=== PATIENT | female | born 1945 | race Caucasian/White ===

== ENCOUNTER 2019-05-11 13:32 | Inpatient (IN) | payer MEDICARE, OTHER ==
[2019-05-11] MEDS ORDERED: Potassium Replacement Protocol 1 EACH MISC MISCELLANE PRN (18:56)
[2019-05-11] MEDS ORDERED: LEVOFLOXACIN 500MG-D5W PMX 500 MG in DEXTROSE/WATER 1 100ML.BAG IVPB SCH (19:00)
[2019-05-11] MEDS ORDERED: ONDANSETRON 4 MG TAB PO PRN (19:03)
[2019-05-11] MEDS: SODIUM CHLORIDE 0.9% 1,000 ML IV SCH (20:25)
[2019-05-11] MEDS: PANTOPRAZOLE 40 MG/10 ML VIAL IVP SCH (20:37)
[2019-05-11] MEDS: POTASSIUM CHLORIDE 10 MEQ in WATER FOR INJECTION 1 100ML.BAG IVPB SCH ×2 (21:57→22:54)
[2019-05-12] MEDS: HEPARIN SODIUM,PORCINE 5,000 UNIT/ML 1 ML VIAL SQ SCH ×4 (00:01→23:46)
[2019-05-12] MEDS: MORPHINE SULFATE 2 MG/ML SYRINGE IVP PRN ×2 (05:34→12:33)
[2019-05-12 06:39] LABS: Anisocytosis Slight; Basophils % (A) 0 %; Eosinophils % (A) 0 %; HCT 25.2 % (34.0-46.0); HGB 7.8 gm/dL (11.4-16.0); Hypochromasia Slight; Lymphocytes # (A) 1.1 k/uL (1.0-4.8); Lymphocytes % (A) 12 %; MCH 22.8 pg (25.0-35.0); MCHC 31.1 g/dL (31.0-37.0); MCV 73.5 fL (80.0-100.0); Mean Platelet Volume 6.8; Microcytosis Moderate; Monocytes # (A) 0.9 k/uL (0-1.0); Monocytes % (A) 10 %; Neutrophils # (A) 6.6 k/uL (1.3-7.7); Neutrophils % (A) 74 %; Platelet Count 508 k/uL (150-450); RBC 3.43 m/uL (3.80-5.40); RDW 16.5 % (11.5-15.5)
[2019-05-12 06:56] LABS: INR 1.4 (<1.2); Prothrombin Time 13.5 sec (9.0-12.0)
[2019-05-12 06:58] LABS: ALT 11 U/L (4-34); AST 18 U/L (14-36); African American GFR (CKD) >90 (>60 ml/min/1.73 sqM); Albumin 2.4 g/dL (3.5-5.0); Alkaline Phosphatase 64 U/L (38-126); Anion Gap 11 mmol/L; Blood Urea Nitrogen 7 mg/dL (7-17); Carbon Dioxide 19 mmol/L (22-30); Chloride 103 mmol/L (98-107); Glucose 85 mg/dL (74-99); Non-African American GFR(CKD) >90 (>60 ml/min/1.73 sqM); Potassium 3.3 mmol/L (3.5-5.1); Sodium 133 mmol/L (137-145); Total Bilirubin 0.3 mg/dL (0.2-1.3); Total Protein 5.2 g/dL (6.3-8.2)
[2019-05-12] MEDS: metroNIDAZOLE-NS PMX 500 MG in SALINE 1 100ML.BAG IVPB SCH ×4 (08:10→23:44)
[2019-05-12] MEDS: PANTOPRAZOLE 40 MG/10 ML VIAL IVP SCH ×2 (08:10→20:49)
[2019-05-12 11:30] VITALS: BMI 23.2
[2019-05-12] MEDS ORDERED: MAGNESIUM CITRATE 296 ML BOTTLE PO ONE (11:47)
[2019-05-12] MEDS: SODIUM CHLORIDE 0.9% 1,000 ML IV SCH ×2 (12:13→15:27)
[2019-05-12] MEDS: POTASSIUM CHLORIDE 10 MEQ in WATER FOR INJECTION 1 100ML.BAG IVPB SCH ×4 (12:34→20:50)
--- NOTE | 2019-05-12 14:45 | P.HPIM ---
History of Present Illness 73-year-old the female was transferred from [facility] patient presents today with symptoms of gastric surgery reflux disease with epigastric sharp abdominal pain and nausea vomiting going on for 2 days epigastric abdomin al pain moderate severity has been going on for about 3 weeks. Patient is bit hyponatremic from nausea vomiting. Because of abdominal pain patient underwent CAT scan of the abdomen as well as chest which showed multiple nodular lesions in the chest along with a possible cancerous lesion in the cecum and a lesion in the liver. Patient will undergo upper GI endoscopy endoscopy tomorrow with possible biopsy of the cecal area. She used to smoke in the past quit smoking since 3 weeks since his been sick Review of Systems REVIEW OF SYSTEMS: CONSTITUTIONAL: No fever, no malaise, no fatigue. HEENT: No recent visual problems or hearing problems. Denied any sore throat. CARDIOVASCULAR: No chest pain, orthopnea, PND, no palpitations, no syncope. PULMONARY: No shortness of breath, no cough, no hemoptysis. GASTROINTESTINAL: No diarrhea. NEUROLOGICAL: No headaches, no weakness, no numbness. HEMATOLOGICAL: Denies any bleeding or petechiae. GENITOURINARY: Denies any burning micturition, frequency, or urgency. MUSCULOSKELETAL/RHEUMATOLOGICAL: Denies any joint pain, swelling, or any muscle pain. ENDOCRINE: Denies any polyuria or polydipsia. The rest of the 14-point review of systems is negative. Past Medical History Past Medical History: Liver Disease Additional Past Medical History / Comment(s): Patient states, "Hx. of Hepatitis C" for which she received treatment. Also states that she has early Osteoporosis. Vaginal childbirth x 5. History of Any Multi-Drug Resistant Organisms: None Reported Past Surgical History: No Surgical Hx Reported Additional Past Anesthesia/Blood Transfusion Reaction / Comment(s): No history Past Psychological History: No Psychological Hx Reported Smoking Status: Current every day smoker Past Alcohol Use History: Daily Additional Past Alcohol Use History / Comment(s): Has a daily drink with dinner. Medications and Allergies Home Medications Medication Instructions Recorded Confirmed Type Aspirin 81 mg PO DAILY 05/11/19 05/11/19 History Calcium Carbonate 500 mg PO DAILY 05/11/19 05/11/19 History Multivitamins, Thera [Multivitamin 1 tab PO DAILY 05/11/19 05/11/19 History (formulary)] Vitamin D3(Unknown Dose) 1 tab PO DAILY 05/11/19 05/11/19 History Allergies Allergy/AdvReac Type Severity Reaction Status Date / Time No Known Allergies Allergy Unverified 05/11/19 16:24 Physical Exam Vitals: Vital Signs Temp Pulse Resp BP Pulse Ox 05/12/19 11:24 98.4 F 89 16 150/72 99 05/12/19 04:00 99.0 F 92 16 130/67 96 05/11/19 22:31 16 05/11/19 20:45 98.3 F 84 16 149/71 99 05/11/19 16:29 99.2 F 107 H 17 134/55 98 Intake and Output 05/11/19 05/12/19 05/12/19 22:59 06:59 14:59 Intake Total 976 759 4288 Balance 790 638 8228 Intake: Intake, IV Titration 250 1200 Amount Levofloxacin 500Mg-D5w 100 Pmx 500 mg In Dextrose/ Water 1 100ml.bag @ 100 mls/hr IVPB Q24H MICHAEL Rx#: [id number] Potassium Chloride 10 meq 100 In Water For Injection 1 100ml.bag @ 100 mls/hr IVPB Q1HR MICHAEL Rx#: [id number] Sodium Chloride 0.9% 1, 150 1000 000 ml @ 125 mls/hr IV . Q8H MICHAEL Rx#:[id number] metroNIDAZOLE-NS PMX 500 100 mg In Saline 1 100ml.bag @ 100 mls/hr IVPB Q8HR MICHAEL Rx#:[id number] Oral 240 590 Other: # Voids 1 2 Weight 123 kg 55.792 kg PHYSICAL EXAMINATION: GENERAL: The patient is alert and oriented x3, not in any acute distress. Well developed, well nourished. HEENT: Pupils are round and equally reacting to light. EOMI. No scleral icterus. No conjunctival pallor. Normocephalic, atraumatic. No pharyngeal erythema. No thyromegaly. CARDIOVASCULAR: S1 and S2 present. No murmurs, rubs, or gallops. PULMONARY: Chest is clear to auscultation, no wheezing or crackles. ABDOMEN: Soft, nontender, nondistended, normoactive bowel sounds. No palpable organomegaly. MUSCULOSKELETAL: No joint swelling or deformity. EXTREMITIES: No cyanosis, clubbing, or pedal edema. NEUROLOGICAL: Gross neurological examination did not reveal any focal deficits. SKIN: No rashes. Results CBC & Chem 7: 05/12/19 06:24 05/12/19 06:24 Labs: Abnormal Lab Results - Last 24 Hours (Table) 05/12/19 05/12/19 05/12/19 Range/Units 06:24 06:24 06:24 RBC 3.43 L (3.80-5.40) m/uL Hgb 7.8 L (11.4-16.0) gm/dL Hct 25.2 L (34.0-46.0) % MCV 73.5 L (80.0-100.0) fL MCH 22.8 L (25.0-35.0) pg RDW 16.5 H (11.5-15.5) % Plt Count 508 H (150-450) k/uL PT 13.5 H (9.0-12.0) sec INR 1.4 H (<1.2) Sodium 133 L (137-145) mmol/L Potassium 3.3 L (3.5-5.1) mmol/L Carbon Dioxide 19 L (22-30) mmol/L Calcium 8.0 L (8.4-10.2) mg/dL Total Protein 5.2 L (6.3-8.2) g/dL Albumin 2.4 L (3.5-5.0) g/dL Thrombosis Risk Factor Assmnt - Choose All That Apply Any of the Below Risk Factors Present?: Yes Each Risk Factor Represents 2 Points: Age 61-74 years Thrombosis Risk Factor Assessment Total Risk Factor Score: 2 Thrombosis Risk Factor Assessment Level: Low Risk Assessment and Plan Plan: - epigastric abdominal pain along with the nausea vomiting: Probably secondary to peptic ulcer disease or gastritis patient will be continued on Protonix --Multiple pulmonary nodules probably metastatic disease from the: Computed tomography scan also showed some mild colitis will undergo colonoscopy tomorrow. -Cecal lesion or mass colonoscopy tomorrow -Hypovolemic hyponatremia IV fluids will be continued -Hypokalemia secondary to IV fluids and natriuresis from IV fluids will replace as needed -Nicotine abuse: Counseling was provided -Chronic iron deficiency anemia
--- NOTE | 2019-05-12 14:50 | P.CONS ---
History of Present Illness - Reason for Consult Consult date: 05/12/19 Cecal Mass, Abn in Liver and lung Requesting physician: Bria Powers - Chief Complaint Diarrhea, Weight loss, Weakness, Decreased po intake - History of Present Illness Nadira is a very pleasant 73 year old woman who originally presented to [facility] with complaints of diarrhea, decreased PO intake, weight loss, and overall generalized weakness. She states it came on suddenly approximately 3 weeks ago. 10lb weight loss in past 3 weeks. She has not seen a doctor in 40+ years per patient. She is a daily smoker. Denied alcohol. She had a CT scan at outside hospital which revealed suspicious areas in colon, lung and liver. She was then transferred to [facility] for further evaluation. She is scheduled to have colonoscopy and EGD tomorrow. Oncology has been consulted regarding these abnormal findings. On assessment she states she is feeling better. She has had adversions to all food recently and diarrhea. Her sister had bladder cancer and her brother had cancer as well, she did not recall the type. She has good support at home, lives with . Review of Systems A 14 point review of systems assessed and completed and all negative except HPI. Past Medical History Past Medical History: Liver Disease Additional Past Medical History / Comment(s): Patient states, "Hx. of Hepatitis C" for which she received treatment. Also states that she has early O steoporosis. Vaginal childbirth x 5. History of Any Multi-Drug Resistant Organisms: None Reported Past Surgical History: No Surgical Hx Reported Additional Past Anesthesia/Blood Transfusion Reaction / Comm: No history Past Psychological History: No Psychological Hx Reported Smoking Status: Current every day smoker Past Alcohol Use History: Daily Additional Past Alcohol Use History / Comment(s): Has a daily drink with dinner. Medications and Allergies Home Medications Medication Instructions Recorded Confirmed Type Aspirin 81 mg PO DAILY 05/11/19 05/11/19 History Calcium Carbonate 500 mg PO DAILY 05/11/19 05/11/19 History Multivitamins, Thera [Multivitamin 1 tab PO DAILY 05/11/19 05/11/19 History (formulary)] Vitamin D3(Unknown Dose) 1 tab PO DAILY 05/11/19 05/11/19 History Allergies Allergy/AdvReac Type Severity Reaction Status Date / Time No Known Allergies Allergy Unverified 05/11/19 16:24 Physical Exam Vitals: Vital Signs Temp Pulse Resp BP Pulse Ox 05/12/19 11:24 98.4 F 89 16 150/72 99 05/12/19 04:00 99.0 F 92 16 130/67 96 05/11/19 22:31 16 05/11/19 20:45 98.3 F 84 16 149/71 99 05/11/19 16:29 99.2 F 107 H 17 134/55 98 Intake and Output 05/11/19 05/12/19 05/12/19 22:59 06:59 14:59 Intake Total 490 590 Balance 490 590 Intake: Intake, IV Titration 250 Amount Levofloxacin 500Mg-D5w 100 Pmx 500 mg In Dextrose/ Water 1 100ml.bag @ 100 mls/hr IVPB Q24H [facility] Rx#: [id number] Sodium Chloride 0.9% 1, 150 000 ml @ 75 mls/hr IV . [id number] MICHAEL Rx#:[id number] Oral 240 590 Other: # Voids 1 2 Weight 123 kg 55.792 kg Gen: Alert and oriented NAD Head NCAT Neck Supple Lungs: Scattered wheezes, no increased effort Abdomen: Tender to palpation, BS x4 Heart: Tachy, reg Extremities: No edema Neuro: Non-focal Mood Calm Results CBC & Chem 7: 05/12/19 06:24 05/12/19 06:24 Labs: Abnormal Lab Results - Last 24 Hours (Table) 05/12/19 05/12/19 05/12/19 Range/Units 06:24 06:24 06:24 RBC 3.43 L (3.80-5.40) m/uL Hgb 7.8 L (11.4-16.0) gm/dL Hct 25.2 L (34.0-46.0) % MCV 73.5 L (80.0-100.0) fL MCH 22.8 L (25.0-35.0) pg RDW 16.5 H (11.5-15.5) % Plt Count 508 H (150-450) k/uL PT 13.5 H (9.0-12.0) sec INR 1.4 H (<1.2) Sodium 133 L (137-145) mmol/L Potassium 3.3 L (3.5-5.1) mmol/L Carbon Dioxide 19 L (22-30) mmol/L Calcium 8.0 L (8.4-10.2) mg/dL Total Protein 5.2 L (6.3-8.2) g/dL Albumin 2.4 L (3.5-5.0) g/dL CT scan - abdomen: report reviewed CT scan - chest: report reviewed CT scan - pelvis: report reviewed Assessment and Plan Plan: Assessment and Recommendations: 1. Suspicious Lung Nodules:Bilateral - Positive left Hilar Adenopathy, largest 3.2cm 2. Suspicious Liver Lesions: - approx 15 with largest 5.4cm in the right lobe 3. Inflammatory changes in cecum: - Colitis versus other - Malignancy can not be ruled out Plan: - Colonoscopy tomorrow - Check CEA - Discussed with primary team and patient Thank you for allowing us to participate in the care of this patient, we will follow along with you GRACIE Chan
[2019-05-12] MEDS ORDERED: PEG 3350-NA SULF,BICARB,CL/KCL 4,000 ML BOTTLE PO ONE (16:00)
[2019-05-12] MEDS ORDERED: BISACODYL 5 MG TABLET.DR PO PRN (17:00)
--- NOTE | 2019-05-12 17:54 | P.CONS ---
History of Present Illness - Reason for Consult Consult date: 05/12/[address] imaging, abdominal pain, microcytic anemia Requesting physician: Yuli Jacome - Chief Complaint Abdominal pain - History of Present Illness 73-year-old female who reports prior history of tobacco abuse discontinued 3 weeks ago had no other medical history (states she has not been in the hospital since her last ) who presented to the hospital initially with complaints of abdominal pain. The patient reported 3 weeks of pain in the epigastric region and left upper quadrant of her abdomen. She had 1-2 episodes of diarrhea which has been present over the past few days. She denies any prior history of similar complaints and reports no associated 10 pound weight loss due to decreased oral intake. She denies any prior EGD or colonoscopy and states that her had a perforation with this colonoscopy and this likely that a role in her not having a colonoscopy in the past. She did have testing with Cologard which she states was performed this year and was negative. She does report some reflux and difficulty swallowing over the past few days. She denies any signs or symptoms of GI bleeding reporting liquid brown stools over the past few days with no hematochezia or melena. She also reports abdominal bloating. She reports a past history of hepatitis C which she reports occurred at the age of 15 and she believes was treated in the past. Imaging performed the outside hospital was significant for computed tomography scan of the chest abdomen and pelvis with suspicious nodules in the lungs and liver suspicious for metastatic disease as well as mild pericolonic inflammatory changes of the cecum suspicious for a mass. Review of Systems REVIEW OF SYSTEMS: CONSTITUTIONAL: Denies any fevers, chills, but does report 10 pounds weight loss over the past few weeks due to decreased oral intake. CARDIOVASCULAR: Denies any chest pain, palpitations high or low blood pressures RESPIRATORY: Denies any shortness of breath, hemoptysis or cough. GENITOURINARY: No dysuria or hematuria. MUSCULOSKELETAL: No weakness reported. SKIN: Denies any new rashes or lesions, jaundice or pallor. PSYCHIATRIC: Denies any depression or anxiety. NEUROLOGY: Denies headache, denies any new focal deficits. EARS/NOSE/THROAT: No recent hearing change, congestion, nasal discharge or sore throat. EYES: No pain in eyes, discharge or change in vision. GASTROINTESTINAL: As per HPI. Past Medical History Past Medical History: Liver Disease Additional Past Medical History / Comment(s): Patient states, "Hx. of Hepatitis C" for which she received treatment. Also states that she has early Osteoporosis. Vaginal childbirth x 5. History of Any Multi-Drug Resistant Organisms: None Reported Past Surgical History: No Surgical Hx Reported Additional Past Anesthesia/Blood Transfusion Reaction / Comm: No history Past Psychological History: No Psychological Hx Reported Smoking Status: Current every day smoker Past Alcohol Use History: Daily Additional Past Alcohol Use History / Comment(s): Has a daily drink with dinner. Additional History: Family history: Reviewed with the patient in noncontributory to current medical presentation, although she does state a sister did have bladder cancer and a brother who had cancer of unknown etiology. Medications and Allergies Home Medications Medication Instructions Recorded Confirmed Type Aspirin 81 mg PO DAILY 05/11/19 05/11/19 History Calcium Carbonate 500 mg PO DAILY 05/11/19 05/11/19 History Multivitamins, Thera [Multivitamin 1 tab PO DAILY 05/11/19 05/11/19 History (formulary)] Vitamin D3(Unknown Dose) 1 tab PO DAILY 05/11/19 05/11/19 History Allergies Allergy/AdvReac Type Severity Reaction Status Date / Time No Known Allergies Allergy Unverified 05/11/19 16:24 Physical Exam Vitals: Vital Signs Temp Pulse Resp BP Pulse Ox 05/12/19 04:00 99.0 F 92 16 130/67 96 05/11/19 22:31 16 05/11/19 20:45 98.3 F 84 16 149/71 99 05/11/19 16:29 99.2 F 107 H 17 134/55 98 Intake and Output 05/11/19 05/12/19 05/12/19 22:59 06:59 14:59 Intake Total 490 590 Balance 490 590 Intake: Intake, IV Titration 250 Amount Levofloxacin 500Mg-D5w 100 Pmx 500 mg In Dextrose/ Water 1 100ml.bag @ 100 mls/hr IVPB Q24H MICHAEL Rx#: [id number] Sodium Chloride 0.9% 1, 150 000 ml @ 75 mls/hr IV . [id number] MICHAEL Rx#:[id number] Oral 240 590 Other: # Voids 1 2 Weight 123 kg On physical examination, patient appears comfortable in no apparent distress. HEAD: Normocephalic, atraumatic. EYES: No scleral icterus. No conjunctival injection. MOUTH: No lesions, tongue midline. NECK: Trachea midline, no gross abnormalities. CHEST: Clear to auscultation with no wheezing or rhonchi appreciated. HEART: Regular rate and rhythm. ABDOMEN: Soft, thin and mildly tender to palpation. Bowel sounds are positive. No organomegaly. No guarding or rigidity. EXTREMITIES: No pedal edema. SKIN: No rashes, no jaundice. NEUROLOGIC: Alert and oriented x3. No focal deficits. Results CBC & Chem 7: 05/12/19 06:24 05/12/19 06:24 Labs: Abnormal Lab Results - Last 24 Hours (Table) 05/12/19 05/12/19 05/12/19 Range/Units 06:24 06:24 06:24 RBC 3.43 L (3.80-5.40) m/uL Hgb 7.8 L (11.4-16.0) gm/dL Hct 25.2 L (34.0-46.0) % MCV 73.5 L (80.0-100.0) fL MCH 22.8 L (25.0-35.0) pg RDW 16.5 H (11.5-15.5) % Plt Count 508 H (150-450) k/uL PT 13.5 H (9.0-12.0) sec INR 1.4 H (<1.2) Sodium 133 L (137-145) mmol/L Potassium 3.3 L (3.5-5.1) mmol/L Carbon Dioxide 19 L (22-30) mmol/L Calcium 8.0 L (8.4-10.2) mg/dL Total Protein 5.2 L (6.3-8.2) g/dL Albumin 2.4 L (3.5-5.0) g/dL CT scan - abdomen: report reviewed (Computed tomography scan of the chest abdomen and pelvis with suspicious nodules in the lungs and liver suspicious for metastatic disease as well as mild pericolonic inflammatory changes of the cecum suspicious for a mass.) Assessment and Plan (1) Abdominal pain Narrative/Plan: 73-year-old female with no significant medical history but does report a long- standing history of tobacco abuse presenting to outside hospital with complaints of abdominal pain and decreased oral intake. She reports symptoms of abdominal fullness, bloating, pain and diarrhea occurring over the past few weeks. She had CT imaging concerning for lesions in the lungs, liver as well as possible cecal mass with inflammatory changes noted in that area of the colon. No prior endoscopic history. No signs or symptoms of GI bleeding however patient was also found to have a microcytic hypochromic anemia. Unknown etiology of pain with concerns for partially obstructing colonic mass, malignancy of other etiology, gastritis, peptic ulcer disease, or other etiology. Current Visit: Yes Status: Acute Code(s): R10.9 - UNSPECIFIED ABDOMINAL PAIN SNOMED Code(s): 78554103 (2) Abnormal computed tomography of abdomen and pelvis Current Visit: Yes Status: Acute Code(s): R93.5 - ABN FINDINGS ON DX IMAGING OF ABD REGIONS, INC RETROPERITON SNOMED Code(s): 325780031 (3) Microcytic hypochromic anemia Narrative/Plan: Patient denies any signs or symptoms of GI bleeding but was found to have a microcytic hypochromic anemia on presentation. Imaging suspicious for metastatic malignancy of unknown etiology which is likely the underlying cause of the anemia. Current Visit: Yes Status: Acute Code(s): D50.9 - IRON DEFICIENCY ANEMIA, UNSPECIFIED SNOMED Code(s): 17523231 Plan: Supportive care Clear liquid diet Oncology service consult. Tumor markers ordered Bowel prep ordered Nothing by mouth after midnight Plan for EGD and colonoscopy tomorrow for further evaluation Further recommendations pending findings of endoscopic evaluation Continue PPI therapy Thank you for allowing us to participate in the care of the patient we will continue to follow
[2019-05-13] MEDS ORDERED: MAGNESIUM CITRATE 296 ML BOTTLE PO ONE (04:00)
[2019-05-13] MEDS: SODIUM CHLORIDE 0.9% 1,000 ML IV SCH (04:30)
[2019-05-13] MEDS ORDERED: HYDROmorphone 0.5 MG/0.5 ML SYRINGE IVP PRN (07:02)
[2019-05-13] MEDS ORDERED: ONDANSETRON 4 MG/2 ML VIAL IVP ONE (07:02)
[2019-05-13] MEDS ORDERED: DEXAMETHASONE SOD PHOSPHATE 10 MG/ML 1 ML VIAL IV ONE (07:02)
[2019-05-13 08:08] LABS: Anisocytosis Slight; Basophils % (A) 0 %; Eosinophils % (A) 0 %; HCT 30.5 % (34.0-46.0); HGB 9.1 gm/dL (11.4-16.0); Hypochromasia Marked; Lymphocytes # (A) 1.3 k/uL (1.0-4.8); Lymphocytes % (A) 14 %; MCH 22.5 pg (25.0-35.0); MCV 75.2 fL (80.0-100.0); Mean Platelet Volume 6.3; Microcytosis Slight; Monocytes # (A) 0.6 k/uL (0-1.0); Monocytes % (A) 6 %; Neutrophils # (A) 7.4 k/uL (1.3-7.7); Neutrophils % (A) 77 %; Platelet Count 681 k/uL (150-450); RBC 4.05 m/uL (3.80-5.40); RDW 16.2 % (11.5-15.5); WBC 9.6 k/uL (3.8-10.6)
[2019-05-13 08:13] LABS: African American GFR (CKD) >90 (>60 ml/min/1.73 sqM); Anion Gap 14 mmol/L; Blood Urea Nitrogen 5 mg/dL (7-17); Calcium 8.7 mg/dL (8.4-10.2); Carbon Dioxide 18 mmol/L (22-30); Chloride 100 mmol/L (98-107); Glucose 87 mg/dL (74-99); Non-African American GFR(CKD) 89 (>60 ml/min/1.73 sqM); Potassium 3.6 mmol/L (3.5-5.1); Sodium 132 mmol/L (137-145)
[2019-05-13] MEDS: HEPARIN SODIUM,PORCINE 5,000 UNIT/ML 1 ML VIAL SQ SCH ×3 (10:15→21:47)
[2019-05-13] MEDS: metroNIDAZOLE-NS PMX 500 MG in SALINE 1 100ML.BAG IVPB SCH ×2 (10:17→19:45)
[2019-05-13] MEDS: PANTOPRAZOLE 40 MG/10 ML VIAL IVP SCH ×2 (10:18→20:07)
[2019-05-13] MEDS ORDERED: PROPOFOL 10 MG/ML 20 ML VIAL IV ONE (10:31)
[2019-05-13] MEDS ORDERED: LIDOCAINE 1% INJ 10MG/ML (20 ML MDV) ONE (10:31)
[2019-05-13] MEDS ORDERED: ePHEDrine SULFATE/0.9% NACL/PF 50 MG/5 ML SYRINGE IV ONE (10:31)
[2019-05-13] MEDS ORDERED: IV FLUID CONTINUATION 300 ML IV ONE (10:32)
[2019-05-13 10:44] LABS: Alpha Fetoprotein, Tumor Mkr 4.4 ng/mL (0.0-7.9)
[2019-05-13 11:14] LABS: Cancer Antigen 125 20.9 U/mL (0.0-30.1); Cancer Antigen 19-9 32.7 U/mL (0.0-34.9)
[2019-05-13] MEDS ORDERED: SODIUM CHLORIDE 0.9% 500 ML 500 ML IV ONE ×2 (11:14)
[2019-05-13 11:31] LABS: Carcinoembryonic Antigen 88.7 ng/mL (0.0-4.9)
--- NOTE | 2019-05-13 11:54 | P.PCN ---
Date of Procedure: 05/13/19 Description of Procedure: Brief history: 73-year-old female who reports prior history of tobacco abuse discontinued 3 weeks ago had no other medical history (states she has not been in the hospital since her last ) who presented to the hospital initially with complaints of abdominal pain. The patient reported 3 weeks of pain in the epigastric region and left upper quadrant of her abdomen. She had 1-2 episodes of diarrhea which has been present over the past few days. She denies any prior history of similar complaints and reports no associated 10 pound weight loss due to decreased oral intake. She denies any prior EGD or colonoscopy and states that her had a perforation with this colonoscopy and this likely that a role in her not having a colonoscopy in the past. She did have testing with Cologard which she states was performed this year and was negative. She does report some reflux and difficulty swallowing over the past few days. She denies any signs or symptoms of GI bleeding reporting liquid brown stools over the past few days with no hematochezia or melena. She also reports abdominal bloating. She reports a past history of hepatitis C which she reports occurred at the age of 15 and she believes was treated in the past. Imaging performed the outside hospital was significant for computed tomography scan of the chest abdomen and pelvis with suspicious nodules in the lungs and liver suspicious for metastatic disease as well as mild pericolonic inflammatory changes of the cecum suspicious for a mass. Procedure performed: Esophagogastroduodenoscopy with biopsy Colonoscopy with biopsy, polypectomy and tattoo Estimated blood loss: Minimal. Preoperative diagnosis: Iron deficiency anemia, abdominal pain, abnormal computed tomography scan abdomen, elevated CEA Anesthesia: MAC Procedure: After informed consent was obtained from the patient was brought into the endoscopy unit and IV sedation was administered by anesthesia under continuous monitoring. Initially upper endoscopy was done. The Olympus GF 190 video endoscope was inserted into the mouth and esophagus intubated without any difficulty and was gradually advanced into the stomach and duodenum and carefully examined. The bulb and second part of the duodenum appeared normal, with biopsies taken. The scope was then withdrawn into the stomach adequately insufflated with air and upon careful examination the antrum and body, cardia and fundus appeared normal, except for some mild gastritis of the antrum and body suggestive of mild gastritis with biopsies taken. The scope was then withdrawn into the esophagus. The GE junction was located at 37 cm to the in cisors. It appeared regular with no erythema erosions or ulcerations. Rest of the esophagus appeared normal. Patient tolerated the procedure well. At this time the patient continued to remain sedation. Initial digital rectal examination was normal. Olympus CF 190 video colonoscope was then inserted into the rectum and gradually advanced to the ascending colon where a almost completely obstructing mass was noted. Careful examination was performed as the scope was gradually being withdrawn. The prep was fair with a large amount of stool throughout the entire colon. The ascending colon, transverse colon, descending colon, sigmoid colon and rectum were examined and in the mid ascending colon and almost obstructing colon mass was seen. The mass was circumferential with multiple biopsies of the mass taken. The scope was unable to traverse the mass an accurate measurement of the mass was unable to be performed. Multiple biopsies taken as dictated and 2 tattoos placed distal to the mass with 5 mL of ink injected. 2 pedunculated polyps were also noted in the sigmoid measuring 25 mm approximately 35 cm from the anal verge and removed with hot snare polypectomy and in the rectosigmoid measuring 15 mm in size approximately 25 cm from the anal verge and removed with hot snare polypectomy. Mild left colonic diverticulosis was also noted. Retroflexion was performed in the rectum and no lesions were noted, moderate internal hemorrhoids. Patient tolerated the procedure well. Impression: 1. Mild gastritis antrum body, biopsied. Duodenal biopsies. 2. Ascending colon mass almost completely obstructing the lumen in circumferential with multiple biopsies taken and tattoos placed distal to the mass. 2 pedunculated polyps in the sigmoid and rectosigmoid removed with hot sn are polypectomy. Mild left colonic diverticulosis. Moderate internal hemorrhoids. Recommendations: Findings of this examination were discussed with the patient. Okay for liquid diet. Await pathology from biopsies and polypectomy. Surgical consult will be placed. Oncology services are following. Case discussed with the primary team.
--- NOTE | 2019-05-13 13:48 | P.PN ---
Subjective Progress Note Date: 05/13/19 Principal diagnosis: new nodules lung and liver, anemia Colonoscopy performed today. Per GI notes: Mild gastritis antrum body, biopsied. Duodenal biopsies. Ascending colon mass almost completely obstructing the lumen in circumferential with multiple biopsies taken and tattoos placed distal to the mass. Objective - Vital Signs Vital signs: Vital Signs Temp 97.5 F L 05/13/19 12:07 Pulse 88 05/13/19 12:07 Resp 16 05/13/19 12:07 BP 147/76 05/13/19 12:07 Pulse Ox 98 05/13/19 12:07 Intake & Output 05/12/19 05/13/19 05/13/19 18:59 06:59 18:59 Intake Total 1200 1450 400 Balance 1200 1450 400 Weight 55.792 kg Intake: IV 400 Intake, IV Titration 1200 1450 Amount Potassium Chloride 10 meq 100 100 In Water For Injection 1 100ml.bag @ 100 mls/hr IVPB Q1HR MICHAEL Rx#: [id number] Sodium Chloride 0.9% 1, 1000 1250 000 ml @ 125 mls/hr IV . Q8H MICHAEL Rx#:[id number] metroNIDAZOLE-NS PMX 500 100 100 mg In Saline 1 100ml.bag @ 100 mls/hr IVPB Q8HR MICHAEL Rx#:[id number] Other: Voiding Method Toilet Toilet # Voids 2 - Exam Gen: Alert and oriented NAD Head NCAT Neck Supple Lungs: Scattered wheezes, no increased effort Abdomen: Tender to palpation, BS x4 Heart: Tachy, reg Extremities: No edema Neuro: Non-focal Mood Calm - Labs CBC & Chem 7: 05/13/19 07:24 05/13/19 07:24 Labs: Abnormal Lab Results - Last 24 Hours (Table) 05/13/19 05/13/19 05/13/19 Range/Units 07:24 07:24 07:24 Hgb 9.1 L (11.4-16.0) gm/dL Hct 30.5 L (34.0-46.0) % MCV 75.2 L (80.0-100.0) fL MCH 22.5 L (25.0-35.0) pg MCHC 30.0 L (31.0-37.0) g/dL RDW 16.2 H (11.5-15.5) % Plt Count 681 H (150-450) k/uL Sodium 132 L (137-145) mmol/L Carbon Dioxide 18 L (22-30) mmol/L BUN 5 L (7-17) mg/dL Osmolality (280-301) mosm/kg Carcinoembryonic Ag 88.7 H (0.0-4.9) ng/mL 05/12/ Range/Units 07:24 Hgb (11.4-16.0) gm/dL Hct (34.0-46.0) % MCV (80.0-100.0) fL MCH (25.0-35.0) pg MCHC (31.0-37.0) g/dL RDW (11.5-15.5) % Plt Count (150-450) k/uL Sodium (137-145) mmol/L Carbon Dioxide (22-30) mmol/L BUN (7-17) mg/dL Osmolality 269 L (280-301) mosm/kg Carcinoembryonic Ag (0.0-4.9) ng/mL Assessment and Plan Plan: Assessment and Recommendations: 1. Suspicious Lung Nodules:Bilateral - Positive left Hilar Adenopathy, largest 3.2cm 2. Suspicious Liver Lesions: - approx 15 with largest 5.4cm in the right lobe - History Hepatitis C, ?biopsy of liver lesions 3. Inflammatory changes in cecum: - Colitis versus other - Malignancy can not be ruled out - status Post colonoscopy today, Ascending colon mass identified with near obstruction of the lumen in circumferential. - Await pathology to result although this is likely a picture of metastatic co cl cancer. - CEA increased 88 4. Normocytic Anemia: - Likely related to malnutrition and iron deficiency - iron panel, LDH, B12, Folate ordered 5. Thombocytosis: - Reactive. Plan: - Await path - anemia work-up - discussed findings with patient. - History of hep C and lack of preventative medical care, difficult to known if metastatic disease to liver (although suspicious), discussed with general surgical as they are planning colectomy tomorrow. Will obtain liver lesion biopsy as well. Patient agreeable to plan. - Further recommendations after results are final GRACIE Chan
--- NOTE | 2019-05-13 13:56 | P.PN ---
Subjective Progress Note Date: 05/13/19 Principal diagnosis: 73-year-old the female was transferred from [facility] patient presents today with symptoms of gastric surgery reflux disease with epigastric sharp abdominal pain and nausea vomiting going on for 2 days epigastric abdominal pain moderate severity has been going on for about 3 weeks. Patient is bit hyponatremic from nausea vomiting. Because of abdominal pain patient underwent CAT scan of the abdomen as well as chest which showed multiple nodular lesions in the chest along with a possible cancerous lesion in the cecum and a lesion in the liver. Patient will undergo upper GI endoscopy endoscopy tomorrow with possible biopsy of the cecal area. She used to smoke in the past quit smoking since 3 weeks since his been sick 05/13/2019 Patient is seen and evaluated in follow-up today awaiting to undergo EGD and colonoscopy with GI today. Patient is having some rectal discomfort status post enema and states she does have history of hemorrhoids with some mild blood noted in the stool. Currently no reports of chest pain, shortness of breath, or palpitations. Patient is having some nausea and does have Zofran ordered. Patient is nothing by mouth at this time as she was prepping for the procedure. A surgery consult was placed as the patient's colonoscopy shows mild gastritis antrum body that were biopsied along with duodenal biopsies, ascending colon mass almost completely obstructing the lumen and circumferential with multiple biopsies taken and 2 pedunculated polyps in the sigmoid and rectosigmoid were removed, and mild left colonic diverticulosis with some moderate internal hemorrhoids. Will await report from surgery. Patient's sodium continues to be slightly low at 132. Will discontinue IV fluids and place the patient on 1500 mL fluid restrictions. Patient can resume clear liquid diet until midnight. Objective - Vital Signs Vital signs: Vital Signs Temp 97.5 F L 05/13/19 12:07 Pulse 88 05/13/19 12:07 Resp 16 05/13/19 12:07 BP 147/76 05/13/19 12:07 Pulse Ox 98 05/13/19 12:07 Intake & Output 05/12/19 05/13/19 05/13/19 18:59 06:59 18:59 Intake Total 1200 1450 400 Balance 1200 1450 400 Weight 55.792 kg Intake: IV 400 Intake, IV Titration 1200 1450 Amount Potassium Chloride 10 meq 100 100 In Water For Injection 1 100ml.bag @ 100 mls/hr IVPB Q1HR MICHAEL Rx#: [id number] Sodium Chloride 0.9% 1, 1000 1250 000 ml @ 125 mls/hr IV . Q8H MICHAEL Rx#:[id number] metroNIDAZOLE-NS PMX 500 100 100 mg In Saline 1 100ml.bag @ 100 mls/hr IVPB Q8HR MICHAEL Rx#:[id number] Other: Voiding Method Toilet Toilet # Voids 2 - Exam GENERAL: The patient is alert and oriented x3, not in any acute distress. Well developed, well nourished. HEENT: Pupils are round and equally reacting to light. EOMI. No scleral icterus. No conjunctival pallor. Normocephalic, atraumatic. No pharyngeal erythema. No thyromegaly. CARDIOVASCULAR: S1 and S2 present. No murmurs, rubs, or gallops. PULMONARY: Chest is clear to auscultation, no wheezing or crackles. ABDOMEN: Soft, nontender, nondistended, normoactive bowel sounds. No palpable organomegaly. MUSCULOSKELETAL: No joint swelling or deformity. EXTREMITIES: No cyanosis, clubbing, or pedal edema. NEUROLOGICAL: Gross neurological examination did not reveal any focal deficits. SKIN: No rashes. - Labs CBC & Chem 7: 05/13/19 07:24 05/13/19 07:24 Labs: Abnormal Lab Results - Last 24 Hours (Table) 05/13/19 05/13/19 05/13/19 Range/Units 07:24 07:24 07:24 Hgb 9.1 L (11.4-16.0) gm/dL Hct 30.5 L (34.0-46.0) % MCV 75.2 L (80.0-100.0) fL MCH 22.5 L (25.0-35.0) pg MCHC 30.0 L (31.0-37.0) g/dL RDW 16.2 H (11.5-15.5) % Plt Count 681 H (150-450) k/uL Sodium 132 L (137-145) mmol/L Carbon Dioxide 18 L (22-30) mmol/L BUN 5 L (7-17) mg/dL Osmolality (280-301) mosm/kg Carcinoembryonic Ag 88.7 H (0.0-4.9) ng/mL 03/25/20 Range/Units 07:24 Hgb (11.4-16.0) gm/dL Hct (34.0-46.0) % MCV (80.0-100.0) fL MCH (25.0-35.0) pg MCHC (31.0-37.0) g/dL RDW (11.5-15.5) % Plt Count (150-450) k/uL Sodium (137-145) mmol/L Carbon Dioxide (22-30) mmol/L BUN (7-17) mg/dL Osmolality 269 L (280-301) mosm/kg Carcinoembryonic Ag (0.0-4.9) ng/mL Assessment and Plan Assessment: -epigastric abdominal pain along with the nausea vomiting: Probably secondary to peptic ulcer disease or gastritis patient will be continued on Protonix -Multiple pulmonary nodules probably metastatic disease from the colon. Patient underwent EGD and colonoscopy showing mild gastritis antrum body that were biopsied along with multiple duodenal biopsies, ascending colon mass almost completely obstructing the lumen with multiple biopsies and tattoos placed distal to the mass, 2 pedunculated polyps in the sigmoid and rectosigmoid that were removed, mild left colonic diverticulosis, and moderate internal hemorrhoids -Cecal lesion or mass noted of the ascending colon that is almost completely ob structing the lumen and circumferential as noted in the colonoscopy. Surgery has been consulted -Hypovolemic hyponatremia. Sodium is 132 today. IV fluids will be discontinued and patient will be placed on 1500 mL fluid restriction -Hypokalemia secondary to IV fluids and natriuresis. Potassium today is 3.6 -Nicotine abuse: Counseling was provided -Chronic iron deficiency anemia
--- NOTE | 2019-05-13 14:21 | P.GSCN ---
History of Present Illness Consult date: 05/13/19 Reason for Consult: ascending colon mass Requesting physician: Yoanna Almanzar History of present illness: CHIEF COMPLAINT: Ascending colon mass HISTORY OF PRESENT ILLNESS: 73 year old female who presented to the emergency room with abdominal pain. Patient apparently had a CT scan performed at an outside facility that showed suspicious nodules in the lungs and liver suspici ous for metastatic disease. Patient underwent colonoscopy today with Dr. Steel revealing an ascending colon mass that is almost completely obstructing the lumen of the colon. General surgery was consulted for further evaluation. Patient examined at the bedside. She denies abdominal pain. She reports difficulty tolerating PO intake for the last 3 weeks. PAST MEDICAL HISTORY: See list. PAST SURGICAL HISTORY: See list. SOCIAL HISTORY: No illicit drug use. REVIEW OF SYSTEMS: CONSTITUTIONAL: Denies fever or chills. HEENT: Denies blurred vision, vision changes, or eye pain. Denies hemoptysis CARDIOVASCULAR: Denies chest pain or pressure. RESPIRATORY: No shortness of breath. GASTROINTESTINAL: Refer to HPI for pertinent findings HEMATOLOGIC: Denies bleeding disorders. GENITOURINARY: Denies any blood in urine. SKIN: Denies pruitis. Denies rash. PHYSICAL EXAM: VITAL SIGNS: Reviewed. GENERAL: Well-developed in no acute distress. HEENT: No sclera icterus. Extraocular movements grossly intact. Moist buccal mucosa. Head is atraumatic, normocephalic. ABDOMEN: Soft. Nondistended. Nontender. NEUROLOGIC: Alert and oriented. Cranial nerves II through XII grossly intact. LABORATORY DATA: WBC 9.6. Hemoglobin 9.1. Platelet count 681. ASSESSMENT: 1. Ascending colon mass 2. Abnormal CT revealing suspicion for metastatic nodules and liver and lung PLAN: Clear liquid diet. NPO at midnight Patient to undergo right colectomy with possible colostomy tomorrow with Dr. Monroe Nurse practitioner note has been reviewed by physician. Signing provider agrees with the documented findings, assessment, and plan of care. Past Medical History Past Medical History: Liver Disease Additional Past Medical History / Comment(s): Patient states, "Hx. of Hepatitis C" for which she received treatment. Also states that she has early Osteoporosis. Vaginal childbirth x 5. History of Any Multi-Drug Resistant Organisms: None Reported Past Surgical History: No Surgical Hx Reported Additional Past Anesthesia/Blood Transfusion Reaction / Comm: No history Past Psychological History: No Psychological Hx Reported Smoking Status: Current every day smoker Past Alcohol Use History: Daily Additional Past Alcohol Use History / Comment(s): Has a daily drink with dinner. Medications and Allergies Home Medications Medication Instructions Recorded Confirmed Type Aspirin 81 mg PO DAILY 05/11/19 05/11/19 History Calcium Carbonate 500 mg PO DAILY 05/11/19 05/11/19 History Multivitamins, Thera [Multivitamin 1 tab PO DAILY 05/11/19 05/11/19 History (formulary)] Vitamin D3(Unknown Dose) 1 tab PO DAILY 05/11/19 05/11/19 History Allergies Allergy/AdvReac Type Severity Reaction Status Date / Time No Known Allergies Allergy Unverified 05/11/19 16:24 Surgical - Exam Vital Signs Temp Pulse Resp BP Pulse Ox 99.2 F 107 H 17 134/55 98 05/11/19 16:29 05/11/19 16:29 05/11/19 16:29 05/11/19 16:29 05/11/19 16:29 Results - Labs 05/13/19 07:24 05/13/19 07:24 Abnormal Lab Results - Last 24 Hours (Table) 05/13/19 05/13/19 05/13/19 Range/Units 07:24 07:24 07:24 Hgb 9.1 L (11.4-16.0) gm/dL Hct 30.5 L (34.0-46.0) % MCV 75.2 L (80.0-100.0) fL MCH 22.5 L (25.0-35.0) pg MCHC 30.0 L (31.0-37.0) g/dL RDW 16.2 H (11.5-15.5) % Plt Count 681 H (150-450) k/uL Sodium 132 L (137-145) mmol/L Carbon Dioxide 18 L (22-30) mmol/L BUN 5 L (7-17) mg/dL Osmolality (280-301) mosm/kg Carcinoembryonic Ag 88.7 H (0.0-4.9) ng/mL 05/13/19 Range/Units 07:24 Hgb (11.4-16.0) gm/dL Hct (34.0-46.0) % MCV (80.0-100.0) fL MCH (25.0-35.0) pg MCHC (31.0-37.0) g/dL RDW (11.5-15.5) % Plt Count (150-450) k/uL Sodium (137-145) mmol/L Carbon Dioxide (22-30) mmol/L BUN (7-17) mg/dL Osmolality 269 L (280-301) mosm/kg Carcinoembryonic Ag (0.0-4.9) ng/mL Diabetes panel 05/13/19 Range/Units 07:24 Sodium 132 L (137-145) mmol/L Potassium 3.6 (3.5-5.1) mmol/L Chloride 100 (98-107) mmol/L Carbon Dioxide 18 L (22-30) mmol/L BUN 5 L (7-17) mg/dL Creatinine 0.63 (0.52-1.04) mg/dL Glucose 87 (74-99) mg/dL Calcium 8.7 (8.4-10.2) mg/dL Thyroid panel 05/13/19 Range/Units 07:24 TSH 2.750 (0.465-4.680) mIU/L Calcium panel 05/13/19 Range/Units 07:24 Calcium 8.7 (8.4-10.2) mg/dL Pituitary panel 05/13/19 05/13/19 Range/Units 07:24 07:24 Sodium 132 L (137-145) mmol/L Potassium 3.6 (3.5-5.1) mmol/L Chloride 100 (98-107) mmol/L Carbon Dioxide 18 L (22-30) mmol/L BUN 5 L (7-17) mg/dL Creatinine 0.63 (0.52-1.04) mg/dL Glucose 87 (74-99) mg/dL Calcium 8.7 (8.4-10.2) mg/dL TSH 2.750 (0.465-4.680) mIU/L Adrenal panel 05/13/19 Range/Units 07:24 Sodium 132 L (137-145) mmol/L Potassium 3.6 (3.5-5.1) mmol/L Chloride 100 (98-107) mmol/L Carbon Dioxide 18 L (22-30) mmol/L BUN 5 L (7-17) mg/dL Creatinine 0.63 (0.52-1.04) mg/dL Glucose 87 (74-99) mg/dL Calcium 8.7 (8.4-10.2) mg/dL
[2019-05-13] MEDS: LACTATED RINGERS 1,000 ML IV SCH (18:01)
[2019-05-13 19:23] LABS: % Iron Saturation 4.69 (12.00-45.00)
[2019-05-13 19:28] LABS: Ferritin 70.2 ng/mL (10.0-291.0)
[2019-05-13 19:37] LABS: Reticulocyte % 0.69 % (0.10-1.80)
[2019-05-14] MEDS: metroNIDAZOLE-NS PMX 500 MG in SALINE 1 100ML.BAG IVPB SCH ×3 (03:08→21:07)
[2019-05-14] MEDS: HEPARIN SODIUM,PORCINE 5,000 UNIT/ML 1 ML VIAL SQ SCH ×3 (07:39→23:35)
[2019-05-14] MEDS: PANTOPRAZOLE 40 MG/10 ML VIAL IVP SCH ×2 (08:49→21:20)
[2019-05-14 09:20] LABS: Anisocytosis Slight; Basophils % (A) 0 %; Eosinophils % (A) 0 %; HCT 28.7 % (34.0-46.0); HGB 8.6 gm/dL (11.4-16.0); Hypochromasia Marked; Lymphocytes # (A) 1.6 k/uL (1.0-4.8); Lymphocytes % (A) 17 %; MCH 22.3 pg (25.0-35.0); MCHC 29.9 g/dL (31.0-37.0); MCV 74.6 fL (80.0-100.0); Mean Platelet Volume 6.6; Microcytosis Slight; Monocytes # (A) 0.7 k/uL (0-1.0); Monocytes % (A) 7 %; Neutrophils # (A) 6.9 k/uL (1.3-7.7); Neutrophils % (A) 73 %; Platelet Count 658 k/uL (150-450); RBC 3.85 m/uL (3.80-5.40); RDW 16.3 % (11.5-15.5); WBC 9.4 k/uL (3.8-10.6)
[2019-05-14 09:31] LABS: African American GFR (CKD) >90 (>60 ml/min/1.73 sqM); Anion Gap 12 mmol/L; Blood Urea Nitrogen 5 mg/dL (7-17); Calcium 8.5 mg/dL (8.4-10.2); Carbon Dioxide 19 mmol/L (22-30); Chloride 103 mmol/L (98-107); Glucose 99 mg/dL (74-99); INR 1.2 (<1.2); Non-African American GFR(CKD) 86 (>60 ml/min/1.73 sqM); Potassium 3.5 mmol/L (3.5-5.1); Prothrombin Time 12.2 sec (9.0-12.0); Sodium 134 mmol/L (137-145)
[2019-05-14] MEDS ORDERED: LACTATED RINGERS 1,000 ML IV ONE ×2 (11:30→16:16)
[2019-05-14] MEDS ORDERED: IV FLUID CONTINUATION 1,000 ML IV ONE (11:30)
[2019-05-14] MEDS ORDERED: MIDAZOLAM 2 MG/2 ML VIAL IVP ONE (13:14)
--- NOTE | 2019-05-14 13:52 | P.PN ---
Subjective Progress Note Date: 05/14/19 Principal diagnosis: 73-year-old the female was transferred from [facility] patient presents today with symptoms of gastric surgery reflux disease with epigastric sharp abdominal pain and nausea vomiting going on for 2 days epigastric abdominal pain moderate severity has been going on for about 3 weeks. Patient is bit hyponatremic from nausea vomiting. Because of abdominal pain patient underwent CAT scan of the abdomen as well as chest which showed multiple nodular lesions in the chest along with a possible cancerous lesion in the cecum and a lesion in the liver. Patient will undergo upper GI endoscopy endoscopy tomorrow with possible biopsy of the cecal area. She used to smoke in the past quit smoking since 3 weeks since his been sick 05/13/2019 Patient is seen and evaluated in follow-up today awaiting to undergo EGD and colonoscopy with GI today. Patient is having some rectal discomfort status post enema and states she does have history of hemorrhoids with some mild blood noted in the stool. Currently no reports of chest pain, shortness of breath, or palpitations. Patient is having some nausea and does have Zofran ordered. Patient is nothing by mouth at this time as she was prepping for the procedure. A surgery consult was placed as the patient's colonoscopy shows mild gastritis antrum body that were biopsied along with duodenal biopsies, ascending colon mass almost completely obstructing the lumen and circumferential with multiple biopsies taken and 2 pedunculated polyps in the sigmoid and rectosigmoid were removed, and mild left colonic diverticulosis with some moderate internal hemorrhoids. Will await report from surgery. Patient's sodium continues to be slightly low at 132. Will discontinue IV fluids and place the patient on 1500 mL fluid restrictions. Patient can resume clear liquid diet until midnight. 05/14/2019 Patient is seen in follow-up today awaiting to undergo surgery on the colon mass with Dr. Monroe today. Patient has been nothing by mouth. Patient states she continues to have some loose stools that are liquid in nature. No blood noted. Patient did have multiple enemas yesterday prior to colonoscopy. Patient will also be undergoing a liver biopsy during the procedure to assess for metastasis. Will await report. Currently no reports of chest pain, shortness of breath, or palpitations. Patient is afebrile. No reports of nausea or vomiting and patient has been nothing by mouth as mentioned previously. Will repeat a.m. labs. Objective - Vital Signs Vital signs: Vital Signs Temp 98.2 F 05/14/19 11:40 Pulse 86 05/14/19 11:40 Resp 16 05/14/19 11:40 BP 159/76 05/14/19 11:40 Pulse Ox 98 05/14/19 11:40 Intake & Output 05/13/19 05/14/19 05/14/19 18:59 06:59 18:59 Intake Total 1000 500 Balance 1000 500 Intake: IV 400 Intake, IV Titration 300 200 Amount Sodium Chloride 0.9% 1, 300 000 ml @ 125 mls/hr IV . Q8H MICHAEL Rx#:[id number] metroNIDAZOLE-NS PMX 500 200 mg In Saline 1 100ml.bag @ 100 mls/hr IVPB Q8H MICHAEL Rx#:[id number] Oral 300 300 Other: Voiding Method Toilet Toilet Toilet # Voids 2 1 # Bowel Movements 1 - Exam GENERAL: The patient is alert and oriented x3, not in any acute distress. Well developed, well nourished. HEENT: Pupils are round and equally reacting to light. EOMI. No scleral icterus. No conjunctival pallor. Normocephalic, atraumatic. No pharyngeal erythema. No thyromegaly. CARDIOVASCULAR: S1 and S2 present. No murmurs, rubs, or gallops. PULMONARY: Chest is clear to auscultation, no wheezing or crackles. ABDOMEN: Soft, nontender, nondistended, normoactive bowel sounds. No palpable organomegaly. MUSCULOSKELETAL: No joint swelling or deformity. EXTREMITIES: No cyanosis, clubbing, or pedal edema. NEUROLOGICAL: Gross neurological examination did not reveal any focal deficits. SKIN: No rashes. - Labs CBC & Chem 7: 05/14/19 09:01 05/14/19 09:01 Labs: Abnormal Lab Results - Last 24 Hours (Table) 05/12/19 05/13/19 05/14/19 Range/Units 06:24 07:24 09:01 Hgb (11.4-16.0) gm/dL Hct (34.0-46.0) % MCV (80.0-100.0) fL MCH (25.0-35.0) pg MCHC (31.0-37.0) g/dL RDW (11.5-15.5) % Plt Count (150-450) k/uL PT 12.2 H (9.0-12.0) sec INR 1.2 H (<1.2) Sodium (137-145) mmol/L Carbon Dioxide (22-30) mmol/L BUN (7-17) mg/dL Osmolality 269 L (280-301) mosm/kg Iron 9 L (50-170) ug/dL TIBC 192 L (228-460) ug/dL % Saturation 4.69 L (12.00-45.00) 05/14/19 05/14/19 Range/Units 09:01 09:01 Hgb 8.6 L (11.4-16.0) gm/dL Hct 28.7 L (34.0-46.0) % MCV 74.6 L (80.0-100.0) fL MCH 22.3 L (25.0-35.0) pg MCHC 29.9 L (31.0-37.0) g/dL RDW 16.3 H (11.5-15.5) % Plt Count 658 H (150-450) k/uL PT (9.0-12.0) sec INR (<1.2) Sodium 134 L (137-145) mmol/L Carbon Dioxide 19 L (22-30) mmol/L BUN 5 L (7-17) mg/dL Osmolality (280-301) mosm/kg Iron (50-170) ug/dL TIBC (228-460) ug/dL % Saturation (12.00-45.00) Assessment and Plan Assessment: -epigastric abdominal pain along with the nausea vomiting: Probably secondary to peptic ulcer disease or gastritis patient will be continued on Protonix -Multiple pulmonary nodules probably metastatic disease from the colon. Patient underwent EGD and colonoscopy showing mild gastritis antrum body that were biopsied along with multiple duodenal biopsies, ascending colon mass almost completely obstructing the lumen with multiple biopsies and tattoos placed distal to the mass, 2 pedunculated polyps in the sigmoid and rectosigmoid that were removed, mild left colonic diverticulosis, and moderate internal hemorrhoids -Cecal lesion or mass noted of the ascending colon that is almost completely obstructing the lumen and circumferential as noted in the colonoscopy. Surgery today with Dr. Monroe for removal of the colon mass. Will await report. -Hypovolemic hyponatremia. Improving, Sodium is 134 today. on 1500 mL fluid restriction -Hypokalemia secondary to IV fluids and natriuresis. Potassium today is 3.5 -Nicotine abuse: Counseling was provided -Chronic iron deficiency anemia
[2019-05-14] MEDS ORDERED: NALOXONE 0.4 MG/ML 1 ML VIAL IV PRN (14:47)
[2019-05-14] MEDS ORDERED: SUCCINYLCHOLINE CHLORIDE 100 MG/5 ML SYR IV ONE (15:31)
[2019-05-14] MEDS ORDERED: MIDAZOLAM 2 MG/2 ML VIAL ONE (15:31)
[2019-05-14] MEDS ORDERED: NEOSTIGMINE 1 MG/ML 10 ML VIAL ONE (15:31)
[2019-05-14] MEDS ORDERED: fentaNYL (PF) 50 MCG/ML 2 ML AMP ONE (15:31)
[2019-05-14] MEDS ORDERED: ROCURONIUM BROMIDE 10 MG/ML 5 ML VIAL IV ONE (15:31)
[2019-05-14] MEDS ORDERED: LIDOCAINE 1% INJ 10MG/ML (20 ML MDV) ONE (15:31)
[2019-05-14] MEDS ORDERED: PROPOFOL 10 MG/ML 20 ML VIAL IV ONE (15:31)
[2019-05-14] MEDS ORDERED: GLYCOPYRROLATE 0.2 MG/ML 2 ML VIAL ONE (15:31)
[2019-05-14] MEDS ORDERED: SODIUM CHLORIDE 0.9% 100 ML with ceFAZolin 2,000 MG IV ONE ×2 (16:00)
[2019-05-14 17:01] LABS: Folate, Serum 12.5 ng/mL
[2019-05-14] MEDS ORDERED: METOCLOPRAMIDE 5 MG/ML 2 ML VIAL IVP PRN (17:01)
[2019-05-14] MEDS ORDERED: ONDANSETRON 4 MG/2 ML VIAL IVP PRN (17:01)
--- NOTE | 2019-05-14 17:01 | P.OP ---
Date of Procedure: 05/14/19 Preoperative Diagnosis: Right colon cancer Postoperative Diagnosis: Right colon cancer with metastatic spread to liver Procedure(s) Performed: Right colectomy Liver biopsy Anesthesia: ROSARIO Surgeon: Terrence Monroe [employer] Operator #1: Edouard Perez Estimated Blood Loss (ml): 25 Pathology: other (Liver biopsy, right colon) Condition: stable Disposition: PACU Description of Procedure: The patient's placed on the operating table in supine position. She received general anesthesia. Her abdomen was prepped and draped usual sterile fashion. The abdomen entered through midline incision. The Bookwalter tract with wound. The abdomen was explored. There is obvious metastatic tumor in the left lateral lobe liver. An incisional biopsy was made using a 15 blade. Electrocautery was used for is hemostasis. The small bowel was run. The rigid there appeared to be evidence of dilation of the small bowel due to chronic obstruction in the terminal ileum. In the right colon there was an obvious tumor. At this point the terminal ileum was transected with a GI stapler. The transverse colon was transected with a GI stapler. Using the Enseal device the mesentery of the colon was divided. There were enlarged lymph nodes within the mesentery. The right colic vessels were ligated with 0 silk ties. The specimen sent to pathology. The bowel was ran reanastomosed using the KEYANNA and TA stapler in a jibr-et-pape functional end-to-end staple anastomosis. The 3-0 GI silk sutures using a crotch stitch. The abdomen was irrigated there is no bleeding seen. There is no bleeding seen from the liver biopsy site. The right lobe liver appeared to have a metastatic deposit as well. The abdomen was closed using #1 PDS suture. Skin was closed mihai. Patient top she will was sent to recovery room in stable condition.
[2019-05-14] MEDS: MORPHINE SULFATE 4 MG/ML SYRINGE IVP ONE ×4 (17:21→17:40)
[2019-05-14] MEDS: ROPIVACAINE 250 MG, HYDROMORPHONE (PF) 5 MG in SODIUM CHLORIDE 0.9% 200 ML EPIDURAL PRN (18:00)
[2019-05-14] MEDS: LACTATED RINGERS 1,000 ML IV SCH (18:28)
[2019-05-14 19:21] LABS: Anisocytosis Slight; HCT 27.5 % (34.0-46.0); HGB 8.4 gm/dL (11.4-16.0); Hypochromasia Moderate; MCH 22.5 pg (25.0-35.0); MCHC 30.4 g/dL (31.0-37.0); MCV 74.1 fL (80.0-100.0); Microcytosis Moderate; Platelet Count 499 k/uL (150-450); RBC 3.71 m/uL (3.80-5.40); RDW 16.8 % (11.5-15.5); WBC 20.5 k/uL (3.8-10.6)
[2019-05-14 19:31] LABS: Band Neutrophils % 5 %; Lymphocytes # (M) 0.82 k/uL (1.0-4.8); Monocytes # (M) 0.41 k/uL (0-1.0); Neutrophils % (M) 89 %; Nucleated Red Blood Cells 0 /100 WBC (0-0); Total Cells Counted 100
[2019-05-14 19:32] LABS: African American GFR (CKD) >90 (>60 ml/min/1.73 sqM); Anion Gap 9 mmol/L; Anisocytosis (M) Present; Blood Urea Nitrogen 6 mg/dL (7-17); Carbon Dioxide 21 mmol/L (22-30); Chloride 103 mmol/L (98-107); Glucose 106 mg/dL (74-99); Non-African American GFR(CKD) 90 (>60 ml/min/1.73 sqM); Potassium 3.4 mmol/L (3.5-5.1); Sodium 133 mmol/L (137-145); Target Cells Present
[2019-05-14] MEDS: D5-0.45% NACL WITH KCL 20MEQ/L 1,000 ML IV SCH (20:29)
[2019-05-14] MEDS: POTASSIUM CHLORIDE 10 MEQ in WATER FOR INJECTION 1 100ML.BAG IVPB SCH ×4 (21:07→23:34)
[2019-05-14] MEDS: ALVIMOPAN 12 MG CAPSULE PO SCH (21:20)
[2019-05-14] MEDS: SODIUM FERRIC GLUCONAT-SUCROSE 125 MG in SODIUM CHLORIDE 0.9% 100 ML IVPB SCH (22:21)
[2019-05-15] MEDS: POTASSIUM CHLORIDE 10 MEQ in WATER FOR INJECTION 1 100ML.BAG IVPB SCH (00:33)
[2019-05-15] MEDS: D5-0.45% NACL WITH KCL 20MEQ/L 1,000 ML IV SCH ×2 (01:32→09:03)
[2019-05-15] MEDS: metroNIDAZOLE-NS PMX 500 MG in SALINE 1 100ML.BAG IVPB SCH ×3 (02:32→19:37)
--- NOTE | 2019-05-15 07:29 | P.PN ---
Progress Note - Text 05/13 650am 73-year-old female status post right colectomy by Dr. Monroe. Patient seen and evaluated for postop pain control, patient has an epidural running at 6 mL an hour with a VAS of 0. Patient did have complains of leg heaviness or decrease the rate to 5 mL an hour. Plan to continue epidural infusion
[2019-05-15 07:52] LABS: Calcium 8.1 mg/dL (8.4-10.2); Potassium 4.1 mmol/L (3.5-5.1)
[2019-05-15 08:31] LABS: Anisocytosis Slight; HCT 28.7 % (34.0-46.0); HGB 8.7 gm/dL (11.4-16.0); Hypochromasia Marked; MCH 22.7 pg (25.0-35.0); MCHC 30.3 g/dL (31.0-37.0); Mean Platelet Volume 7.3; Microcytosis Slight; Platelet Count 593 k/uL (150-450); RBC 3.82 m/uL (3.80-5.40); RDW 16.4 % (11.5-15.5); WBC 13.3 k/uL (3.8-10.6)
[2019-05-15] MEDS: ALVIMOPAN 12 MG CAPSULE PO SCH ×2 (09:03→21:15)
[2019-05-15] MEDS: PANTOPRAZOLE 40 MG/10 ML VIAL IVP SCH ×2 (09:03→21:15)
[2019-05-15] MEDS: HEPARIN SODIUM,PORCINE 5,000 UNIT/ML 1 ML VIAL SQ SCH ×3 (09:04→23:46)
[2019-05-15 10:43] LABS: Band Neutrophils % 1 %; Lymphocytes # (M) 1.46 k/uL (1.0-4.8); Monocytes # (M) 0.13 k/uL (0-1.0); Neutrophils % (M) 87 %; Nucleated Red Blood Cells 0 /100 WBC (0-0); Total Cells Counted 100
[2019-05-15 10:44] LABS: Target Cells Present
[2019-05-15] MEDS ORDERED: LACTATED RINGERS 1,000 ML IV SCH ×2 (11:00→12:30)
--- NOTE | 2019-05-15 11:54 | P.PN ---
Subjective Progress Note Date: 05/15/19 CHIEF COMPLAINT: Ascending colon mass HISTORY OF PRESENT ILLNESS: Patient is status post right colectomy and liver biopsy with Dr. Monroe. Postop day #1. Patient examined at the bedside. Epidural infusing. Patient was complaining of leg heaviness. Her epidural was decreased slightly this morning. Carreno catheter with dark urine noted. PHYSICAL EXAM: VITAL SIGNS: Reviewed. GENERAL: Well-developed in no acute distress. HEENT: No sclera icterus. Extraocular movements grossly intact. Moist buccal mucosa. Head is atraumatic, normocephalic. ABDOMEN: Soft. Nondistended. Dressing clean dry and intact. Appropriate surgical tenderness. NEUROLOGIC: Alert and oriented. Cranial nerves II through XII grossly intact. ASSESSMENT: 1. Ascending colon mass 2. Abnormal CT revealing suspicion for metastatic nodules and liver and lung PLAN: -Continue clear liquid diet. Await bowel function -Pain control. Continue epidural. Discontinue postop day #3 -Continue Carreno catheter while epidural in place -Incentive spirometer -Activity as tolerated -1L LR bolus. Increase maintenance IV fluids to 150cc/hr Nurse practitioner note has been reviewed by physician. Signing provider agrees with the documented findings, assessment, and plan of care. Objective - Vital Signs Vital signs: Vital Signs Temp 98.2 F 05/15/19 05:50 Pulse 103 H 05/15/19 05:50 Resp 16 05/15/19 05:50 BP 162/62 05/15/19 05:50 Pulse Ox 95 05/15/19 05:50 Intake & Output 05/14/19 05/15/19 05/15/19 18:59 06:59 18:59 Intake Total 1412.8 750 Output Total 320 275 Balance 1092.8 475 Intake: IV 1412.8 Intake, IV Titration 600 Amount Potassium Chloride 10 meq 400 In Water For Injection 1 100ml.bag @ 100 mls/hr IVPB Q1H MICHAEL Rx#: [id number] metroNIDAZOLE-NS PMX 500 200 mg In Saline 1 100ml.bag @ 100 mls/hr IVPB Q8H MICHAEL Rx#:[id number] Oral 150 Output: Urine 300 275 Estimated Blood Loss 20 Other: Voiding Method Toilet Indwelling Catheter # Voids 3 - Labs CBC & Chem 7: 05/15/19 06:45 05/15/19 06:45 Labs: Abnormal Lab Results - Last 24 Hours (Table) 05/14/19 05/14/19 05/14/19 Range/Units 09:01 09:01 09:01 WBC (3.8-10.6) k/uL RBC (3.80-5.40) m/uL Hgb 8.6 L (11.4-16.0) gm/dL Hct 28.7 L (34.0-46.0) % MCV 74.6 L (80.0-100.0) fL MCH 22.3 L (25.0-35.0) pg MCHC 29.9 L (31.0-37.0) g/dL RDW 16.3 H (11.5-15.5) % Plt Count 658 H (150-450) k/uL Neutrophils # (Manual) (1.3-7.7) k/uL Lymphocytes # (Manual) (1.0-4.8) k/uL PT 12.2 H (9.0-12.0) sec INR 1.2 H (<1.2) Sodium 134 L (137-145) mmol/L Potassium (3.5-5.1) mmol/L Carbon Dioxide 19 L (22-30) mmol/L BUN 5 L (7-17) mg/dL Glucose (74-99) mg/dL Calcium (8.4-10.2) mg/dL 05/14/19 05/14/19 05/15/19 Range/Units 18:45 18:45 06:45 WBC 20.5 H (3.8-10.6) k/uL RBC 3.71 L (3.80-5.40) m/uL Hgb 8.4 L (11.4-16.0) gm/dL Hct 27.5 L (34.0-46.0) % MCV 74.1 L (80.0-100.0) fL MCH 22.5 L (25.0-35.0) pg MCHC 30.4 L (31.0-37.0) g/dL RDW 16.8 H (11.5-15.5) % Plt Count 499 H (150-450) k/uL Neutrophils # (Manual) 19.20 H (1.3-7.7) k/uL Lymphocytes # (Manual) 0.82 L (1.0-4.8) k/uL PT (9.0-12.0) sec INR (<1.2) Sodium 133 L 132 L (137-145) mmol/L Potassium 3.4 L (3.5-5.1) mmol/L Carbon Dioxide 21 L 20 L (22-30) mmol/L BUN 6 L (7-17) mg/dL Glucose 106 H 127 H (74-99) mg/dL Calcium 8.0 L 8.1 L (8.4-10.2) mg/dL
[2019-05-15] MEDS: SODIUM CHLORIDE 0.9% 1,000 ML IV SCH ×2 (12:21→23:46)
--- NOTE | 2019-05-15 14:50 | P.PN ---
Subjective Progress Note Date: 05/15/19 Principal diagnosis: 73-year-old the female was transferred from [facility] patient presents today with symptoms of gastric surgery reflux disease with epigastric sharp abdominal pain and nausea vomiting going on for 2 days epigastric abdominal pain moderate severity has been going on for about 3 weeks. Patient is bit hyponatremic from nausea vomiting. Because of abdominal pain patient underwent CAT scan of the abdomen as well as chest which showed multiple nodular lesions in the chest along with a possible cancerous lesion in the cecum and a lesion in the liver. Patient will undergo upper GI endoscopy endoscopy tomorrow with possible biopsy of the cecal area. She used to smoke in the past quit smoking since 3 weeks since his been sick 05/13/2019 Patient is seen and evaluated in follow-up today awaiting to undergo EGD and colonoscopy with GI today. Patient is having some rectal discomfort status post enema and states she does have history of hemorrhoids with some mild blood noted in the stool. Currently no reports of chest pain, shortness of breath, or palpitations. Patient is having some nausea and does have Zofran ordered. Patient is nothing by mouth at this time as she was prepping for the procedure. A surgery consult was placed as the patient's colonoscopy shows mild gastritis antrum body that were biopsied along with duodenal biopsies, ascending colon mass almost completely obstructing the lumen and circumferential with multiple biopsies taken and 2 pedunculated polyps in the sigmoid and rectosigmoid were removed, and mild left colonic diverticulosis with some moderate internal hemorrhoids. Will await report from surgery. Patient's sodium continues to be slightly low at 132. Will discontinue IV fluids and place the patient on 1500 mL fluid restrictions. Patient can resume clear liquid diet until midnight. 05/14/2019 Patient is seen in follow-up today awaiting to undergo surgery on the colon mass with Dr. Monroe today. Patient has been nothing by mouth. Patient states she continues to have some loose stools that are liquid in nature. No blood noted. Patient did have multiple enemas yesterday prior to colonoscopy. Patient will also be undergoing a liver biopsy during the procedure to assess for metastasis. Will await report. Currently no reports of chest pain, shortness of breath, or palpitations. Patient is afebrile. No reports of nausea or vomiting and patient has been nothing by mouth as mentioned previously. Will repeat a.m. labs. 05/15/2019 Patient is seen and evaluated in follow-up today status post right colectomy yesterday. She remains on the epidural pump and states her pain is well controlled. Patient to continue with use of incentive spirometer at least 10 times every hour while awake. She remains on clear liquids and will continue at this time. IV fluids changed to normal saline and will continue at this time for hyponatremia. Sodium is 132, potassium is 4.1. Hemoglobin is 8.7. Will repeat a.m. labs. Patient to work with physical therapy today and is currently pending. Currently no reports of chest pain, shortness of breath, or palpitations. Patient is afebrile. No reports of nausea and vomiting and patient is tolerating clear liquids as mentioned previously. No bowel activity at this time. Objective - Vital Signs Vital signs: Vital Signs Temp 98.8 F 05/15/19 12:55 Pulse 106 H 05/15/19 12:55 Resp 17 05/15/19 12:55 BP 107/64 05/15/19 12:55 Pulse Ox 94 L 05/15/19 12:55 Intake & Output 05/14/19 05/15/19 05/15/19 18:59 06:59 18:59 Intake Total 1412.8 750 Output Total 320 275 Balance 1092.8 475 Intake: IV 1412.8 Intake, IV Titration 600 Amount Potassium Chloride 10 meq 400 In Water For Injection 1 100ml.bag @ 100 mls/hr IVPB Q1H MICHAEL Rx#: [id number] metroNIDAZOLE-NS PMX 500 200 mg In Saline 1 100ml.bag @ 100 mls/hr IVPB Q8H MICHAEL Rx#:[id number] Oral 150 Output: Urine 300 275 Estimated Blood Loss 20 Other: Voiding Method Toilet Indwelling Catheter Indwelling Catheter # Voids 3 - Exam GENERAL: The patient is alert and oriented x3, not in any acute distress. Well developed, well nourished. HEENT: Pupils are round and equally reacting to light. EOMI. No scleral icterus. No conjunctival pallor. Normocephalic, atraumatic. No pharyngeal erythema. No thyromegaly. CARDIOVASCULAR: S1 and S2 present. No murmurs, rubs, or gallops. PULMONARY: Chest is clear to auscultation, no wheezing or crackles. ABDOMEN: Soft, nontender, nondistended, normoactive bowel sounds. No palpable o rganomegaly. MUSCULOSKELETAL: No joint swelling or deformity. EXTREMITIES: No cyanosis, clubbing, or pedal edema. NEUROLOGICAL: Gross neurological examination did not reveal any focal deficits. SKIN: No rashes. - Labs CBC & Chem 7: 05/15/19 06:45 05/15/19 06:45 Labs: Abnormal Lab Results - Last 24 Hours (Table) 05/14/19 05/14/19 05/15/19 Range/Units 18:45 18:45 06:45 WBC 20.5 H 13.3 H (3.8-10.6) k/uL RBC 3.71 L (3.80-5.40) m/uL Hgb 8.4 L 8.7 L (11.4-16.0) gm/dL Hct 27.5 L 28.7 L (34.0-46.0) % MCV 74.1 L 75.0 L (80.0-100.0) fL MCH 22.5 L 22.7 L (25.0-35.0) pg MCHC 30.4 L 30.3 L (31.0-37.0) g/dL RDW 16.8 H 16.4 H (11.5-15.5) % Plt Count 499 H 593 H (150-450) k/uL Neutrophils # (Manual) 19.20 H 11.70 H (1.3-7.7) k/uL Lymphocytes # (Manual) 0.82 L (1.0-4.8) k/uL Sodium 133 L (137-145) mmol/L Potassium 3.4 L (3.5-5.1) mmol/L Carbon Dioxide 21 L (22-30) mmol/L BUN 6 L (7-17) mg/dL Glucose 106 H (74-99) mg/dL Calcium 8.0 L (8.4-10.2) mg/dL 05/15/19 Range/Units 06:45 WBC (3.8-10.6) k/uL RBC (3.80-5.40) m/uL Hgb (11.4-16.0) gm/dL Hct (34.0-46.0) % MCV (80.0-100.0) fL MCH (25.0-35.0) pg MCHC (31.0-37.0) g/dL RDW (11.5-15.5) % Plt Count (150-450) k/uL Neutrophils # (Manual) (1.3-7.7) k/uL Lymphocytes # (Manual) (1.0-4.8) k/uL Sodium 132 L (137-145) mmol/L Potassium (3.5-5.1) mmol/L Carbon Dioxide 20 L (22-30) mmol/L BUN (7-17) mg/dL Glucose 127 H (74-99) mg/dL Calcium 8.1 L (8.4-10.2) mg/dL Assessment and Plan Assessment: -epigastric abdominal pain along with the nausea vomiting: Probably secondary to peptic ulcer disease or gastritis, improved -Multiple pulmonary nodules probably metastatic disease from the colon. Patient underwent EGD and colonoscopy showing mild gastritis antrum body that were biopsied along with multiple duodenal biopsies, ascending colon mass almost completely obstructing the lumen with multiple biopsies and tattoos placed distal to the mass, 2 pedunculated polyps in the sigmoid and rectosigmoid that were removed, mild left colonic diverticulosis, and moderate internal hemorrhoids -Cecal lesion or mass noted of the ascending colon that is almost completely obstructing the lumen and circumferential as noted in the colonoscopy. Status post colectomy postop day #1. Surgery following. -Hypovolemic hyponatremia. Sodium is 132 today. Patient to remain on IV fluids of normal saline at 150 mL per hour. Will repeat a.m. labs. -Hypokalemia secondary to IV fluids and natriuresis. Improved. Potassium is 4.1 today. -Nicotine abuse: Counseling was provided -Chronic iron deficiency anemia; patient receiving iron transfusions Plan: Continue with epidural pump at this time for pain management and was slightly decreased by anesthesia today. Patient to increase activity as tolerated. Continue with incentive spirometer use and educated to use at least 10 times every hour while awake. Continue with clear liquid diet and monitor bowel function. Will repeat a.m. labs. Further recommendations to follow.
--- NOTE | 2019-05-15 15:20 | P.PN ---
Subjective Progress Note Date: 05/15/19 Principal diagnosis: new nodules lung and liver, anemia Discussed with Patient plan to follow-up in 3-4 weeks in office if positive malignancy proven on path which is currently pending Objective - Vital Signs Vital signs: Vital Signs Temp 98.8 F 05/15/19 12:55 Pulse 106 H 05/15/19 12:55 Resp 17 05/15/19 12:55 BP 107/64 05/15/19 12:55 Pulse Ox 94 L 05/15/19 12:55 Intake & Output 05/14/19 05/15/19 05/15/19 18:59 06:59 18:59 Intake Total 1412.8 750 Output Total 320 275 Balance 1092.8 475 Weight 55.792 kg Intake: IV 1412.8 Intake, IV Titration 600 Amount Potassium Chloride 10 meq 400 In Water For Injection 1 100ml.bag @ 100 mls/hr IVPB Q1H MICHAEL Rx#: [id number] metroNIDAZOLE-NS PMX 500 200 mg In Saline 1 100ml.bag @ 100 mls/hr IVPB Q8H MICHAEL Rx#:[id number] Oral 150 Output: Urine 300 275 Estimated Blood Loss 20 Other: Voiding Method Toilet Indwelling Catheter Indwelling Catheter # Voids 3 - Exam Gen: Alert and oriented NAD Head NCAT Neck Supple Lungs: Scattered wheezes, no increased effort Abdomen: Tender to palpation, BS x4 Heart: Tachy, reg Extremities: No edema Neuro: Non-focal Mood Calm - Labs CBC & Chem 7: 05/15/19 06:45 05/15/19 06:45 Labs: Abnormal Lab Results - Last 24 Hours (Table) 05/14/19 05/14/19 05/15/19 Range/Units 18:45 18:45 06:45 WBC 20.5 H 13.3 H (3.8-10.6) k/uL RBC 3.71 L (3.80-5.40) m/uL Hgb 8.4 L 8.7 L (11.4-16.0) gm/dL Hct 27.5 L 28.7 L (34.0-46.0) % MCV 74.1 L 75.0 L (80.0-100.0) fL MCH 22.5 L 22.7 L (25.0-35.0) pg MCHC 30.4 L 30.3 L (31.0-37.0) g/dL RDW 16.8 H 16.4 H (11.5-15.5) % Plt Count 499 H 593 H (150-450) k/uL Neutrophils # (Manual) 19.20 H 11.70 H (1.3-7.7) k/uL Lymphocytes # (Manual) 0.82 L (1.0-4.8) k/uL Sodium 133 L (137-145) mmol/L Potassium 3.4 L (3.5-5.1) mmol/L Carbon Dioxide 21 L (22-30) mmol/L BUN 6 L (7-17) mg/dL Glucose 106 H (74-99) mg/dL Calcium 8.0 L (8.4-10.2) mg/dL 05/15/19 Range/Units 06:45 WBC (3.8-10.6) k/uL RBC (3.80-5.40) m/uL Hgb (11.4-16.0) gm/dL Hct (34.0-46.0) % MCV (80.0-100.0) fL MCH (25.0-35.0) pg MCHC (31.0-37.0) g/dL RDW (11.5-15.5) % Plt Count (150-450) k/uL Neutrophils # (Manual) (1.3-7.7) k/uL Lymphocytes # (Manual) (1.0-4.8) k/uL Sodium 132 L (137-145) mmol/L Potassium (3.5-5.1) mmol/L Carbon Dioxide 20 L (22-30) mmol/L BUN (7-17) mg/dL Glucose 127 H (74-99) mg/dL Calcium 8.1 L (8.4-10.2) mg/dL Assessment and Plan Plan: Assessment and Recommendations: 1. Suspicious Lung Nodules:Bilateral - Positive left Hilar Adenopathy, largest 3.2cm 2. Suspicious Liver Lesions: - approx 15 with largest 5.4cm in the right lobe - History Hepatitis C, ?biopsy of liver lesions 3. Inflammatory changes in cecum: - Colitis versus other - Malignancy can not be ruled out - status Post colonoscopy today, Ascending colon mass identified with near obstruction of the lumen in circumferential. - Await pathology to result although this is likely a picture of metastatic colon cancer. - CEA increased 88 4. Normocytic Anemia: - Likely related to malnutrition and iron deficiency - iron panel, LDH, B12, Folate ordered - IV Iron ordered 5. Thombocytosis: - Reactive. Plan: - Await path - anemia work-up - discussed findings with patient. - Status post colectomy and liver lesion biopsy as well. Patient agreeable to plan. - Further recommendations after results are final - 3-4 weeks if positive path in office for systemic treatment options GRACIE Chan Physician Attest: I have completed the above history and physical and agree with above dictation, dictated as a scribe
[2019-05-15] MEDS ORDERED: LACTATED RINGERS 1,000 ML IV ONE ×2 (15:25→16:15)
--- NOTE | 2019-05-15 16:15 | PN ---
PROGRESS NOTE DATE OF DICTATION: 05/15/2019 This patient is a 73-year-old white female admitted to the hospital with epigastric and right upper quadrant abdominal pain as well as diarrhea and bleeding. She underwent EGD and colonoscopy by Dr. Steel 2 days ago and was noted to have a near-obstructing ascending colon mass, for which she underwent right hemicolectomy by Dr. Monroe yesterday, biopsies of which are still pending at the time of this dictation. Patient is doing better. She denies any symptoms. She has some abdominal pain but no nausea or vomiting. PHYSICAL EXAMINATION: Appears comfortable. No apparent distress. Vital signs are stable. Blood pressure is 112/64, pulse rate 106, temperature 98.8. HEENT examination unremarkable. Conjunctivae pink. Sclerae anicteric. Oral cavity no lesions. NECK: No JVD or lymph node enlargement. CHEST: Clear to auscultation. HEART: Regular rate and rhythm. ABDOMEN: Soft. Recent surgery. EXTREMITIES: No pedal edema. NEUROLOGIC: Alert and oriented x3. No focal deficits. LABS: WBC 13.3, hemoglobin 8.7, platelets of 593. IMPRESSION: 1. Large ascending colon near-obstructing mass noted on recent colonoscopy, status post right hemicolectomy by Dr. Monroe. Pathology is still pending. 2. Lesions in the liver and in the lung suspicious for metastasis. RECOMMENDATIONS: 1. Continue management as per Surgery. 2. Await biopsy results. 3. At this time we will sign off. Please call us if needed. Thank you for this consultation. MMODL / IJN: [id number] /
[2019-05-15] MEDS: SODIUM FERRIC GLUCONAT-SUCROSE 125 MG in SODIUM CHLORIDE 0.9% 100 ML IVPB SCH (21:15)
[2019-05-16] MEDS: metroNIDAZOLE-NS PMX 500 MG in SALINE 1 100ML.BAG IVPB SCH (02:30)
[2019-05-16] MEDS: ROPIVACAINE 250 MG, HYDROMORPHONE (PF) 5 MG in SODIUM CHLORIDE 0.9% 200 ML EPIDURAL PRN (04:09)
[2019-05-16 06:21] LABS: Anisocytosis Slight; Basophils % (A) 0 %; Eosinophils % (A) 0 %; HCT 26.2 % (34.0-46.0); Hypochromasia Slight; Lymphocytes # (A) 1.2 k/uL (1.0-4.8); Lymphocytes % (A) 5 %; MCH 22.3 pg (25.0-35.0); MCHC 30.5 g/dL (31.0-37.0); Mean Platelet Volume 6.9; Microcytosis Moderate; Monocytes # (A) 1.3 k/uL (0-1.0); Monocytes % (A) 6 %; Neutrophils # (A) 19.8 k/uL (1.3-7.7); Neutrophils % (A) 87 %; Platelet Count 560 k/uL (150-450); RBC 3.59 m/uL (3.80-5.40); RDW 17.1 % (11.5-15.5); WBC 22.6 k/uL (3.8-10.6)
[2019-05-16 06:36] LABS: African American GFR (CKD) >90 (>60 ml/min/1.73 sqM); Anion Gap 6 mmol/L; Blood Urea Nitrogen 4 mg/dL (7-17); Calcium 7.8 mg/dL (8.4-10.2); Carbon Dioxide 21 mmol/L (22-30); Chloride 106 mmol/L (98-107); Glucose 88 mg/dL (74-99); Non-African American GFR(CKD) >90 (>60 ml/min/1.73 sqM); Potassium 3.3 mmol/L (3.5-5.1); Sodium 133 mmol/L (137-145)
[2019-05-16] MEDS: HEPARIN SODIUM,PORCINE 5,000 UNIT/ML 1 ML VIAL SQ SCH ×3 (08:13→23:49)
[2019-05-16] MEDS: ALVIMOPAN 12 MG CAPSULE PO SCH ×2 (08:13→21:29)
[2019-05-16] MEDS: PANTOPRAZOLE 40 MG/10 ML VIAL IVP SCH ×2 (08:14→21:29)
[2019-05-16] MEDS: SODIUM CHLORIDE 0.9% 1,000 ML IV SCH ×2 (08:14→13:41)
[2019-05-16] MEDS ORDERED: Potassium Replacement Protocol 1 EACH MISC MISCELLANE PRN ×2 (09:13→21:24)
[2019-05-16] MEDS: POTASSIUM CHLORIDE ER 20 MEQ TAB.ER PO SCH ×4 (09:44→22:54)
--- NOTE | 2019-05-16 09:56 | P.PN ---
Progress Note - Text Progress Note Date: 05/16/19 The patient feels better. She states her pain is a 2 out of 10. She has had increased urinary output. Her white count is increased at 22,000 today. On exam her vital signs are stable. Her abdomen soft. There is some minimal bowel sounds. Status post right colectomy and liver biopsy. Patient will have her diet advanced. She is placed on Zosyn for her leukocytosis. She'll be observed closely.
[2019-05-16] MEDS ORDERED: CALCIUM GLUCONATE 1 GM in SODIUM CHLORIDE 0.9% 100 ML IVPB ONE (10:30)
[2019-05-16] MEDS: PIPERACILLIN-TAZOBACTAM 3.375 GM in SODIUM CHLORIDE 0.9% 100 ML IVPB SCH ×2 (14:26→23:50)
--- NOTE | 2019-05-16 15:15 | P.PN ---
Subjective 73-year-old the female was transferred from [facility] patient presents today with symptoms of gastric surgery reflux disease with epigastric sharp abdominal pain and nausea vomiting going on for 2 days epigastric abdominal pain moderate severity has been going on for about 3 weeks. Patient is bit hyponatremic from nausea vomiting. Because of abdominal pain patient underwent CAT scan of the abdomen as well as chest which showed multiple nodular lesions in the chest along with a possible cancerous lesion in the cecum and a lesion in the liver. Patient will undergo upper GI endoscopy endoscopy tomorrow with possible biopsy of the cecal area. She used to smoke in the past quit smoking since 3 weeks since his been sick 05/13/2019 Patient is seen and evaluated in follow-up today awaiting to undergo EGD and colonoscopy with GI today. Patient is having some rectal discomfort status post enema and states she does have history of hemorrhoids with some mild blood noted in the stool. Currently no reports of chest pain, shortness of breath, or palpitations. Patient is having some nausea and does have Zofran ordered. Chiquita ent is nothing by mouth at this time as she was prepping for the procedure. A surgery consult was placed as the patient's colonoscopy shows mild gastritis antrum body that were biopsied along with duodenal biopsies, ascending colon mass almost completely obstructing the lumen and circumferential with multiple biopsies taken and 2 pedunculated polyps in the sigmoid and rectosigmoid were removed, and mild left colonic diverticulosis with some moderate internal hemorrhoids. Will await report from surgery. Patient's sodium continues to be slightly low at 132. Will discontinue IV fluids and place the patient on 1500 mL fluid restrictions. Patient can resume clear liquid diet until midnight. 05/14/2019 Patient is seen in follow-up today awaiting to undergo surgery on the colon mass with Dr. Monroe today. Patient has been nothing by mouth. Patient states she continues to have some loose stools that are liquid in nature. No blood noted. Patient did have multiple enemas yesterday prior to colonoscopy. Patient will also be undergoing a liver biopsy during the procedure to assess for metastasis. Will await report. Currently no reports of chest pain, shortness of breath, or palpitations. Patient is afebrile. No reports of nausea or vomiting and patient has been nothing by mouth as mentioned previously. Will repeat a.m. labs. 05/15/2019 Patient is seen and evaluated in follow-up today status post right colectomy yesterday. She remains on the epidural pump and states her pain is well controlled. Patient to continue with use of incentive spirometer at least 10 times every hour while awake. She remains on clear liquids and will continue at this time. IV fluids changed to normal saline and will continue at this time for hyponatremia. Sodium is 132, potassium is 4.1. Hemoglobin is 8.7. Will repeat a.m. labs. Patient to work with physical therapy today and is currently pending. Currently no reports of chest pain, shortness of breath, or palpitations. Patient is afebrile. No reports of nausea and vomiting and patient is tolerating clear liquids as mentioned previously. No bowel activity at this time. 05/16/2019 Patient does have significant leukocytosis but there is no evidence of infection patient is anemic. No fever or chills no cough no dysuria. Patient was started on broad-spectrum antibiotics by general surgery which will be continued I do not see a reason for Metronidazole which will be discontinued. Patient will be continued on IV fluids but will be switched to normal saline patient's symptoms sodium is 132 part of which may be SIADH from cancer Constitutional: Denied any fatigue denied any fever. Cardio vascular: denied any chest pain, palpitations Gastrointestinal denied any nausea vomiting she has some abdominal pain from surgery Pulmonary: Denied any shortness of breath cough Neurologic denied any new focal deficits All inpatient medications were reviewed and appropriate changes in these medications as dictated in the interval history and assessment and plan. Objective - Vital Signs Vital signs: Vital Signs Temp 96.9 F L 05/16/19 14:25 Pulse 99 05/16/19 14:25 Resp 18 05/16/19 14:25 BP 170/86 05/16/19 14:25 Pulse Ox 95 05/16/19 12:22 Intake & Output 05/15/19 05/16/19 05/16/19 18:59 06:59 18:59 Intake Total 226.583 Output Total 100 820 Balance -100 -593.417 Weight 55.792 kg Intake: Intake, IV Titration 106.583 Amount Ropivacaine 250 mg 106.583 Hydromorphone (Pf) 5 mg In Sodium Chloride 0.9% 200 ml @ Per Protocol EPIDURAL .Q0M PRN Rx#: [id number] Oral 120 Output: Urine 100 820 Uretheral (Carreno) 820 Other: Voiding Method Indwelling Catheter Indwelling Catheter Indwelling Catheter - Exam PHYSICAL EXAMINATION: GENERAL: The patient is alert and oriented x3, not in any acute distress. Well developed, well nourished. HEENT: Pupils are round and equally reacting to light. EOMI. No scleral icterus. No conjunctival pallor. Normocephalic, atraumatic. No pharyngeal erythema. No thyromegaly. CARDIOVASCULAR: S1 and S2 present. No murmurs, rubs, or gallops. PULMONARY: Chest is clear to auscultation, no wheezing or crackles. ABDOMEN: Soft, nontender, nondistended, bowel sounds. No palpable organomegaly. MUSCULOSKELETAL: No joint swelling or deformity. EXTREMITIES: No cyanosis, clubbing, or pedal edema. NEUROLOGICAL: Gross neurological examination did not reveal any focal deficits. SKIN: No rashes. - Labs CBC & Chem 7: 05/16/19 06:08 05/16/19 06:08 Labs: Abnormal Lab Results - Last 24 Hours (Table) 05/16/19 05/16/19 Range/Units 06:08 06:08 WBC 22.6 H (3.8-10.6) k/uL RBC 3.59 L (3.80-5.40) m/uL Hgb 8.0 L (11.4-16.0) gm/dL Hct 26.2 L (34.0-46.0) % MCV 73.0 L (80.0-100.0) fL MCH 22.3 L (25.0-35.0) pg MCHC 30.5 L (31.0-37.0) g/dL RDW 17.1 H (11.5-15.5) % Plt Count 560 H (150-450) k/uL Neutrophils # 19.8 H (1.3-7.7) k/uL Monocytes # 1.3 H (0-1.0) k/uL Sodium 133 L (137-145) mmol/L Potassium 3.3 L (3.5-5.1) mmol/L Carbon Dioxide 21 L (22-30) mmol/L BUN 4 L (7-17) mg/dL Calcium 7.8 L (8.4-10.2) mg/dL Assessment and Plan Plan: Assessment and Plan Assessment: -Abdominal pain which improved now is secondary to bowel obstruction nausea vomiting second about obstruction. Bowel obstruction secondary to: cancer patient is to status post right colectomy. Patient had a cecal mass. -leukocytosis can be reactive now so far no evidence of infection at this time continue with Zosyn for now because of her recent intra-abdominal surgery -Multiple pulmonary nodules probably metastatic disease from the colon. Patient underwent EGD and colonoscopy showing mild gastritis antrum body that were biopsied along with multiple duodenal biopsies, ascending colon mass almost completely obstructing the lumen with multiple biopsies and tattoos placed distal to the mass, 2 pedunculated polyps in the sigmoid and rectosigmoid that were removed, mild left colonic diverticulosis, and moderate internal hemorrhoids -Hypovolemic hyponatremia. Sodium is 132 today. Patient to remain on IV fluids of normal saline at 150 mL per hour. Will repeat a.m. labs. -Hypokalemia secondary to IV fluids and natriuresis. Improved. Potassium is 4.1 today. -Nicotine abuse: Counseling was provided -Chronic iron deficiency anemia; patient receiving iron transfusions
[2019-05-16] MEDS ORDERED: hydrALAZINE HCL 50 MG TAB PO PRN (17:31)
[2019-05-16] MEDS: SODIUM FERRIC GLUCONAT-SUCROSE 125 MG in SODIUM CHLORIDE 0.9% 100 ML IVPB SCH (21:28)
[2019-05-17] MEDS: SODIUM CHLORIDE 0.9% 1,000 ML IV SCH ×2 (01:27→14:36)
[2019-05-17 06:16] LABS: Anisocytosis Slight; HCT 24.7 % (34.0-46.0); HGB 7.7 gm/dL (11.4-16.0); Hypochromasia Moderate; MCHC 31.3 g/dL (31.0-37.0); MCV 73.5 fL (80.0-100.0); Mean Platelet Volume 6.9; Microcytosis Moderate; Platelet Count 545 k/uL (150-450); RBC 3.36 m/uL (3.80-5.40)
[2019-05-17 06:25] LABS: African American GFR (CKD) >90 (>60 ml/min/1.73 sqM); Anion Gap 7 mmol/L; Blood Urea Nitrogen 3 mg/dL (7-17); Calcium 7.9 mg/dL (8.4-10.2); Carbon Dioxide 21 mmol/L (22-30); Chloride 104 mmol/L (98-107); Glucose 85 mg/dL (74-99); Non-African American GFR(CKD) >90 (>60 ml/min/1.73 sqM); Potassium 3.2 mmol/L (3.5-5.1); Sodium 132 mmol/L (137-145)
[2019-05-17] MEDS ORDERED: Potassium Replacement Protocol 1 EACH MISC MISCELLANE PRN (07:55)
[2019-05-17] MEDS: ALVIMOPAN 12 MG CAPSULE PO SCH ×2 (09:42→20:16)
[2019-05-17] MEDS: PANTOPRAZOLE 40 MG/10 ML VIAL IVP SCH ×2 (09:42→20:16)
[2019-05-17] MEDS: POTASSIUM CHLORIDE ER 20 MEQ TAB.ER PO SCH ×2 (09:43→14:12)
[2019-05-17] MEDS: PIPERACILLIN-TAZOBACTAM 3.375 GM in SODIUM CHLORIDE 0.9% 100 ML IVPB SCH ×3 (09:43→23:09)
[2019-05-17] MEDS: HEPARIN SODIUM,PORCINE 5,000 UNIT/ML 1 ML VIAL SQ SCH ×3 (09:43→23:09)
[2019-05-17] MEDS ORDERED: HYDROmorphone 1 MG/ML 1 ML SYRINGE IVP PRN (11:11)
--- NOTE | 2019-05-17 11:11 | P.PN ---
Progress Note - Text Progress Note Date: 05/17/19 The patient states she feels better today. She's had no significant bowel function. Patient has mild tachycardia. Her white count is still elevated at 22,000. On exam her vital signs appear stable. Abdomen soft. Incision site is clean dry tach. Status post right colectomy for large right colon cancer. Patient will continue on clear liquid diet. She will have her epidural catheter removed today. We'll continue supportive care.
--- NOTE | 2019-05-17 14:33 | P.PN ---
Subjective 73-year-old the female was transferred from [facility] patient presents today with symptoms of gastric surgery reflux disease with epigastric sharp abdominal pain and nausea vomiting going on for 2 days epigastric abdominal pain moderate severity has been going on for about 3 weeks. Patient is bit hyponatremic from nausea vomiting. Because of abdominal pain patient underwent CAT scan of the abdomen as well as chest which showed multiple nodular lesions in the chest along with a possible cancerous lesion in the cecum and a lesion in the liver. Patient will undergo upper GI endoscopy endoscopy tomorrow with possible biopsy of the cecal area. She used to smoke in the past quit smoking since 3 weeks since his been sick 05/13/2019 Patient is seen and evaluated in follow-up today awaiting to undergo EGD and colonoscopy with GI today. Patient is having some rectal discomfort status post enema and states she does have history of hemorrhoids with some mild blood noted in the stool. Currently no reports of chest pain, shortness of breath, or palpitations. Patient is having some nausea and does have Zofran ordered. Chiquita ent is nothing by mouth at this time as she was prepping for the procedure. A surgery consult was placed as the patient's colonoscopy shows mild gastritis antrum body that were biopsied along with duodenal biopsies, ascending colon mass almost completely obstructing the lumen and circumferential with multiple biopsies taken and 2 pedunculated polyps in the sigmoid and rectosigmoid were removed, and mild left colonic diverticulosis with some moderate internal hemorrhoids. Will await report from surgery. Patient's sodium continues to be slightly low at 132. Will discontinue IV fluids and place the patient on 1500 mL fluid restrictions. Patient can resume clear liquid diet until midnight. 05/14/2019 Patient is seen in follow-up today awaiting to undergo surgery on the colon mass with Dr. Monroe today. Patient has been nothing by mouth. Patient states she continues to have some loose stools that are liquid in nature. No blood noted. Patient did have multiple enemas yesterday prior to colonoscopy. Patient will also be undergoing a liver biopsy during the procedure to assess for metastasis. Will await report. Currently no reports of chest pain, shortness of breath, or palpitations. Patient is afebrile. No reports of nausea or vomiting and patient has been nothing by mouth as mentioned previously. Will repeat a.m. labs. 05/15/2019 Patient is seen and evaluated in follow-up today status post right colectomy yesterday. She remains on the epidural pump and states her pain is well controlled. Patient to continue with use of incentive spirometer at least 10 times every hour while awake. She remains on clear liquids and will continue at this time. IV fluids changed to normal saline and will continue at this time for hyponatremia. Sodium is 132, potassium is 4.1. Hemoglobin is 8.7. Will repeat a.m. labs. Patient to work with physical therapy today and is currently pending. Currently no reports of chest pain, shortness of breath, or palpitations. Patient is afebrile. No reports of nausea and vomiting and patient is tolerating clear liquids as mentioned previously. No bowel activity at this time. 05/16/2019 Patient does have significant leukocytosis but there is no evidence of infection patient is anemic. No fever or chills no cough no dysuria. Patient was started on broad-spectrum antibiotics by general surgery which will be continued I do not see a reason for Metronidazole which will be discontinued. Patient will be continued on IV fluids but will be switched to normal saline patient's symptoms sodium is 132 part of which may be SIADH from pain 05/17/2019 Patient potassium was low which will be replaced and this is secondary to IV fluids down the IV fluids and patient need to be on freewater restriction. Part of her hyponatremia may be related to his ADH from pain which actually improved now will recheck basic metabolic profile tomorrow. Patient can use to have leukocytosis can be just reactive no real evidence of infection at this time patient can use to be on Zosyn. Constitutional: Denied any fatigue denied any fever. Cardio vascular: denied any chest pain, palpitations Gastrointestinal denied any nausea vomiting she has some abdominal pain from surgery Pulmonary: Denied any shortness of breath cough Neurologic denied any new focal deficits All inpatient medications were reviewed and appropriate changes in these medications as dictated in the interval history and assessment and plan. Objective - Vital Signs Vital signs: Vital Signs Temp 98.7 F 05/17/19 11:59 Pulse 103 H 05/17/19 11:59 Resp 17 05/17/19 11:59 BP 155/71 05/17/19 11:59 Pulse Ox 94 L 05/17/19 11:59 Intake & Output 05/16/19 05/17/19 05/17/19 18:59 06:59 18:59 Intake Total 550 1520 130 Output Total 850 700 100 Balance -300 820 30 Intake: Intake, IV Titration 800 130 Amount Piperacillin-Tazobactam 3 100 .375 gm In Sodium Chloride 0.9% 100 ml @ 25 mls/hr IVPB Q8HR [facility] Rx# :[id number] Ropivacaine 250 mg 130 Hydromorphone (Pf) 5 mg In Sodium Chloride 0.9% 200 ml @ Per Protocol EPIDURAL .Q0M PRN Rx#: [id number] Sodium Chloride 0.9% 1, 600 000 ml @ 75 mls/hr IV . [id number] [facility] Rx#:[id number] Sodium Ferric Gluconat- 100 Sucrose 125 mg In Sodium Chloride 0.9% 100 ml @ 100 mls/hr IVPB HS [facility] Rx #:[id number] Oral 550 720 Output: Urine 850 700 100 Uretheral (Carreno) 750 700 Other: Voiding Method Indwelling Catheter Indwelling Catheter Indwelling Catheter # Voids 3 3 - Exam PHYSICAL EXAMINATION: GENERAL: The patient is alert and oriented x3, not in any acute distress. Well developed, well nourished. HEENT: Pupils are round and equally reacting to light. EOMI. No scleral icterus. No conjunctival pallor. Normocephalic, atraumatic. No pharyngeal erythema. No thyromegaly. CARDIOVASCULAR: S1 and S2 present. No murmurs, rubs, or gallops. PULMONARY: Chest is clear to auscultation, no wheezing or crackles. ABDOMEN: Soft, nontender, nondistended, bowel sounds. No palpable organomegaly. MUSCULOSKELETAL: No joint swelling or deformity. EXTREMITIES: No cyanosis, clubbing, or pedal edema. NEUROLOGICAL: Gross neurological examination did not reveal any focal deficits. SKIN: No rashes. - Labs CBC & Chem 7: 05/17/19 05:34 05/17/19 05:34 Labs: Abnormal Lab Results - Last 24 Hours (Table) 05/17/19 05/17/19 Range/Units 05:34 05:34 WBC 22.0 H (3.8-10.6) k/uL RBC 3.36 L (3.80-5.40) m/uL Hgb 7.7 L (11.4-16.0) gm/dL Hct 24.7 L (34.0-46.0) % MCV 73.5 L (80.0-100.0) fL MCH 23.0 L (25.0-35.0) pg RDW 17.0 H (11.5-15.5) % Plt Count 545 H (150-450) k/uL Sodium 132 L (137-145) mmol/L Potassium 3.2 L (3.5-5.1) mmol/L Carbon Dioxide 21 L (22-30) mmol/L BUN 3 L (7-17) mg/dL Calcium 7.9 L (8.4-10.2) mg/dL Assessment and Plan Plan: Assessment and Plan Assessment: -Abdominal pain which improved now is secondary to bowel obstruction nausea vomiting second about obstruction. Bowel obstruction secondary to: cancer patient is to status post right colectomy. Patient had a cecal mass. -leukocytosis can be reactive now so far no evidence of infection at this time continue with Zosyn for now because of her recent intra-abdominal surgery -Multiple pulmonary nodules probably metastatic disease from the colon. Patient underwent EGD and colonoscopy showing mild gastritis antrum body that were biopsied along with multiple duodenal biopsies, ascending colon mass almost completely obstructing the lumen with multiple biopsies and tattoos placed distal to the mass, 2 pedunculated polyps in the sigmoid and rectosigmoid that were removed, mild left colonic diverticulosis, and moderate internal hemorrhoids -Hypovolemic hyponatremia. Cut down the IV fluids possibly of a serious from pain -Hypokalemia secondary to IV fluids and natriuresis. We'll replace potassium -Nicotine abuse: Counseling was provided -Chronic iron deficiency anemia; patient receiving iron transfusions
[2019-05-17] MEDS ORDERED: POTASSIUM CHLORIDE ER 20 MEQ TAB.ER PO SCH (21:00)
[2019-05-18] MEDS: SODIUM CHLORIDE 0.9% 1,000 ML IV SCH (05:51)
[2019-05-18 05:56] LABS: African American GFR (CKD) >90 (>60 ml/min/1.73 sqM); Anion Gap 6 mmol/L; Blood Urea Nitrogen 2 mg/dL (7-17); Calcium 7.5 mg/dL (8.4-10.2); Carbon Dioxide 25 mmol/L (22-30); Chloride 97 mmol/L (98-107); Glucose 88 mg/dL (74-99); Non-African American GFR(CKD) >90 (>60 ml/min/1.73 sqM); Sodium 128 mmol/L (137-145)
[2019-05-18 08:04] LABS: Anisocytosis Slight; Basophils % (A) 0 %; Eosinophils # (A) 0.1 k/uL (0-0.7); Eosinophils % (A) 0 %; HCT 22.5 % (34.0-46.0); Hypochromasia Slight; Lymphocytes # (A) 1.5 k/uL (1.0-4.8); Lymphocytes % (A) 8 %; MCH 22.7 pg (25.0-35.0); MCHC 31.3 g/dL (31.0-37.0); MCV 72.4 fL (80.0-100.0); Mean Platelet Volume 7.6; Microcytosis Moderate; Monocytes # (A) 0.9 k/uL (0-1.0); Monocytes % (A) 5 %; Neutrophils # (A) 16.1 k/uL (1.3-7.7); Neutrophils % (A) 86 %; Platelet Count 500 k/uL (150-450); RBC 3.11 m/uL (3.80-5.40); RDW 17.2 % (11.5-15.5); WBC 18.7 k/uL (3.8-10.6)
[2019-05-18] MEDS: traMADol 50 MG TAB PO PRN (08:12)
[2019-05-18] MEDS: PANTOPRAZOLE 40 MG/10 ML VIAL IVP SCH ×2 (08:13→20:24)
[2019-05-18] MEDS: HEPARIN SODIUM,PORCINE 5,000 UNIT/ML 1 ML VIAL SQ SCH ×2 (08:13→16:33)
[2019-05-18] MEDS: PIPERACILLIN-TAZOBACTAM 3.375 GM in SODIUM CHLORIDE 0.9% 100 ML IVPB SCH ×2 (08:13→16:33)
[2019-05-18] MEDS: SODIUM FERRIC GLUCONAT-SUCROSE 125 MG in SODIUM CHLORIDE 0.9% 100 ML IVPB SCH (09:11)
[2019-05-18] MEDS ORDERED: POTASSIUM CHLORIDE ER 20 MEQ TAB.ER PO STA (09:12)
--- NOTE | 2019-05-18 09:31 | XR ---
EXAMINATION TYPE: XR chest 1V portable DATE OF EXAM: 05/18/2019 HISTORY: Shortness of breath. COMPARISON: None. TECHNIQUE: Single view of the chest is submitted. FINDINGS: Demonstrated are scattered senescent parenchymal change. Nonspecific Basilar infiltrates with small effusions. Small focal infiltrate left upper lobe. Correla te clinically. The heart is stable. Hilar and mediastinal structures are within normal limits. Degenerative changes are seen of the dorsal spine. IMPRESSION: 1. Nonspecific Basilar infiltrates with small effusions. Small focal infiltrate left upper lobe. Cor relate clinically.
--- NOTE | 2019-05-18 10:00 | CDI ---
Severe Protein calorie malnutrition Documentation Clarification Form Date: 05/18/2019 09:39:14 AM From: Yolanda RiosMcnair, [facility], CCDS Admit Date: 05/11/2019 04:19:00 PM Patient Name: Nadira Kuhn Visit Number: [id number] Discharge Date: ATTENTION: The Clinical Documentation Specialists (CDI) and [facility] Coding Staff appreciate your assistance in clarifying documentation. Please respond to the clarification below the line at the bottom and electronically sign. The CDI & [facility] Coding staff will review the response and follow-up if needed. Please note: Queries are made part of the Legal Health Record. If you have any questions, please contact the author of this message via ITS. Dr. Wily Yeager: Malnutrition has been documented in the Hematology/Oncology Consult Progress Notes 05/12 & 05/14, without further specificity. History/Risk Factors: Diverticulosis, GERD, Hepatitis C: treated, Osteoporosis & smoker. Clinical Indicators: Patient presented on 05/11 as a transfer from another hospital with epigastric abdominal pain & vomiting, hyponatremic & found to have nodular lesions in the chest with possible cancerous lesion in the cecum & a lesion in the liver. Patient had an upper GI endoscopy & Colonoscopy with biopsy of the cecum on 05/12. On 05/13 the patient had a Right Colectomy for newly Right Colon Cancer with metastatic disease to the liver. Labs 05/11: Hgb 7.8*, Hct 25.2*, Pl Ct 508^, Na 133*, K 3.3*, Calcium 8.0*, Iron 9*, Total Protein 5.2*, Albumin 2.4* Labs 05/17: WBC 18.7^, Hgb 7.0*, Hct 22.5*, Pl Ct 500^, Neut 16.1^, Na 128*, K 3.0*. Current BMI: 23.2 No dietary consult. Nursing dietary assessment 05/12: Patient diet poor, wilma 25%. 05/13, 05/14 & 05/15: patient refused diet, consumed 10-50% meals. Has had poor appetite past month. Weight: 55.792 kg, Height: 5 ft 1 in.; Usual weight 60.328 kg. 10 lb wt loss in past 3 weeks. Nutrition diagnosis: Severe protein calorie malnutrition in acute illness. Treatment 05/10: IV Levaquin, IV Morphine, IV fluid 1,000 mls @ 125/hr, IV Protonix, IV Kcl, IV Flagyl. 05/13: IV Ferric Na Gluconate. Daily H/H. NPO for surgeries advanced to full liquid. In your professional opinion, can you please clarify if these findings signify one of the following conditions? Mild Protein-Calorie Malnutrition Moderate Protein-Calorie Malnutrition Severe Protein-Calorie Malnutrition Other condition, please specify Unable to determine (Last Revision: August 2018) MTDD
--- NOTE | 2019-05-18 10:33 | P.PN ---
Subjective Progress Note Date: 05/18/19 Principal diagnosis: new nodules lung and liver, anemia Path has resulted from colonoscopy biopsy with proven adenocarcinoma colon primary. Awaiting Liver biopsy to confirm metastatic disease, if negative will need biopsy from lung nodule. Objective - Vital Signs Vital signs: Vital Signs Temp 98.4 F 05/18/19 04:29 Pulse 103 H 05/18/19 04:29 Resp 18 05/18/19 04:29 BP 163/76 05/18/19 04:29 Pulse Ox 92 L 05/18/19 04:29 Intake & Output 05/17/19 05/18/19 05/18/19 18:59 06:59 18:59 Intake Total 130 900 Output Total 200 650 Balance -70 250 Intake: Intake, IV Titration 130 900 Amount Ropivacaine 250 mg 130 Hydromorphone (Pf) 5 mg In Sodium Chloride 0.9% 200 ml @ Per Protocol EPIDURAL .Q0M PRN Rx#: [id number] Sodium Chloride 0.9% 1, 900 000 ml @ 75 mls/hr IV . [id number] [facility] Rx#:[id number] Output: Urine 200 650 Uretheral (Carreno) 650 Other: Voiding Method Indwelling Catheter Indwelling Catheter Indwelling Catheter # Voids 3 # Bowel Movements 1 - Exam Gen: Alert and oriented NAD Head NCAT Neck Supple Lungs: Scattered wheezes, no increased effort Abdomen: Tender to palpation, BS x4 Heart: Tachy, reg Extremities: No edema Neuro: Non-focal Mood Calm - Labs CBC & Chem 7: 05/18/19 05:18 05/18/19 05:18 Labs: Abnormal Lab Results - Last 24 Hours (Table) 05/18/19 05/18/19 Range/Units 05:18 05:18 WBC 18.7 H (3.8-10.6) k/uL RBC 3.11 L (3.80-5.40) m/uL Hgb 7.0 L (11.4-16.0) gm/dL Hct 22.5 L (34.0-46.0) % MCV 72.4 L (80.0-100.0) fL MCH 22.7 L (25.0-35.0) pg RDW 17.2 H (11.5-15.5) % Plt Count 500 H (150-450) k/uL Neutrophils # 16.1 H (1.3-7.7) k/uL Sodium 128 L (137-145) mmol/L Potassium 3.0 L (3.5-5.1) mmol/L Chloride 97 L (98-107) mmol/L BUN 2 L (7-17) mg/dL Creatinine 0.49 L (0.52-1.04) mg/dL Calcium 7.5 L (8.4-10.2) mg/dL Assessment and Plan Plan: Assessment and Recommendations: 1. Suspicious Lung Nodules:Bilateral - Positive left Hilar Adenopathy, largest 3.2cm 2. Suspicious Liver Lesions: - approx 15 with largest 5.4cm in the right lobe - History Hepatitis C, ?biopsy of liver lesions 3. Inflammatory changes in cecum: Path Positive for likely colon primary cancer - Colitis versus other - Malignancy can not be ruled out - status Post colonoscopy Ascending colon mass identified with near obstruction of the lumen in circumferential. - Status Post colectomy and liver biopsy - CEA increased 88 4. Normocytic Anemia: - Likely related to malnutrition and iron deficiency -Iron deficiency component verified secondary to tumor - IV Iron ordered 5. Thombocytosis: - Reactive. 6. Moderate to Severe Protein calorie Malnutriton: - Education - [employer] - Increase PO protein intake - exacerbated by New diagnosis of colon cancer Plan: - Await path liver path - IV iron x3 days - discussed findings with patient. - Status post colectomy and liver lesion biopsy as well. Patient agreeable to plan. - 3-4 weeks if positive path in office for systemic treatment options GRACIE Chan Discharge plan to follow-up in office, she lives
[2019-05-18 10:49] LABS: Magnesium 1.4 mg/dL (1.6-2.3)
--- NOTE | 2019-05-18 11:22 | P.PN ---
Subjective Progress Note Date: 05/18/19 CHIEF COMPLAINT: Ascending colon mass HISTORY OF PRESENT ILLNESS: Patient is status post right colectomy and liver biopsy with Dr. Monroe. Patient examined at the bedside. Epidural was discontinued yesterday. She reports her pain is tolerable today. Carreno cat heter remains intact. She is tolerating diet. She reports passing flatus and having a bowel movement. WBC 18.7. PHYSICAL EXAM: VITAL SIGNS: Reviewed. GENERAL: Well-developed in no acute distress. HEENT: No sclera icterus. Extraocular movements grossly intact. Moist buccal mucosa. Head is atraumatic, normocephalic. ABDOMEN: Soft. Nondistended. Dressing clean dry and intact. Appropriate surgical tenderness. NEUROLOGIC: Alert and oriented. Cranial nerves II through XII grossly intact. ASSESSMENT: 1. Ascending colon mass 2. Abnormal CT revealing suspicion for metastatic nodules and liver and lung PLAN: -Advance diet -Pain control. -Discontinue Carreno catheter -Incentive spirometer -Activity as tolerated -Monitor hemoglobin. Repeat in AM. Continue IV iron infusions per oncology -Replace potassium and magnesium Nurse practitioner note has been reviewed by physician. Signing provider agrees with the documented findings, assessment, and plan of care. Objective - Vital Signs Vital signs: Vital Signs Temp 98.4 F 05/18/19 04:29 Pulse 103 H 05/18/19 04:29 Resp 18 05/18/19 04:29 BP 163/76 05/18/19 04:29 Pulse Ox 92 L 05/18/19 04:29 Intake & Output 05/17/19 05/18/19 05/18/19 18:59 06:59 18:59 Intake Total 130 900 Output Total 200 650 Balance -70 250 Weight 55.792 kg Intake: Intake, IV Titration 130 900 Amount Ropivacaine 250 mg 130 Hydromorphone (Pf) 5 mg In Sodium Chloride 0.9% 200 ml @ Per Protocol EPIDURAL .Q0M PRN Rx#: [id number] Sodium Chloride 0.9% 1, 900 000 ml @ 75 mls/hr IV . [id number] [facility] Rx#:[id number] Output: Urine 200 650 Uretheral (Carreno) 650 Other: Voiding Method Indwelling Catheter Indwelling Catheter Indwelling Catheter # Voids 3 # Bowel Movements 1 - Labs CBC & Chem 7: 05/18/19 05:18 05/18/19 05:18 Labs: Abnormal Lab Results - Last 24 Hours (Table) 05/18/19 05/18/19 05/18/19 Range/Units 05:18 05:18 05:18 WBC 18.7 H (3.8-10.6) k/uL RBC 3.11 L (3.80-5.40) m/uL Hgb 7.0 L (11.4-16.0) gm/dL Hct 22.5 L (34.0-46.0) % MCV 72.4 L (80.0-100.0) fL MCH 22.7 L (25.0-35.0) pg RDW 17.2 H (11.5-15.5) % Plt Count 500 H (150-450) k/uL Neutrophils # 16.1 H (1.3-7.7) k/uL Sodium 128 L (137-145) mmol/L Potassium 3.0 L (3.5-5.1) mmol/L Chloride 97 L (98-107) mmol/L BUN 2 L (7-17) mg/dL Creatinine 0.49 L (0.52-1.04) mg/dL Osmolality 267 L (280-301) mosm/kg Calcium 7.5 L (8.4-10.2) mg/dL Magnesium (1.6-2.3) mg/dL 05/18/19 Range/Units 05:18 WBC (3.8-10.6) k/uL RBC (3.80-5.40) m/uL Hgb (11.4-16.0) gm/dL Hct (34.0-46.0) % MCV (80.0-100.0) fL MCH (25.0-35.0) pg RDW (11.5-15.5) % Plt Count (150-450) k/uL Neutrophils # (1.3-7.7) k/uL Sodium (137-145) mmol/L Potassium (3.5-5.1) mmol/L Chloride (98-107) mmol/L BUN (7-17) mg/dL Creatinine (0.52-1.04) mg/dL Osmolality (280-301) mosm/kg Calcium (8.4-10.2) mg/dL Magnesium 1.4 L (1.6-2.3) mg/dL
[2019-05-18] MEDS: MAGNESIUM SULFATE-D5W PMX 1 GM in DEXTROSE/WATER 1 100ML.BAG IVPB SCH ×3 (11:38→15:09)
[2019-05-18] MEDS ORDERED: FUROSEMIDE 10 MG/ML 2 ML VIAL IV ONE (12:00)
--- NOTE | 2019-05-18 12:00 | P.NPCON ---
History of Present Illness - Reason for Consult hyponatremia - History of Present Illness Reason for consultation: Hyponatremia History of present illness: Patient is a 73-year-old female seen in renal consultation for hyponatremia. Patient presented to the hospital on 05/12/2019 with abdominal pain. She was also having episodes of diarrhea prior to admission. She underwent EGD and colonoscopy in May 12 which revealed mild gastritis as well as an ascending colon mass. She subsequently underwent right-sided colectomy on 05/14/2019. She is currently resting in bed. Oral intake has been poor. Her diet will be advanced today per surgery. She has a Carreno catheter and is nonoliguric. No chest pain or shortness of breath. No edema. No history of kidney disease. GFR is at baseline. Hemodynamically stable. Potassium was low and was replaced. Vital signs are stable. General: The patient appeared well nourished and normally developed. HEENT: Head exam is unremarkable. Neck is without jugular venous distension. LUNGS: Lungs are clear to auscultation and percussion. Breath sounds decreased. HEART: Rate and Rhythm are regular. First and second heart sounds normal. No murmurs, rubs or gallops. ABDOMEN: Mild tenderness. EXTREMITITES: 1+ edema. Past Medical History Past Medical History: Liver Disease Additional Past Medical History / Comment(s): Patient states, "Hx. of Hepatitis C" for which she received treatment. Also states that she has early Osteoporosis. Vaginal childbirth x 5. History of Any Multi-Drug Resistant Organisms: None Reported Past Surgical History: No Surgical Hx Reported Additional Past Anesthesia/Blood Transfusion Reaction / Comment(s): No history Past Psychological History: No Psychological Hx Reported Smoking Status: Current every day smoker Past Alcohol Use History: Daily Additional Past Alcohol Use History / Comment(s): Has a daily drink with dinner. Medications and Allergies Home Medications Medication Instructions Recorded Confirmed Type Aspirin 81 mg PO DAILY 05/11/19 05/11/19 History Calcium Carbonate 500 mg PO DAILY 05/11/19 05/11/19 History Multivitamins, Thera [Multivitamin 1 tab PO DAILY 05/11/19 05/11/19 History (formulary)] Vitamin D3(Unknown Dose) 1 tab PO DAILY 05/11/19 05/11/19 History Allergies Allergy/AdvReac Type Severity Reaction Status Date / Time No Known Allergies Allergy Unverified 05/11/19 16:24 Physical Exam Vitals: Vital Signs Temp Pulse Resp BP Pulse Ox 05/18/19 04:29 98.4 F 103 H 18 163/76 92 L 05/17/19 20:51 98.2 F 102 H 18 173/95 94 L 05/17/19 16:00 103 H 17 05/17/19 11:59 98.7 F 103 H 17 155/71 94 L Intake and Output 05/17/19 05/18/19 05/18/19 22:59 06:59 14:59 Intake Total 900 Output Total 100 650 Balance -100 250 Intake: Intake, IV Titration 900 Amount Sodium Chloride 0.9% 1, 900 000 ml @ 75 mls/hr IV . [id number] [facility] Rx#:[id number] Output: Urine 100 650 Uretheral (Carreno) 650 Other: Voiding Method Indwelling Catheter Indwelling Catheter Indwelling Catheter # Voids 3 # Bowel Movements 1 Weight 55.792 kg Results - Lab Results Most recent lab results Calcium 7.5 mg/dL (8.4-10.2) L 05/18/19 05:18 Magnesium 1.4 mg/dL (1.6-2.3) L 05/18/19 05:18 05/18/19 05:18 05/18/19 05:18 Assessment and Plan Plan: Assessment: 1. Hyponatremia secondary to poor solute intake. Sodium 128 today. Urine osmolality 511. 2. Colon mass status post right-sided colectomy. 3. Hypokalemia secondary to poor oral intake as well as hypomagnesemia. 4. Hypomagnesemia from poor oral intake. 5. Anemia. No active bleeding. Iron deficiency noted. Receiving IV iron. 6. Lower extremity edema. Plan: 1200 mL fluid restriction. Add ensure 3 times daily with meals. Magnesium and potassium being replaced. Lasix 20 mg IV once today. Repeat electrolytes in the morning. Thank you for the consultation. I will continue to follow the patient with you during her hospital stay.
[2019-05-18] MEDS: POTASSIUM CHLORIDE ER 20 MEQ TAB.ER PO SCH ×3 (12:22→15:09)
--- NOTE | 2019-05-18 13:40 | P.PN ---
Subjective Progress Note Date: 05/18/19 Principal diagnosis: 73-year-old the female was transferred from [facility] patient presents today with symptoms of gastric surgery reflux disease with epigastric sharp abdominal pain and nausea vomiting going on for 2 days epigastric abdominal pain moderate severity has been going on for about 3 weeks. Patient is bit hyponatremic from nausea vomiting. Because of abdominal pain patient underwent CAT scan of the abdomen as well as chest which showed multiple nodular lesions in the chest along with a possible cancerous lesion in the cecum and a lesion in the liver. Patient will undergo upper GI endoscopy endoscopy tomorrow with possible biopsy of the cecal area. She used to smoke in the past quit smoking since 3 weeks since his been sick 05/13/2019 Patient is seen and evaluated in follow-up today awaiting to undergo EGD and colonoscopy with GI today. Patient is having some rectal discomfort status post enema and states she does have history of hemorrhoids with some mild blood noted in the stool. Currently no reports of chest pain, shortness of breath, or palpitations. Patient is having some nausea and does have Zofran ordered. Patient is nothing by mouth at this time as she was prepping for the procedure. A surgery consult was placed as the patient's colonoscopy shows mild gastritis antrum body that were biopsied along with duodenal biopsies, ascending colon mass almost completely obstructing the lumen and circumferential with multiple biopsies taken and 2 pedunculated polyps in the sigmoid and rectosigmoid were removed, and mild left colonic diverticulosis with some moderate internal hemorrhoids. Will await report from surgery. Patient's sodium continues to be slightly low at 132. Will discontinue IV fluids and place the patient on 1500 mL fluid restrictions. Patient can resume clear liquid diet until midnight. 05/14/2019 Patient is seen in follow-up today awaiting to undergo surgery on the colon mass with Dr. Monroe today. Patient has been nothing by mouth. Patient states she continues to have some loose stools that are liquid in nature. No blood noted. Patient did have multiple enemas yesterday prior to colonoscopy. Patient will also be undergoing a liver biopsy during the procedure to assess for metastasis. Will await report. Currently no reports of chest pain, shortness of breath, or palpitations. Patient is afebrile. No reports of nausea or vomiting and patient has been nothing by mouth as mentioned previously. Will repeat a.m. labs. 05/15/2019 Patient is seen and evaluated in follow-up today status post right colectomy yesterday. She remains on the epidural pump and states her pain is well controlled. Patient to continue with use of incentive spirometer at least 10 times every hour while awake. She remains on clear liquids and will continue at this time. IV fluids changed to normal saline and will continue at this time for hyponatremia. Sodium is 132, potassium is 4.1. Hemoglobin is 8.7. Will repeat a.m. labs. Patient to work with physical therapy today and is currently pending. Currently no reports of chest pain, shortness of breath, or palpitations. Patient is afebrile. No reports of nausea and vomiting and patient is tolerating clear liquids as mentioned previously. No bowel activity at this time. 05/16/2019 Patient does have significant leukocytosis but there is no evidence of infection patient is anemic. No fever or chills no cough no dysuria. Patient was started on broad-spectrum antibiotics by general surgery which will be continued I do not see a reason for Metronidazole which will be discontinued. Patient will be continued on IV fluids but will be switched to normal saline patient's symptoms sodium is 132 part of which may be SIADH from pain 05/17/2019 Patient potassium was low which will be replaced and this is secondary to IV fluids down the IV fluids and patient need to be on freewater restriction. Part of her hyponatremia may be related to his ADH from pain which actually improved now will recheck basic metabolic profile tomorrow. Patient can use to have leukocytosis can be just reactive no real evidence of infection at this time patient can use to be on Zosyn. Constitutional: Denied any fatigue denied any fever. Cardio vascular: denied any chest pain, palpitations Gastrointestinal denied any nausea vomiting she has some abdominal pain from surgery Pulmonary: Denied any shortness of breath cough Neurologic denied any new focal deficits 05/18/2019 Patient is seen and evaluated in follow-up today and having epidural pump removed along with Carreno catheter. Patient's potassium continues to be low at 3.0 will be replaced. Magnesium is 1.4. Sodium is also low at 128. IV fluids will be discontinued and patient will remain on a 1200 mL fluid restriction. Nephrology consulted. Patient will receive Lasix 20 mg IV push today she as she is having some lower extremity edema. Will monitor I&O's closely. Will repeat a.m. labs. Discussed with the patient about continuing to use incentive spirometer and increase activity as tolerated. Also discussed with the patient about increasing oral intake. Ensure 3 times a day with meals will be added. Patient had a chest x-ray today showing some nonspecific basilar infiltrates with small effusions and a small focal infiltrate in the left upper lobe. Objective - Vital Signs Vital signs: Vital Signs Temp 98.4 F 05/18/19 04:29 Pulse 103 H 05/18/19 04:29 Resp 18 05/18/19 04:29 BP 163/76 05/18/19 04:29 Pulse Ox 92 L 05/18/19 04:29 Intake & Output 05/17/19 05/18/19 05/18/19 18:59 06:59 18:59 Intake Total 130 900 Output Total 200 650 Balance -70 250 Weight 55.792 kg Intake: Intake, IV Titration 130 900 Amount Ropivacaine 250 mg 130 Hydromorphone (Pf) 5 mg In Sodium Chloride 0.9% 200 ml @ Per Protocol EPIDURAL .Q0M PRN Rx#: [id number] Sodium Chloride 0.9% 1, 900 000 ml @ 75 mls/hr IV . [id number] [facility] Rx#:[id number] Output: Urine 200 650 Uretheral (Carreno) 650 Other: Voiding Method Indwelling Catheter Indwelling Catheter Indwelling Catheter # Voids 3 # Bowel Movements 1 - Exam GENERAL: The patient is alert and oriented x3, not in any acute distress. Well developed, well nourished. HEENT: Pupils are round and equally reacting to light. EOMI. No scleral icterus. No conjunctival pallor. Normocephalic, atraumatic. No pharyngeal erythema. No thyromegaly. CARDIOVASCULAR: S1 and S2 present. No murmurs, rubs, or gallops. PULMONARY: Chest is clear to auscultation, no wheezing or crackles. ABDOMEN: Soft, nontender, nondistended, normoactive bowel sounds. No palpable organomegaly. MUSCULOSKELETAL: No joint swelling or deformity. EXTREMITIES: No cyanosis, clubbing. Mild lower extremity edema noted NEUROLOGICAL: Gross neurological examination did not reveal any focal deficits. SKIN: No rashes. - Labs CBC & Chem 7: 05/18/19 05:18 05/18/19 05:18 Labs: Abnormal Lab Results - Last 24 Hours (Table) 05/18/19 05/18/19 05/18/19 Range/Units 05:18 05:18 05:18 WBC 18.7 H (3.8-10.6) k/uL RBC 3.11 L (3.80-5.40) m/uL Hgb 7.0 L (11.4-16.0) gm/dL Hct 22.5 L (34.0-46.0) % MCV 72.4 L (80.0-100.0) fL MCH 22.7 L (25.0-35.0) pg RDW 17.2 H (11.5-15.5) % Plt Count 500 H (150-450) k/uL Neutrophils # 16.1 H (1.3-7.7) k/uL Sodium 128 L (137-145) mmol/L Potassium 3.0 L (3.5-5.1) mmol/L Chloride 97 L (98-107) mmol/L BUN 2 L (7-17) mg/dL Creatinine 0.49 L (0.52-1.04) mg/dL Osmolality 267 L (280-301) mosm/kg Calcium 7.5 L (8.4-10.2) mg/dL Magnesium (1.6-2.3) mg/dL 05/18/19 Range/Units 05:18 WBC (3.8-10.6) k/uL RBC (3.80-5.40) m/uL Hgb (11.4-16.0) gm/dL Hct (34.0-46.0) % MCV (80.0-100.0) fL MCH (25.0-35.0) pg RDW (11.5-15.5) % Plt Count (150-450) k/uL Neutrophils # (1.3-7.7) k/uL Sodium (137-145) mmol/L Potassium (3.5-5.1) mmol/L Chloride (98-107) mmol/L BUN (7-17) mg/dL Creatinine (0.52-1.04) mg/dL Osmolality (280-301) mosm/kg Calcium (8.4-10.2) mg/dL Magnesium 1.4 L (1.6-2.3) mg/dL Assessment and Plan Assessment: -Abdominal pain which improved now is secondary to bowel obstruction nausea vomiting secondary to bowel obstruction. Bowel obstruction secondary to: cancer patient is to status post right colectomy. Patient had a cecal mass. -leukocytosis can be reactive now so far no evidence of infection at this time continue with Zosyn for now because of her recent intra-abdominal surgery -Multiple pulmonary nodules probably metastatic disease from the colon. Patient underwent EGD and colonoscopy showing mild gastritis antrum body that were bi opsied along with multiple duodenal biopsies, ascending colon mass almost completely obstructing the lumen with multiple biopsies and tattoos placed distal to the mass, 2 pedunculated polyps in the sigmoid and rectosigmoid that were removed, mild left colonic diverticulosis, and moderate internal he morrhoids -Hypovolemic hyponatremia. IV fluids discontinued and patient will continue on a 1200 mL fluid restriction. Sodium today 128. Will repeat a.m. labs. Nephrology consulted. -Hypokalemia secondary to IV fluids and natriuresis. Potassium 3.0 today. Replacing will repeat a.m. labs. -Hypomagnesemia; magnesium is 1.4 and being replaced. -Nicotine abuse: Counseling was provided -Chronic iron deficiency anemia; patient receiving iron transfusions Plan: Epidural pump is being discontinued. Carreno catheter is being removed. Will monitor intake and output closely. Discussed with the patient about increasing activity as tolerated. Continue with incentive spirometer use and educated to use at least 10 times every hour while awake. Potassium and magnesium being replaced today. Will repeat a.m. labs. Further recommendations to follow.
[2019-05-18 16:26] LABS: Folate, Serum 13.3 ng/mL
[2019-05-19] MEDS: traMADol 50 MG TAB PO PRN ×2 (00:03→23:43)
[2019-05-19] MEDS: HEPARIN SODIUM,PORCINE 5,000 UNIT/ML 1 ML VIAL SQ SCH ×4 (00:04→23:37)
[2019-05-19] MEDS: PIPERACILLIN-TAZOBACTAM 3.375 GM in SODIUM CHLORIDE 0.9% 100 ML IVPB SCH ×4 (00:04→23:37)
[2019-05-19 06:05] LABS: Anisocytosis Slight; Basophils % (A) 0 %; Eosinophils # (A) 0.1 k/uL (0-0.7); Eosinophils % (A) 1 %; HCT 23.8 % (34.0-46.0); HGB 7.4 gm/dL (11.4-16.0); Hypochromasia Slight; Lymphocytes # (A) 1.7 k/uL (1.0-4.8); Lymphocytes % (A) 11 %; MCH 22.5 pg (25.0-35.0); MCHC 31.1 g/dL (31.0-37.0); MCV 72.2 fL (80.0-100.0); Mean Platelet Volume 6.8; Microcytosis Moderate; Monocytes # (A) 0.8 k/uL (0-1.0); Monocytes % (A) 5 %; Neutrophils # (A) 12.7 k/uL (1.3-7.7); Neutrophils % (A) 81 %; Platelet Count 547 k/uL (150-450); RDW 17.7 % (11.5-15.5); WBC 15.7 k/uL (3.8-10.6)
[2019-05-19 06:15] LABS: ALT 14 U/L (4-34); AST 29 U/L (14-36); African American GFR (CKD) >90 (>60 ml/min/1.73 sqM); Albumin 2.2 g/dL (3.5-5.0); Alkaline Phosphatase 79 U/L (38-126); Anion Gap 7 mmol/L; Blood Urea Nitrogen 2 mg/dL (7-17); Calcium 7.6 mg/dL (8.4-10.2); Carbon Dioxide 26 mmol/L (22-30); Chloride 95 mmol/L (98-107); Glucose 103 mg/dL (74-99); Magnesium 1.9 mg/dL (1.6-2.3); Non-African American GFR(CKD) >90 (>60 ml/min/1.73 sqM); Potassium 3.3 mmol/L (3.5-5.1); Sodium 128 mmol/L (137-145); Total Bilirubin 0.4 mg/dL (0.2-1.3); Total Protein 4.9 g/dL (6.3-8.2)
--- NOTE | 2019-05-19 08:38 | P.PN ---
Subjective Patient is seen in follow-up for hyponatremia. Sodium level is stable. She didn't eat much yesterday but will try today. No vomiting or diarrhea. Vital signs are stable. General: The patient appeared well nourished and normally developed. HEENT: Head exam is unremarkable. Neck is without jugular venous distension. LUNGS: Lungs are clear to auscultation and percussion. Breath sounds decreased. HEART: Rate and Rhythm are regular. First and second heart sounds normal. No murmurs, rubs or gallops. ABDOMEN: Abdominal exam reveals normal bowel sounds. Non-tender and non- distended. No evidence of peritonitis. EXTREMITITES: No clubbing, cyanosis, or edema. Objective - Vital Signs Vital signs: Vital Signs Temp 98.4 F 05/19/19 05:00 Pulse 91 05/19/19 05:00 Resp 18 05/19/19 05:00 BP 147/70 05/19/19 05:00 Pulse Ox 92 L 05/19/19 05:00 Intake & Output 05/18/19 05/19/19 05/19/19 18:59 06:59 18:59 Intake Total 240 Balance 240 Weight 55.792 kg Intake: Oral 240 Other: Voiding Method Indwelling Catheter Toilet # Voids 3 - Labs CBC & Chem 7: 05/19/19 05:23 05/19/19 05:23 Labs: Abnormal Lab Results - Last 24 Hours (Table) 05/18/19 05/18/19 05/19/19 Range/Units 05:18 05:18 05:23 WBC 15.7 H (3.8-10.6) k/uL RBC 3.30 L (3.80-5.40) m/uL Hgb 7.4 L (11.4-16.0) gm/dL Hct 23.8 L (34.0-46.0) % MCV 72.2 L (80.0-100.0) fL MCH 22.5 L (25.0-35.0) pg RDW 17.7 H (11.5-15.5) % Plt Count 547 H (150-450) k/uL Neutrophils # 12.7 H (1.3-7.7) k/uL Sodium (137-145) mmol/L Potassium (3.5-5.1) mmol/L Chloride (98-107) mmol/L BUN (7-17) mg/dL Creatinine (0.52-1.04) mg/dL Glucose (74-99) mg/dL Osmolality 267 L (280-301) mosm/kg Calcium (8.4-10.2) mg/dL Magnesium 1.4 L (1.6-2.3) mg/dL Total Protein (6.3-8.2) g/dL Albumin (3.5-5.0) g/dL 05/19/19 Range/Units 05:23 WBC (3.8-10.6) k/uL RBC (3.80-5.40) m/uL Hgb (11.4-16.0) gm/dL Hct (34.0-46.0) % MCV (80.0-100.0) fL MCH (25.0-35.0) pg RDW (11.5-15.5) % Plt Count (150-450) k/uL Neutrophils # (1.3-7.7) k/uL Sodium 128 L (137-145) mmol/L Potassium 3.3 L (3.5-5.1) mmol/L Chloride 95 L (98-107) mmol/L BUN 2 L (7-17) mg/dL Creatinine 0.51 L (0.52-1.04) mg/dL Glucose 103 H (74-99) mg/dL Osmolality (280-301) mosm/kg Calcium 7.6 L (8.4-10.2) mg/dL Magnesium (1.6-2.3) mg/dL Total Protein 4.9 L (6.3-8.2) g/dL Albumin 2.2 L (3.5-5.0) g/dL Assessment and Plan Plan: Assessment: 1. Hyponatremia secondary to poor solute intake. Sodium stable at 128 today. Urine osmolality 511. 2. Colon mass status post right-sided colectomy. 3. Hypokalemia secondary to poor oral intake as well as hypomagnesemia. 4. Hypomagnesemia from poor oral intake. Better post replacement. 5. Anemia. No active bleeding. Iron deficiency noted. Receiving IV iron. 6. Lower extremity edema. Plan: 1200 mL fluid restriction. Maintain ensure 3 times daily with meals. Potassium being replaced. Add sodium chloride tablets 1 g twice daily. Repeat electrolytes in the morning.
[2019-05-19] MEDS: PANTOPRAZOLE 40 MG/10 ML VIAL IVP SCH ×2 (09:00→19:40)
[2019-05-19] MEDS: POTASSIUM CHLORIDE ER 20 MEQ TAB.ER PO SCH ×3 (09:12→13:19)
[2019-05-19] MEDS: SODIUM FERRIC GLUCONAT-SUCROSE 125 MG in SODIUM CHLORIDE 0.9% 100 ML IVPB SCH (09:14)
[2019-05-19] MEDS: SODIUM CHLORIDE TAB 1 GM TAB PO SCH ×2 (10:55→19:40)
--- NOTE | 2019-05-19 12:04 | P.PN ---
Subjective Progress Note Date: 05/19/19 CHIEF COMPLAINT: Ascending colon mass HISTORY OF PRESENT ILLNESS: Patient is status post right colectomy and liver biopsy with Dr. Monroe. Patient examined at the bedside. She reports her pain is tolerable today. She is passing flatus. Denies BM. WBC 15.7. Hemoglobin 7.4. Potassium 3.3. PHYSICAL EXAM: VITAL SIGNS: Reviewed. GENERAL: Well-developed in no acute distress. HEENT: No sclera icterus. Extraocular movements grossly intact. Moist buccal mucosa. Head is atraumatic, normocephalic. ABDOMEN: Soft. Nondistended. Dressing clean dry and intact. Appropriate surgical tenderness. NEUROLOGIC: Alert and oriented. Cranial nerves II through XII grossly intact. ASSESSMENT: 1. Ascending colon mass 2. Abnormal CT revealing suspicion for metastatic nodules and liver and lung PLAN: -Continue diet as tolerated -Pain control -Incentive spirometer -Activity as tolerated -Monitor hemoglobin. Continue IV iron infusions per oncology -Replace potassium Nurse practitioner note has been reviewed by physician. Signing provider agrees with the documented findings, assessment, and plan of care. Objective - Vital Signs Vital signs: Vital Signs Temp 97.8 F 05/19/19 11:50 Pulse 99 05/19/19 11:50 Resp 17 05/19/19 11:50 BP 145/74 05/19/19 11:50 Pulse Ox 98 05/19/19 11:50 Intake & Output 05/18/19 05/19/19 05/19/19 18:59 06:59 18:59 Intake Total 240 Balance 240 Weight 55.792 kg Intake: Oral 240 Other: Voiding Method Indwelling Catheter Toilet # Voids 3 - Labs CBC & Chem 7: 05/19/19 05:23 05/19/19 05:23 Labs: Abnormal Lab Results - Last 24 Hours (Table) 05/19/19 05/19/19 Range/Units 05:23 05:23 WBC 15.7 H (3.8-10.6) k/uL RBC 3.30 L (3.80-5.40) m/uL Hgb 7.4 L (11.4-16.0) gm/dL Hct 23.8 L (34.0-46.0) % MCV 72.2 L (80.0-100.0) fL MCH 22.5 L (25.0-35.0) pg RDW 17.7 H (11.5-15.5) % Plt Count 547 H (150-450) k/uL Neutrophils # 12.7 H (1.3-7.7) k/uL Sodium 128 L (137-145) mmol/L Potassium 3.3 L (3.5-5.1) mmol/L Chloride 95 L (98-107) mmol/L BUN 2 L (7-17) mg/dL Creatinine 0.51 L (0.52-1.04) mg/dL Glucose 103 H (74-99) mg/dL Calcium 7.6 L (8.4-10.2) mg/dL Total Protein 4.9 L (6.3-8.2) g/dL Albumin 2.2 L (3.5-5.0) g/dL
--- NOTE | 2019-05-19 13:07 | P.PN ---
Subjective Progress Note Date: 05/19/19 Principal diagnosis: 73-year-old the female was transferred from [facility] patient presents today with symptoms of gastric surgery reflux disease with epigastric sharp abdominal pain and nausea vomiting going on for 2 days epigastric abdominal pain moderate severity has been going on for about 3 weeks. Patient is bit hyponatremic from nausea vomiting. Because of abdominal pain patient underwent CAT scan of the abdomen as well as chest which showed multiple nodular lesions in the chest along with a possible cancerous lesion in the cecum and a lesion in the liver. Patient will undergo upper GI endoscopy endoscopy tomorrow with possible biopsy of the cecal area. She used to smoke in the past quit smoking since 3 weeks since his been sick 05/13/2019 Patient is seen and evaluated in follow-up today awaiting to undergo EGD and colonoscopy with GI today. Patient is having some rectal discomfort status post enema and states she does have history of hemorrhoids with some mild blood noted in the stool. Currently no reports of chest pain, shortness of breath, or palpitations. Patient is having some nausea and does have Zofran ordered. Patient is nothing by mouth at this time as she was prepping for the procedure. A surgery consult was placed as the patient's colonoscopy shows mild gastritis antrum body that were biopsied along with duodenal biopsies, ascending colon mass almost completely obstructing the lumen and circumferential with multiple biopsies taken and 2 pedunculated polyps in the sigmoid and rectosigmoid were removed, and mild left colonic diverticulosis with some moderate internal hemorrhoids. Will await report from surgery. Patient's sodium continues to be slightly low at 132. Will discontinue IV fluids and place the patient on 1500 mL fluid restrictions. Patient can resume clear liquid diet until midnight. 05/14/2019 Patient is seen in follow-up today awaiting to undergo surgery on the colon mass with Dr. Monroe today. Patient has been nothing by mouth. Patient states she continues to have some loose stools that are liquid in nature. No blood noted. Patient did have multiple enemas yesterday prior to colonoscopy. Patient will also be undergoing a liver biopsy during the procedure to assess for metastasis. Will await report. Currently no reports of chest pain, shortness of breath, or palpitations. Patient is afebrile. No reports of nausea or vomiting and patient has been nothing by mouth as mentioned previously. Will repeat a.m. labs. 05/15/2019 Patient is seen and evaluated in follow-up today status post right colectomy yesterday. She remains on the epidural pump and states her pain is well controlled. Patient to continue with use of incentive spirometer at least 10 times every hour while awake. She remains on clear liquids and will continue at this time. IV fluids changed to normal saline and will continue at this time for hyponatremia. Sodium is 132, potassium is 4.1. Hemoglobin is 8.7. Will repeat a.m. labs. Patient to work with physical therapy today and is currently pending. Currently no reports of chest pain, shortness of breath, or palpitations. Patient is afebrile. No reports of nausea and vomiting and patient is tolerating clear liquids as mentioned previously. No bowel activity at this time. 05/16/2019 Patient does have significant leukocytosis but there is no evidence of infection patient is anemic. No fever or chills no cough no dysuria. Patient was started on broad-spectrum antibiotics by general surgery which will be continued I do not see a reason for Metronidazole which will be discontinued. Patient will be continued on IV fluids but will be switched to normal saline patient's symptoms sodium is 132 part of which may be SIADH from pain 05/17/2019 Patient potassium was low which will be replaced and this is secondary to IV fluids down the IV fluids and patient need to be on freewater restriction. Part of her hyponatremia may be related to his ADH from pain which actually improved now will recheck basic metabolic profile tomorrow. Patient can use to have leukocytosis can be just reactive no real evidence of infection at this time patient can use to be on Zosyn. Constitutional: Denied any fatigue denied any fever. Cardio vascular: denied any chest pain, palpitations Gastrointestinal denied any nausea vomiting she has some abdominal pain from surgery Pulmonary: Denied any shortness of breath cough Neurologic denied any new focal deficits 05/18/2019 Patient is seen and evaluated in follow-up today and having epidural pump removed along with Carreno catheter. Patient's potassium continues to be low at 3.0 will be replaced. Magnesium is 1.4. Sodium is also low at 128. IV fluids will be discontinued and patient will remain on a 1200 mL fluid restriction. Nephrology consulted. Patient will receive Lasix 20 mg IV push today she as she is having some lower extremity edema. Will monitor I&O's closely. Will repeat a.m. labs. Discussed with the patient about continuing to use incentive spirometer and increase activity as tolerated. Also discussed with the patient about increasing oral intake. Ensure 3 times a day with meals will be added. Patient had a chest x-ray today showing some nonspecific basilar infiltrates with small effusions and a small focal infiltrate in the left upper lobe. 05/19/2019 Patient is seen in follow-up today with no acute overnight issues. Patient states she has been up and walking around the room with no difficulties. She continues to use incentive spirometer. Patient has been increasing her oral intake of protein and has been doing the and sugars with each meal. Patient currently remains on a 1200 mL fluid restriction and will continue at this time. Sodium tablets have been started as sodium continues to be low at 128. Will repeat a.m. labs. Patient receiving #2 of 3 of iron infusions. Currently no reports of chest pain, shortness of breath, or palpitations. Patient is afebrile. No reports of nausea or vomiting and patient is tolerating diet. Patient did have a small bowel movement yesterday and has been passing gas. Objective - Vital Signs Vital signs: Vital Signs Temp 97.8 F 05/19/19 11:50 Pulse 99 05/19/19 11:50 Resp 17 05/19/19 11:50 BP 145/74 05/19/19 11:50 Pulse Ox 98 05/19/19 11:50 Intake & Output 05/18/19 05/19/19 05/19/19 18:59 06:59 18:59 Intake Total 240 Balance 240 Weight 55.792 kg Intake: Oral 240 Other: Voiding Method Indwelling Catheter Toilet Toilet # Voids 3 - Exam GENERAL: The patient is alert and oriented x3, not in any acute distress. Well developed, well nourished. HEENT: Pupils are round and equally reacting to light. EOMI. No scleral icterus. No conjunctival pallor. Normocephalic, atraumatic. No pharyngeal erythema. No thyromegaly. CARDIOVASCULAR: S1 and S2 present. No murmurs, rubs, or gallops. PULMONARY: Chest is clear to auscultation, no wheezing or crackles. ABDOMEN: Soft, nontender, nondistended, normoactive bowel sounds. No palpable organomegaly. MUSCULOSKELETAL: No joint swelling or deformity. EXTREMITIES: No cyanosis, clubbing. Mild lower extremity edema noted NEUROLOGICAL: Gross neurological examination did not reveal any focal deficits. SKIN: No rashes. - Labs CBC & Chem 7: 05/19/19 05:23 05/19/19 05:23 Labs: Abnormal Lab Results - Last 24 Hours (Table) 05/19/19 05/19/19 Range/Units 05:23 05:23 WBC 15.7 H (3.8-10.6) k/uL RBC 3.30 L (3.80-5.40) m/uL Hgb 7.4 L (11.4-16.0) gm/dL Hct 23.8 L (34.0-46.0) % MCV 72.2 L (80.0-100.0) fL MCH 22.5 L (25.0-35.0) pg RDW 17.7 H (11.5-15.5) % Plt Count 547 H (150-450) k/uL Neutrophils # 12.7 H (1.3-7.7) k/uL Sodium 128 L (137-145) mmol/L Potassium 3.3 L (3.5-5.1) mmol/L Chloride 95 L (98-107) mmol/L BUN 2 L (7-17) mg/dL Creatinine 0.51 L (0.52-1.04) mg/dL Glucose 103 H (74-99) mg/dL Calcium 7.6 L (8.4-10.2) mg/dL Total Protein 4.9 L (6.3-8.2) g/dL Albumin 2.2 L (3.5-5.0) g/dL Assessment and Plan Assessment: -Abdominal pain which improved now is secondary to bowel obstruction nausea vomiting secondary to bowel obstruction. Bowel obstruction secondary to: cancer patient is to status post right colectomy. Patient had a cecal mass. -leukocytosis can be reactive now so far no evidence of infection at this time continue with Zosyn for now because of her recent intra-abdominal surgery -Multiple pulmonary nodules probably metastatic disease from the colon. Patient underwent EGD and colonoscopy showing mild gastritis antrum body that were biopsied along with multiple duodenal biopsies, ascending colon mass almost completely obstructing the lumen with multiple biopsies and tattoos placed distal to the mass, 2 pedunculated polyps in the sigmoid and rectosigmoid that were removed, mild left colonic diverticulosis, and moderate internal hemorrhoids -Hypovolemic hyponatremia. IV fluids discontinued and patient will continue on a 1200 mL fluid restriction. Sodium today 128. Will repeat a.m. labs. Nephrology consulted. -Hypokalemia secondary to IV fluids and natriuresis. Potassium 3.3 today. Replacing will repeat a.m. labs. -Hypomagnesemia; improved. Magnesium 1.9 -Nicotine abuse: Counseling was provided -Chronic iron deficiency anemia; patient receiving iron transfusions 2 of 3 today Plan: Patient to continue increasing activity as tolerated and continue walking and using incentive spirometer. Discussed with the patient about drinking Ensure with meals and increasing oral intake especially protein. Patient remains on 1200 mL fluid restrictions. Sodium continues to be low at 128 and will repeat a.m. labs. Nephrology is following. Further recommendations to follow. Possible discharge tomorrow.
--- NOTE | 2019-05-19 14:18 | P.PN ---
Subjective Progress Note Date: 05/19/19 Principal diagnosis: new nodules lung and liver, anemia Recovering after surgery, still not eating much. Pain is improving. Still awaiting path from liver Objective - Vital Signs Vital signs: Vital Signs Temp 97.8 F 05/19/19 11:50 Pulse 99 05/19/19 11:50 Resp 17 05/19/19 11:50 BP 145/74 05/19/19 11:50 Pulse Ox 98 05/19/19 11:50 Intake & Output 05/18/19 05/19/19 05/19/19 18:59 06:59 18:59 Intake Total 240 Balance 240 Weight 55.792 kg Intake: Oral 240 Other: Voiding Method Indwelling Catheter Toilet Toilet # Voids 3 - Exam Gen: Alert and oriented NAD Head NCAT Neck Supple Lungs: Scattered wheezes, no increased effort Abdomen: Tender to palpation, BS x4, evidence of surgery Heart: Tachy, reg Extremities: No edema Neuro: Non-focal Mood Calm - Labs CBC & Chem 7: 05/19/19 05:23 05/19/19 05:23 Labs: Abnormal Lab Results - Last 24 Hours (Table) 05/19/19 05/19/19 Range/Units 05:23 05:23 WBC 15.7 H (3.8-10.6) k/uL RBC 3.30 L (3.80-5.40) m/uL Hgb 7.4 L (11.4-16.0) gm/dL Hct 23.8 L (34.0-46.0) % MCV 72.2 L (80.0-100.0) fL MCH 22.5 L (25.0-35.0) pg RDW 17.7 H (11.5-15.5) % Plt Count 547 H (150-450) k/uL Neutrophils # 12.7 H (1.3-7.7) k/uL Sodium 128 L (137-145) mmol/L Potassium 3.3 L (3.5-5.1) mmol/L Chloride 95 L (98-107) mmol/L BUN 2 L (7-17) mg/dL Creatinine 0.51 L (0.52-1.04) mg/dL Glucose 103 H (74-99) mg/dL Calcium 7.6 L (8.4-10.2) mg/dL Total Protein 4.9 L (6.3-8.2) g/dL Albumin 2.2 L (3.5-5.0) g/dL Assessment and Plan Plan: Assessment and Recommendations: 1. Suspicious Lung Nodules:Bilateral - Positive left Hilar Adenopathy, largest 3.2cm 2. Suspicious Liver Lesions: - approx 15 with largest 5.4cm in the right lobe - History Hepatitis C, ?biopsy of liver lesions 3. Inflammatory changes in cecum: Path Positive for likely colon primary cancer - Colitis versus other - Malignancy can not be ruled out - status Post colonoscopy Ascending colon mass identified with near obstruction of the lumen in circumferential. - Status Post colectomy and liver biopsy - CEA increased 88 4. Normocytic Anemia: - Likely related to malnutrition and iron deficiency -Iron deficiency component verified secondary to tumor - IV Iron ordered and continued 5. Thombocytosis: - Reactive. 6. 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 - Status post colectomy and liver lesion biopsy as well. Patient agreeable to plan. - 3-4 weeks if positive path in office for systemic treatment options GRACIE Chan Discharge plan to follow-up in office, she lives closer to [facility] and wishes to find oncologist closer to home Physician AttstL I have completed the full history and physical and agree with above dictation, dictated as a scribe
[2019-05-20 06:57] LABS: Anisocytosis Slight; Basophils % (A) 0 %; Eosinophils # (A) 0.1 k/uL (0-0.7); Eosinophils % (A) 1 %; HCT 25.8 % (34.0-46.0); HGB 8.2 gm/dL (11.4-16.0); Lymphocytes # (A) 1.6 k/uL (1.0-4.8); Lymphocytes % (A) 10 %; MCHC 31.8 g/dL (31.0-37.0); MCV 72.5 fL (80.0-100.0); Mean Platelet Volume 6.9; Microcytosis Moderate; Monocytes # (A) 0.9 k/uL (0-1.0); Monocytes % (A) 6 %; Neutrophils # (A) 12.1 k/uL (1.3-7.7); Neutrophils % (A) 81 %; Platelet Count 544 k/uL (150-450); RBC 3.56 m/uL (3.80-5.40); RDW 18.7 % (11.5-15.5); WBC 14.9 k/uL (3.8-10.6)
[2019-05-20 07:23] LABS: African American GFR (CKD) >90 (>60 ml/min/1.73 sqM); Anion Gap 8 mmol/L; Blood Urea Nitrogen 2 mg/dL (7-17); Carbon Dioxide 25 mmol/L (22-30); Chloride 94 mmol/L (98-107); Glucose 101 mg/dL (74-99); Magnesium 1.7 mg/dL (1.6-2.3); Non-African American GFR(CKD) >90 (>60 ml/min/1.73 sqM); Potassium 3.6 mmol/L (3.5-5.1); Sodium 127 mmol/L (137-145)
[2019-05-20] MEDS ORDERED: POTASSIUM CHLORIDE ER 20 MEQ TAB.ER PO STA (08:31)
--- NOTE | 2019-05-20 08:34 | P.PN ---
Subjective Patient is seen in follow-up for hyponatremia. Sodium level is 127 today. Starting to tolerate oral intake but only eating minimal. Urine output is good. Does have edema in lower extremities. Vital signs are stable. General: The patient appeared well nourished and normally developed. HEENT: Head exam is unremarkable. Neck is without jugular venous distension. LUNGS: Lungs are clear to auscultation and percussion. Breath sounds decreased. HEART: Rate and Rhythm are regular. First and second heart sounds normal. No murmurs, rubs or gallops. ABDOMEN: Nontender. EXTREMITITES: 1+ edema. Objective - Vital Signs Vital signs: Vital Signs Temp 98.4 F 05/20/19 04:46 Pulse 93 05/20/19 04:46 Resp 16 05/20/19 04:46 BP 161/73 05/20/19 04:46 Pulse Ox 94 L 05/20/19 04:46 Intake & Output 05/19/19 05/20/19 05/20/19 18:59 06:59 18:59 Intake Total 240 Output Total 100 Balance -100 240 Intake: Oral 240 Output: Urine 100 Other: Voiding Method Toilet # Voids 3 - Labs CBC & Chem 7: 05/20/19 06:31 05/20/19 06:31 Labs: Abnormal Lab Results - Last 24 Hours (Table) 05/20/19 05/20/19 Range/Units 06:31 06:31 WBC 14.9 H (3.8-10.6) k/uL RBC 3.56 L (3.80-5.40) m/uL Hgb 8.2 L (11.4-16.0) gm/dL Hct 25.8 L (34.0-46.0) % MCV 72.5 L (80.0-100.0) fL MCH 23.0 L (25.0-35.0) pg RDW 18.7 H (11.5-15.5) % Plt Count 544 H (150-450) k/uL Neutrophils # 12.1 H (1.3-7.7) k/uL Sodium 127 L (137-145) mmol/L Chloride 94 L (98-107) mmol/L BUN 2 L (7-17) mg/dL Glucose 101 H (74-99) mg/dL Calcium 8.0 L (8.4-10.2) mg/dL Assessment and Plan Plan: Assessment: 1. Hyponatremia secondary to poor solute intake. Sodium stable at 127 today. Urine osmolality 511. 2. Colon mass status post right-sided colectomy. 3. Hypokalemia secondary to poor oral intake as well as hypomagnesemia. 4. Hypomagnesemia from poor oral intake. Better post replacement. 5. Anemia. No active bleeding. Iron deficiency noted. Receiving IV iron. 6. Lower extremity edema. Plan: 1200 mL fluid restriction. Maintain ensure 3 times daily with meals. Replace potassium. 40 mEq today. Maintain salt tabs for now. Samsca 15 mg once today. Will plan to add Lasix tomorrow. Repeat electrolytes in the morning.
[2019-05-20] MEDS: SODIUM FERRIC GLUCONAT-SUCROSE 125 MG in SODIUM CHLORIDE 0.9% 100 ML IVPB SCH (08:46)
[2019-05-20] MEDS: SODIUM CHLORIDE TAB 1 GM TAB PO SCH ×2 (08:47→20:54)
[2019-05-20] MEDS: PANTOPRAZOLE 40 MG/10 ML VIAL IVP SCH ×2 (08:47→20:54)
[2019-05-20] MEDS: HEPARIN SODIUM,PORCINE 5,000 UNIT/ML 1 ML VIAL SQ SCH ×2 (08:48→17:13)
[2019-05-20] MEDS ORDERED: TOLVAPTAN 15 MG 1/2 TABLET PO ONE (09:00)
[2019-05-20] MEDS: PIPERACILLIN-TAZOBACTAM 3.375 GM in SODIUM CHLORIDE 0.9% 100 ML IVPB SCH ×2 (09:45→17:14)
--- NOTE | 2019-05-20 11:48 | P.PN ---
Progress Note - Text Progress Note Date: 05/20/19 The patient resting comfortably in her bed. She states she feels better. On exam her vital signs are stable. Her abdomen soft. Incision sites clean dry intact. Status post right colectomy. Patient will most likely be discharged home tomorrow once her lesser lites have improved.
--- NOTE | 2019-05-20 13:57 | P.PN ---
Subjective Progress Note Date: 05/20/19 Principal diagnosis: 73-year-old the female was transferred from [facility] patient presents today with symptoms of gastric surgery reflux disease with epigastric sharp abdominal pain and nausea vomiting going on for 2 days epigastric abdominal pain moderate severity has been going on for about 3 weeks. Patient is bit hyponatremic from nausea vomiting. Because of abdominal pain patient underwent CAT scan of the abdomen as well as chest which showed multiple nodular lesions in the chest along with a possible cancerous lesion in the cecum and a lesion in the liver. Patient will undergo upper GI endoscopy endoscopy tomorrow with possible biopsy of the cecal area. She used to smoke in the past quit smoking since 3 weeks since his been sick 05/13/2019 Patient is seen and evaluated in follow-up today awaiting to undergo EGD and colonoscopy with GI today. Patient is having some rectal discomfort status post enema and states she does have history of hemorrhoids with some mild blood noted in the stool. Currently no reports of chest pain, shortness of breath, or palpitations. Patient is having some nausea and does have Zofran ordered. Patient is nothing by mouth at this time as she was prepping for the procedure. A surgery consult was placed as the patient's colonoscopy shows mild gastritis antrum body that were biopsied along with duodenal biopsies, ascending colon mass almost completely obstructing the lumen and circumferential with multiple biopsies taken and 2 pedunculated polyps in the sigmoid and rectosigmoid were removed, and mild left colonic diverticulosis with some moderate internal hemorrhoids. Will await report from surgery. Patient's sodium continues to be slightly low at 132. Will discontinue IV fluids and place the patient on 1500 mL fluid restrictions. Patient can resume clear liquid diet until midnight. 05/14/2019 Patient is seen in follow-up today awaiting to undergo surgery on the colon mass with Dr. Monroe today. Patient has been nothing by mouth. Patient states she continues to have some loose stools that are liquid in nature. No blood noted. Patient did have multiple enemas yesterday prior to colonoscopy. Patient will also be undergoing a liver biopsy during the procedure to assess for metastasis. Will await report. Currently no reports of chest pain, shortness of breath, or palpitations. Patient is afebrile. No reports of nausea or vomiting and patient has been nothing by mouth as mentioned previously. Will repeat a.m. labs. 05/15/2019 Patient is seen and evaluated in follow-up today status post right colectomy yesterday. She remains on the epidural pump and states her pain is well controlled. Patient to continue with use of incentive spirometer at least 10 times every hour while awake. She remains on clear liquids and will continue at this time. IV fluids changed to normal saline and will continue at this time for hyponatremia. Sodium is 132, potassium is 4.1. Hemoglobin is 8.7. Will repeat a.m. labs. Patient to work with physical therapy today and is currently pending. Currently no reports of chest pain, shortness of breath, or palpitations. Patient is afebrile. No reports of nausea and vomiting and patient is tolerating clear liquids as mentioned previously. No bowel activity at this time. 05/16/2019 Patient does have significant leukocytosis but there is no evidence of infection patient is anemic. No fever or chills no cough no dysuria. Patient was started on broad-spectrum antibiotics by general surgery which will be continued I do not see a reason for Metronidazole which will be discontinued. Patient will be continued on IV fluids but will be switched to normal saline patient's symptoms sodium is 132 part of which may be SIADH from pain 05/17/2019 Patient potassium was low which will be replaced and this is secondary to IV fluids down the IV fluids and patient need to be on freewater restriction. Part of her hyponatremia may be related to his ADH from pain which actually improved now will recheck basic metabolic profile tomorrow. Patient can use to have leukocytosis can be just reactive no real evidence of infection at this time patient can use to be on Zosyn. Constitutional: Denied any fatigue denied any fever. Cardio vascular: denied any chest pain, palpitations Gastrointestinal denied any nausea vomiting she has some abdominal pain from surgery Pulmonary: Denied any shortness of breath cough Neurologic denied any new focal deficits 05/18/2019 Patient is seen and evaluated in follow-up today and having epidural pump removed along with Carreno catheter. Patient's potassium continues to be low at 3.0 will be replaced. Magnesium is 1.4. Sodium is also low at 128. IV fluids will be discontinued and patient will remain on a 1200 mL fluid restriction. Nephrology consulted. Patient will receive Lasix 20 mg IV push today she as she is having some lower extremity edema. Will monitor I&O's closely. Will repeat a.m. labs. Discussed with the patient about continuing to use incentive spirometer and increase activity as tolerated. Also discussed with the patient about increasing oral intake. Ensure 3 times a day with meals will be added. Patient had a chest x-ray today showing some nonspecific basilar infiltrates with small effusions and a small focal infiltrate in the left upper lobe. 05/19/2019 Patient is seen in follow-up today with no acute overnight issues. Patient states she has been up and walking around the room with no difficulties. She continues to use incentive spirometer. Patient has been increasing her oral intake of protein and has been doing the and sugars with each meal. Patient currently remains on a 1200 mL fluid restriction and will continue at this time. Sodium tablets have been started as sodium continues to be low at 128. Will repeat a.m. labs. Patient receiving #2 of 3 of iron infusions. Currently no reports of chest pain, shortness of breath, or palpitations. Patient is afebrile. No reports of nausea or vomiting and patient is tolerating diet. Patient did have a small bowel movement yesterday and has been passing gas. 05/20/2019 Patient seen and evaluated in follow-up today with no acute overnight issues. Patient states that she had a large bowel movement and continues to have some abdominal tenderness but is intermittent. Patient sodium continues to be low at 127 and was initiated on salt tabs and will be given a dose of Samsa today. Nep hrology following. Will repeat a.m. labs. Patient states her oral intake of nutrition and protein continues to improve and is always been a small eater. Patient remains on a 1200 mL fluid restriction and will continue at this time. Patient denies any chest pain, shortness of breath, or palpitations. Patient is afebrile. No reports of nausea or vomiting and patient is tolerating diet. Patient has been increasing activity and walking often. Objective - Vital Signs Vital signs: Vital Signs Temp 98.2 F 05/20/19 11:41 Pulse 95 05/20/19 11:41 Resp 18 05/20/19 11:41 BP 161/82 05/20/19 11:41 Pulse Ox 96 05/20/19 11:41 Intake & Output 05/19/19 05/20/19 05/20/19 18:59 06:59 18:59 Intake Total 240 140 Output Total 100 Balance -100 240 140 Intake: Oral 240 140 Output: Urine 100 Other: Voiding Method Toilet Toilet # Voids 3 - Exam GENERAL: The patient is alert and oriented x3, not in any acute distress. Well developed, well nourished. HEENT: Pupils are round and equally reacting to light. EOMI. No scleral icterus. No conjunctival pallor. Normocephalic, atraumatic. No pharyngeal erythema. No thyromegaly. CARDIOVASCULAR: S1 and S2 present. No murmurs, rubs, or gallops. PULMONARY: Chest is clear to auscultation, no wheezing or crackles. ABDOMEN: Soft, nontender, nondistended, normoactive bowel sounds. No palpable organomegaly. MUSCULOSKELETAL: No joint swelling or deformity. EXTREMITIES: No cyanosis, clubbing. Mild lower extremity edema noted NEUROLOGICAL: Gross neurological examination did not reveal any focal deficits. SKIN: No rashes. - Labs CBC & Chem 7: 05/20/19 06:31 05/20/19 06:31 Labs: Abnormal Lab Results - Last 24 Hours (Table) 05/20/19 05/20/19 Range/Units 06:31 06:31 WBC 14.9 H (3.8-10.6) k/uL RBC 3.56 L (3.80-5.40) m/uL Hgb 8.2 L (11.4-16.0) gm/dL Hct 25.8 L (34.0-46.0) % MCV 72.5 L (80.0-100.0) fL MCH 23.0 L (25.0-35.0) pg RDW 18.7 H (11.5-15.5) % Plt Count 544 H (150-450) k/uL Neutrophils # 12.1 H (1.3-7.7) k/uL Sodium 127 L (137-145) mmol/L Chloride 94 L (98-107) mmol/L BUN 2 L (7-17) mg/dL Glucose 101 H (74-99) mg/dL Calcium 8.0 L (8.4-10.2) mg/dL Assessment and Plan Assessment: -Abdominal pain which improved now is secondary to bowel obstruction nausea vomi ting secondary to bowel obstruction. Bowel obstruction secondary to: cancer patient is to status post right colectomy. Patient had a cecal mass. -leukocytosis can be reactive now so far no evidence of infection at this time continue with Zosyn for now because of her recent intra-abdominal surgery -Multiple pulmonary nodules probably metastatic disease from the colon. Patient underwent EGD and colonoscopy showing mild gastritis antrum body that were biopsied along with multiple duodenal biopsies, ascending colon mass almost completely obstructing the lumen with multiple biopsies and tattoos placed distal to the mass, 2 pedunculated polyps in the sigmoid and rectosigmoid that were removed, mild left colonic diverticulosis, and moderate internal hemorrhoids -Hypovolemic hyponatremia. patient will continue on a 1200 mL fluid restriction. Sodium today 127. Patient remains on sodium tablets and will be given a dose of Samsa today. Will repeat a.m. labs. Nephrology following. -Hypokalemia secondary to IV fluids and natriuresis. Potassium 3.6 today. -Hypomagnesemia; improved. Magnesium 1.7 -Nicotine abuse: Counseling was provided -Chronic iron deficiency anemia; patient received iron transfusions 3 of 3 today Plan: Patient to continue increasing activity as tolerated and continue walking and using incentive spirometer. Patient remains on 1200 mL fluid restrictions. Sodium continues to be low at 127 and will repeat a.m. labs. Nephrology is following. Further recommendations to follow. Possible discharge tomorrow.
--- NOTE | 2019-05-20 14:39 | P.PN ---
Subjective Progress Note Date: 05/20/19 Principal diagnosis: new nodules lung and liver, anemia Patients pathology resulted on liver and did confirm metastatic colon cancer. She has asked me to call her , which I have done although no answer a message to return call was left on voicemail. We will attempt to have mediport placed prior to discharge. Objective - Vital Signs Vital signs: Vital Signs Temp 98.2 F 05/20/19 11:41 Pulse 95 05/20/19 11:41 Resp 18 05/20/19 11:41 BP 161/82 05/20/19 11:41 Pulse Ox 96 05/20/19 11:41 Intake & Output 05/19/19 05/20/19 05/20/19 18:59 06:59 18:59 Intake Total 240 390 Output Total 100 Balance -100 240 390 Intake: Oral 240 390 Output: Urine 100 Other: Voiding Method Toilet Toilet # Voids 3 - Exam Gen: Alert and oriented NAD Head NCAT Neck Supple Lungs: Scattered wheezes, no increased effort Abdomen: Tender to palpation, BS x4, evidence of surgery Heart: Tachy, reg Extremities: No edema Neuro: Non-focal Mood Calm - Labs CBC & Chem 7: 05/20/19 06:31 05/20/19 06:31 Labs: Abnormal Lab Results - Last 24 Hours (Table) 05/20/19 05/20/19 Range/Units 06:31 06:31 WBC 14.9 H (3.8-10.6) k/uL RBC 3.56 L (3.80-5.40) m/uL Hgb 8.2 L (11.4-16.0) gm/dL Hct 25.8 L (34.0-46.0) % MCV 72.5 L (80.0-100.0) fL MCH 23.0 L (25.0-35.0) pg RDW 18.7 H (11.5-15.5) % Plt Count 544 H (150-450) k/uL Neutrophils # 12.1 H (1.3-7.7) k/uL Sodium 127 L (137-145) mmol/L Chloride 94 L (98-107) mmol/L BUN 2 L (7-17) mg/dL Glucose 101 H (74-99) mg/dL Calcium 8.0 L (8.4-10.2) mg/dL Assessment and Plan Plan: Assessment and Recommendations: 1. Suspicious Lung Nodules:Bilateral - Positive left Hilar Adenopathy, largest 3.2cm 2. Suspicious Liver Lesions: - approx 15 with largest 5.4cm in the right lobe - History Hepatitis C, ?biopsy of liver lesions 3. Inflammatory changes in cecum: Path Positive for likely colon primary cancer - Colitis versus other - Malignancy can not be ruled out - status Post colonoscopy Ascending colon mass identified with near obstruction of the lumen in circumferential. - Status Post colectomy and liver biopsy - CEA increased 88 4. Normocytic Anemia: - Likely related to malnutrition and iron deficiency -Iron deficiency component verified secondary to tumor - IV Iron ordered and continued 5. Thombocytosis: - Reactive. 6. 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 Yeager in 3 weeks to set up for treatment. GRACIE Chan
[2019-05-21] MEDS: PIPERACILLIN-TAZOBACTAM 3.375 GM in SODIUM CHLORIDE 0.9% 100 ML IVPB SCH ×4 (00:11→23:08)
[2019-05-21] MEDS: HEPARIN SODIUM,PORCINE 5,000 UNIT/ML 1 ML VIAL SQ SCH ×4 (00:12→23:08)
[2019-05-21] MEDS: ACETAMINOPHEN TAB 325 MG TAB PO PRN ×2 (00:16→20:58)
[2019-05-21 06:26] LABS: Anisocytosis Moderate; Basophils % (A) 0 %; Eosinophils # (A) 0.1 k/uL (0-0.7); Eosinophils % (A) 1 %; HCT 26.1 % (34.0-46.0); HGB 7.8 gm/dL (11.4-16.0); Hypochromasia Slight; Lymphocytes # (A) 1.9 k/uL (1.0-4.8); Lymphocytes % (A) 13 %; MCH 22.1 pg (25.0-35.0); MCHC 29.7 g/dL (31.0-37.0); MCV 74.4 fL (80.0-100.0); Mean Platelet Volume 6.6; Microcytosis Moderate; Monocytes # (A) 0.9 k/uL (0-1.0); Monocytes % (A) 6 %; Neutrophils # (A) 11.7 k/uL (1.3-7.7); Neutrophils % (A) 78 %; Platelet Count 587 k/uL (150-450); RBC 3.51 m/uL (3.80-5.40); WBC 14.9 k/uL (3.8-10.6)
[2019-05-21 06:42] LABS: African American GFR (CKD) >90 (>60 ml/min/1.73 sqM); Anion Gap 6 mmol/L; Blood Urea Nitrogen 2 mg/dL (7-17); Calcium 8.8 mg/dL (8.4-10.2); Carbon Dioxide 28 mmol/L (22-30); Chloride 105 mmol/L (98-107); Glucose 100 mg/dL (74-99); Non-African American GFR(CKD) 89 (>60 ml/min/1.73 sqM); Potassium 3.7 mmol/L (3.5-5.1); Sodium 139 mmol/L (137-145)
[2019-05-21] MEDS ORDERED: DEXTROSE 5% IN WATER 1,000 ML IV ONE (08:35)
--- NOTE | 2019-05-21 08:40 | P.PN ---
Subjective Patient is seen in follow-up for hyponatremia. Sodium level is 139 today. She received 1 dose of Samsca yesterday. Oral intake is better. . Vital signs are stable. General: The patient appeared well nourished and normally developed. HEENT: Head exam is unremarkable. Neck is without jugular venous distension. LUNGS: Lungs are clear to auscultation and percussion. Breath sounds decreased. HEART: Rate and Rhythm are regular. First and second heart sounds normal. No murmurs, rubs or gallops. ABDOMEN: Nontender. EXTREMITITES: 1+ edema. Objective - Vital Signs Vital signs: Vital Signs Temp 97.9 F 05/21/19 05:00 Pulse 89 05/21/19 05:00 Resp 16 05/21/19 05:00 BP 153/74 05/21/19 05:00 Pulse Ox 99 05/21/19 05:00 Intake & Output 05/20/19 05/21/19 05/21/19 18:59 06:59 18:59 Intake Total 390 Balance 390 Intake: Oral 390 Other: Voiding Method Toilet Toilet - Labs CBC & Chem 7: 05/21/19 05:40 05/21/19 05:40 Labs: Abnormal Lab Results - Last 24 Hours (Table) 05/21/19 05/21/19 Range/Units 05:40 05:40 WBC 14.9 H (3.8-10.6) k/uL RBC 3.51 L (3.80-5.40) m/uL Hgb 7.8 L (11.4-16.0) gm/dL Hct 26.1 L (34.0-46.0) % MCV 74.4 L (80.0-100.0) fL MCH 22.1 L (25.0-35.0) pg MCHC 29.7 L (31.0-37.0) g/dL RDW 20.0 H (11.5-15.5) % Plt Count 587 H (150-450) k/uL Neutrophils # 11.7 H (1.3-7.7) k/uL BUN 2 L (7-17) mg/dL Glucose 100 H (74-99) mg/dL Assessment and Plan Plan: Assessment: 1. Hyponatremia secondary to poor solute intake. Sodium stable at 139 today. Status post Samsca on May 19. Urine osmolality 511. 2. Colon mass status post right-sided colectomy. 3. Hypokalemia secondary to poor oral intake as well as hypomagnesemia. 4. Hypomagnesemia from poor oral intake. Better post replacement. 5. Anemia. No active bleeding. Iron deficiency noted. Receiving IV iron. 6. Lower extremity edema. Plan: Remove fluid restriction. Discontinue salt tabs. Start D5W at 70 mL an hour for 4 hours. Repeat sodium level this afternoon. Potential discharge today.
[2019-05-21] MEDS: PANTOPRAZOLE 40 MG/10 ML VIAL IVP SCH ×2 (08:42→20:58)
--- NOTE | 2019-05-21 09:51 | CDI ---
Documentation Clarification Form Date: 05/21/2019 CDS: Yolanda Mcnair, CCS, CCDS Admit Date: 05/11/2019 Patient Name: Nadira Kuhn Discharge Date: ATTENTION: The Clinical Documentation Specialists (CDI) and [facility] Coding Staff appreciate your assistance in clarifying documentation. Please respond to the clarification below the line at the bottom and electronically sign. The CDI & [facility] Coding staff will review the response and follow-up if needed. Please note: Queries are made part of the Legal Health Record. If you have any questions, please contact the author of this message via ITS. Dear Dr. Yuli Jacome: Per the Attending Physician Progress Notes from 05/15: "Patient will be continued on IV fluids but will be switched to normal saline patient's symptoms sodium is 132 part of which may be SIADH from cancer." Subsequent Progress Notes state: Hypovolemic hyponatremia. History/Risk Factors: Hepatitis C, treated; Smoker, Daily Alcohol use. Clinical indicators: ON 05/10, 73-year-old the female was transferred from [facility] with GERD, epigastric sharp abdominal pain, nausea & vomiting x2 days, abdominal pain x3 weeks; Hyponatremic from nausea & vomiting. Procedure 05/12 EGD w/biopsy of antrum & duodenal & Colonoscopy: Mild gastritis, obstructed ascending colon mass. Procedure 05/13: Right colectomy, Liver biopsy. Pathology positive for primary colon cancer & metastasis to liver, possible lung. LAB: 05/11: Na 133*, 05/12: 132*; 05/13: 134*-133*, 05/14: 132*, 05/15: 133*, 05/16: 132*, 05/17: 128*, 05/18: 128*, 05/19: 127*, 05/20: 139. RAD: CT scan Abdomen & Chest ([place]): Multiple nodular lesions in the chest with a possible cancerous lesion in the cecum and liver. Treatment: Fluid restriction, Na tablets, given a dose of Samsa on 05/19. In order to capture the severity of condition, please clarify if the condition signifies: Hyponatremia SIADH Other condition, please specify Unable to determine (Last Revision: November 2016) Already dictated in my note MTDD
--- NOTE | 2019-05-21 13:52 | P.PN ---
Subjective Progress Note Date: 05/21/19 Principal diagnosis: 73-year-old the female was transferred from [facility] patient presents today with symptoms of gastric surgery reflux disease with epigastric sharp abdominal pain and nausea vomiting going on for 2 days epigastric abdominal pain moderate severity has been going on for about 3 weeks. Patient is bit hyponatremic from nausea vomiting. Because of abdominal pain patient underwent CAT scan of the abdomen as well as chest which showed multiple nodular lesions in the chest along with a possible cancerous lesion in the cecum and a lesion in the liver. Patient will undergo upper GI endoscopy endoscopy tomorrow with possible biopsy of the cecal area. She used to smoke in the past quit smoking since 3 weeks since his been sick 05/13/2019 Patient is seen and evaluated in follow-up today awaiting to undergo EGD and colonoscopy with GI today. Patient is having some rectal discomfort status post enema and states she does have history of hemorrhoids with some mild blood noted in the stool. Currently no reports of chest pain, shortness of breath, or palpitations. Patient is having some nausea and does have Zofran ordered. Patient is nothing by mouth at this time as she was prepping for the procedure. A surgery consult was placed as the patient's colonoscopy shows mild gastritis antrum body that were biopsied along with duodenal biopsies, ascending colon mass almost completely obstructing the lumen and circumferential with multiple biopsies taken and 2 pedunculated polyps in the sigmoid and rectosigmoid were removed, and mild left colonic diverticulosis with some moderate internal hemorrhoids. Will await report from surgery. Patient's sodium continues to be slightly low at 132. Will discontinue IV fluids and place the patient on 1500 mL fluid restrictions. Patient can resume clear liquid diet until midnight. 05/14/2019 Patient is seen in follow-up today awaiting to undergo surgery on the colon mass with Dr. Monroe today. Patient has been nothing by mouth. Patient states she continues to have some loose stools that are liquid in nature. No blood noted. Patient did have multiple enemas yesterday prior to colonoscopy. Patient will also be undergoing a liver biopsy during the procedure to assess for metastasis. Will await report. Currently no reports of chest pain, shortness of breath, or palpitations. Patient is afebrile. No reports of nausea or vomiting and patient has been nothing by mouth as mentioned previously. Will repeat a.m. labs. 05/15/2019 Patient is seen and evaluated in follow-up today status post right colectomy yesterday. She remains on the epidural pump and states her pain is well controlled. Patient to continue with use of incentive spirometer at least 10 times every hour while awake. She remains on clear liquids and will continue at this time. IV fluids changed to normal saline and will continue at this time for hyponatremia. Sodium is 132, potassium is 4.1. Hemoglobin is 8.7. Will repeat a.m. labs. Patient to work with physical therapy today and is currently pending. Currently no reports of chest pain, shortness of breath, or palpitations. Patient is afebrile. No reports of nausea and vomiting and patient is tolerating clear liquids as mentioned previously. No bowel activity at this time. 05/16/2019 Patient does have significant leukocytosis but there is no evidence of infection patient is anemic. No fever or chills no cough no dysuria. Patient was started on broad-spectrum antibiotics by general surgery which will be continued I do not see a reason for Metronidazole which will be discontinued. Patient will be continued on IV fluids but will be switched to normal saline patient's symptoms sodium is 132 part of which may be SIADH from pain 05/17/2019 Patient potassium was low which will be replaced and this is secondary to IV fluids down the IV fluids and patient need to be on freewater restriction. Part of her hyponatremia may be related to his ADH from pain which actually improved now will recheck basic metabolic profile tomorrow. Patient can use to have leukocytosis can be just reactive no real evidence of infection at this time patient can use to be on Zosyn. Constitutional: Denied any fatigue denied any fever. Cardio vascular: denied any chest pain, palpitations Gastrointestinal denied any nausea vomiting she has some abdominal pain from surgery Pulmonary: Denied any shortness of breath cough Neurologic denied any new focal deficits 05/18/2019 Patient is seen and evaluated in follow-up today and having epidural pump removed along with Carreno catheter. Patient's potassium continues to be low at 3.0 will be replaced. Magnesium is 1.4. Sodium is also low at 128. IV fluids will be discontinued and patient will remain on a 1200 mL fluid restriction. Nephrology consulted. Patient will receive Lasix 20 mg IV push today she as she is having some lower extremity edema. Will monitor I&O's closely. Will repeat a.m. labs. Discussed with the patient about continuing to use incentive spirometer and increase activity as tolerated. Also discussed with the patient about increasing oral intake. Ensure 3 times a day with meals will be added. Patient had a chest x-ray today showing some nonspecific basilar infiltrates with small effusions and a small focal infiltrate in the left upper lobe. 05/19/2019 Patient is seen in follow-up today with no acute overnight issues. Patient states she has been up and walking around the room with no difficulties. She continues to use incentive spirometer. Patient has been increasing her oral intake of protein and has been doing the and sugars with each meal. Patient currently remains on a 1200 mL fluid restriction and will continue at this time. Sodium tablets have been started as sodium continues to be low at 128. Will repeat a.m. labs. Patient receiving #2 of 3 of iron infusions. Currently no reports of chest pain, shortness of breath, or palpitations. Patient is afebrile. No reports of nausea or vomiting and patient is tolerating diet. Patient did have a small bowel movement yesterday and has been passing gas. 05/20/2019 Patient seen and evaluated in follow-up today with no acute overnight issues. Patient states that she had a large bowel movement and continues to have some abdominal tenderness but is intermittent. Patient sodium continues to be low at 127 and was initiated on salt tabs and will be given a dose of Samsa today. Nep hrology following. Will repeat a.m. labs. Patient states her oral intake of nutrition and protein continues to improve and is always been a small eater. Patient remains on a 1200 mL fluid restriction and will continue at this time. Patient denies any chest pain, shortness of breath, or palpitations. Patient is afebrile. No reports of nausea or vomiting and patient is tolerating diet. Patient has been increasing activity and walking often. 05/21/2019 Patient is seen and evaluated in follow-up today sitting at the edge of the bed and appears to be in no acute distress. Patient's oral intake has improved and sodium is 139 today after receiving a dose of Samsa yesterday. Salt tabs have been discontinued. Nephrology following. Patient was initiated on D5 with water and awaiting repeat sodium level. Patient is also awaiting to undergo a Mediport placement for near future cancer treatments. Oncology is following and patient will continue to follow in the outpatient setting to discuss treatment options in the near future. No reports of chest pain, shortness of breath, or palpitations. Patient is afebrile. No reports of nausea or vomiting and patient is tolerating diet. Objective - Vital Signs Vital signs: Vital Signs Temp 98.2 F 05/21/19 11:53 Pulse 99 05/21/19 11:53 Resp 17 05/21/19 11:53 BP 172/84 05/21/19 11:53 Pulse Ox 98 05/21/19 11:53 Intake & Output 05/20/19 05/21/19 05/21/19 18:59 06:59 18:59 Intake Total 390 Balance 390 Intake: Oral 390 Other: Voiding Method Toilet Toilet - Exam GENERAL: The patient is alert and oriented x3, not in any acute distress. Well developed, well nourished. HEENT: Pupils are round and equally reacting to light. EOMI. No scleral icterus. No conjunctival pallor. Normocephalic, atraumatic. No pharyngeal erythema. No thyromegaly. CARDIOVASCULAR: S1 and S2 present. No murmurs, rubs, or gallops. PULMONARY: Chest is clear to auscultation, no wheezing or crackles. ABDOMEN: Soft, nontender, nondistended, normoactive bowel sounds. No palpable organomegaly. MUSCULOSKELETAL: No joint swelling or deformity. EXTREMITIES: No cyanosis, clubbing. Mild lower extremity edema noted, slightly improved NEUROLOGICAL: Gross neurological examination did not reveal any focal deficits. SKIN: No rashes. - Labs CBC & Chem 7: 05/21/19 05:40 05/21/19 13:04 Labs: Abnormal Lab Results - Last 24 Hours (Table) 05/21/19 05/21/19 Range/Units 05:40 05:40 WBC 14.9 H (3.8-10.6) k/uL RBC 3.51 L (3.80-5.40) m/uL Hgb 7.8 L (11.4-16.0) gm/dL Hct 26.1 L (34.0-46.0) % MCV 74.4 L (80.0-100.0) fL MCH 22.1 L (25.0-35.0) pg MCHC 29.7 L (31.0-37.0) g/dL RDW 20.0 H (11.5-15.5) % Plt Count 587 H (150-450) k/uL Neutrophils # 11.7 H (1.3-7.7) k/uL BUN 2 L (7-17) mg/dL Glucose 100 H (74-99) mg/dL Assessment and Plan Assessment: -Abdominal pain which improved now is secondary to bowel obstruction nausea vomiting secondary to bowel obstruction. Bowel obstruction secondary to: cancer patient is to status post right colectomy. Patient had a cecal mass. -leukocytosis can be reactive now so far no evidence of infection at this time continue with Zosyn for now because of her recent intra-abdominal surgery -Multiple pulmonary nodules probably metastatic disease from the colon. Patient underwent EGD and colonoscopy showing mild gastritis antrum body that were biopsied along with multiple duodenal biopsies, ascending colon mass almost completely obstructing the lumen with multiple biopsies and tattoos placed distal to the mass, 2 pedunculated polyps in the sigmoid and rectosigmoid that were removed, mild left colonic diverticulosis, and moderate internal hemorrhoids -Hypovolemic hyponatremia. Improved. Sodium is 139 today. Nephrology following. -Hypokalemia secondary to IV fluids and natriuresis. Potassium 3.7 today. -Hypomagnesemia; improved. Magnesium 2.0 -Nicotine abuse: Counseling was provided -Chronic iron deficiency anemia; patient received iron transfusions Plan: Patient to continue increasing activity as tolerated and continue walking and using incentive spirometer. Sodium is 139 today and was initiated on D5 water with repeat sodium level being 136 and will discontinue fluids and will repeat a.m. labs. Nephrology is following. Patient is to receive a Mediport tomorrow morning. Further recommendations to follow. Possible discharge tomorrow.
[2019-05-21] MEDS ORDERED: Potassium Replacement Protocol 1 EACH MISC MISCELLANE PRN (14:04)
--- NOTE | 2019-05-21 14:04 | P.PN ---
Subjective Progress Note Date: 05/21/19 Principal diagnosis: new nodules lung and liver, anemia Mediport planned for Objective - Vital Signs Vital signs: Vital Signs Temp 98.2 F 05/21/19 11:53 Pulse 99 05/21/19 11:53 Resp 17 05/21/19 11:53 BP 172/84 05/21/19 11:53 Pulse Ox 98 05/21/19 11:53 Intake & Output 05/20/19 05/21/19 05/21/19 18:59 06:59 18:59 Intake Total 390 Balance 390 Weight 55.792 kg Intake: Oral 390 Other: Voiding Method Toilet Toilet - Exam Gen: Alert and oriented NAD Head NCAT Neck Supple Lungs: Scattered wheezes, no increased effort Abdomen: Tender to palpation, BS x4, evidence of surgery Heart: Tachy, reg Extremities: No edema Neuro: Non-focal Mood Calm - Labs CBC & Chem 7: 05/21/19 05:40 05/21/19 13:04 Labs: Abnormal Lab Results - Last 24 Hours (Table) 05/21/19 05/21/19 05/21/19 Range/Units 05:40 05:40 13:04 WBC 14.9 H (3.8-10.6) k/uL RBC 3.51 L (3.80-5.40) m/uL Hgb 7.8 L (11.4-16.0) gm/dL Hct 26.1 L (34.0-46.0) % MCV 74.4 L (80.0-100.0) fL MCH 22.1 L (25.0-35.0) pg MCHC 29.7 L (31.0-37.0) g/dL RDW 20.0 H (11.5-15.5) % Plt Count 587 H (150-450) k/uL Neutrophils # 11.7 H (1.3-7.7) k/uL Sodium 136 L (137-145) mmol/L BUN 2 L (7-17) mg/dL Glucose 100 H (74-99) mg/dL Assessment and Plan Plan: Assessment and Recommendations: 1. Suspicious Lung Nodules:Bilateral - Positive left Hilar Adenopathy, largest 3.2cm 2. Suspicious Liver Lesions: - approx 15 with largest 5.4cm in the right lobe - History Hepatitis C, ?biopsy of liver lesions 3. Inflammatory changes in cecum: Path Positive for likely colon primary cancer - Colitis versus other - Malignancy can not be ruled out - status Post colonoscopy Ascending colon mass identified with near obstruction of the lumen in circumferential. - Status Post colectomy and liver biopsy - CEA increased 88 4. Normocytic Anemia: - Likely related to malnutrition and iron deficiency -Iron deficiency component verified secondary to tumor - IV Iron ordered and continued 5. Thombocytosis: - Reactive. 6. 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 Planned Saturday - Discussed details with Joce - Will order two more infusional irons since patient will be here saturday - Patient understands above and plans to follow-up in office with Dr. Yeager in 3 weeks to set up for treatment. GRACIE Chan Physician Attestation: I have performed the full physical examination and reviewed the full history of this patient, as well as pertinent findings. I have created the compled impression and recommendations. I agree with the above dictation by GRACIE Chan. This dictation has been written as a scribe.
[2019-05-21] MEDS ORDERED: SODIUM FERRIC GLUCONAT-SUCROSE 125 MG in SODIUM CHLORIDE 0.9% 100 ML IVPB SCH (15:00)
[2019-05-21] MEDS ORDERED: POTASSIUM CHLORIDE ER 20 MEQ TAB.ER PO SCH (15:00)
[2019-05-22 06:39] LABS: Anisocytosis Moderate; Basophils % (A) 0 %; Eosinophils # (A) 0.1 k/uL (0-0.7); Eosinophils % (A) 1 %; HCT 24.2 % (34.0-46.0); HGB 7.5 gm/dL (11.4-16.0); Lymphocytes # (A) 1.5 k/uL (1.0-4.8); Lymphocytes % (A) 10 %; MCH 23.2 pg (25.0-35.0); MCHC 30.9 g/dL (31.0-37.0); MCV 74.9 fL (80.0-100.0); Mean Platelet Volume 6.7; Microcytosis Moderate; Monocytes % (A) 6 %; Neutrophils # (A) 12.6 k/uL (1.3-7.7); Neutrophils % (A) 80 %; Platelet Count 582 k/uL (150-450); RBC 3.23 m/uL (3.80-5.40); RDW 21.4 % (11.5-15.5); WBC 15.7 k/uL (3.8-10.6)
[2019-05-22 06:42] LABS: African American GFR (CKD) >90 (>60 ml/min/1.73 sqM); Anion Gap 7 mmol/L; Blood Urea Nitrogen 3 mg/dL (7-17); Calcium 8.4 mg/dL (8.4-10.2); Carbon Dioxide 24 mmol/L (22-30); Chloride 101 mmol/L (98-107); Glucose 93 mg/dL (74-99); Non-African American GFR(CKD) >90 (>60 ml/min/1.73 sqM); Potassium 3.6 mmol/L (3.5-5.1); Sodium 132 mmol/L (137-145)
[2019-05-22] MEDS: PANTOPRAZOLE 40 MG/10 ML VIAL IVP SCH (07:52)
[2019-05-22] MEDS: HEPARIN SODIUM,PORCINE 5,000 UNIT/ML 1 ML VIAL SQ SCH (07:53)
[2019-05-22] MEDS ORDERED: FUROSEMIDE 10 MG/ML 2 ML VIAL IV ONE (08:05)
--- NOTE | 2019-05-22 08:08 | P.PN ---
Subjective Patient is seen in follow-up for hyponatremia. Sodium level is 132 today. Oral intake is gradually improving. No vomiting or diarrhea. Vital signs are stable. General: The patient appeared well nourished and normally developed. HEENT: Head exam is unremarkable. Neck is without jugular venous distension. LUNGS: Lungs are clear to auscultation and percussion. Breath sounds decreased. HEART: Rate and Rhythm are regular. First and second heart sounds normal. No murmurs, rubs or gallops. ABDOMEN: Nontender. EXTREMITITES: 1+ edema. Objective - Vital Signs Vital signs: Vital Signs Temp 98.5 F 05/22/19 05:00 Pulse 94 05/22/19 05:00 Resp 16 05/22/19 05:00 BP 162/82 05/22/19 05:00 Pulse Ox 95 05/22/19 05:00 Intake & Output 05/21/19 05/22/19 05/22/19 18:59 06:59 18:59 Intake Total 120 120 Balance 120 120 Weight 55.792 kg Intake: Oral 120 120 Other: Voiding Method Toilet - Labs CBC & Chem 7: 05/22/19 05:36 05/22/19 05:36 Labs: Abnormal Lab Results - Last 24 Hours (Table) 05/21/19 05/22/19 05/22/19 Range/Units 13:04 05:36 05:36 WBC 15.7 H (3.8-10.6) k/uL RBC 3.23 L (3.80-5.40) m/uL Hgb 7.5 L (11.4-16.0) gm/dL Hct 24.2 L (34.0-46.0) % MCV 74.9 L (80.0-100.0) fL MCH 23.2 L (25.0-35.0) pg MCHC 30.9 L (31.0-37.0) g/dL RDW 21.4 H (11.5-15.5) % Plt Count 582 H (150-450) k/uL Neutrophils # 12.6 H (1.3-7.7) k/uL Sodium 136 L 132 L (137-145) mmol/L BUN 3 L (7-17) mg/dL Assessment and Plan Plan: Assessment: 1. Hyponatremia secondary to poor solute intake. Sodium level 132 today. 2. Colon mass status post right-sided colectomy. 3. Hypokalemia secondary to poor oral intake as well as hypomagnesemia. 4. Hypomagnesemia from poor oral intake. Better post replacement. 5. Anemia. No active bleeding. Iron deficiency noted. Receiving IV iron. 6. Lower extremity edema. Plan: Lasix 20 mg IV once today. Start Lasix 20 mg once daily orally upon discharge. Add potassium supplementation 10 mEq daily. Encouraged oral intake, particularly solute. Maintain Ensure. Potential discharge today. BMP and magnesium level to be checked 2-3 days postdischarge. Follow up outpatient in 1-2 weeks.
[2019-05-22] MEDS ORDERED: POTASSIUM CHLORIDE ER 10 MEQ TAB.ER.PRT PO SCH (09:00)
[2019-05-22] MEDS: PIPERACILLIN-TAZOBACTAM 3.375 GM in SODIUM CHLORIDE 0.9% 100 ML IVPB SCH (09:27)
[2019-05-22] MEDS ORDERED: IV FLUID CONTINUATION 1,000 ML IV ONE (11:03)
[2019-05-22] MEDS ORDERED: LIDOCAINE 1% INJ 10MG/ML (20 ML MDV) ONE (12:19)
[2019-05-22] MEDS ORDERED: MIDAZOLAM 2 MG/2 ML VIAL ONE (12:19)
[2019-05-22] MEDS ORDERED: SUCCINYLCHOLINE CHLORIDE 100 MG/5 ML SYR IV ONE (12:19)
[2019-05-22] MEDS ORDERED: KETAMINE 10 MG/ML 20 ML VIAL ONE (12:19)
[2019-05-22] MEDS ORDERED: fentaNYL (PF) 50 MCG/ML 2 ML AMP ONE (12:19)
[2019-05-22] MEDS ORDERED: PROPOFOL 10 MG/ML 20 ML VIAL IV ONE (12:19)
[2019-05-22] MEDS ORDERED: LACTATED RINGERS 1,000 ML IV ONE (12:30)
[2019-05-22] MEDS ORDERED: BUPIVACAIN-EPI 0.25%-1:200,000 30 ML VIAL SQ ONE (12:42)
[2019-05-22] MEDS ORDERED: HEPARIN SODIUM,PORCINE 100 UNIT/ML 5 ML VIAL IV ONE (12:46)
[2019-05-22 13:18] VITALS: TEMP 99.6
[2019-05-22 13:25] VITALS: RESP 17
--- NOTE | 2019-05-22 13:31 | XR ---
EXAMINATION TYPE: XR chest 1V DATE OF EXAM: 05/22/2019 COMPARISON: 05/18/2019 INDICATION: Mediport placement TECHNIQUE: Single frontal view of the chest is obtained. FINDINGS: The heart size is normal. The pulmonary vasculature is normal. Mild infiltrate at the right base is improving from prior study. There appears to be resolution of a left basilar infiltrate. There is placement of Mediport on the right with the tip in the superior vena cava region. No pneumot horax is evident. IMPRESSION: 1. Resolving lower lobe infiltrates. 2. Placement of a port on the right with the tip in the superior vena cava region. No pneumothorax is evident.
[2019-05-22 13:47] VITALS: BP 164/86; PULSE 90
--- NOTE | 2019-05-22 13:55 | FL ---
Fluoroscopy INDICATION: Pain FINDINGS: Fluoroscopy time: 4 seconds. Images obtained: 0. IMPRESSIONS: 1. Documentation of fluoroscopy.
--- NOTE | 2019-05-22 13:59 | P.OP ---
Date of Procedure: 05/22/19 Preoperative Diagnosis: Colon cancer Postoperative Diagnosis: Colon cancer Procedure(s) Performed: Port-A-Cath placement right subclavian Anesthesia: ROSARIO Surgeon: Terrence Monroe Estimated Blood Loss (ml): 5 Pathology: none sent Condition: stable Disposition: PACU Description of Procedure: The patient was placed on the operating table in the supine position. The patient received IV sedation. The patient's chest was prepped and draped in the usual sterile fashion. A roll had been placed between the shoulder blades in a longitudinal fashion. After prepping and draping the skin was anesthetized 1% local Xylocaine. And then using the Seldinger technique the subclavian vein was cannulated. A wire was placed into the vein and fluoroscopy position the wire at the atrial caval junction. Next the dilator sheath was placed over top the wire and the wire was withdrawn. The catheter was positioned at the atriocaval position. The catheter was placed through the sheath after the dilator was withdrawn. The sheath was then withdrawn. Position of the catheter was confirmed with fluoroscopy. The Port-A-Cath was connected to the catheter. The Port-A-Cath was flushed with saline and then heparinized saline. The skin was closed interrupted 3-0 Monocryl suture. Dermabond was applied. Patient tolerated procedure well and was sent to recovery room stable condition.
--- NOTE | 2019-05-22 15:13 | P.DS ---
Providers Date of admission: 05/11/19 16:19 Expected date of discharge: 05/22/19 Attending physician: Sonia Marcus Consults: 05/11/19 19:00 Consult Physician Routine Consulting Provider: Eliezer Steel Consult Reason/Comments: abdominal pain/colitis/mass Do you want consulting provider notified?: Yes 05/12/19 11:55 Consult Physician Routine Consulting Provider: Wily Yeager Consult Reason/Comments: lung nodules, liver lesions, possible colon mass on CT Do you want consulting provider notified?: Yes 05/13/19 11:48 Consult Physician Urgent Consulting Provider: Terrence Monroe Consult Reason/Comments: ascending colon mass found on colonoscopy Do you want consulting provider notified?: Yes 05/18/19 08:55 Consult Physician Urgent Consulting Provider: Toni Umana Consult Reason/Comments: hyponatremia Do you want consulting provider notified?: Yes Primary care physician: Stated None Hospital Course: Final diagnosis -Abdominal pain which improved now is secondary to bowel obstruction nausea vomiting secondary to bowel obstruction. Bowel obstruction secondary to: cancer -leukocytosis can be reactive -Multiple pulmonary nodules probably metastatic disease from the colon. -Status post Mediport placement right subclavian -Hypovolemic hyponatremia. -Hypokalemia secondary to IV fluids and natriuresis -Hypomagnesemia -Nicotine abuse -Chronic iron deficiency anemia Discharge disposition Patient is being discharged home in stable condition with guarded prognosis and will follow-up with primary care in the outpatient setting. Patient will also be following up with nephrology, surgery, and oncology in the outpatient setting. Total time taken is 35 minutes. History of present illness This is a 73-year-old female who recently came in with epigastric abdominal pain along with nausea and vomiting and was being closely monitored. Multiple medical consultations following. Patient underwent endoscopy with GI along with colonoscopy and was found to have a large cecal mass that was almost completely obstructing the colon. Patient underwent right colectomy. Patient also underwent liver biopsy and the results were found to be metastatic. Oncology following. Nephrology also following as patient continued to have low sodium and has improved. Patient continued to have poor oral intake although increased slowly after surgery. Patient is actively having bowel movements with some mild discomfort in the abdomen at times. Patient to continue with ensure 3 times daily. Patient also continued to have some mild lower extremity edema and will be started on Lasix 20 mg daily along with potassium supplement. Prior to discharge patient received a Mediport of the right subclavian for future cancer treatments and will be following up with oncology in the outpatient setting in the near future. Patient will need repeat labs to monitor electrolytes in a few days. Currently no reports of chest pain, worsening shortness of breath, or palpitations. Patient is afebrile. No reports of nausea or vomiting and patient is tolerating diet. Patient states would like to go home today. Patient will be discharged status post Mediport placement. On exam vital signs are stable. Temp is 97.9F. Pulse is 92, respirations are 17, blood pressure is 156/74, oxygen saturation is 98% on room air. Cardio S1, S2 are present. Respiratory system shows clear to auscultation. Abdomen is soft, thin, nontender. Nervous system shows no focal deficits. Please refer to medication reconciliation sheet for a list of medications. Patient Condition at Discharge: Stable Plan - Discharge Summary Discharge Rx Participant: No New Discharge Prescriptions: New Ensure 1 can PO TID BETWEEN MEALS #18 can Potassium Chloride ER [K-Dur 10] 10 meq PO DAILY 30 Days #30 tab.er.prt Furosemide [Lasix] 20 mg PO DAILY 30 Days #30 tab Acetaminophen Tab [Tylenol] 650 mg PO Q4HR PRN tab PRN Reason: Fever And/ Or Pain Continue Multivitamins, Thera [Multivitamin (formulary)] 1 tab PO DAILY Vitamin D3(Unknown Dose) 1 tab PO DAILY Discontinued Aspirin 81 mg PO DAILY Calcium Carbonate 500 mg PO DAILY Discharge Medication List Multivitamins, Thera [Multivitamin (formulary)] 1 tab PO DAILY 05/11/19 [History] Vitamin D3(Unknown Dose) 1 tab PO DAILY 05/11/19 [History] Acetaminophen Tab [Tylenol] 650 mg PO Q4HR PRN tab 05/22/19 [Rx] Ensure 1 can PO TID BETWEEN MEALS #18 can 05/22/19 [Rx] Furosemide [Lasix] 20 mg PO DAILY 30 Days #30 tab 05/22/19 [Rx] Potassium Chloride ER [K-Dur 10] 10 meq PO DAILY 30 Days #30 tab.er.prt 05/22/19 [Rx] Follow up Appointment(s)/Referral(s): Wily Yeager MD [STAFF PHYSICIAN] - 06/16/19 2:45 pm Toni Umana DO [STAFF PHYSICIAN] - 2 Weeks (Please call office to set up a video conference call) Terrence Monroe MD [STAFF PHYSICIAN] - 1 Week (office closed Please call to make appointment) Ambulatory/Diagnostic Orders: Complete Blood Count w/diff [LAB.AMB] Time Frame: 3 Days, Location: None Selected Comprehensive Metabolic Panel [LAB.AMB] Time Frame: 3 Days, Location: None Selected Patient Instructions/Handouts: Furosemide (By mouth), Potassium Chloride (By mouth) Activity/Diet/Wound Care/Special Instructions: Activity Limited until follow-up Continue current diet and continue with ensures 3 times daily Continue with Lasix 20 mg daily and potassium supplement Follow-up with primary care provider upon discharge Follow-up with oncology - Dr. Yeager Follow-up with surgery - Dr. Monroe Follow-up with nephrology - Dr. Umana Repeat labs in 2-3 days - see prescriptions for lab work Discharge Disposition: HOME SELF-CARE
[2019-05-23] MEDS ORDERED: FUROSEMIDE 20 MG TAB PO SCH (09:00)
== END 2019-05-22 14:50 | disposition home or self-care (01) | DRG 329 ==
LOC: 5NMEDONC 16:19
PROVIDERS: ADMIT Internal Medicine; ATTEND Internal Medicine
PROC: 0DBN8ZX Excision of Sigmoid Colon, Via Natural or Artificial Opening Endoscopic, Diagnostic (ICD-10-PCS; 2019-05-13 10:00)
PROC: 0DBK8ZX Excision of Ascending Colon, Via Natural or Artificial Opening Endoscopic, Diagnostic (ICD-10-PCS; 2019-05-13 10:00)
PROC: 0DB98ZX Excision of Duodenum, Via Natural or Artificial Opening Endoscopic, Diagnostic (ICD-10-PCS; 2019-05-13 10:00)
PROC: 0DB78ZX Excision of Stomach, Pylorus, Via Natural or Artificial Opening Endoscopic, Diagnostic (ICD-10-PCS; 2019-05-13 10:00)
PROC: 0DTF0ZZ Resection of Right Large Intestine, Open Approach (ICD-10-PCS; principal; 2019-05-14 12:30)
PROC: 0FB10ZX Excision of Right Lobe Liver, Open Approach, Diagnostic (ICD-10-PCS; principal; 2019-05-14 12:30)
PROC: 0JH60WZ Insertion of Totally Implantable Vascular Access Device into Chest Subcutaneous Tissue and Fascia, Open Approach (ICD-10-PCS; 2019-05-22)
PROC: 02HV33Z Insertion of Infusion Device into Superior Vena Cava, Percutaneous Approach (ICD-10-PCS; 2019-05-22)
DX: C18.2 Malignant neoplasm of ascending colon (principal); E43 Unspecified severe protein-calorie malnutrition; E87.1 Hypo-osmolality and hyponatremia; C78.7 Secondary malignant neoplasm of liver and intrahepatic bile duct; C78.00 Secondary malignant neoplasm of unspecified lung; D50.9 Iron deficiency anemia, unspecified; E86.1 Hypovolemia; F17.201 Nicotine dependence, unspecified, in remission; E87.6 Hypokalemia; E83.42 Hypomagnesemia; K29.70 Gastritis, unspecified, without bleeding; K64.8 Other hemorrhoids; K63.5 Polyp of colon; K57.30 Diverticulosis of large intestine without perforation or abscess without bleeding; R13.10 Dysphagia, unspecified; K21.9 Gastro-esophageal reflux disease without esophagitis; D72.829 Elevated white blood cell count, unspecified; M81.0 Age-related osteoporosis without current pathological fracture; Z71.6 Tobacco abuse counseling; Z86.19 Personal history of other infectious and parasitic diseases; Z79.82 Long term (current) use of aspirin; Z79.899 Other long term (current) drug therapy; Z80.52 Family history of malignant neoplasm of bladder; Z80.9 Family history of malignant neoplasm, unspecified; Z68.23 Body mass index [BMI] 23.0-23.9, adult
CPT/HCPCS: 43239; 45380; 45381; 45385; 71045; 77001; 80048; 80053; 82105; 82378; 82607; 82728; 82746; 83540; 83550; 83615; 83735; 83921; 83930; 83935; 84132; 84295; 84300; 84443; 85025; 85027; 85045; 85610; 86301; 86304; 86850; 86900; 86901; 87522; 88305; 88307; 88309

== ENCOUNTER → 2019-07-03 | Outpatient (CLI) | payer MEDICARE ==
--- NOTE | 2019-07-05 15:21 | PE ---
EXAMINATION TYPE: PET CT fusion skull to thigh DATE OF EXAM: 07/03/2019 COMPARISON: CT chest abdomen pelvis 05/11/2019 outside this institution. Prior PET/CT: None. This is reported to be subsequent. There are no prior PET CTs available at this location. HISTORY: C 18.2, colon cancer TECHNIQUE: Following the intravenous administration of 13.18 mCi of F-18 FDG, whole body images are performed from the skull base to the midthigh. Images are reviewed on the computer in the coronal, a xial, and sagittal planes. Reconstructed rotating images are created on independent workstation and reviewed on the computer. A localization and attenuation correction CT is performed in conjunction with the PET scan. DLP: 263.46 mGycm SCAN: Subsequent Blood glucose: 128 mg/dL Average Mediastinum SUV: 1.02 Average Liver SUV: 1.57. Somewhat limited due to positioning of multiple metastatic lesions within th e liver. FINDINGS: NECK: There is hyperintense uptake within left supraclavicular lymph nodes measuring 3.46 and 4.71. 63. THORAX: Subtle area of radiotracer may be within the anterior left upper lobe. Image 77, SUV 0.89. There is an area of hyperintensity within the right upper lobe, image 88, SUV value 0.94. Hyperintensity is adjacent to the aortic arch at the aortopulmonic window. This has an SUV value of 5 .04 compatible with neoplasm. This corresponds to a mass like area on the CT localization. Additional radiotracer accumulation is at the same level within the left midlung with an SUV value of 2.06 and within the right peribronchial region with an SUV value of 2.85. Within the left aortopulmonic window region left suprahilar region there is focal radiotracer measuring 3.18. These values were obtained on image 92. Left hilar uptake is present, image 99. The more anterior measures 4.55 with the posteri or measuring 3.16. There is a punctate area posterior to the aorta within the left midlung with an DERAS V value of 1.82. ABDOMEN: Multiple intensities are scattered throughout the liver and both left and right lobes. Numer ous examples of metastatic lesions are evident measuring 5.1 SUV, image 129 posterior right upper lob e liver, anterior mid liver image 140 with an SUV value of 6.93 and left lobe liver image 151 SUV 8.3 7. Multiple additional liver hyper intensities are present. Periaortic and retrocaval hyperintensity is present suspicious for metastatic disease to lymphadenopa thy. Example image 155, SUV value of 4.58. An image 168, SUV value 5.16. PELVIS: There is some mild uptake within the right lower hemipelvis with an SUV value 2.88, image 212 . This is nonspecific. This could be related to distal ureter. OSSEOUS STRUCTURES: No abnormal uptake LOCALIZATION CT: Prior: Surgery is evident within the mid pelvis. COMPARISON: Suspicious uptake within the subcarinal region or left peribronchial region is not eviden t. Remaining areas of abnormal uptake within the chest correspond to the mass like lesions present. T his includes nodular densities within the lung larkin. Metastatic disease within the liver is more ex tensive than apparent on the CT examination of the majority of lesions appear to be identified on CT. Periaortic and retrocaval adenopathy appears more extensive on the PET/CT. Note is made of coronary artery calcification. Appears to be progression of the liver lesions from the prior CT the current lo calization CT. IMPRESSION: 1. Extensive progression of metastatic disease within the liver more apparent currently on the locali zation CT as well as additional hyperintensities identified by PET. 2. Multiple hyperintensities within mediastinal and hilar lymph nodes bilaterally and the left suprac lavicular neck as well as hyperintense areas in the periaortic and retrocaval region suspicious for m etastatic disease to lymph nodes. 3. Punctate areas of hyperintensity within the lung larkin have a more intermediate to slightly eleva vince SUV value. However, given the small size, these areas should be considered suspicious for metasta tic disease. These correspond to nodules identified on lung windows.
== END | disposition home or self-care (01) ==
LOC: RADPETMAIN 13:30
PROVIDERS: ATTEND Internal Medicine Hematology & Oncology
DX: C78.7 Secondary malignant neoplasm of liver and intrahepatic bile duct (principal); R91.8 Other nonspecific abnormal finding of lung field; C18.2 Malignant neoplasm of ascending colon
CPT/HCPCS: 78815; A9552

== ENCOUNTER → 2019-07-20 | Outpatient (CLI) | payer MEDICARE ==
--- NOTE | 2019-07-21 10:42 | MR ---
EXAMINATION TYPE: MR brain wo/w con DATE OF EXAM: 07/20/2019 COMPARISON: PET CT July 03, 2019 HISTORY: Nausea, abnormal brain scan, history of metastatic colon cancer TECHNIQUE: Multiplanar, multisequence images of the brain and brainstem is performed without and with IV contras t, utilizing 5 mL intravenous Gadavist . FINDINGS: Diffusion weighted images demonstrate no evidence of a recent infarct or other diffusion ab normality. There is no worrisome extra-axial fluid collection. There is diffuse ventricular and sulc al prominence. Septum pellucidum vergae is seen. Areas of T2 hyperintensity in the periventricular an d deep white matter are present. Midline structures demonstrate normal morphology. The craniocervical junction appears within normal limits. There is 1.3 x 1.2 cm lesion of low T1 and T2 signal with heterogeneous postcontrast enhancem ent and surrounding edema in the inferior left cerebellum axial image 5 measuring 1.4 cm craniocaudal dimension coronal image 27. Lesion suspicious for metastatic focus given patient's recent PET scan. The dural venous sinuses appear patent. The visualized sinuses are clear and the globes are intact. P atchy fluid signal left mastoid air cells. IMPRESSION: 1. There is 1.4 cm heterogeneous enhancing lesion inferior deep left cerebellar hemisphere worrisome for metastatic focus given patient's recent PET scan showing metastatic colon cancer. Calcified lesio n suspected given low T1 and T2 signal. Local mass effect is present. 2. There is background [id number] diffuse cerebral atrophy and mild chronic small vessel ischem ic change noted.
== END | disposition home or self-care (01) ==
LOC: RADMRIMAIN 15:28
PROVIDERS: ATTEND Nurse Practitioner Adult Health
DX: G93.89 Other specified disorders of brain (principal); G31.9 Degenerative disease of nervous system, unspecified; I67.82 Cerebral ischemia; R11.0 Nausea
CPT/HCPCS: 70553; A9585

== ENCOUNTER 2019-07-28 22:06 | Inpatient (IN) | payer MEDICARE ==
[2019-07-28] MEDS ORDERED: SODIUM CHLORIDE 0.9% 500 ML 500 ML IV ONE (23:03)
[2019-07-28 23:23] LABS: Anisocytosis Moderate; Basophils % (A) 0 %; Eosinophils # (A) 0.1 k/uL (0-0.7); Eosinophils % (A) 1 %; HCT 32.2 % (34.0-46.0); HGB 10.3 gm/dL (11.4-16.0); Lymphocytes # (A) 0.5 k/uL (1.0-4.8); Lymphocytes % (A) 6 %; MCH 28.8 pg (25.0-35.0); MCHC 31.9 g/dL (31.0-37.0); MCV 90.3 fL (80.0-100.0); Monocytes # (A) 0.5 k/uL (0-1.0); Monocytes % (A) 5 %; Neutrophils # (A) 7.7 k/uL (1.3-7.7); Neutrophils % (A) 87 %; Platelet Count 336 k/uL (150-450); RBC 3.57 m/uL (3.80-5.40); RDW 21.2 % (11.5-15.5); WBC 8.9 k/uL (3.8-10.6)
[2019-07-28 23:33] LABS: INR 1.1 (<1.2); Partial Thromboplastin Time 22.6 sec (22.0-30.0); Prothrombin Time 11.5 sec (9.0-12.0)
--- NOTE | 2019-07-28 23:35 | XR ---
EXAMINATION TYPE: XR chest 2V DATE OF EXAM: 07/28/2019 COMPARISON: 05/22/2019 HISTORY: Altered mental status TECHNIQUE: FINDINGS: Heart is normal. Lungs are clear of infiltrate. There is right central venous catheter with tip in the superior vena cava. Thoracic aorta is atheromatous. There are chest leads. Bony thorax is intact. IMPRESSION: No active cardiopulmonary disease. Inspiration improved compared to old exam.
[2019-07-28 23:44] LABS: ALT 44 U/L (4-34); AST 31 U/L (14-36); African American GFR (CKD) >90 (>60 ml/min/1.73 sqM); Albumin 3.4 g/dL (3.5-5.0); Alkaline Phosphatase 160 U/L (38-126); Anion Gap 10 mmol/L; Blood Urea Nitrogen 26 mg/dL (7-17); Calcium 9.3 mg/dL (8.4-10.2); Carbon Dioxide 23 mmol/L (22-30); Chloride 103 mmol/L (98-107); Glucose 138 mg/dL (74-99); Non-African American GFR(CKD) 86 (>60 ml/min/1.73 sqM); Potassium 3.4 mmol/L (3.5-5.1); Sodium 136 mmol/L (137-145); Total Bilirubin 0.2 mg/dL (0.2-1.3); Total Protein 6.3 g/dL (6.3-8.2)
--- NOTE | 2019-07-28 23:56 | CT ---
EXAMINATION TYPE: CT brain wo con DATE OF EXAM: 07/28/2019 COMPARISON: None HISTORY: AMS CT DLP: 1099.40 mGycm Automated exposure control for dose reduction was used. There is some cerebral cortical atrophy. There is no mass effect nor midline shift. There is no sign of intracranial hemorrhage. Calvarium is intact. Skull base is intact. Temporal bones appear normal. IMPRESSION: Cerebral atrophy. No acute intracranial abnormality.
[2019-07-29 00:39] LABS: Appearance,Urine Clear (Clear); Bilirubin,Urine Negative (Negative); Blood,Urine Negative (Negative); Color,Urine Yellow; Glucose,Urine (UA) Negative (Negative); Ketones,Urine Negative (Negative); Leukocyte Esterase,Urine Negative (Negative); Nitrite,Urine Negative (Negative); Protein,Urine Negative (Negative); Specific Gravity,Urine 1.021 (1.001-1.035); Urobilinogen,Urine <2.0 mg/dL (<2.0)
[2019-07-29] MEDS ORDERED: POTASSIUM CHLORIDE ER 20 MEQ TAB.ER PO STA (01:21)
[2019-07-29] MEDS ORDERED: diphenhydrAMINE 50 MG/ML 1 ML VIAL IVP STA (02:12)
--- NOTE | 2019-07-29 02:44 | ED ---
Altered Mental Status HPI - General Source: patient Mode of arrival: ambulatory Limitations: no limitations <Diana Vega - Last Filed: 07/29/19 04:07> <Erwin Chinchilla - Last Filed: 07/29/19 07:50> - General Chief Complaint: Altered Mental Status Stated Complaint: Confused, Time Seen by Provider: 07/28/19 22:37 - History of Present Illness Initial Comments: 73-year-old female patient with recent diagnosis of colon cancer with metastases to the liver and brain presents to the emergency department today sent by Megha Stacy for evaluation of altered mental status. reports that patient has been "out of it and confused" all day today. States that she has been incontinent of urine which is unusual for her. He states she is not complaining of any pain. Denies nausea, vomiting, or diarrhea. Patient denies any numbness or tingling. Denies any pain to her chest, abdomen, or extremities. Denies h eadache, blurred vision, or double vision. They deny any fever or chills. Patient is supposed to start radiation for the brain tumor on Saturday. (Diana Vega) - Related Data Home Medications Medication Instructions Recorded Confirmed Multivitamins, Thera [Multivitamin 1 tab PO DAILY 05/11/19 05/11/19 (formulary)] Vitamin D3(Unknown Dose) 1 tab PO DAILY 05/11/19 05/11/19 Previous Rx's Medication Instructions Recorded Acetaminophen Tab [Tylenol] 650 mg PO Q4HR PRN tab 05/22/19 Ensure 1 can PO TID BETWEEN MEALS #18 can 05/22/19 Furosemide [Lasix] 20 mg PO DAILY 30 Days #30 tab 05/22/19 Potassium Chloride ER [K-Dur 10] 10 meq PO DAILY 30 Days #30 05/22/19 tab.[email or web address].prt Allergies Allergy/AdvReac Type Severity Reaction Status Date / Time No Known Allergies Allergy Verified 07/28/19 22:13 Review of Systems ROS Other: All systems not noted in ROS Statement are negative. <Diana Vega - Last Filed: 07/29/19 04:07> ROS Other: All systems not noted in ROS Statement are negative. <Erwin Chinchilla - Last Filed: 07/29/19 07:50> ROS Statement: Those systems with pertinent positive or pertinent negative responses have been documented in the HPI. Past Medical History Past Medical History: Liver Disease Additional Past Medical History / Comment(s): Patient states, "Hx. of Hepatitis C" for which she received treatment. Also states that she has early Ost eoporosis. Vaginal childbirth x 5. stage 4 colon cancer with mets the liver, brain, and potentially lung. History of Any Multi-Drug Resistant Organisms: None Reported Past Surgical History: No Surgical Hx Reported Additional Past Surgical History / Comment(s): Colectomy Additional Past Anesthesia/Blood Transfusion Reaction / Comment(s): No history Past Psychological History: No Psychological Hx Reported Smoking Status: Former smoker Past Alcohol Use History: Daily Past Drug Use History: None Reported <Diana Vega - Last Filed: 07/29/19 04:07> General Exam Limitations: no limitations General appearance: alert, in no apparent distress, other (This is a well- developed, well-nourished adult female patient in no acute distress. Vital signs upon presentation are temperature) Eye exam: Present: normal appearance, PERRL, EOMI. Absent: scleral icterus, conjunctival injection, periorbital swelling ENT exam: Present: normal exam, normal oropharynx, mucous membranes moist Respiratory exam: Present: normal lung sounds bilaterally. Absent: respiratory distress, wheezes, rales, rhonchi, stridor Cardiovascular Exam: Present: regular rate, normal rhythm, normal heart sounds. Absent: systolic murmur, diastolic murmur, rubs, gallop, clicks GI/Abdominal exam: Present: soft, normal bowel sounds. Absent: distended, tenderness, guarding, rebound, rigid Neurological exam: Present: alert, oriented X3, CN II-XII intact Psychiatric exam: Present: normal affect, normal mood Skin exam: Present: warm, dry, intact, normal color. Absent: rash <Diana Vega - Last Filed: 07/29/19 04:07> Course Vital Signs 07/28/19 07/29/19 07/29/19 22:08 00:58 02:55 Temperature 97.7 F Pulse Rate 82 74 59 L Respiratory 17 18 16 Rate Blood Pressure 178/84 181/97 181/92 O2 Sat by Pulse 100 96 96 Oximetry 07/29/19 07/29/19 07/29/19 03:47 06:40 07:26 Temperature 97.2 F L Pulse Rate 77 65 60 Respiratory 20 16 18 Rate Blood Pressure 168/87 188/96 167/83 O2 Sat by Pulse 97 97 98 Oximetry Medical Decision Making - Lab Data Result diagrams: 07/28/19 23:00 07/28/19 23:00 - EKG Data -: EKG Interpreted by Pa - Radiology Data Radiology results: report reviewed, image reviewed <Diana Vega - Last Filed: 07/29/19 04:07> - Lab Data Result diagrams: 07/28/19 23:00 07/28/19 23:00 <Erwin Chinchilla - Last Filed: 07/29/19 07:50> - Medical Decision Making 73-year-old female patient presents to the emergency department today for evaluation of altered mental status. Symptoms started earlier today. Physical examination is unremarkable. She has no complaints. She is oriented 1 only. Labs reviewed and are relatively unremarkable. CT brain was negative. Chest x- ray was negative. Urinalysis showed no signs of infection. She'll be admitted to the hospital for further evaluation. (Diana Vega) I saw this patient in conjunction with the physician cardiovascular physician assistant. I performed independent history and physical exam. Agree with case management. (Erwin Chinchilla) - Lab Data Lab Results 07/28/19 07/28/19 07/28/19 Range/Units 23:00 23:00 23:00 WBC 8.9 (3.8-10.6) k/uL RBC 3.57 L (3.80-5.40) m/uL Hgb 10.3 L (11.4-16.0) gm/dL Hct 32.2 L (34.0-46.0) % MCV 90.3 (80.0-100.0) fL MCH 28.8 (25.0-35.0) pg MCHC 31.9 (31.0-37.0) g/dL RDW 21.2 H (11.5-15.5) % Plt Count 336 (150-450) k/uL Neutrophils % 87 % Lymphocytes % 6 % Monocytes % 5 % Eosinophils % 1 % Basophils % 0 % Neutrophils # 7.7 (1.3-7.7) k/uL Lymphocytes # 0.5 L (1.0-4.8) k/uL Monocytes # 0.5 (0-1.0) k/uL Eosinophils # 0.1 (0-0.7) k/uL Basophils # 0.0 (0-0.2) k/uL Anisocytosis Moderate PT 11.5 (9.0-12.0) sec INR 1.1 (<1.2) APTT 22.6 (22.0-30.0) sec Sodium 136 L (137-145) mmol/L Potassium 3.4 L (3.5-5.1) mmol/L Chloride 103 (98-107) mmol/L Carbon Dioxide 23 (22-30) mmol/L Anion Gap 10 mmol/L BUN 26 H (7-17) mg/dL Creatinine 0.69 (0.52-1.04) mg/dL Est GFR (CKD-EPI)AfAm >90 (>60 ml/min/1.73 sqM) Est GFR (CKD-EPI)NonAf 86 (>60 ml/min/1.73 sqM) Glucose 138 H (74-99) mg/dL Calcium 9.3 (8.4-10.2) mg/dL Total Bilirubin 0.2 (0.2-1.3) mg/dL AST 31 (14-36) U/L ALT 44 H (4-34) U/L Alkaline Phosphatase 160 H (38-126) U/L Troponin I (0.000-0.034) ng/mL Total Protein 6.3 (6.3-8.2) g/dL Albumin 3.4 L (3.5-5.0) g/dL Urine Color Urine Appearance (Clear) Urine pH (5.0-8.0) Ur Specific Butler (1.001-1.035) Urine Protein (Negative) Urine Glucose (UA) (Negative) Urine Ketones (Negative) Urine Blood (Negative) Urine Nitrite (Negative) Urine Bilirubin (Negative) Urine Urobilinogen (<2.0) mg/dL Ur Leukocyte Esterase (Negative) 07/28/19 07/29/19 Range/Units 23:00 00:16 WBC (3.8-10.6) k/uL RBC (3.80-5.40) m/uL Hgb (11.4-16.0) gm/dL Hct (34.0-46.0) % MCV (80.0-100.0) fL MCH (25.0-35.0) pg MCHC (31.0-37.0) g/dL RDW (11.5-15.5) % Plt Count (150-450) k/uL Neutrophils % % Lymphocytes % % Monocytes % % Eosinophils % % Basophils % % Neutrophils # (1.3-7.7) k/uL Lymphocytes # (1.0-4.8) k/uL Monocytes # (0-1.0) k/uL Eosinophils # (0-0.7) k/uL Basophils # (0-0.2) k/uL Anisocytosis PT (9.0-12.0) sec INR (<1.2) APTT (22.0-30.0) sec Sodium (137-145) mmol/L Potassium (3.5-5.1) mmol/L Chloride (98-107) mmol/L Carbon Dioxide (22-30) mmol/L Anion Gap mmol/L BUN (7-17) mg/dL Creatinine (0.52-1.04) mg/dL Est GFR (CKD-EPI)AfAm (>60 ml/min/1.73 sqM) Est GFR (CKD-EPI)NonAf (>60 ml/min/1.73 sqM) Glucose (74-99) mg/dL Calcium (8.4-10.2) mg/dL Total Bilirubin (0.2-1.3) mg/dL AST (14-36) U/L ALT (4-34) U/L Alkaline Phosphatase (38-126) U/L Troponin I <0.012 (0.000-0.034) ng/mL Total Protein (6.3-8.2) g/dL Albumin (3.5-5.0) g/dL Urine Color Yellow Urine Appearance Clear (Clear) Urine pH 6.0 (5.0-8.0) Ur Specific Butler 1.021 (1.001-1.035) Urine Protein Negative (Negative) Urine Glucose (UA) Negative (Negative) Urine Ketones Negative (Negative) Urine Blood Negative (Negative) Urine Nitrite Negative (Negative) Urine Bilirubin Negative (Negative) Urine Urobilinogen <2.0 (<2.0) mg/dL Ur Leukocyte Esterase Negative (Negative) - EKG Data EKG Comments: EKG obtained at 2242 shows normal sinus rhythm with a ventricular rate of 70, AR interval 126, QRS duration 88, QT 410, QTC 442. No evidence of ST elevation or depression (Diana Vega) - Radiology Data Two-view x-ray of the chest is obtained. Report was reviewed in its entirety. Impression by Dr. Resendiz shows no active cardiopulmonary disease. Inspiration improved compared to old exam. (Diana Vega) Disposition Decision to Admit Reason: Admit from EC Decision Date: 07/29/19 Decision Time: 02:55 <Diana Vega - Last Filed: 07/29/19 04:07> <Erwin Chinchilla - Last Filed: 07/29/19 07:50> Clinical Impression: Altered mental status, Hypertension Disposition: ADMITTED IP TO THIS [facility] Condition: Serious
[2019-07-29] MEDS ORDERED: ENALAPRILAT 1.25 MG/ML 1 ML VIAL IVP STA (02:46)
[2019-07-29] MEDS ORDERED: ONDANSETRON 4 MG/2 ML VIAL IVP PRN (03:38)
[2019-07-29] MEDS ORDERED: NALOXONE 0.4 MG/ML 1 ML VIAL IV PRN (03:38)
[2019-07-29] MEDS ORDERED: ENALAPRILAT 1.25 MG/ML 1 ML VIAL IVP PRN (03:42)
--- NOTE | 2019-07-29 07:41 | P.HPIM ---
History of Present Illness H&P Date: 07/29/19 The patient is a 73-year-old female with a PMH of colon cancer with metastasis to the liver and the brain was sent in to the ED by Megha Stacy for evaluation of altered mental status. The patient's had reported that she had been confused all day and had also been incontinent of urine, which is unusual for her. The patient however is a very poor historian and is slow to answer questions. When asked why she is here, the patient notes that she wasn't "doing well" and doesn't elaborate any further. She however denies additional complaints including chest pain, shortness of breath, nausea, vomiting, fever, chills, abdominal pain, diarrhea, fever, chills, recent travel, or sick contac ts. Of note, the patient was recently diagnosed with her metastatic lesion to the brain and is scheduled to start radiation therapy on Saturday. The patient underwent an extensive evaluation of the CT brain that was unremarkable, chest x-ray negative, and EKG showing a normal sinus rhythm at 70 bpm. Laboratory evaluation had revealed WBC count of 8.9, hemoglobin 10.3, platelets 336, sodium 136, potassium 3.4, BUN 26, creatinine 0.6, glucose 138, UA unremarkable, ALT 44, and alkaline phosphatase 160. The patient was admitted to the medicine service for further management of altered mental status. Review of Systems Pertinent positives and negatives as discussed in HPI, a complete review of systems was performed and all other systems are negative. Past Medical History Past Medical History: Liver Disease Additional Past Medical History / Comment(s): Patient states, "Hx. of Hepatitis C" for which she received treatment. Also states that she has early Osteoporosis. Vaginal childbirth x 5. stage 4 colon cancer with mets the liver, brain, and potentially lung. History of Any Multi-Drug Resistant Organisms: None Reported Past Surgical History: No Surgical Hx Reported Additional Past Surgical History / Comment(s): Colectomy Additional Past Anesthesia/Blood Transfusion Reaction / Comment(s): No history Past Psychological History: No Psychological Hx Reported Smoking Status: Former smoker Past Alcohol Use History: Daily Past Drug Use History: None Reported Medications and Allergies Home Medications Medication Instructions Recorded Confirmed Type Multivitamins, Thera [Multivitamin 1 tab PO DAILY 05/11/19 05/11/19 History (formulary)] Vitamin D3(Unknown Dose) 1 tab PO DAILY 05/11/19 05/11/19 History Acetaminophen Tab [Tylenol] 650 mg PO Q4HR PRN tab 05/22/19 Rx Ensure 1 can PO TID BETWEEN MEALS #18 can 05/22/19 Rx Furosemide [Lasix] 20 mg PO DAILY 30 Days #30 tab 05/22/19 Rx Potassium Chloride ER [K-Dur 10] 10 meq PO DAILY 30 Days #30 05/22/19 Rx [email or web address].prt Allergies Allergy/AdvReac Type Severity Reaction Status Date / Time No Known Allergies Allergy Verified 07/28/19 22:13 Physical Exam Vitals: Vital Signs Temp Pulse Resp BP Pulse Ox 07/29/19 03:47 77 20 168/87 97 07/29/19 02:55 59 L 16 181/92 96 07/29/19 00:58 74 18 181/97 96 07/28/19 22:08 97.7 F 82 17 178/84 100 Intake and Output 07/28/19 07/28/19 07/29/19 14:59 22:59 06:59 Other: Weight 48.988 kg General: non toxic, no distress, appears at stated age, normal weight Derm: no unusual rashes/lesions no unusual ecchymoses, warm, dry Head: atraumatic, normocephalic, symmetric Eyes: EOMI, no lid lag, anicteric sclera, pupils equal round reactive to light ENT: Nose and ears atraumatic, no thrush, no pharyngeal erythema Neck: No thyromegaly, no cervical lymphadenopathy, trachea midline, supple Mouth: no lip lesion, mucus membranes moist Cardiovascular: S1S2 reg, no murmur, positive posterior tibial pulse bilateral, no edema, capillary refill less than 2 seconds Lungs: CTA bilateral, no rhonchi, no rales , no accessory muscle use Abdominal: soft, nontender to palpation, no guarding, no appreciable organomegaly, normal bowel sounds Ext: no gross muscle atrophy, muscle strength 5 out of 5 in all 4 extremities grossly, no contractures, Neuro: CN II-XI grossly intact, light touch intact all 4 extremities, finger to nose within normal limits, Psych: Alert, awake, staring into the ceiling while laying flat on the bed during her entire stay in the ED (as per ED staff), oriented only to self and partially to place, does not know why she is at the hospital Results CBC & Chem 7: 07/28/19 23:00 07/28/19 23:00 Labs: Abnormal Lab Results - Last 24 Hours (Table) 07/28/19 07/28/19 Range/Units 23:00 23:00 RBC 3.57 L (3.80-5.40) m/uL Hgb 10.3 L (11.4-16.0) gm/dL Hct 32.2 L (34.0-46.0) % RDW 21.2 H (11.5-15.5) % Lymphocytes # 0.5 L (1.0-4.8) k/uL Sodium 136 L (137-145) mmol/L Potassium 3.4 L (3.5-5.1) mmol/L BUN 26 H (7-17) mg/dL Glucose 138 H (74-99) mg/dL ALT 44 H (4-34) U/L Alkaline Phosphatase 160 H (38-126) U/L Albumin 3.4 L (3.5-5.0) g/dL Assessment and Plan Plan: Altered mental status, possibly secondary to metastatic disease (no defects noted on CT Brain) vs Delirium due to on-going malignancy -Consult Neurology and Oncology -Neuro-checks -Fall precautions Prerenal azotemia -Possibly secondary to dehydration -Continue the fluids Normocytic anemia -Monitor CBC for now Abnormal LFTs -Monitor CMP DVT prophylaxis -Lovenox The patient is admitted with an anticipated greater than 2 midnight stay for evaluation of AMS CODE STATUS: Full Code Discussed with: Patient Anticipated discharge date: 2-[address]: Home A total of 40 minutes was spent on the care of this complex patient more than 50% of the time was spent in counseling and care coordination.
[2019-07-29] MEDS: ENOXAPARIN 40 MG/0.4 ML SYRINGE SQ SCH (11:45)
--- NOTE | 2019-07-29 12:37 | P.PN ---
Progress Note - Text Progress Note Date: 07/29/19 Patient seen and examined, she is likely dehydrated. She still confused. She has history of colon cancer with metastases to the brain and liver, last chemotherapy was 2 weeks ago. She is on IV fluids. She was supposedly radiation of her brain today that was canceled due to insurance reasons.
[2019-07-29] MEDS ORDERED: PROCHLORPERAZINE 10 MG TAB PO PRN (16:13)
[2019-07-29] MEDS ORDERED: ONDANSETRON ODT 4 MG TAB PO PRN (16:13)
[2019-07-29] MEDS ORDERED: OLANZapine 2.5 MG TAB PO SCH (16:15)
[2019-07-29 17:09] LABS: Appearance,Urine Clear (Clear); Bilirubin,Urine Negative (Negative); Blood,Urine Negative (Negative); Color,Urine Yellow; Glucose,Urine (UA) Negative (Negative); Ketones,Urine Negative (Negative); Leukocyte Esterase,Urine Negative (Negative); Nitrite,Urine Negative (Negative); Protein,Urine Negative (Negative); Specific Gravity,Urine 1.013 (1.001-1.035); Urobilinogen,Urine <2.0 mg/dL (<2.0)
[2019-07-29] MEDS: DEXAMETHASONE 4 MG TAB PO SCH ×2 (17:23→20:31)
[2019-07-29] MEDS: PANTOPRAZOLE 40 MG TABLET PO SCH (17:23)
--- NOTE | 2019-07-29 17:42 | P.CONS ---
History of Present Illness - Reason for Consult Consult date: 07/29/19 AMS, colon ca Requesting physician: Diana Vega - Chief Complaint AMS - History of Present Illness Mrs. Kuhn is a pleasant female initially seen in consult at [facility] 05/12/19, presented to [facility] with complains of diarrhea, decreased appetite, and generalized weakness. She had lost about 10 pounds in 3 weeks. The patient had not seen a doctor prior to this visit for about [address] showed possible mass in the ascending colon, bilateral lung nodules, left hilar adenopathy up to 3.0 cm, multiple liver lesions, approximately 15, with the largest 5.4 cm in the right lobe. Labs showed evidence of iron deficiency anemia. EGD and colonoscopy revealed mild gastritis and ascending colon mass almost completely obstructing the lumen. Biopsy of the mass positive for grade 2 adenocarcinoma. She had right colectomy with wedge resection of liver nodule on 05/14/19. This showed invasive moderately to poorly differentiated adenocarcinoma penetrating the visceral peritoneum and invading adjacent ilium, with 8/15 nodes positive. Liver biopsy was also positive. The patient tolerated surgery reasonably well and was subsequently discharged. She had port placement prior to discharge and was seen for her first office visit on 06/16/19. She was started on modified FOLFOX 6 treatment. After her second cycle she was having rather on realistic nausea and vomiting, she was sent for MRI of the brain, unfortunately revealed a 1.4 cm cerebellar mass. Patient was seen by radiation oncology and was due to have her first radiation today. She is due for cycle 3 of chemotherapy, delayed for radiation. Patient was brought to the emergency department for altered mental status, and lethargy. When seen, patient was sitting up, awake. She appeared confused when I asked questions, she took a very long time to respond, and when she did, she did she did not answer questions appropriately. When asked to hold up 2 fingers on her left hand, after a short delay, she did. Review of Systems ROS unobtainable: due to mental status Past Medical History Past Medical History: Cancer, Liver Disease Additional Past Medical History / Comment(s): Pt admitted on 05/11/19 with abdominal pain/bowel obstruction d/t cancer/multiple pulmonary nodules-probable mets, hypomagnesemia, hypokalemia. Other hx: Bowel cancer with surgery/chemo with last tx about 2 weeks ago/metasisi to liver and brain and was to start radiation of brain this week. Other hx: hepatitis C with successful treatment, start of osteoporosis, starting of bilateral cataracts. History of Any Multi-Drug Resistant Organisms: None Reported Past Surgical History: Bowel Resection, Tonsillectomy Additional Past Surgical History / Comment(s): Colectomy, colonoscopy, mediport. Past Anesthesia/Blood Transfusion Reactions: No Reported Reaction Additional Past Anesthesia/Blood Transfusion Reaction / Comm: No history Past Psychological History: Anxiety Smoking Status: Former smoker - Past Family History Father Family Medical History: Myocardial Infarction (MN) Additional Family Medical History / Comment(s): Father of a MN at the age of 74 yrs. Mother Family Medical History: Rheumatoid Arthritis (RA) Medications and Allergies Home Medications Medication Instructions Recorded Confirmed Type Dexamethasone 4 mg PO TID 07/29/19 07/29/19 History OLANZapine [ZyPREXA] 2.5 mg PO DIRECTED 07/29/19 07/29/19 History Omeprazole [PriLOSEC] 40 mg PO DAILY 07/29/19 07/29/19 History Ondansetron Odt [Zofran Odt] 4 mg PO Q4H PRN 07/29/19 07/29/19 History Prochlorperazine Maleate 10 mg PO Q6H PRN 07/29/19 07/29/19 History Allergies Allergy/AdvReac Type Severity Reaction Status Date / Time No Known Allergies Allergy Verified 07/29/19 08:54 Physical Exam Vitals: Vital Signs Temp Pulse Pulse Resp BP BP Pulse Ox 07/29/19 15:26 67 18 07/29/19 15:03 98.7 F 66 18 159/86 96 07/29/19 15:00 97.9 F 67 16 185/94 97 07/29/19 10:07 62 18 162/79 98 07/29/19 07:26 97.2 F L 60 18 167/83 98 07/29/19 06:40 65 16 188/96 97 07/29/19 03:47 77 20 168/87 97 07/29/19 02:55 59 L 16 181/92 96 07/29/19 00:58 74 18 181/97 96 07/28/19 22:08 97.7 F 82 17 178/84 100 Intake and Output 07/29/19 07/29/19 07/29/19 06:59 14:59 22:59 Other: Voiding Method Incontinent Weight 48.988 kg - Constitutional General appearance: cooperative, no acute distress, thin - EENT Eyes: anicteric sclerae, EOMI ENT: normal oropharynx - Neck Neck: no lymphadenopathy - Respiratory Respiratory: bilateral: CTA, diminished - Cardiovascular Heart sounds: normal: S1, S2 Abnormal Heart Sounds: systolic murmur leg Peripheral Edema: bilateral: None - Gastrointestinal General gastrointestinal: no absent bowel sounds, no decreased bowel sounds, no distended, no hepatomegaly, no hyperactive bowel sounds, normal bowel sounds, no organomegaly, no rigid, no scaphoid, soft, no splenomegaly, no tenderness, no umbilical hernia, no ventral hernia - Musculoskeletal Musculoskeletal: generalized weakness - Psychiatric Patient is alert, she was not oriented to time or place, she Took an extraordinary amount of time to respond to questions, her replies were not remotely sensible or reasonable but, when I asked her to hold up 2 fingers on her left hand, she did. Results CBC & Chem 7: 07/28/19 23:00 07/28/19 23:00 Labs: Abnormal Lab Results - Last 24 Hours (Table) 07/28/19 07/28/19 Range/Units 23:00 23:00 RBC 3.57 L (3.80-5.40) m/uL Hgb 10.3 L (11.4-16.0) gm/dL Hct 32.2 L (34.0-46.0) % RDW 21.2 H (11.5-15.5) % Lymphocytes # 0.5 L (1.0-4.8) k/uL Sodium 136 L (137-145) mmol/L Potassium 3.4 L (3.5-5.1) mmol/L BUN 26 H (7-17) mg/dL Glucose 138 H (74-99) mg/dL ALT 44 H (4-34) U/L Alkaline Phosphatase 160 H (38-126) U/L Albumin 3.4 L (3.5-5.0) g/dL Chest x-ray: report reviewed CT Scan - head: report reviewed Assessment and Plan (1) Colon adenocarcinoma Narrative/Plan: Recently diagnosed. She has had 2 cycles of modified FOLFOX 6. Patient was having difficulties tolerating treatment, intractable nausea and vomiting. She had MRI of the brain and was unfortunately found to have brain metastases. She was going to have treatment for a cerebellar metastasis starting today. She was going to begin cycle 3 of treatment post radiation. Current Visit: Yes Status: Acute Priority: High Code(s): C18.9 - MALIGNANT NEOPLASM OF COLON, UNSPECIFIED SNOMED Code(s): 454878719 (2) Brain metastases Narrative/Plan: Case discussed with Dr. Yeager as well as Radiation Oncology who reviewed the most recent CT scan of the head with me. It is not exactly clear what is causing patient's profound altered mental status . Location of the metastasis would be more consistent with balance issues. Patient has been on steroids. CBG was not unreasonable. Urinary analysis was not suspicious, chest x-ray did not show any acute pulmonary process. Ammonia level ordered. We'll see if patient improves after some hydration. RadOnc consulted Current Visit: Yes Status: Acute Priority: High Code(s): C79.31 - SECONDA RY MALIGNANT NEOPLASM OF BRAIN SNOMED Code(s): 11961051 (3) Altered mental status Narrative/Plan: Unclear as to the cause of this time. Neuro consulted. Pancultures pending. Current Visit: Yes Status: Acute Priority: High Code(s): R41.82 - ALTERED MENTAL STATUS, UNSPECIFIED SNOMED Code(s): 116304166
[2019-07-29 20:27] VITALS: RESP 16
[2019-07-30 05:19] VITALS: BP 179/87; PULSE 74; TEMP 97.7
[2019-07-30 07:30] LABS: Anisocytosis Moderate; Basophils % (A) 0 %; Eosinophils % (A) 1 %; HCT 32.8 % (34.0-46.0); HGB 10.4 gm/dL (11.4-16.0); Hypochromasia Slight; Lymphocytes # (A) 0.7 k/uL (1.0-4.8); Lymphocytes % (A) 11 %; MCH 29.6 pg (25.0-35.0); MCHC 31.7 g/dL (31.0-37.0); MCV 93.4 fL (80.0-100.0); Macrocytosis Slight; Mean Platelet Volume 6.9; Monocytes # (A) 0.5 k/uL (0-1.0); Monocytes % (A) 7 %; Neutrophils # (A) 5.3 k/uL (1.3-7.7); Neutrophils % (A) 80 %; Platelet Count 290 k/uL (150-450); RBC 3.51 m/uL (3.80-5.40); RDW 21.1 % (11.5-15.5); WBC 6.7 k/uL (3.8-10.6)
[2019-07-30 07:43] LABS: African American GFR (CKD) >90 (>60 ml/min/1.73 sqM); Anion Gap 7 mmol/L; Blood Urea Nitrogen 15 mg/dL (7-17); Calcium 8.4 mg/dL (8.4-10.2); Carbon Dioxide 25 mmol/L (22-30); Chloride 103 mmol/L (98-107); Glucose 114 mg/dL (74-99); Magnesium 1.9 mg/dL (1.6-2.3); Non-African American GFR(CKD) >90 (>60 ml/min/1.73 sqM); Potassium 3.3 mmol/L (3.5-5.1); Sodium 135 mmol/L (137-145)
[2019-07-30] MEDS ORDERED: POTASSIUM CHLORIDE ER 20 MEQ TAB.ER PO STA (08:06)
[2019-07-30] MEDS: DEXAMETHASONE 4 MG TAB PO SCH (10:14)
[2019-07-30] MEDS: PANTOPRAZOLE 40 MG TABLET PO SCH (10:14)
[2019-07-30] MEDS: ENOXAPARIN 40 MG/0.4 ML SYRINGE SQ SCH (10:15)
--- NOTE | 2019-07-30 10:47 | P.PN ---
Subjective Progress Note Date: 07/30/19 Principal diagnosis: Altered mental status, history of colon cancer, metastatic disease in the cerebellum In follow-up today patient is significantly more alert, she is more responsive to questions but, she remains confused. She denies headache, dizziness, vision changes or pain. No current nausea or vomiting. Objective - Vital Signs Vital signs: Vital Signs Temp 97.7 F 07/30/19 04:06 Pulse 74 07/30/19 08:00 Resp 16 07/30/19 08:00 BP 179/87 07/30/19 04:06 Pulse Ox 98 07/30/19 04:06 Intake & Output 07/29/19 07/30/19 07/30/19 18:59 06:59 18:59 Intake Total 240 Balance 240 Weight 48.988 kg Intake: Oral 240 Other: Voiding Method Incontinent Incontinent Incontinent # Voids 2 # Bowel Movements 1 - Constitutional General appearance: Present: cooperative, no acute distress, thin (Petite) - EENT Eyes: Present: anicteric sclerae, EOMI ENT: Present: hearing grossly normal - Respiratory Respiratory: bilateral: CTA - Cardiovascular Heart sounds: normal: S1, S2 - Peripheral edema leg Peripheral Edema: bilateral: None - Gastrointestinal General gastrointestinal: Present: normal bowel sounds, soft. Absent: absent bowel sounds, decreased bowel sounds, distended, hepatomegaly, hyperactive bowel sounds, organomegaly, rigid, scaphoid, splenomegaly, tenderness, umbilical hernia, ventral hernia - Neurologic Neurologic Comment(s): No gross focal or motor or neuro deficits sitting in bed. Did not watch patient ambulate - Musculoskeletal Musculoskeletal: Present: generalized weakness, strength equal bilaterally - Psychiatric Psychiatric Comment(s): Oriented to self and place, she states "lost a day" Psychiatric: Present: appropriate affect. Absent: intact judgment & insight - Labs CBC & Chem 7: 07/30/19 06:18 07/30/19 06:18 Labs: Abnormal Lab Results - Last 24 Hours (Table) 07/30/19 07/30/19 Range/Units 06:18 06:18 RBC 3.51 L (3.80-5.40) m/uL Hgb 10.4 L (11.4-16.0) gm/dL Hct 32.8 L (34.0-46.0) % RDW 21.1 H (11.5-15.5) % Lymphocytes # 0.7 L (1.0-4.8) k/uL Sodium 135 L (137-145) mmol/L Potassium 3.3 L (3.5-5.1) mmol/L Glucose 114 H (74-99) mg/dL Assessment and Plan (1) Colon adenocarcinoma Narrative/Plan: Recently diagnosed. She has had 2 cycles of modified FOLFOX 6. Patient was having difficulties tolerating treatment, intractable nausea and vomiting. She had MRI of the brain and was unfortunately found to have brain metastases. She was going to have treatment for a cerebellar metastasis starting today. She was going to begin cycle 3 of treatment post radiation. Current Visit: Yes Status: Acute Priority: High Code(s): C18.9 - MALIGNANT NEOPLASM OF COLON, UNSPECIFIED SNOMED Code(s): 617520224 (2) Brain metastases Narrative/Plan: Case discussed with Dr. Yeager as well as Radiation Oncology who reviewed the most recent CT scan of the head with me. It is not exactly clear what is causing patient's profound altered mental status. Location of the metastasis would be more consistent with balance issues. Patient has been on steroids, we'll reduce the dose. Ammonia level less than 9. Some slight improvement after hydration. Pending [facility] consult We reviewed this treatment plan with the patient, she seems surprised that she had brain metastasis but, she did remember speaking with Dr. Solo and she asked us if he was still going to do "pinpoint" treatment to her brain. So, patient's confusion is labile, unclear why, going to reduce steroids. Current Visit: Yes Status: Acute Priority: High Code(s): C79.31 - SECONDARY MALIGNANT NEOPLASM OF BRAIN SNOMED Code(s): 31449261 (3) Altered mental status Narrative/Plan: Unclear as to the cause of this time. Neuro consulted. No evidence of infection. Current Visit: Yes Status: Acute Priority: High Code(s): R41.82 - ALTERED MENTAL STATUS, UNSPECIFIED SNOMED Code(s): 767216542 Plan: Doctor attests: I performed a history and physical examination of this patient, developed impression and plan of care. Discussed with dictator. I agree with dictators note, documented as a scribe.
[2019-07-30 10:51] VITALS: BMI 20.4
--- NOTE | 2019-07-30 11:18 | P.DS ---
Providers Date of admission: 07/29/19 04:10 Expected date of discharge: 07/30/19 Attending physician: Akshat Martin MD Consults: 07/29/19 03:38 Consult Physician Routine Consulting Provider: Mehdi Pollack Consult Reason/Comments: Altered mental status; Dx of Colon cancer mets to liver and brain Do you want consulting provider notified?: Already Contacted 07/29/19 07:32 Consult Physician Urgent Consulting Provider: Adriano Chaparro Consult Reason/Comments: Altered mental status Do you want consulting provider notified?: Yes 07/29/19 16:03 Consult Physician Routine Consulting Provider: Sammy Solo Consult Reason/Comments: brain mets, due to start XRT Do you want consulting provider notified?: Already Contacted Primary care physician: Stated None Hospital Course: 73-year-old female with a PMH of colon cancer with metastasis to the liver and the brain was sent in to the ED for evaluation of altered mental status. The patient's had reported that she had been confused and had also been incontinent of urine, which is unusual for her. The patient however is a very poor historian and hx taking from her was unreliable. She however denies additional complaints including chest pain, shortness of breath, nausea, vomiting, fever, chills, abdominal pain, diarrhea, fever, chills, recent travel, or sick contacts. Of note, the patient was recently diagnosed with her metastatic lesion to the brain and is scheduled to start radiation therapy on Saturday. According to oncology notes patient has been receiving chemotherapy with FOLFOX 6, received 2 cycles so far and was having difficulty with tolerating it, with severe nausea and vomiting. In the ER CT brain was unremarkable, chest x-ray negative, and EKG was showing a normal sinus rhythm at 70 bpm. Laboratory evaluation had revealed WBC count of 8.9, hemoglobin 10.3, platelets 336, sodium 136, potassium 3.4, BUN 26, creatinine 0.6, glucose 138, UA unremarkable, ALT 44, and alkaline phosphatase 160. The patient was admitted to the medicine service for further management of altered mental status. She was started on IV fluids for suspected dehydration as evidenced by her high BUN/Cr ratio. Throughout the admission her potassium was low when it was replaced. Today her mental status is very much improved and she is back at her baseline. She is alert and oriented 3. Her mental status change and confusion was likely due to dehydration. In addition patient was seen by oncology throughout the hospitalization, no further recommendations from oncology were made. Patient Condition at Discharge: Serious Plan - Discharge Summary Discharge Rx Participant: No New Discharge Prescriptions: New Potassium Chloride ER [K-Dur 20] 20 meq PO DAILY 30 Days #30 tab Continue Prochlorperazine Maleate 10 mg PO Q6H PRN PRN Reason: Nausea Ondansetron Odt [Zofran ODT] 4 mg PO Q4H PRN PRN Reason: Nausea And Vomiting Omeprazole [PriLOSEC] 40 mg PO DAILY Dexamethasone 4 mg PO TID OLANZapine [ZyPREXA] 2.5 mg PO DIRECTED Discharge Medication List Dexamethasone 4 mg PO TID 07/29/19 [History] OLANZapine [ZyPREXA] 2.5 mg PO DIRECTED 07/29/19 [History] Omeprazole [PriLOSEC] 40 mg PO DAILY 07/29/19 [History] Ondansetron Odt [Zofran ODT] 4 mg PO Q4H PRN 07/29/19 [History] Prochlorperazine Maleate 10 mg PO Q6H PRN 07/29/19 [History] Potassium Chloride ER [K-Dur 20] 20 meq PO DAILY 30 Days #30 tab 07/30/19 [Rx] Follow up Appointment(s)/Referral(s): None,Stated [Primary Care Provider] - 1-2 days Patient Instructions/Handouts: Dehydration (DC)
--- NOTE | 2019-07-30 12:40 | P.PN ---
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 She is status post right hemicolectomy for obstructive symptoms, and has i nitiated systemic therapy when she was found to develop a single brain metastasis. She presented with AMS and was found to be dehydrated - no signs of infection. The patient is feeling better today. She is alert and oriented. She denies headache, nausea or vomiting. She denies pain or discomfort. Objective - Vital Signs Vital signs: Vital Signs Temp 97.7 F 07/30/19 04:06 Pulse 74 07/30/19 08:00 Resp 16 07/30/19 08:00 BP 179/87 07/30/19 04:06 Pulse Ox 98 07/30/19 04:06 Intake & Output 07/29/19 07/30/19 07/30/19 18:59 06:59 18:59 Intake Total 240 Balance 240 Weight 48.988 kg 48.988 kg Intake: Oral 240 Other: Voiding Method Incontinent Incontinent Incontinent # Voids 2 # Bowel Movements 1 - Constitutional General appearance: Present: no acute distress - EENT Eyes: Present: EOMI, PERRLA ENT: Present: hearing grossly normal - Neck Neck: Absent: lymphadenopathy - Gastrointestinal General gastrointestinal: Absent: distended - Integumentary Integumentary: Absent: calor, cellulitis - Neurologic Neurologic: Present: CNII-XII intact. Absent: focal deficits - Labs CBC & Chem 7: 07/30/19 06:18 07/30/19 06:18 Labs: Abnormal Lab Results - Last 24 Hours (Table) 07/30/19 07/30/19 Range/Units 06:18 06:18 RBC 3.51 L (3.80-5.40) m/uL Hgb 10.4 L (11.4-16.0) gm/dL Hct 32.8 L (34.0-46.0) % RDW 21.1 H (11.5-15.5) % Lymphocytes # 0.7 L (1.0-4.8) k/uL Sodium 135 L (137-145) mmol/L Potassium 3.3 L (3.5-5.1) mmol/L Glucose 114 H (74-99) mg/dL Assessment and Plan Assessment: The patient is a 73-year-old female with a history of a stage IV adenocarcinoma of the ascending colon with liver and lung metastasis at the time of diagnosis. She is status post right hemicolectomy for obstructive symptoms, and has initiated systemic therapy when she was found to develop a single brain metastasis. She presented with AMS and was found to be dehydrated - no signs of infection. Plan: 1. AMS - significant improvement, possible etiology includes dehydration. Unlikely to be related to single brain metastasis. 2. Brain metastasis: Patient has planning done for radiosurgery to this lesion. She was supposed to start earlier this week, but we did not have prior authorization from her insurance. Her treatment plan was finally approved by insurance today. She will have her first treatment at 3:30 tomorrow afternoon. Please continue dexamethasone 4 mg BID. I will help with her taper. Time with Patient: Less than 30
[2019-07-30] MEDS ORDERED: DEXAMETHASONE 4 MG TAB PO SCH (21:00)
--- NOTE | 2019-07-31 12:47 | CDI ---
Documentation Clarification Form Date: 07/31/2019 11:35:18 AM From: Caron Sandhu RN, CCDS Admit Date: 07/29/2019 04:10:00 AM Patient Name: Nadira Kuhn Visit Number: [id number] Discharge Date: 07/30/2019 02:51:00 PM ATTENTION: The Clinical Documentation Specialists (CDI) and [facility] Coding Staff appreciate your assistance in clarifying documentation. Please respond to the clarification below the line at the bottom and electronically sign. The CDI & [facility] Coding staff will review the response and follow-up if needed. Please note: Queries are made part of the Legal Health Record. If you have any questions, please contact the author of this message via ITS. Dr. Clifford Hooker Altered Mental Status was documented in the ED impression, your H/P and subsequent progress notes. No infectious process was found, but the patient was diagnosed with dehydration. History/Risk Factors: Colon cancer stage 4 with metastases to the liver, Former smoker Clinical Indicators: [id number] to the emergency department on 07/27 with confusion and was admitted on 07/28. Her reports she had been confused all day and was incontinent of urine which is unusual for her. She is oriented only to self (per ED staff) 07/29 Discharge summary notes: Patient has been on chemotherapy with FOLFOX 6, received 2 cycles so far and was having difficulty with tolerating it. with severe nausea and vomiting. Suspected dehydration as evidenced by her high BUN/CR ratio. Day of discharge she is back to her baseline A/O X3. Labs: WBC 8.9 BUN 26, CR 0.6, ALT 44, Alkaline phosphatase 160, Potassium 3.4 07/27 Chest X Ray: No active cardiopulmonary disease 07/27 CT Brain: No acute intracranial abnormality. Treatment: Neuro checks per protocol .9 NS 500 ml bolus x1 Kdur 40 mg po x1 Dexamethasone 4 mg op TID changed to BID Monitor CBC, CMP In your professional opinion, please clarify if the Altered Mental Status due to dehydration, is: Metabolic Encephalopathy (specify Type and Underlying Medical Illness) Other condition (please specify) Unable to determine (Last Revision: May 2017) Toxic metabolic Encephalopathy sec to chemotherapy, dehydration and mets in the brain MTDD
--- NOTE | 2019-07-31 13:08 | CDI ---
Documentation Clarification Form Date: 07/31/2019 12:49:00 PM From: Caron Sandhu RN, CCDS Admit Date: 07/29/2019 04:10:00 AM Patient Name: Nadira Kuhn Visit Number: [id number] Discharge Date: 07/30/2019 02:51:00 PM ATTENTION: The Clinical Documentation Specialists (CDI) and [facility] Coding Staff appreciate your assistance in clarifying documentation. Please respond to the clarification below the line at the bottom and electronically sign. The CDI & [facility] Coding staff will review the response and follow-up if needed. Please note: Queries are made part of the Legal Health Record. If you have any questions, please contact the author of this message via ITS. Dr. Clifford Hooker Malnutrition has been documented in dietary consult. Please render your opinion on the clinical findings of the dietary consult. History/Risk Factors: Colon cancer stage 4, (with surgery and chemo), mets to liver and brain. Clinical Indicators: 73-year-old female who present on 07/27 admitted on 07/28 with altered mental status. 07/29 Nutrition diagnosis: Malnutrition, severe protein-calorie in the context of chronic illness. Diagnostic statement: Inadequate protein-energy intake for metabolic demand of cancer. 07/27 Labs: HGB 10.3, HCT 32.2, Potassium 3.4 BUN 26, CR 0.69, ALT 44, Alkaline Phosphatase 160, Total protein 6.3, Albumin 3.4 Current BMI: 20.4 Insufficient energy intake: Yes Weight Loss: 15 lb (12% UBW) loss x3 months, consuming<75 % EER>1 month Loss of subcutaneous fat: Patient with visible muscle mass wasting(temples, protruding clavicle) and subcutaneous fat loss (orbital fat pads, triceps) Loss of muscle mass: Yes Treatment: Dietary Consult: Yes General/healthful diet Supplements: Ensure Enlive TID Nutrition education provided (high protein/calorie foods reviewed) Monitor supplement intake, weight, further diet related questions In your professional opinion, can you please clarify if these findings signify one of the following conditions? Mild Protein-Calorie Malnutrition Moderate Protein-Calorie Malnutrition Severe Protein-Calorie Malnutrition Other condition, please specify Unable to determine (Last Revision: August 2018) Moderate Protein-Calorie Malnutrition MTDD
== END 2019-07-30 14:51 | disposition home or self-care (01) | DRG 640 ==
LOC: EC 22:06 → 5NMEDONC 07-29 04:10
PROVIDERS: ADMIT Internal Medicine; ATTEND Internal Medicine
DX: E86.0 Dehydration (principal); G92 Toxic encephalopathy; C18.2 Malignant neoplasm of ascending colon; C77.2 Secondary and unspecified malignant neoplasm of intra-abdominal lymph nodes; C78.7 Secondary malignant neoplasm of liver and intrahepatic bile duct; C79.31 Secondary malignant neoplasm of brain; E44.0 Moderate protein-calorie malnutrition; E87.6 Hypokalemia; Z11.59 Encounter for screening for other viral diseases; D50.9 Iron deficiency anemia, unspecified; I10 Essential (primary) hypertension; M81.0 Age-related osteoporosis without current pathological fracture; H26.9 Unspecified cataract; Z86.19 Personal history of other infectious and parasitic diseases; R32 Unspecified urinary incontinence; Z79.899 Other long term (current) drug therapy; Z82.49 Family history of ischemic heart disease and other diseases of the circulatory system; Z87.891 Personal history of nicotine dependence; Z90.49 Acquired absence of other specified parts of digestive tract; R91.8 Other nonspecific abnormal finding of lung field; F41.9 Anxiety disorder, unspecified; Z82.61 Family history of arthritis; Z68.20 Body mass index [BMI] 20.0-20.9, adult
CPT/HCPCS: 36415; 70450; 71046; 80048; 80053; 81003; 82140; 83735; 84484; 85025; 85610; 85730; 93005; 96372; 96374; 96375; 99285

== ENCOUNTER 2019-09-04 12:20 | Inpatient (IN) | payer MEDICARE ==
[2019-09-04] MEDS ORDERED: SODIUM CHLORIDE 0.9% 500 ML 500 ML IV STA (12:43)
[2019-09-04] MEDS ORDERED: SODIUM CHLORIDE 0.9% 1,000 ML IV STA (12:43)
[2019-09-04] MEDS ORDERED: MORPHINE SULFATE 2 MG/ML SYRINGE IVP ONE (13:12)
[2019-09-04] MEDS ORDERED: ONDANSETRON 4 MG/2 ML VIAL IVP STA (13:12)
--- NOTE | 2019-09-04 13:13 | ED ---
Weakness HPI - General Source: patient, RN notes reviewed Mode of arrival: wheelchair Limitations: no limitations <Slade Tomlinson - Last Filed: 09/04/19 13:10> <Floyd Sanon - Last Filed: 09/04/19 15:59> - General Chief complaint: Weakness Stated complaint: Fall, NVD Time Seen by Provider: 09/04/19 12:31 - History of Present Illness Initial comments: This is a 73-year-old female presents emergency Department chief complaint of a fall, dehydration, diarrhea. Patient is currently being treated for colon cancer with metastasis has been receiving chemotherapy. Patient states her last chemo was 9 days ago. Patient states that she's had excessive chronic diarrhea. Patient states today she is seen kitchen and just all over. She states she remembers falling she does not believe that she lost consciousness or passed out. Patient states she has a mild headache denies neck pain or back pain. Patient called her oncologist recommended to come emergency department for dehydration and her fall. Patient denies any vomiting states this is said some nausea no chest pain no increased shortness of breath. Patient states she feels very weak. (Slade Tomlinson) - Related Data Home Medications Medication Instructions Recorded Confirmed Dexamethasone 4 mg PO TID 07/29/19 07/29/19 OLANZapine [ZyPREXA] 2.5 mg PO DIRECTED 07/29/19 07/29/19 Omeprazole [PriLOSEC] 40 mg PO DAILY 07/29/19 07/29/19 Ondansetron Odt [Zofran ODT] 4 mg PO Q4H PRN 07/29/19 07/29/19 Prochlorperazine Maleate 10 mg PO Q6H PRN 07/29/19 07/29/19 Previous Rx's Medication Instructions Recorded Potassium Chloride ER [K-Dur 20] 20 meq PO DAILY 30 Days #30 tab 07/30/19 Allergies Allergy/AdvReac Type Severity Reaction Status Date / Time No Known Allergies Allergy Verified 09/04/19 12:31 Review of Systems ROS Other: All systems not noted in ROS Statement are negative. <Slade Tomlinson - Last Filed: 09/04/19 13:10> ROS Other: All systems not noted in ROS Statement are negative. <Floyd Sanon - Last Filed: 09/04/19 15:59> ROS Statement: Those systems with pertinent positive or pertinent negative responses have been documented in the HPI. Past Medical History Past Medical History: Cancer, Liver Disease Additional Past Medical History / Comment(s): Pt admitted on 05/11/19 with abdominal pain/bowel obstruction d/t cancer/multiple pulmonary nodules-probable mets, hypomagnesemia, hypokalemia. Other hx: Bowel cancer with surgery/chemo with last tx about 2 weeks ago/metasisi to liver and brain and was to start radiation of brain this week. Other hx: hepatitis C with successful treatment, start of osteoporosis, starting of bilateral cataracts. History of Any Multi-Drug Resistant Organisms: None Reported Past Surgical History: Bowel Resection, Tonsillectomy Additional Past Surgical History / Comment(s): Colectomy, colonoscopy, mediport. Past Anesthesia/Blood Transfusion Reactions: No Reported Reaction Additional Past Anesthesia/Blood Transfusion Reaction / Comment(s): No history Past Psychological History: Anxiety Smoking Status: Never smoker Past Alcohol Use History: Daily Past Drug Use History: None Reported - Past Family History Father Family Medical History: Myocardial Infarction ([place]) Additional Family Medical History / Comment(s): Father of a [place] at the age of 74 yrs. Mother Family Medical History: Rheumatoid Arthritis ([place]) <Slade Tomlinson - Last Filed: 09/04/19 13:10> General Exam Limitations: no limitations General appearance: alert, in no apparent distress Head exam: Present: atraumatic, normocephalic, normal inspection Eye exam: Present: normal appearance, PERRL, EOMI. Absent: scleral icterus, conjunctival injection, periorbital swelling ENT exam: Present: mucous membranes dry, mucous membranes moist, TM's normal bilaterally. Absent: normal exam, normal oropharynx (Sores noted) Neck exam: Present: normal inspection. Absent: tenderness, meningismus, lymphadenopathy Respiratory exam: Present: normal lung sounds bilaterally. Absent: respiratory distress, wheezes, rales, rhonchi, stridor Cardiovascular Exam: Present: normal rhythm, tachycardia, normal heart sounds. Absent: systolic murmur, diastolic murmur, rubs, gallop, clicks GI/Abdominal exam: Present: soft, normal bowel sounds. Absent: distended, tenderness, guarding, rebound, rigid Extremities exam: Present: normal inspection, full ROM, normal capillary refill. Absent: tenderness, pedal edema, joint swelling, calf tenderness Back exam: Present: full ROM. Absent: tenderness Neurological exam: Present: alert, oriented X3, CN II-XII intact, reflexes normal. Absent: motor sensory deficit Skin exam: Present: warm, dry, intact, normal color. Absent: rash <Slade Tomlinson - Last Filed: 09/04/19 13:10> Course <Floyd Sanon - Last Filed: 09/04/19 15:59> Vital Signs 09/04/19 09/04/19 09/04/19 12:27 13:28 15:11 Temperature 98.0 F Pulse Rate 114 H 87 71 Respiratory 20 18 18 Rate Blood Pressure 97/66 107/72 121/73 O2 Sat by Pulse 97 100 100 Oximetry - Reevaluation(s) Reevaluation #1: 09/04/19 15:54 Case was discussed with Dr. Marcus, who will admit. 09/04/19 15:58 Case also discussed with practitioner Regis who is familiar with this patient and will consult. She is in contact with Dr. Yeager. She does request computed tomography scan to evaluate for colitis. (Floyd Sanon) Medical Decision Making - Lab Data Result diagrams: 09/04/19 13:00 09/04/19 12:47 - Radiology Data Radiology results: report reviewed (Computed tomography scan of the brain and cervical spine shows no acute process) <Floyd Sanon - Last Filed: 09/04/19 15:59> - Medical Decision Making Patient reevaluated and updated. Dr. Yeager and Dr. Gr paged for admission. Potassium replacement provided. IV fluids provided. (Floyd Sanon) - Lab Data Lab Results 09/04/19 09/04/19 09/04/19 Range/Units 12:47 12:47 12:47 WBC (3.8-10.6) k/uL RBC (3.80-5.40) m/uL Hgb (11.4-16.0) gm/dL Hct (34.0-46.0) % MCV (80.0-100.0) fL MCH (25.0-35.0) pg MCHC (31.0-37.0) g/dL RDW (11.5-15.5) % Plt Count (150-450) k/uL Neutrophils % (Manual) % Band Neutrophils % % Lymphocytes % (Manual) % Monocytes % (Manual) % Metamyelocytes % % Neutrophils # (Manual) (1.3-7.7) k/uL Lymphocytes # (Manual) (1.0-4.8) k/uL Monocytes # (Manual) (0-1.0) k/uL Metamyelocytes # (Man) (0) k/uL Nucleated RBCs (0-0) /100 WBC Manual Slide Review Anisocytosis PT 12.9 H (9.0-12.0) sec INR 1.3 H (<1.2) APTT 25.2 (22.0-30.0) sec Sodium 128 L (137-145) mmol/L Potassium 2.4 L* (3.5-5.1) mmol/L Chloride 96 L (98-107) mmol/L Carbon Dioxide 25 (22-30) mmol/L Anion Gap 7 mmol/L BUN 7 (7-17) mg/dL Creatinine 0.58 (0.52-1.04) mg/dL Est GFR (CKD-EPI)AfAm >90 (>60 ml/min/1.73 sqM) Est GFR (CKD-EPI)NonAf >90 (>60 ml/min/1.73 sqM) Glucose 129 H (74-99) mg/dL Plasma Lactic Acid Loy 1.1 (0.7-2.0) mmol/L Calcium 7.9 L (8.4-10.2) mg/dL Magnesium 1.4 L (1.6-2.3) mg/dL Total Bilirubin 0.7 (0.2-1.3) mg/dL AST 27 (14-36) U/L ALT 26 (4-34) U/L Alkaline Phosphatase 74 (38-126) U/L Creatine Kinase <20 L (30-135) U/L Troponin I (0.000-0.034) ng/mL Total Protein 4.9 L (6.3-8.2) g/dL Albumin 2.7 L (3.5-5.0) g/dL 09/04/19 09/04/19 Range/Units 12:47 13:00 WBC 1.1 L* (3.8-10.6) k/uL RBC 3.56 L (3.80-5.40) m/uL Hgb 11.3 L (11.4-16.0) gm/dL Hct 32.7 L (34.0-46.0) % MCV 91.9 (80.0-100.0) fL MCH 31.9 (25.0-35.0) pg MCHC 34.7 (31.0-37.0) g/dL RDW 18.1 H (11.5-15.5) % Plt Count 134 L D (150-450) k/uL Neutrophils % (Manual) 10 % Band Neutrophils % 6 % Lymphocytes % (Manual) 67 % Monocytes % (Manual) 15 % Metamyelocytes % 2 % Neutrophils # (Manual) 0.10 L* (1.3-7.7) k/uL Lymphocytes # (Manual) 0.74 L (1.0-4.8) k/uL Monocytes # (Manual) 0.17 (0-1.0) k/uL Metamyelocytes # (Man) 0.02 H (0) k/uL Nucleated RBCs 0 (0-0) /100 WBC Manual Slide Review Performed Anisocytosis Slight PT (9.0-12.0) sec INR (<1.2) APTT (22.0-30.0) sec Sodium (137-145) mmol/L Potassium (3.5-5.1) mmol/L Chloride (98-107) mmol/L Carbon Dioxide (22-30) mmol/L Anion Gap mmol/L BUN (7-17) mg/dL Creatinine (0.52-1.04) mg/dL Est GFR (CKD-EPI)AfAm (>60 ml/min/1.73 sqM) Est GFR (CKD-EPI)NonAf (>60 ml/min/1.73 sqM) Glucose (74-99) mg/dL Plasma Lactic Acid Loy (0.7-2.0) mmol/L Calcium (8.4-10.2) mg/dL Magnesium (1.6-2.3) mg/dL Total Bilirubin (0.2-1.3) mg/dL AST (14-36) U/L ALT (4-34) U/L Alkaline Phosphatase (38-126) U/L Creatine Kinase (30-135) U/L Troponin I 0.014 (0.000-0.034) ng/mL Total Protein (6.3-8.2) g/dL Albumin (3.5-5.0) g/dL Disposition <lSade Tomlinson - Last Filed: 09/04/19 13:10> Is patient prescribed a controlled substance at d/c from ED?: No Decision Time: 15:54 <Floyd Sanon - Last Filed: 09/04/19 15:59> Clinical Impression: Dehydration, Neutropenic, Hypokalemia Disposition: ADMITTED IP TO THIS HOSP Referrals: Nonstaff,Physician [REFERRING] - 1-2 days
--- NOTE | 2019-09-04 13:17 | CT ---
EXAMINATION TYPE: CT brain austyn salazar con DATE OF EXAM: 09/04/2019 COMPARISON: 07/28/2019 HISTORY: Fall today with injury. History of liver cancer CT DLP: 1222.[address] of the brain was performed. The ventricles, basal cisterns and sulci overlying the cerebral convexities demonstrate mild enlargem ent. There is no evidence for intracranial hemorrhage or sulcal effacement. There is decreased attenuatio n about the periventricular white matter and deep white matter of both cerebral hemispheres, compatib le with chronic small vessel ischemia. No mass effects are seen. If symptoms persist consider MRI. Osseous calvarium is intact. IMPRESSION: 1. Age related atrophic and chronic small vessel ischemic change without acute intracranial process seen at this time. CT Cervical Spine: Unenhanced CT of the cervical spine was performed with bone and soft tissue window settings submitted . Coronal and sagittal reconstruction is obtained. There is normal alignment and prevertebral soft tissues. No evidence for acute cervical fracture . Scattered degenerative disc disease and spondylosis. Biapical scarring. IMPRESSION: 1. No evidence for acute fracture or subluxation of the cervical spine.
[2019-09-04 13:42] LABS: Anisocytosis Slight; HCT 32.7 % (34.0-46.0); HGB 11.3 gm/dL (11.4-16.0); MCH 31.9 pg (25.0-35.0); MCHC 34.7 g/dL (31.0-37.0); MCV 91.9 fL (80.0-100.0); Mean Platelet Volume 7.4; RBC 3.56 m/uL (3.80-5.40); RDW 18.1 % (11.5-15.5)
[2019-09-04 13:50] LABS: INR 1.3 (<1.2); Partial Thromboplastin Time 25.2 sec (22.0-30.0); Prothrombin Time 12.9 sec (9.0-12.0)
[2019-09-04 13:56] LABS: WBC 1.1 k/uL (3.8-10.6)
[2019-09-04 13:58] LABS: ALT 26 U/L (4-34); AST 27 U/L (14-36); African American GFR (CKD) >90 (>60 ml/min/1.73 sqM); Albumin 2.7 g/dL (3.5-5.0); Alkaline Phosphatase 74 U/L (38-126); Anion Gap 7 mmol/L; Blood Urea Nitrogen 7 mg/dL (7-17); Calcium 7.9 mg/dL (8.4-10.2); Carbon Dioxide 25 mmol/L (22-30); Chloride 96 mmol/L (98-107); Creatine Kinase <20 U/L (30-135); Glucose 129 mg/dL (74-99); Magnesium 1.4 mg/dL (1.6-2.3); Non-African American GFR(CKD) >90 (>60 ml/min/1.73 sqM); Sodium 128 mmol/L (137-145); Total Bilirubin 0.7 mg/dL (0.2-1.3); Total Protein 4.9 g/dL (6.3-8.2)
[2019-09-04 14:03] LABS: Potassium 2.4 mmol/L (3.5-5.1)
[2019-09-04] MEDS ORDERED: Potassium Replacement Protocol 1 EACH MISC MISCELLANE PRN (14:09)
[2019-09-04 14:15] LABS: Band Neutrophils % 6 %; Lymphocytes # (M) 0.74 k/uL (1.0-4.8); Metamyelocytes # (M) 0.02 k/uL (0); Metamyelocytes % 2 %; Monocytes # (M) 0.17 k/uL (0-1.0); Neutrophils % (M) 10 %; Nucleated Red Blood Cells 0 /100 WBC (0-0); Total Cells Counted 100
[2019-09-04 14:18] LABS: Platelet Count 134 k/uL (150-450)
[2019-09-04] MEDS: POTASSIUM CHLORIDE ER 20 MEQ TAB.ER PO SCH ×3 (14:39→18:00)
[2019-09-04] MEDS: POTASSIUM CHLORIDE 10 MEQ in WATER FOR INJECTION 1 100ML.BAG IVPB SCH ×2 (14:39→16:05)
[2019-09-04] MEDS ORDERED: MORPHINE SULFATE 4 MG/ML SYRINGE IVP STA (14:55)
[2019-09-04] MEDS ORDERED: ONDANSETRON 4 MG/2 ML VIAL IVP PRN (15:54)
[2019-09-04] MEDS ORDERED: NALOXONE 0.4 MG/ML 1 ML VIAL IV PRN (15:54)
[2019-09-04] MEDS ORDERED: MORPHINE SULFATE 4 MG/ML SYRINGE IV PRN (15:54)
[2019-09-04 16:36] LABS: Appearance,Urine Clear (Clear); Bilirubin,Urine Negative (Negative); Blood,Urine Negative (Negative); Color,Urine Light Yellow; Glucose,Urine (UA) Negative (Negative); Ketones,Urine Negative (Negative); Leukocyte Esterase,Urine Negative (Negative); Nitrite,Urine Negative (Negative); PH, Urine 6.5 (5.0-8.0); Protein,Urine Negative (Negative); Specific Gravity,Urine 1.005 (1.001-1.035); Urobilinogen,Urine <2.0 mg/dL (<2.0)
--- NOTE | 2019-09-04 18:23 | CT ---
EXAMINATION TYPE: CT abdomen pelvis w con DATE OF EXAM: 09/04/2019 COMPARISON: HISTORY: Evaluate for colitis. Abdominal pain. CT DLP: 534.4 mGycm Automated exposure control for dose reduction was used. CONTRAST: Performed with IV Contrast, patient injected with 100 mL of Isovue 300. Multiple axial sections were obtained from the diaphragm to the floor the pelvis with IV contrast. There are multiple hypodense foci throughout the liver that measure up to 4 cm and consistent with me tastatic disease. Spleen is intact. Stomach is intact. There is no evidence of pancreatic mass. Gallb ladder appears normal. There is previous surgery at the hepatic flexure of the colon. There is no adrenal mass. Kidneys show satisfactory contrast opacification. There is no hydronephrosi s. There is normal excretion on the delayed images. Ureters are not dilated. There is no retroperiton eal adenopathy. Abdominal aorta is atheromatous. Bladder distends smoothly. There is no inguinal tati ia. There is no free fluid in the pelvis. There is no sign of a bowel obstruction. Small bowel measur es up to 2.4 cm. There is no evidence of free air. There is no mesenteric edema. There is no ascites. There are some large bowel fluid levels suggestive of diarrhea. I see no significant large bowel wall thickening. Lumbar vertebra have normal spacing and alignment. Posterior elements are intact. There is no dante jessika fracture. The bony pelvis appears intact. IMPRESSION: Multiple variable-sized liver lesions consistent with metastatic disease unchanged compared to old ex am. Large bowel fluid levels down to the sigmoid colon suggestive of diarrhea. No evidence of colitis . No sign of bowel obstruction.
[2019-09-04] MEDS: 0.9% NACL WITH KCL 20 MEQ/L 1,000 ML IV SCH (19:08)
[2019-09-04] MEDS ORDERED: DIPHENOX-ATROP 2.5-0.025 MG 1 EACH TAB PO PRN (19:27)
[2019-09-04] MEDS ORDERED: [UNRECOGNIZED DRUG - OTHER] PO PRN (19:27)
[2019-09-04] MEDS ORDERED: OLANZapine 2.5 MG TAB PO SCH (19:30)
[2019-09-04] MEDS ORDERED: ALPRAZolam 0.25 MG TAB PO PRN (19:34)
[2019-09-04] MEDS ORDERED: HYDROcodone/APAP 5-325MG 1 EACH TAB PO PRN (19:39)
[2019-09-04] MEDS ORDERED: MAG HYDROX/AL HYDROX/SIMETH 30 ML, diphenhydrAMINE ELIXIR 75 MG, LIDOCAINE VISCOUS 30 ML PO PRN ×3 (19:41)
--- NOTE | 2019-09-04 20:44 | XR ---
EXAMINATION TYPE: XR chest 2V DATE OF EXAM: 09/04/2019 COMPARISON: 07/28/2019 HISTORY: Vomiting. Opinion. TECHNIQUE: FINDINGS: There is no heart failure nor confluent pneumonic infiltrate. There is right central venous catheter with the tip in the superior vena cava. There are chest leads. Costophrenic angles are chintan r. Bony thorax is intact. There is no evidence of pleural effusion. Thoracic aorta is atheromatous. IMPRESSION: No active cardiopulmonary disease. No change.
[2019-09-04 21:14] LABS: Magnesium 1.5 mg/dL (1.6-2.3)
[2019-09-04] MEDS: dexAMETHasone 4 MG TAB PO SCH (22:45)
[2019-09-04] MEDS: ACYCLOVIR 200 MG CAP PO SCH (22:45)
[2019-09-04] MEDS: FILGRASTIM-SNDZ 300 MCG/0.5 ML SYRINGE SQ SCH (22:45)
--- NOTE | 2019-09-04 23:12 | P.PN ---
Progress Note - Text Progress Note Date: 09/04/19 Ms uKhn is a pleasant white female initially seen in consult at [facility] on 05/12/19. She had presented to [facility] with complains of diarrhea, decreased appetite, and generalized weakness. She had lost about 10 pounds in the last 3 weeks. The patient had not seen a doctor prior to this visit for about [address] scan done at [facility] showed possible mass in the ascending colon, as well as bilateral lung nodules, left hilar adenopathy up to 3.0 cm, multiple liver lesions, approximately 15 with the largest 5.4 cm in the right lobe. Labs showed evidence of iron deficiency anemia. The patient had EGD and colonoscopy revealing mild gastritis, and ascending colon mass almost completely obstructing the lumen. Biopsy of the mass were positive for grade 2 adenocarcinoma. The patient underwent right colectomy with wedge resection of liver nodule on 05/14/19. This showed invasive moderately to poorly differentiated adenocarcinoma penetrating the visceral peritoneum and invading adjacent ilium, with 8/15 nodes positive. Liver biopsy was also positive. The patient tolerated surgery reasonably well and was subsequently discharged. She had port placement prior to discharge and was seen for her first office visit on 06/16/19. PET scan showed extensive disease with further progression in the liver, as well as evidence of hilar and mediastinal adenopathy. Patient also had retrocaval and periaortic adenopathy. She started chemotherapy with FOLFOX on 07/18/19. She is now status post 4 cycles. After cycle 2, the patient had developed issues with memory and balance and was found to have a 1.4 cm mass in the left cerebellum highly suspicious for metastasis, on MRI in early 08/07. She is was treated with SRS for the same and underwent a steroid taper She was seen on 08/19/19 with complaints of nausea and vomiting not controlled with home antiemetics, at that time she was also having diarrhea when she ate. Her antiemetic regimen was adjusted, compazine discontinued and olanzaprine added. As well as questran BID and Lomotil. 08/26/19 - She denied any fevers/chills/nausea/vomiting. She has developed significant mouth sores after her last chemotherapy again. She also had diarrhea with multiple bowel movements a day for 4-5 days. Today 09/04/19 her family had contacted the office regarding worsening intractable diarrhea, weakness and a fall and hitting her head. She was instructed to be further evaluated in the emergency department. On admission, she was hypokalemic with potassium 2.4, hyponatremic Na 128. CT head did not show any acute abnormalities. She was also neutropenic. She was admitted with T MS, Electrolyte replacement, and IV fluids. Zarxio has been initiated for her neutropenia. Laurent cultures and stool studies ordered. Full consultation tomorrow to follow.
--- NOTE | 2019-09-05 01:34 | P.HPIM ---
History of Present Illness H&P Date: 09/04/19 Chief Complaint: Generalized weakness Patient is a 73-year-old female with a known history of colon cancer status post colectomy and currently undergoing chemotherapy last on 08/26/2019, April 19 liver and brain and was to start radiation this week, hepatitis C status post treatment, anxiety presents to ER with complaints of constant diarrhea. Patient states that she fell at home and hit her head and contacted her oncologist who recommended to go to ER. Patient was in the kitchen and felt very weak and fell on the floor. She does not believe that she lost her consciousness or passed out.Denies any complaints of headache or back pain currently. No complaints of fever or chills. No cough or sputum production. No chest pain or shortness of breath. No abdominal pain. Patient is currently being treated for metastatic colon cancer and is on chemotherapy. CT head and cervical spine showed is related atrophic and chronic small vessel ischemic change without acute intracranial process. Unenhanced CT of the cervical spine was performed with bone and soft tissue window settings submitted. There is normal alignment and prevertebral soft tissues. No evidence for acute fracture. Scattered degenerative disc disease and spondylosis. Biapical scarring. Laboratory data showed WBC 1.1, hemoglobin 11.3 and platelets 134 Sodium 128, potassium 2.4 and chloride 96 BUN 7 creatinine 0.58 Lactic acid 1.1 Magnesium 1.4 Albumin 2.7 UA negative for infection Review of Systems Constitutional: Patient denies any fever or chills . generalized weakness and fatique. Abdomen: Patient does have nausea and no vomiting. No abdominal pain. Does have diarrhea... Cardiovascular: Patient denies any chest pain or short of breath no palpitations. Respiratory: patient denied any cough is from production. No shortness of breath Neurologic: Patient denied any numbness or tingling headache. Musculoskeletal: Patient denies any complaints of joint swelling or deformity. Skin: Negative Psychiatric: Negative Endocrine: No heat or cold intolerance. No recent weight gain. Genitourinary: No dysuria or hematuria. All other 14 point ROS negative except the above Past Medical History Past Medical History: Cancer, Liver Disease Additional Past Medical History / Comment(s): Pt admitted on 05/11/19 with abdominal pain/bowel obstruction d/t cancer/multiple pulmonary nodules-probable mets, hypomagnesemia, hypokalemia. Other hx: Bowel cancer with surgery/chemo with last tx about 2 weeks ago/metasisi to liver and brain and was to start radiation of brain this week. Other hx: hepatitis C with successful treatment, start of osteoporosis, starting of bilateral cataracts. History of Any Multi-Drug Resistant Organisms: None Reported Past Surgical History: Bowel Resection, Tonsillectomy Additional Past Surgical History / Comment(s): Colectomy, colonoscopy, mediport. Past Anesthesia/Blood Transfusion Reactions: No Reported Reaction Additional Past Anesthesia/Blood Transfusion Reaction / Comment(s): No history Past Psychological History: Anxiety Smoking Status: Never smoker Past Alcohol Use History: Daily Past Drug Use History: None Reported - Past Family History Father Family Medical History: Myocardial Infarction ([place]) Additional Family Medical History / Comment(s): Father of a [place] at the age of 74 yrs. Mother Family Medical History: Rheumatoid Arthritis ([place]) Medications and Allergies Home Medications Medication Instructions Recorded Confirmed Type Dexamethasone 4 mg PO TID 07/29/19 09/04/19 History OLANZapine [ZyPREXA] 2.5 mg PO DIRECTED 07/29/19 09/04/19 History Omeprazole [PriLOSEC] 40 mg PO DAILY 07/29/19 09/04/19 History Ondansetron Odt [Zofran ODT] 4 mg PO Q4H PRN 07/29/19 09/04/19 History Prochlorperazine Maleate 10 mg PO Q6H PRN 07/29/19 09/04/19 History Acyclovir [Zovirax] 400 mg PO TID 09/04/19 09/04/19 History Colestipol HCl 2 gm PO HS 09/04/19 09/04/19 History Cool's 5 ml PO QID PRN 09/04/19 09/04/19 History Solution(Benadryl/Lidocaine/Maalox 1:1) Diphenoxylate HCl/Atropine 1 - 2 tab PO DIRECTED PRN 09/04/19 09/04/19 History [Lomotil 2.5-0.025 mg Tablet] Allergies Allergy/AdvReac Type Severity Reaction Status Date / Time No Known Allergies Allergy Verified 09/04/19 16:15 Physical Exam Vitals: Vital Signs Temp Pulse Pulse Resp BP BP Pulse Ox 09/04/19 20:00 81 18 158/74 99 09/04/19 18:30 97.7 F 71 16 160/76 99 09/04/19 15:11 71 18 121/73 100 09/04/19 13:28 87 18 107/72 100 09/04/19 12:27 98.0 F 114 H 20 97/66 97 Intake and Output 09/04/19 09/04/19 09/04/19 06:59 14:59 22:59 Other: Weight 47.627 kg PHYSICAL EXAMINATION: Patient is lying in the bed comfortably, no acute distress, awake alert and oriented.. HEENT: Normocephalic. Neck is supple. Pupils reactive. Nostrils clear. Oral cavity is moist. Ears reveal no drainage. Neck reveals no JVD, carotid bruits, or thyromegaly. CHEST EXAMINATION: Trachea is central. Symmetrical expansion. Lung larkin clear to auscultation and percussion. CARDIAC: Normal S1, S2 with no gallops. No murmurs ABDOMEN: Soft. no tenderness. Bowel sounds present. No organomegaly. No abdominal bruits. Extremities: reveal no edema. No clubbing or cyanosis Neurologically awake, alert, oriented x3 with well-coordinated movements. No focal deficits noted Skin: No rash or skin lesions. Psychiatric: Coperative. Nonsuicidal Musculoskeletal: No joint swelling or deformity. Normal range of motion. Results CBC & Chem 7: 09/04/19 13:00 09/04/19 20:26 Labs: Abnormal Lab Results - Last 24 Hours (Table) 09/04/19 09/04/19 09/04/19 Range/Units 12:47 12:47 13:00 WBC 1.1 L* (3.8-10.6) k/uL RBC 3.56 L (3.80-5.40) m/uL Hgb 11.3 L (11.4-16.0) gm/dL Hct 32.7 L (34.0-46.0) % RDW 18.1 H (11.5-15.5) % Plt Count 134 L D (150-450) k/uL Neutrophils # (Manual) 0.10 L* (1.3-7.7) k/uL Lymphocytes # (Manual) 0.74 L (1.0-4.8) k/uL Metamyelocytes # (Man) 0.02 H (0) k/uL PT 12.9 H (9.0-12.0) sec INR 1.3 H (<1.2) Sodium 128 L (137-145) mmol/L Potassium 2.4 L* (3.5-5.1) mmol/L Chloride 96 L (98-107) mmol/L Glucose 129 H (74-99) mg/dL Calcium 7.9 L (8.4-10.2) mg/dL Magnesium 1.4 L (1.6-2.3) mg/dL Creatine Kinase <20 L (30-135) U/L Total Protein 4.9 L (6.3-8.2) g/dL Albumin 2.7 L (3.5-5.0) g/dL 09/04/19 Range/Units 20:26 WBC (3.8-10.6) k/uL RBC (3.80-5.40) m/uL Hgb (11.4-16.0) gm/dL Hct (34.0-46.0) % RDW (11.5-15.5) % Plt Count (150-450) k/uL Neutrophils # (Manual) (1.3-7.7) k/uL Lymphocytes # (Manual) (1.0-4.8) k/uL Metamyelocytes # (Man) (0) k/uL PT (9.0-12.0) sec INR (<1.2) Sodium (137-145) mmol/L Potassium 3.0 L (3.5-5.1) mmol/L Chloride (98-107) mmol/L Glucose (74-99) mg/dL Calcium (8.4-10.2) mg/dL Magnesium 1.5 L (1.6-2.3) mg/dL Creatine Kinase (30-135) U/L Total Protein (6.3-8.2) g/dL Albumin (3.5-5.0) g/dL Thrombosis Risk Factor Assmnt - DVT/VTE Prophylaxis DVT/VTE Prophylaxis: Pharmacologic Prophylaxis ordered Assessment and Plan Assessment: Generalized weakness and fall due to dehydration and electrolyte imbalance. Severe hypokalemia Acute diarrhea related to chemotherapy Metastatic colon cancer currently undergoing chemotherapy and planning for radiation with brain mets Neutropenia and thrombocytopenia secondary to chemotherapy Hypovolemic hyponatremia Hypomagnesemia DVT prophylaxis with SCDs Plan: Patient will be continued on IV hydration with normal saline. Replace electrolytes. Follow-up culture reports. Oncology was consulted. MRI of the brain was ordered. Continue to follow closely. Discussed with her at bedside in detail. Time with Patient: Greater than 30
[2019-09-05 01:55] LABS: Appearance,Urine Clear (Clear); Bilirubin,Urine Negative (Negative); Blood,Urine Negative (Negative); Color,Urine Light Yellow; Glucose,Urine (UA) Negative (Negative); Ketones,Urine Trace (Negative); Leukocyte Esterase,Urine Negative (Negative); Nitrite,Urine Negative (Negative); Protein,Urine Negative (Negative); Specific Gravity,Urine 1.023 (1.001-1.035); Urobilinogen,Urine <2.0 mg/dL (<2.0)
[2019-09-05 03:40] LABS: % Iron Saturation 9.63 (12.00-45.00); Ferritin 5549.2 ng/mL (10.0-291.0); Folate, Serum >24.0 ng/mL; Iron 21 ug/dL (50-170); Total Iron Binding Capacity 218 ug/dL (228-460)
[2019-09-05 08:34] LABS: Anisocytosis Slight; HCT 31.6 % (34.0-46.0); HGB 10.5 gm/dL (11.4-16.0); MCH 31.3 pg (25.0-35.0); MCHC 33.3 g/dL (31.0-37.0); MCV 94.2 fL (80.0-100.0); Mean Platelet Volume 7.7; Platelet Count 160 k/uL (150-450); RBC 3.36 m/uL (3.80-5.40); RDW 18.3 % (11.5-15.5)
[2019-09-05 08:41] LABS: WBC 0.8 k/uL (3.8-10.6)
[2019-09-05 08:51] LABS: ALT 22 U/L (4-34); AST 20 U/L (14-36); African American GFR (CKD) >90 (>60 ml/min/1.73 sqM); Albumin 2.5 g/dL (3.5-5.0); Alkaline Phosphatase 74 U/L (38-126); Anion Gap 8 mmol/L; Blood Urea Nitrogen 2 mg/dL (7-17); Calcium 7.9 mg/dL (8.4-10.2); Carbon Dioxide 20 mmol/L (22-30); Chloride 107 mmol/L (98-107); Glucose 121 mg/dL (74-99); Magnesium 1.6 mg/dL (1.6-2.3); Non-African American GFR(CKD) >90 (>60 ml/min/1.73 sqM); Sodium 135 mmol/L (137-145); Total Bilirubin 0.4 mg/dL (0.2-1.3); Total Protein 4.5 g/dL (6.3-8.2)
[2019-09-05] MEDS: ACYCLOVIR 200 MG CAP PO SCH ×3 (09:24→21:04)
[2019-09-05] MEDS: PANTOPRAZOLE 40 MG/10 ML VIAL IV SCH (09:24)
[2019-09-05] MEDS: dexAMETHasone 4 MG TAB PO SCH ×3 (09:24→21:04)
[2019-09-05] MEDS: FILGRASTIM-SNDZ 300 MCG/0.5 ML SYRINGE SQ SCH (09:25)
[2019-09-05] MEDS: CHOLESTYRAMINE (WITH SUGAR) 4 GM PACKET PO SCH ×2 (09:25→18:37)
[2019-09-05] MEDS ORDERED: Potassium Replacement Protocol 1 EACH MISC MISCELLANE PRN (12:22)
--- NOTE | 2019-09-05 14:07 | MR ---
EXAMINATION TYPE: MR brain wo/w con DATE OF EXAM: 09/05/2019 1:47 PM COMPARISON: Previous study dated 07/20/2019. HISTORY: Lung ca with brain mets, compare to prior MRI 07-20-19 TECHNIQUE: Multiplanar, multiecho imaging of the brain was obtained with and without intravenous adm inistration of 5 mL intravenous Gadavist. FINDINGS: There are generalized changes of sulcal prominence and ventriculomegaly, compatible with at rophic change. Midline structures are unremarkable. There is a normal craniocervical junction. Echoplanar diffusion imaging fails to show any areas of restricted diffusion. Lesion in the left cerebellar hemisphere has decreased in size from nearly 12 mm to 11 mm. It shows s cant enhancement compared to the previous study. There are no other definite focal lesions. There is no mass effect or midline shift. I do not see evidence of intracranial blood. Note is made of a cavum septum lucidum and cavum vergae, normal variants. Following intravenous gadolinium, there are no new areas of enhancement. IMPRESSION: 1. FAIRLY MARKED IMPROVEMENT IN THE PATIENT'S LEFT CEREBELLAR LESION WHICH VISUALLY APPEARS MORE IMPR ESSIVE THAN THE NUMBERS IMPLY. 2. NO NEW ENHANCING LESION. 3. BACKGROUND OF ATROPHY.
--- NOTE | 2019-09-05 14:27 | P.CONS ---
History of Present Illness - Reason for Consult Consult date: 09/05/19 Metastatic colon cancer Requesting physician: Sonia Marcus - Chief Complaint Fall - History of Present Illness Ms. Kuhn is a very pleasant 73 yo female with a history of multiple comorbidities including metastatic colon cancer with liver and peritoneal met's as well as brain met's who is here for weakness and fall. She has been on FOLFOX for her metastatic colon cancer, status post cycle 4 on 08/26/19. She has been having a lot of difficulty with chemotherapy and has been having a lot of diarrhea. Her nausea and vomiting have been controlled after adjustments after cycle 3 of chemo. She also has mucositis and cold sores. She had severe weakness from her diarrhea resulting in a fall and hitting her head. This led her to come into the hospital where she was found to be severely hypokalemic with a potassium of 2.4, and hyponatremic with a sodium of 128. CT of the head was unremarkable. She was found to be severely neutropenic with a WBC of 0.8, no fevers. Hemoglobin 10.5 and platelets 160. Her potassium was replaced, stool for C. diff as well as panculture ordered, she was admitted. Her diarrhea continues although slightly improved. She is NPO currently. On hydration with electrolyte replacement. G-CSF has also been started for her ne utropenia however antibiotics have not been started. Oncologic History: Ms Kuhn is a pleasant white female initially seen in consult at [facility] on 05/12/19. She had presented to [facility] with complains of diarrhea, decreased appetite, and generalized weakness. She had lost about 10 pounds in the last 3 weeks. The patient had not seen a doctor prior to this visit for about [address] scan done at [facility] showed possible mass in the ascending colon, as well as bilateral lung nodules, left hilar adenopathy up to 3.0 cm, multiple liver lesions, approximately 15 with the largest 5.4 cm in the right lobe. Labs showed evidence of iron deficie ncy anemia. The patient had EGD and colonoscopy revealing mild gastritis, and ascending colon mass almost completely obstructing the lumen. Biopsy of the mass were positive for grade 2 adenocarcinoma. The patient underwent right colectomy with wedge resection of liver nodule on 05/14/19. This showed invasive moderately to poorly differentiated adenocarcinoma penetrating the visceral peritoneum and invading adjacent ilium, with 8/15 nodes positive. Liver biopsy was also positive. The patient tolerated surgery reasonably well and was subsequently discharged. She had port placement prior to discharge and was seen for her first office visit on 06/16/19. PET scan showed extensive disease with further progression in the liver, as well as evidence of hilar and mediastinal adenopathy. Patient also had retrocaval and periaortic adenopathy. She started chemotherapy with FOLFOX on 07/18/19. She is now status post 4 cycles. After cycle 2, the patient had developed issues with memory and balance and was found to have a 1.4 cm mass in the left cerebellum highly suspicious for metastasis, on MRI in early 08/07. She is was treated with SRS for the same and underwent a steroid taper She was seen on 08/19/19 with complaints of nausea and vomiting not controlled with home antiemetics, at that time she was also having diarrhea when she ate. Her antiemetic regimen was adjusted, compazine discontinued and olanzaprine added. As well as questran BID and Lomotil. 08/26/19 - She denied any fevers/chills/nausea/vomiting. She has developed significant mouth sores after her last chemotherapy again. She also had diarrhea with multiple bowel movements a day for 4-5 days. On 09/04/19 her family had contacted the office regarding worsening intractable diarrhea, weakness and a fall and hitting her head. She was instructed to be further evaluated in the emergency department. On admission, she was hypokalemic with potassium 2.4, hyponatremic Na 128. CT head did not show any acute a bnormalities. She was also neutropenic. She was admitted with TMS, Electrolyte replacement, and IV fluids. Zarxio has been initiated for her neutropenia. Laurent cultures and stool studies ordered. Review of Systems All systems: negative Constitutional: Reports as per HPI Past Medical History Past Medical History: Cancer, Liver Disease Additional Past Medical History / Comment(s): Pt admitted on 05/11/19 with abdominal pain/bowel obstruction d/t cancer/multiple pulmonary nodules-probable mets, hypomagnesemia, hypokalemia. Other hx: Bowel cancer with surgery/chemo with last tx about 2 weeks ago/metasisi to liver and brain and was to start radiation of brain this week. Other hx: hepatitis C with successful treatment, start of osteoporosis, starting of bilateral cataracts. History of Any Multi-Drug Resistant Organisms: None Reported Past Surgical History: Bowel Resection, Tonsillectomy Additional Past Surgical History / Comment(s): Colectomy, colonoscopy, mediport. Past Anesthesia/Blood Transfusion Reactions: No Reported Reaction Additional Past Anesthesia/Blood Transfusion Reaction / Comm: No history Past Psychological History: Anxiety Smoking Status: Never smoker Past Alcohol Use History: Daily Past Drug Use History: None Reported - Past Family History Father Family Medical History: Myocardial Infarction (DC) Additional Family Medical History / Comment(s): Father of a DC at the age of 74 yrs. Mother Family Medical History: Rheumatoid Arthritis (RA) Medications and Allergies Home Medications Medication Instructions Recorded Confirmed Type Dexamethasone 4 mg PO TID 07/29/19 09/04/19 History OLANZapine [ZyPREXA] 2.5 mg PO DIRECTED 07/29/19 09/04/19 History Omeprazole [PriLOSEC] 40 mg PO DAILY 07/29/19 09/04/19 History Ondansetron Odt [Zofran ODT] 4 mg PO Q4H PRN 07/29/19 09/04/19 History Prochlorperazine Maleate 10 mg PO Q6H PRN 07/29/19 09/04/19 History Acyclovir [Zovirax] 400 mg PO TID 09/04/19 09/04/19 History Colestipol HCl 2 gm PO HS 09/04/19 09/04/19 History Cool's 5 ml PO QID PRN 09/04/19 09/04/19 History Solution(Benadryl/Lidocaine/Maalox 1:1) Diphenoxylate HCl/Atropine 1 - 2 tab PO DIRECTED PRN 09/04/19 09/04/19 History [Lomotil 2.5-0.025 mg Tablet] Allergies Allergy/AdvReac Type Severity Reaction Status Date / Time No Known Allergies Allergy Verified 09/04/19 16:15 Physical Exam Vitals: Vital Signs Temp Pulse Pulse Resp BP BP Pulse Ox 09/05/19 12:00 16 09/05/19 08:00 97.8 F 80 16 130/65 99 09/05/19 04:00 98.2 F 93 18 130/73 98 09/05/19 00:00 99.7 F H 90 18 149/77 98 09/04/19 20:00 81 18 158/74 99 09/04/19 18:30 97.7 F 71 16 160/76 99 09/04/19 15:11 71 18 121/73 100 09/04/19 13:28 87 18 107/72 100 Intake and Output 09/04/19 09/05/19 09/05/19 22:59 06:59 14:59 Output Total 450 Balance -450 Output: Urine 450 Other: # Bowel Movements 2 Weight 47.627 kg 49.7 kg General: In no acute distress. Cachectic HEENT: No conjunctival pallor or scleral icterus. Mucosa dry and erythematous, with healing cold sore on her lips. Neck: Neck supple. Lymph: No cervical/supraclavicular LAD. Lungs: CTA-B without wheezing or rhonchi. Heart: RRR. No LE edema. Abdomen: Soft, nontender, nondistended, with positive bowel sounds. MSK: 4/4 strength in all 4 extremities. Neuro: Alert and oriented 3. Skin: No jaundice or rash. Psych: Appropriate affect. Results CBC & Chem 7: 09/05/19 07:53 09/05/19 07:53 Labs: Abnormal Lab Results - Last 24 Hours (Table) 09/04/19 09/04/19 09/04/19 Range/Units 12:47 12:47 13:00 WBC 1.1 L* (3.8-10.6) k/uL RBC 3.56 L (3.80-5.40) m/uL Hgb 11.3 L (11.4-16.0) gm/dL Hct 32.7 L (34.0-46.0) % RDW 18.1 H (11.5-15.5) % Plt Count 134 L D (150-450) k/uL Neutrophils # (Manual) 0.10 L* (1.3-7.7) k/uL Lymphocytes # (Manual) 0.74 L (1.0-4.8) k/uL Metamyelocytes # (Man) 0.02 H (0) k/uL PT 12.9 H (9.0-12.0) sec INR 1.3 H (<1.2) Sodium 128 L (137-145) mmol/L Potassium 2.4 L* (3.5-5.1) mmol/L Chloride 96 L (98-107) mmol/L Carbon Dioxide (22-30) mmol/L BUN (7-17) mg/dL Creatinine (0.52-1.04) mg/dL Glucose 129 H (74-99) mg/dL Calcium 7.9 L (8.4-10.2) mg/dL Magnesium 1.4 L (1.6-2.3) mg/dL Iron (50-170) ug/dL TIBC (228-460) ug/dL % Saturation (12.00-45.00) Ferritin (10.0-291.0) ng/mL Creatine Kinase <20 L (30-135) U/L Total Protein 4.9 L (6.3-8.2) g/dL Albumin 2.7 L (3.5-5.0) g/dL Carcinoembryonic Ag (0.0-4.9) ng/mL Vitamin B12 (200.0-944.0) pg/mL Urine Ketones (Negative) 09/04/19 09/04/19 09/04/19 Range/Units 20:26 20:26 20:26 WBC (3.8-10.6) k/uL RBC (3.80-5.40) m/uL Hgb (11.4-16.0) gm/dL Hct (34.0-46.0) % RDW (11.5-15.5) % Plt Count (150-450) k/uL Neutrophils # (Manual) (1.3-7.7) k/uL Lymphocytes # (Manual) (1.0-4.8) k/uL Metamyelocytes # (Man) (0) k/uL PT (9.0-12.0) sec INR (<1.2) Sodium (137-145) mmol/L Potassium 3.0 L (3.5-5.1) mmol/L Chloride (98-107) mmol/L Carbon Dioxide (22-30) mmol/L BUN (7-17) mg/dL Creatinine (0.52-1.04) mg/dL Glucose (74-99) mg/dL Calcium (8.4-10.2) mg/dL Magnesium 1.5 L (1.6-2.3) mg/dL Iron 21 L 21 L (50-170) ug/dL TIBC 218 L (228-460) ug/dL % Saturation 9.63 L (12.00-45.00) Ferritin 5549.2 H (10.0-291.0) ng/mL Creatine Kinase (30-135) U/L Total Protein (6.3-8.2) g/dL Albumin (3.5-5.0) g/dL Carcinoembryonic Ag 93.1 H (0.0-4.9) ng/mL Vitamin B12 954.0 H (200.0-944.0) pg/mL Urine Ketones (Negative) 09/05/19 09/05/19 09/05/19 Range/Units 01:42 07:53 07:53 WBC 0.8 L* (3.8-10.6) k/uL RBC 3.36 L (3.80-5.40) m/uL Hgb 10.5 L (11.4-16.0) gm/dL Hct 31.6 L (34.0-46.0) % RDW 18.3 H (11.5-15.5) % Plt Count (150-450) k/uL Neutrophils # (Manual) (1.3-7.7) k/uL Lymphocytes # (Manual) (1.0-4.8) k/uL Metamyelocytes # (Man) (0) k/uL PT (9.0-12.0) sec INR (<1.2) Sodium 135 L (137-145) mmol/L Potassium 3.0 L (3.5-5.1) mmol/L Chloride (98-107) mmol/L Carbon Dioxide 20 L (22-30) mmol/L BUN 2 L (7-17) mg/dL Creatinine 0.49 L (0.52-1.04) mg/dL Glucose 121 H (74-99) mg/dL Calcium 7.9 L (8.4-10.2) mg/dL Magnesium (1.6-2.3) mg/dL Iron (50-170) ug/dL TIBC (228-460) ug/dL % Saturation (12.00-45.00) Ferritin (10.0-291.0) ng/mL Creatine Kinase (30-135) U/L Total Protein 4.5 L (6.3-8.2) g/dL Albumin 2.5 L (3.5-5.0) g/dL Carcinoembryonic Ag (0.0-4.9) ng/mL Vitamin B12 (200.0-944.0) pg/mL Urine Ketones Trace H (Negative) Microbiology - Last 24 Hours (Table) 09/04/19 22:43 Stool Culture - Preliminary Stool Chest x-ray: report reviewed CT scan - abdomen: report reviewed CT Scan - head: report reviewed CT scan - pelvis: report reviewed MRI - head: report reviewed Assessment and Plan Assessment: 1. Metastatic colon cancer with liver and brain mets 2. Intractable diarrhea 3. Dehydration 4. Hypokalemia 5. Hyponatremia 6. Anemia 7. Severe neutropenia 8. Fall with head trauma 9. Mucositis 10. Malnutrition Plan: Ms. Kuhn is a very pleasant 73-year-old female with a history of multiple comorbidities as listed above under history including metastatic colon cancer with brain metastases, who is here for severe weakness and fall. She was diagnosed with metastatic colon cancer and after couple cycles of chemotherapy was found to have brain metastases status post SBRT. She resumed chemotherapy with FOLFOX which she last received on 08/26/19. Unfortunately she has not been tolerating this very well and is been having severe and intractable diarrhea. She ended up falling with head trauma which led to her admission. Found to have severe neutropenia with a WBC of 0.8, mild normocytic anemia. No fevers. Severely hypokalemic and hyponatremic from her diarrhea. Will await cultures. Continue GCSF. We'll continue her anti-diarrhea regimen. She would benefit from GI consult. She had an MRI of the brain which overall was improved. Continue acyclovir. Her mucositis is overall slowly improving. Antibiotics if she becomes febrile. Await C. diff results. Hold chemotherapy until her symptoms resolve and she is reevaluated as an outpatient. Discussed with the patient and her family at bedside and they're agreeable to the plan. All of their questions were answered.
[2019-09-05] MEDS: MAGNESIUM SULFATE-D5W PMX 1 GM in DEXTROSE/WATER 1 100ML.BAG IVPB SCH ×2 (14:33→15:48)
[2019-09-05] MEDS: 0.9% NACL WITH KCL 20 MEQ/L 1,000 ML IV SCH ×2 (14:46→19:54)
[2019-09-05] MEDS: POTASSIUM CHLORIDE 10 MEQ in WATER FOR INJECTION 1 100ML.BAG IVPB SCH ×4 (14:47→18:34)
--- NOTE | 2019-09-06 00:32 | P.PN ---
Subjective Progress Note Date: 09/05/19 Patient is a 73-year-old female with a known history of colon cancer status post colectomy and currently undergoing chemotherapy last on 08/26/2019, April 19 liver and brain and was to start radiation this week, hepatitis C status post treatment, anxiety presents to ER with complaints of constant diarrhea. Patient states that she fell at home and hit her head and contacted her oncologist who recommended to go to ER. Patient was in the kitchen and felt very weak and fell on the floor. She does not believe that she lost her consciousness or passed out.Denies any complaints of headache or back pain currently. No complaints of fever or chills. No cough or sputum production. No chest pain or shortness of breath. No abdominal pain. Patient is currently being treated for metastatic colon cancer and is on chemotherapy. CT head and cervical spine showed is related atrophic and chronic small vessel ischemic change without acute intracranial process. Unenhanced CT of the cervical spine was performed with bone and soft tissue window settings submitted. There is normal alignment and prevertebral soft tissues. No evidence for acute fracture. Scattered degenerative disc disease and spondylosis. Biapical scarring. Laboratory data showed WBC 1.1, hemoglobin 11.3 and platelets 134 Sodium 128, potassium 2.4 and chloride 96 BUN 7 creatinine 0.58 Lactic acid 1.1 Magnesium 1.4 Albumin 2.7 UA negative for infection 09/05/2019 Patient is currently lying in the bed comfortably. Nausea vomiting is better. Patient would like to try oral diet. Patient is otherwise still having diarrhea. CT is pending. Laboratory data showed WBC 0.8, hemoglobin 10.4 and platelets 160 Sodium 135, potassium 3.0 CEA 93.1 Patient had MRI of the brain was done today showed fairly marked improvement in the patient's left cerebellar lesion which visually appears more impressive than the numbers imply. No new enhancing lesion. Background of atrophy. Otherwise patient denied any complaints of chest pain or shortness of breath. No abdominal pain. Patient has been afebrile. Current medications reviewed. Oncology is following. Objective - Vital Signs Vital signs: Vital Signs Temp 98.3 F 09/05/19 20:00 Pulse 81 09/05/19 20:00 Resp 18 09/05/19 20:00 BP 141/79 09/05/19 20:00 Pulse Ox 99 09/05/19 20:00 Intake & Output 09/05/19 09/05/19 09/06/19 06:59 18:59 06:59 Output Total 450 Balance -450 Weight 49.7 kg Output: Urine 450 Other: # Bowel Movements 2 - Exam PHYSICAL EXAMINATION: Patient is lying in the bed comfortably, no acute distress, awake alert and oriented.. HEENT: Normocephalic. Neck is supple. Pupils reactive. Nostrils clear. Oral cavity is moist. Ears reveal no drainage. Neck reveals no JVD, carotid bruits, or thyromegaly. CHEST EXAMINATION: Trachea is central. Symmetrical expansion. Lung larkin clear to auscultation and percussion. CARDIAC: Normal S1, S2 with no gallops. No murmurs ABDOMEN: Soft. no tenderness. Bowel sounds present. No organomegaly. No abdominal bruits. Extremities: reveal no edema. No clubbing or cyanosis Neurologically awake, alert, oriented x3 with well-coordinated movements. No focal deficits noted Skin: No rash or skin lesions. Psychiatric: Coperative. Nonsuicidal Musculoskeletal: No joint swelling or deformity. Normal range of motion. - Labs CBC & Chem 7: 09/05/19 07:53 09/05/19 07:53 Labs: Abnormal Lab Results - Last 24 Hours (Table) 09/04/19 09/04/19 09/04/19 Range/Units 20:26 20:26 20:26 WBC (3.8-10.6) k/uL RBC (3.80-5.40) m/uL Hgb (11.4-16.0) gm/dL Hct (34.0-46.0) % RDW (11.5-15.5) % Sodium (137-145) mmol/L Potassium (3.5-5.1) mmol/L Carbon Dioxide (22-30) mmol/L BUN (7-17) mg/dL Creatinine (0.52-1.04) mg/dL Glucose (74-99) mg/dL Calcium (8.4-10.2) mg/dL Iron 21 L 21 L (50-170) ug/dL TIBC 218 L (228-460) ug/dL % Saturation 9.63 L (12.00-45.00) Ferritin 5549.2 H (10.0-291.0) ng/mL Total Protein (6.3-8.2) g/dL Albumin (3.5-5.0) g/dL Carcinoembryonic Ag 93.1 H (0.0-4.9) ng/mL Vitamin B12 954.0 H (200.0-944.0) pg/mL Urine Ketones (Negative) Stool Lactoferrin (NEGATIVE) 09/04/19 09/05/19 09/05/19 Range/Units 22:43 01:42 07:53 WBC 0.8 L* (3.8-10.6) k/uL RBC 3.36 L (3.80-5.40) m/uL Hgb 10.5 L (11.4-16.0) gm/dL Hct 31.6 L (34.0-46.0) % RDW 18.3 H (11.5-15.5) % Sodium (137-145) mmol/L Potassium (3.5-5.1) mmol/L Carbon Dioxide (22-30) mmol/L BUN (7-17) mg/dL Creatinine (0.52-1.04) mg/dL Glucose (74-99) mg/dL Calcium (8.4-10.2) mg/dL Iron (50-170) ug/dL TIBC (228-460) ug/dL % Saturation (12.00-45.00) Ferritin (10.0-291.0) ng/mL Total Protein (6.3-8.2) g/dL Albumin (3.5-5.0) g/dL Carcinoembryonic Ag (0.0-4.9) ng/mL Vitamin B12 (200.0-944.0) pg/mL Urine Ketones Trace H (Negative) Stool Lactoferrin POSITIVE H (NEGATIVE) 09/05/19 Range/Units 07:53 WBC (3.8-10.6) k/uL RBC (3.80-5.40) m/uL Hgb (11.4-16.0) gm/dL Hct (34.0-46.0) % RDW (11.5-15.5) % Sodium 135 L (137-145) mmol/L Potassium 3.0 L (3.5-5.1) mmol/L Carbon Dioxide 20 L (22-30) mmol/L BUN 2 L (7-17) mg/dL Creatinine 0.49 L (0.52-1.04) mg/dL Glucose 121 H (74-99) mg/dL Calcium 7.9 L (8.4-10.2) mg/dL Iron (50-170) ug/dL TIBC (228-460) ug/dL % Saturation (12.00-45.00) Ferritin (10.0-291.0) ng/mL Total Protein 4.5 L (6.3-8.2) g/dL Albumin 2.5 L (3.5-5.0) g/dL Carcinoembryonic Ag (0.0-4.9) ng/mL Vitamin B12 (200.0-944.0) pg/mL Urine Ketones (Negative) Stool Lactoferrin (NEGATIVE) Microbiology - Last 24 Hours (Table) 09/04/19 22:43 Stool Culture - Preliminary Stool Assessment and Plan Assessment: Generalized weakness and fall due to dehydration and electrolyte imbalance. Severe hypokalemia Acute diarrhea related to chemotherapy Metastatic colon cancer currently undergoing chemotherapy and planning for radiation with brain mets Neutropenia and thrombocytopenia secondary to chemotherapy Hypovolemic hyponatremia Hypomagnesemia DVT prophylaxis with SCDs Plan: Patient will be continued on IV hydration with normal saline. Replace electrolytes. Follow-up culture reports. Oncology was consulted. MRI of the brain Showed improvement in brain lesions. No new enhancing lesions.. Continue to follow closely. Discussed with her at bedside in detail. Time with Patient: Greater than 30
[2019-09-06] MEDS: 0.9% NACL WITH KCL 20 MEQ/L 1,000 ML IV SCH ×2 (05:41→17:21)
[2019-09-06 08:10] LABS: African American GFR (CKD) >90 (>60 ml/min/1.73 sqM); Anion Gap 8 mmol/L; Blood Urea Nitrogen 4 mg/dL (7-17); Calcium 8.1 mg/dL (8.4-10.2); Carbon Dioxide 20 mmol/L (22-30); Chloride 106 mmol/L (98-107); Glucose 124 mg/dL (74-99); Non-African American GFR(CKD) >90 (>60 ml/min/1.73 sqM); Potassium 3.2 mmol/L (3.5-5.1); Sodium 134 mmol/L (137-145)
[2019-09-06] MEDS ORDERED: Potassium Replacement Protocol 1 EACH MISC MISCELLANE PRN (08:30)
[2019-09-06] MEDS: FILGRASTIM-SNDZ 300 MCG/0.5 ML SYRINGE SQ SCH (08:36)
[2019-09-06] MEDS: dexAMETHasone 4 MG TAB PO SCH ×3 (08:36→21:21)
[2019-09-06] MEDS: CHOLESTYRAMINE (WITH SUGAR) 4 GM PACKET PO SCH ×2 (08:36→17:22)
[2019-09-06] MEDS: ACYCLOVIR 200 MG CAP PO SCH ×3 (08:36→21:21)
[2019-09-06] MEDS: PANTOPRAZOLE 40 MG/10 ML VIAL IV SCH (08:36)
[2019-09-06] MEDS: POTASSIUM CHLORIDE ER 20 MEQ TAB.ER PO SCH (08:38)
[2019-09-06 17:56] LABS: Anisocytosis Slight; HCT 33.4 % (34.0-46.0); HGB 10.7 gm/dL (11.4-16.0); MCH 30.5 pg (25.0-35.0); MCHC 32.1 g/dL (31.0-37.0); Macrocytosis Slight; Mean Platelet Volume 7.5; Platelet Count 217 k/uL (150-450); RBC 3.51 m/uL (3.80-5.40); RDW 18.7 % (11.5-15.5); WBC 4.3 k/uL (3.8-10.6)
[2019-09-06 18:09] LABS: African American GFR (CKD) >90 (>60 ml/min/1.73 sqM); Anion Gap 5 mmol/L; Blood Urea Nitrogen 6 mg/dL (7-17); Calcium 8.6 mg/dL (8.4-10.2); Carbon Dioxide 20 mmol/L (22-30); Chloride 106 mmol/L (98-107); Glucose 171 mg/dL (74-99); Non-African American GFR(CKD) >90 (>60 ml/min/1.73 sqM); Potassium 3.8 mmol/L (3.5-5.1); Sodium 131 mmol/L (137-145)
[2019-09-06 18:54] LABS: Anisocytosis (M) Present; Band Neutrophils % 16 %; Lymphocytes # (M) 0.95 k/uL (1.0-4.8); Metamyelocytes # (M) 0.09 k/uL (0); Metamyelocytes % 2 %; Monocytes # (M) 1.29 k/uL (0-1.0); Neutrophils % (M) 30 %; Nucleated Red Blood Cells 0 /100 WBC (0-0); Poikilocytosis (M) Present; Polychromasia Present; Total Cells Counted 100
[2019-09-07] MEDS: 0.9% NACL WITH KCL 20 MEQ/L 1,000 ML IV SCH (06:14)
[2019-09-07 06:33] LABS: ALT 20 U/L (4-34); AST 25 U/L (14-36); African American GFR (CKD) >90 (>60 ml/min/1.73 sqM); Albumin 2.5 g/dL (3.5-5.0); Alkaline Phosphatase 78 U/L (38-126); Anion Gap 6 mmol/L; Blood Urea Nitrogen 7 mg/dL (7-17); Calcium 8.2 mg/dL (8.4-10.2); Carbon Dioxide 18 mmol/L (22-30); Chloride 107 mmol/L (98-107); Glucose 143 mg/dL (74-99); Non-African American GFR(CKD) >90 (>60 ml/min/1.73 sqM); Sodium 131 mmol/L (137-145); Total Bilirubin 0.7 mg/dL (0.2-1.3); Total Protein 4.7 g/dL (6.3-8.2)
[2019-09-07] MEDS ORDERED: PANTOPRAZOLE 40 MG TABLET PO SCH (07:30)
[2019-09-07] MEDS: ACYCLOVIR 200 MG CAP PO SCH (08:55)
[2019-09-07] MEDS: CHOLESTYRAMINE (WITH SUGAR) 4 GM PACKET PO SCH (08:56)
[2019-09-07] MEDS: dexAMETHasone 4 MG TAB PO SCH (08:56)
[2019-09-07] MEDS: FILGRASTIM-SNDZ 300 MCG/0.5 ML SYRINGE SQ SCH (09:03)
[2019-09-07 10:40] LABS: Anisocytosis Slight; HCT 32.9 % (34.0-46.0); HGB 10.9 gm/dL (11.4-16.0); Hypochromasia Slight; MCH 31.9 pg (25.0-35.0); MCHC 33.1 g/dL (31.0-37.0); MCV 96.5 fL (80.0-100.0); Macrocytosis Slight; Mean Platelet Volume 8.6; Platelet Count 184 k/uL (150-450); RBC 3.41 m/uL (3.80-5.40); RDW 18.9 % (11.5-15.5); WBC 10.3 k/uL (3.8-10.6)
[2019-09-07 11:27] LABS: Band Neutrophils % 12 %; Lymphocytes # (M) 2.58 k/uL (1.0-4.8); Metamyelocytes # (M) 0.52 k/uL (0); Metamyelocytes % 5 %; Monocytes # (M) 1.44 k/uL (0-1.0); Myelocytes % 1 %; Neutrophils % (M) 46 %; Nucleated Red Blood Cells 0 /100 WBC (0-0); Total Cells Counted 200
[2019-09-07 11:29] LABS: Polychromasia Present
[2019-09-07 11:30] LABS: Poikilocytosis (M) Present
[2019-09-07 12:28] VITALS: BP 124/78; PULSE 89; RESP 18; TEMP 97.7
--- NOTE | 2019-09-07 13:29 | CDI ---
Documentation Clarification Form Date: 09/07/2019 12:55:59 PM From: Caron Sandhu Phone: Admit Date: 09/04/2019 03:54:00 PM Patient Name: Nadira Kuhn Visit Number: [id number] Discharge Date: ATTENTION: The Clinical Documentation Specialists (CDI) and [facility] Coding Staff appreciate your assistance in clarifying documentation. Please respond to the clarification below the line at the bottom and electronically sign. The CDI & [facility] Coding staff will review the response and follow-up if needed. Please note: Queries are made part of the Legal Health Record. If you have any questions, please contact the author of this message via ITS. Dr. Sonia Marcus Malnutrition has been documented in progress note on 09/04. Please provide further clarification on the malnutrition. History/Risk Factors: Colon Cancer with Mets to brain, Liver, Hepatitis C Clinical Indicators: 76-year-old female who present with weakness and fall. Her general appearance per oncology progress notes is cachectic and has lost 10 pounds in the last 3 weeks. . Her mucosa is dry and erythematous, with healing cold sore on her lips. She also developed diarrhea. 09/03 Labs: WBC 1.1, RBC 3.56, HGB 32.7, HCT 32.7 Neurophils 0.10, NA+ 128, K+ 2.4 , Total Protein 4.9, Albumin 2.7 Current BMI: 20.7 Weight Loss: Yes 10 lbs in 3 weeks Treatment: Monitor intake and output q shift per protocol Monitor CBC, Lytes, daily Heart Healty Diet (soft foods In your professional opinion, can you please clarify if these findings signify one of the following conditions? Mild Protein-Calorie Malnutrition Moderate Protein-Calorie Malnutrition Severe Protein-Calorie Malnutrition Other condition, please specify Unable to determine (Last Revision: August 2018) Mild Protein-Calorie Malnutrition MTDD
--- NOTE | 2019-09-07 13:49 | P.PN ---
Subjective Progress Note Date: 09/07/19 Principal diagnosis: Metastatic Colon Cancer, Intractable Diarrhea and severe hypokalemia Patient is improving. Her CBC and CMP improved and resolved. Objective - Vital Signs Vital signs: Vital Signs Temp 97.7 F 09/07/19 12:27 Pulse 89 09/07/19 12:27 Resp 18 09/07/19 12:27 BP 124/78 09/07/19 12:27 Pulse Ox 99 09/07/19 12:27 Intake & Output 09/06/19 09/07/19 09/07/19 18:59 06:59 18:59 Intake Total 240 760 230 Balance 240 760 230 Weight 49.8 kg Intake: Intake, IV Titration 640 Amount 0.9% NaCl with KCl 20 Meq 640 /l 1,000 ml @ 80 mls/hr IV .[id number] MICHAEL Rx#: [id number] Oral 240 120 230 Other: Voiding Method Toilet Toilet # Voids 1 1 - Exam General: In no acute distress. Cachectic HEENT: No conjunctival pallor or scleral icterus. Mucosa dry and erythematous, with healing cold sore on her lips. Neck: Neck supple. Lymph: No cervical/supraclavicular LAD. Lungs: CTA-B without wheezing or rhonchi. Heart: RRR. No LE edema. Abdomen: Soft, nontender, nondistended, with positive bowel sounds. MSK: 4/4 strength in all 4 extremities. Neuro: Alert and oriented 3. Skin: No jaundice or rash. Psych: Appropriate affect. - Labs CBC & Chem 7: 09/07/19 05:52 09/07/19 05:52 Labs: Abnormal Lab Results - Last 24 Hours (Table) 09/06/19 09/06/19 09/07/19 Range/Units 17:37 17:37 05:52 RBC 3.51 L (3.80-5.40) m/uL Hgb 10.7 L (11.4-16.0) gm/dL Hct 33.4 L (34.0-46.0) % RDW 18.7 H (11.5-15.5) % Lymphocytes # (Manual) 0.95 L (1.0-4.8) k/uL Monocytes # (Manual) 1.29 H (0-1.0) k/uL Metamyelocytes # (Man) 0.09 H (0) k/uL Myelocytes # (Manual) (0) k/uL Sodium 131 L 131 L (137-145) mmol/L Carbon Dioxide 20 L 18 L (22-30) mmol/L BUN 6 L (7-17) mg/dL Creatinine 0.49 L 0.43 L (0.52-1.04) mg/dL Glucose 171 H 143 H (74-99) mg/dL Calcium 8.2 L (8.4-10.2) mg/dL Total Protein 4.7 L (6.3-8.2) g/dL Albumin 2.5 L (3.5-5.0) g/dL 09/07/19 Range/Units 05:52 RBC 3.41 L (3.80-5.40) m/uL Hgb 10.9 L (11.4-16.0) gm/dL Hct 32.9 L (34.0-46.0) % RDW 18.9 H (11.5-15.5) % Lymphocytes # (Manual) (1.0-4.8) k/uL Monocytes # (Manual) 1.44 H (0-1.0) k/uL Metamyelocytes # (Man) 0.52 H (0) k/uL Myelocytes # (Manual) 0.10 H (0) k/uL Sodium (137-145) mmol/L Carbon Dioxide (22-30) mmol/L BUN (7-17) mg/dL Creatinine (0.52-1.04) mg/dL Glucose (74-99) mg/dL Calcium (8.4-10.2) mg/dL Total Protein (6.3-8.2) g/dL Albumin (3.5-5.0) g/dL Microbiology - Last 24 Hours (Table) 09/04/19 20:26 Blood Culture - Preliminary Blood No Growth after 48 hours 09/04/19 22:43 Stool Culture - Preliminary Stool Assessment and Plan Plan: Chest x-ray: report reviewed CT scan - abdomen: report reviewed CT Scan - head: report reviewed CT scan - pelvis: report reviewed MRI - head: report reviewed Assessment and Plan Assessment: 1. Metastatic colon cancer with liver and brain mets: - Status Post Cycle 4 of treatment with FOLFOX6/Vectibix - Treatment held x1 week - Decreased dose 15% - Add Neulasta with next treatment - Close follow-up after each treatment (one scheduled with [employer] Mackenzie Stacy on 09/14 and 09/21) 2. Intractable diarrhea: - Improved - Continue Lomotil and Questran at home - [place] to be related to chemotherapy and neutropenia 3. Dehydration: Resolved 4. Hypokalemia: Resolved 5. Hyponatremia: Resolving 6. Anemia: Stable Secondary to chemotherapy 7. Severe neutropenia: Resolved - Required zarxio x3 days 8. Fall with head trauma: Stable 9. Mucositis: Improving - Dex mouth rinse and Cools - Secondary to neutropenia and chemo - Continue acyclovir 10. Malnutrition Plan: - OK with discharge today Physican Attest: I have completed the full history and physical and agree with above dictation, dictated as a scribe.
--- NOTE | 2019-09-15 21:09 | P.PN ---
Subjective Progress Note Date: 09/06/19 Principal diagnosis: Generalized weakness and fall due to dehydration and electrolyte imbalance. Patient is a 73-year-old female with a known history of colon cancer status post colectomy and currently undergoing chemotherapy last on 08/26/2019, April 19 liver and brain and was to start radiation this week, hepatitis C status post treatment, anxiety presents to ER with complaints of constant diarrhea. Patient states that she fell at home and hit her head and contacted her oncologist who recommended to go to ER. Patient was in the kitchen and felt very weak and fell on the floor. She does not believe that she lost her consciousness or passed out.Denies any complaints of headache or back pain currently. No complaints of fever or chills. No cough or sputum production. No chest pain or shortness of breath. No abdominal pain. Patient is currently being treated for metastatic colon cancer and is on chemotherapy. CT head and cervical spine showed is related atrophic and chronic small vessel ischemic change without acute intracranial process. Unenhanced CT of the cervical spine was performed with bone and soft tissue window settings submitted. There is normal alignment and prevertebral soft tissues. No evidence for acute fracture. Scattered degenerative disc disease and spondylosis. Biapical scarring. Laboratory data showed WBC 1.1, hemoglobin 11.3 and platelets 134 Sodium 128, potassium 2.4 and chloride 96 BUN 7 creatinine 0.58 Lactic acid 1.1 Magnesium 1.4 Albumin 2.7 UA negative for infection 09/05/2019 Patient is currently lying in the bed comfortably. Nausea vomiting is better. Patient would like to try oral diet. Patient is otherwise still having diarrhea. CT is pending. Laboratory data showed WBC 0.8, hemoglobin 10.4 and platelets 160 Sodium 135, potassium 3.0 CEA 93.1 Patient had MRI of the brain was done today showed fairly marked improvement in the patient's left cerebellar lesion which visually appears more impressive than the numbers imply. No new enhancing lesion. Background of atrophy. Otherwise patient denied any complaints of chest pain or shortness of breath. No abdominal pain. Patient has been afebrile. 09/06/2019 Patient is currently lying in bed comfortably. MRI of the brain showed no new lesions. Potassium level is improved. Patient is able to ambulate. No other acute overnight issues. Potassium level is normalized. Tolerating oral diet slowly. Follow-up with oncology as an outpatient. Anticipate discharge in next 24 hours. Current medications reviewed. Oncology is following. Objective - Vital Signs Vital signs: Vital Signs Temp 97.8 F 09/06/19 20:00 Pulse 98 09/06/19 20:00 Resp 18 09/06/19 20:00 BP 167/99 09/06/19 20:00 Pulse Ox 99 09/06/19 20:00 Intake & Output 09/06/19 09/06/19 09/07/19 06:59 18:59 06:59 Intake Total 240 120 Balance 240 120 Weight 48.8 kg Intake: Oral 240 120 Other: Voiding Method Toilet Toilet # Voids 1 1 1 - Exam PHYSICAL EXAMINATION: Patient is lying in the bed comfortably, no acute distress, awake alert and oriented.. HEENT: Normocephalic. Neck is supple. Pupils reactive. Nostrils clear. Oral cavity is moist. Ears reveal no drainage. Neck reveals no JVD, carotid bruits, or thyromegaly. CHEST EXAMINATION: Trachea is central. Symmetrical expansion. Lung larkin clear to auscultation and percussion. CARDIAC: Normal S1, S2 with no gallops. No murmurs ABDOMEN: Soft. no tenderness. Bowel sounds present. No organomegaly. No abdominal bruits. Extremities: reveal no edema. No clubbing or cyanosis Neurologically awake, alert, oriented x3 with well-coordinated movements. No focal deficits noted Skin: No rash or skin lesions. Psychiatric: Coperative. Nonsuicidal Musculoskeletal: No joint swelling or deformity. Normal range of motion. - Labs CBC & Chem 7: 09/07/19 05:52 09/07/19 05:52 Labs: Abnormal Lab Results - Last 24 Hours (Table) 09/06/19 09/06/19 09/06/19 Range/Units 07:30 17:37 17:37 RBC 3.51 L (3.80-5.40) m/uL Hgb 10.7 L (11.4-16.0) gm/dL Hct 33.4 L (34.0-46.0) % RDW 18.7 H (11.5-15.5) % Lymphocytes # (Manual) 0.95 L (1.0-4.8) k/uL Monocytes # (Manual) 1.29 H (0-1.0) k/uL Metamyelocytes # (Man) 0.09 H (0) k/uL Sodium 134 L 131 L (137-145) mmol/L Potassium 3.2 L (3.5-5.1) mmol/L Carbon Dioxide 20 L 20 L (22-30) mmol/L BUN 4 L 6 L (7-17) mg/dL Creatinine 0.48 L 0.49 L (0.52-1.04) mg/dL Glucose 124 H 171 H (74-99) mg/dL Calcium 8.1 L (8.4-10.2) mg/dL Microbiology - Last 24 Hours (Table) 09/04/19 20:26 Blood Culture - Preliminary Blood No Growth after 48 hours 09/04/19 22:43 Stool Culture - Preliminary Stool Assessment and Plan Assessment: Generalized weakness and fall due to dehydration and electrolyte imbalance. Severe hypokalemia Acute diarrhea related to chemotherapy Metastatic colon cancer currently undergoing chemotherapy and planning for radiation with brain mets Neutropenia and thrombocytopenia secondary to chemotherapy Hypovolemic hyponatremia Hypomagnesemia DVT prophylaxis with SCDs Plan: Patient will be continued on IV hydration with normal saline. Replace electrolytes. Follow-up culture reports. Oncology was consulted. MRI of the brain Showed improvement in brain lesions. No new enhancing lesions.. Continue to follow closely. Discussed with her at bedside in detail. Time with Patient: Greater than 30
--- NOTE | 2019-09-15 21:11 | P.DS ---
Providers Date of admission: 09/04/19 15:54 Expected date of discharge: 09/07/19 Attending physician: Sonia Marcus Consults: 09/04/19 15:55 Consult Physician Urgent Consulting Provider: Wily Yeager Consult Reason/Comments: oncological care Do you want consulting provider notified?: Yes Primary care physician: Cullen Sena MD Hospital Course: Discharge diagnosis Generalized weakness and fall due to dehydration and electrolyte imbalance. Severe hypokalemia Acute diarrhea related to chemotherapy Metastatic colon cancer currently undergoing chemotherapy and planning for radiation with brain mets Neutropenia and thrombocytopenia secondary to chemotherapy Hypovolemic hyponatremia Hypomagnesemia DVT prophylaxis with SCDs Hospital course Patient is a 73-year-old female with a known history of colon cancer status post colectomy and currently undergoing chemotherapy last on 08/26/2019, April 19 liver and brain and was to start radiation this week, hepatitis C status post treatment, anxiety presents to ER with complaints of constant diarrhea. Patient states that she fell at home and hit her head and contacted her oncologist who recommended to go to ER. Patient was in the kitchen and felt very weak and fell on the floor. She does not believe that she lost her consciousness or passed out.Denies any complaints of headache or back pain currently. No complaints of fever or chills. No cough or sputum production. No chest pain or shortness of breath. No abdominal pain. Patient is currently being treated for metastatic colon cancer and is on chemotherapy. CT head and cervical spine showed is related atrophic and chronic small vessel ischemic change without acute intracranial process. Unenhanced CT of the cervical spine was performed with bone and soft tissue window settings submitted. There is normal alignment and prevertebral soft tissues. No evidence for acute fracture. Scattered degenerative disc disease and spondylosis. Biapical scarring. Laboratory data showed WBC 1.1, hemoglobin 11.3 and platelets 134 Sodium 128, potassium 2.4 and chloride 96 BUN 7 creatinine 0.58 Lactic acid 1.1 Magnesium 1.4 Albumin 2.7 UA negative for infection 09/05/2019 Patient is currently lying in the bed comfortably. Nausea vomiting is better. Patient would like to try oral diet. Patient is otherwise still having diarrhea. CT is pending. Laboratory data showed WBC 0.8, hemoglobin 10.4 and platelets 160 Sodium 135, potassium 3.0 CEA 93.1 Patient had MRI of the brain was done today showed fairly marked improvement in the patient's left cerebellar lesion which visually appears more impressive than the numbers imply. No new enhancing lesion. Background of atrophy. Otherwise patient denied any complaints of chest pain or shortness of breath. No abdominal pain. Patient has been afebrile. 09/06/2019 Patient is currently lying in bed comfortably. MRI of the brain showed no new lesions. Potassium level is improved. Patient is able to ambulate. No other acute overnight issues. Potassium level is normalized. Tolerating oral diet slowly. Follow-up with oncology as an outpatient. Anticipate discharge in next 24 hours. 09/07/2019 Patient is currently awake alert oriented x3. Neutropenia resolved. White count is normalizing now. Tolerating oral diet. Potassium within normal limits. Patient is being discharged home today. PHYSICAL EXAMINATION: Patient is lying in the bed comfortably, no acute distress, awake alert and oriented.. HEENT: Normocephalic. Neck is supple. Pupils reactive. Nostrils clear. Oral cavity is moist. Ears reveal no drainage. Neck reveals no JVD, carotid bruits, or thyromegaly. CHEST EXAMINATION: Trachea is central. Symmetrical expansion. Lung larkin clear to auscultation and percussion. CARDIAC: Normal S1, S2 with no gallops. No murmurs ABDOMEN: Soft. no tenderness. Bowel sounds present. No organomegaly. No abdominal bruits. Extremities: reveal no edema. No clubbing or cyanosis Neurologically awake, alert, oriented x3 with well-coordinated movements. No focal deficits noted Skin: No rash or skin lesions. Psychiatric: Coperative. Nonsuicidal Musculoskeletal: No joint swelling or deformity. Normal range of motion. Vital Signs Temp 97.7 F 09/07/19 12:27 Pulse 89 09/07/19 12:27 Resp 18 09/07/19 12:27 BP 124/78 09/07/19 12:27 Pulse Ox 99 09/07/19 12:27 Intake & Output 09/06/19 09/07/19 09/07/19 18:59 06:59 18:59 Intake Total 240 760 230 Balance 240 760 230 Weight 49.8 kg Intake: Intake, IV Titration 640 Amount 0.9% NaCl with KCl 20 Meq 640 /l 1,000 ml @ 80 mls/hr IV .[id number] [facility] Rx#: [id number] Oral 240 120 230 Other: Voiding Method Toilet Toilet # Voids 1 1 Patient Condition at Discharge: Stable Plan - Discharge Summary Discharge Rx Participant: No New Discharge Prescriptions: Continue Prochlorperazine Maleate 10 mg PO Q6H PRN PRN Reason: Nausea Ondansetron Odt [Zofran ODT] 4 mg PO Q4H PRN PRN Reason: Nausea And Vomiting Omeprazole [PriLOSEC] 40 mg PO DAILY dexAMETHasone [Dexamethasone] 4 mg PO TID OLANZapine [ZyPREXA] 2.5 mg PO DIRECTED Cool's Solution(Benadryl/Lidocaine/Maalox 1:1) 5 ml PO QID PRN PRN Reason: MOUTH SORES Acyclovir [Zovirax] 400 mg PO TID Colestipol HCl 2 gm PO HS Diphenoxylate HCl/Atropine [Lomotil 2.5-0.025 mg Tablet] 1 - 2 tab PO DIRECTED PRN PRN Reason: Diarrhea Discharge Medication List OLANZapine [ZyPREXA] 2.5 mg PO DIRECTED 07/29/19 [History] Omeprazole [PriLOSEC] 40 mg PO DAILY 07/29/19 [History] Ondansetron Odt [Zofran ODT] 4 mg PO Q4H PRN 07/29/19 [History] Prochlorperazine Maleate 10 mg PO Q6H PRN 07/29/19 [History] dexAMETHasone [Dexamethasone] 4 mg PO TID 07/29/19 [History] Acyclovir [Zovirax] 400 mg PO TID 09/04/19 [History] Colestipol HCl 2 gm PO HS 09/04/19 [History] Cool's Solution(Benadryl/Lidocaine/Maalox 1:1) 5 ml PO QID PRN 09/04/19 [History] Diphenoxylate HCl/Atropine [Lomotil 2.5-0.025 mg Tablet] 1 - 2 tab PO DIRECTED PRN 09/04/19 [History] Follow up Appointment(s)/Referral(s): Megha Stacy ANPBC [Nurse Practitioner] - 09/15/19 1:00 pm Nonstaff,Physician [REFERRING] - 1-2 days Patient Instructions/Handouts: Dehydration (DC), Hypokalemia (DC), Neutropenia (DC) Discharge Disposition: HOME SELF-CARE
== END 2019-09-07 15:14 | disposition home or self-care (01) | DRG 394 ==
LOC: SUPCPDRO 12:20 → EC 12:20 → 3SCARD 15:54
PROVIDERS: ADMIT Internal Medicine; ATTEND Internal Medicine
DX: K52.1 Toxic gastroenteritis and colitis (principal); C18.9 Malignant neoplasm of colon, unspecified; C78.7 Secondary malignant neoplasm of liver and intrahepatic bile duct; C79.31 Secondary malignant neoplasm of brain; E87.1 Hypo-osmolality and hyponatremia; E44.1 Mild protein-calorie malnutrition; E86.0 Dehydration; E87.6 Hypokalemia; T45.1X5A Adverse effect of antineoplastic and immunosuppressive drugs, initial encounter; W18.30XA Fall on same level, unspecified, initial encounter; E83.42 Hypomagnesemia; K12.30 Oral mucositis (ulcerative), unspecified; E86.1 Hypovolemia; D50.9 Iron deficiency anemia, unspecified; D64.81 Anemia due to antineoplastic chemotherapy; D69.59 Other secondary thrombocytopenia; D70.1 Agranulocytosis secondary to cancer chemotherapy; M47.9 Spondylosis, unspecified; F41.9 Anxiety disorder, unspecified; Z11.59 Encounter for screening for other viral diseases; Z90.49 Acquired absence of other specified parts of digestive tract; Z90.89 Acquired absence of other organs; Z98.890 Other specified postprocedural states; Z82.49 Family history of ischemic heart disease and other diseases of the circulatory system; Z82.61 Family history of arthritis
CPT/HCPCS: 36415; 70450; 70553; 71046; 72125; 74177; 80048; 80053; 81003; 82378; 82550; 82607; 82728; 82746; 83540; 83550; 83605; 83630; 83735; 84132; 84484; 85025; 85610; 85730; 87040; 87045; 87046; 87324; 93005; 96361; 96365; 96366; 96375; 96376; 99285

== ENCOUNTER → 2019-09-25 | Outpatient (CLI) | payer MEDICARE ==
[2019-09-25 11:33] LABS: African American GFR (CKD) >90 (>60 ml/min/1.73 sqM); Blood Urea Nitrogen 6 mg/dL (7-17); Non-African American GFR(CKD) 90 (>60 ml/min/1.73 sqM)
--- NOTE | 2019-09-25 13:00 | CT ---
EXAMINATION TYPE: CT ChestAbdPelvis w con DATE OF EXAM: 09/25/2019 COMPARISON: PET CT July 03, [address] September 04, 2019 HISTORY: colon cancer/metastatic liver progress study. CT DLP: 439.7 mGycm. Automated Exposure Control for Dose Reduction was Utilized. CONTRAST: CT scan of the thorax, abdomen and pelvis is performed with IV Contrast, patient injected with 100 mL of Isovue 300. FINDINGS: LUNGS: Redemonstration of scattered pulmonary nodules bilaterally. Left upper to mid lung nodule show s improvement measuring 10 x 8 mm crystal axial image 22 with some central aeration. Similar improvem ent appearance to the right upper lung anterior nodule axial image 18. Anterior left upper lung 6 mm nodule stable or less prominent from prior. There is however new nodularity or nodular consolidation centrally in the left upper lobe axial images 13 and 14. Latter is favored but new nodule not entirel y excluded due to the rounded nodular contour. No pleural effusion or pneumothorax bilaterally. MEDIASTINUM: There there is marked improvement in the abnormal AP window lymph node With residual low dense 1.9 x 1.1 cm lymph node axial image 22 noted. Improved but prominent left hilar lymph nodes re main present inferior to this there axial images 25 and 26. No new greater than 1 cm thoracic adenopa thy. Stable tiny pericardial effusion is seen. No cardiomegaly. OTHER: Some residual left supraclavicular adenopathy measuring 1.1 x 0.9 cm axial image 4 significant ly improved from PET/CT. LIVER/GB: Interval improvement in hepatic metastatic disease with largest lesion posterior right hepa tic dome measuring 4.3 cm long axis current study axial image 47 versus 5.[address] study axial i mage 10. Additional lesions all felt stable or smaller in size. No definitive new or enlarging lesion s. Contracted gallbladder now present. PANCREAS: No significant abnormality is seen. SPLEEN: No significant abnormality is seen. ADRENALS: No significant abnormality is seen. KIDNEYS: No significant abnormality is seen. BOWEL: Oral contrast reaches the proximal sigmoid colon. No suspicious small or large bowel dilatatio n. Surgical sutures from right-sided partial colectomy redemonstrated. Some contrast prominence of th e colon at this level noted. GENITAL ORGANS: No gross abnormality seen. LYMPH NODES: Improved abnormal adenopathy. For reference retrocrural lymph node near diaphragm measur es 11 x 9 mm current study axial image 48 versus 17 x 16 mm prior PET/CT axial image 132. Retroperito kennedy lymph nodes along course of the aorta show marked interval improvement from PET/CT in size. No n ew greater than 1 cm adenopathy. OSSEOUS STRUCTURES: Slight scoliotic curvature with mild multilevel spurring in the spine. OTHER: Moderate mixed plaque of the aorta extending into branch vessels. IMPRESSION: Overall partial positive treatment response as detailed above.
== END | disposition home or self-care (01) ==
LOC: RADCTMAIN 10:06
PROVIDERS: ATTEND Internal Medicine Hematology & Oncology
DX: R91.8 Other nonspecific abnormal finding of lung field (principal); C80.1 Malignant (primary) neoplasm, unspecified; C78.7 Secondary malignant neoplasm of liver and intrahepatic bile duct; C79.31 Secondary malignant neoplasm of brain
CPT/HCPCS: 82565; 84520; 71260; 74177; 36415; Q9967 ×2

== ENCOUNTER 2019-11-04 15:32 | Inpatient (IN) | payer MEDICARE ==
[2019-11-04] MEDS ORDERED: SODIUM CHLORIDE 0.9% 1,000 ML IV STA (16:44)
--- NOTE | 2019-11-04 16:47 | ED ---
General Adult HPI - General Chief complaint: Shortness of Breath Stated complaint: SOB Time Seen by Provider: 11/04/19 16:07 Source: patient, family, RN notes reviewed Mode of arrival: EMS Limitations: no limitations - History of Present Illness Initial comments: Patient is a pleasant 74-year-old female presenting to the emergency Department with an episode of dyspnea. Patient does have metastatic colon cancer and undergoing chemotherapy. Towards the end of her treatment patient started becoming short of breath. Patient states this was fairly severe and she was breathing fast. Patient felt like she could not catch her breath. Patient states symptoms lasted 20-30 minutes and have resolved. Patient only feels slightly lightheaded at this time. Patient denies any chest discomfort. No history of similar symptoms previously. No leg pain or leg swelling. Patient was not short of breath prior to this episode. Episode occurred just prior to arrival. - Related Data Home Medications Medication Instructions Recorded Confirmed OLANZapine [ZyPREXA] 2.5 mg PO HS 07/29/19 11/04/19 Ondansetron Odt [Zofran ODT] 4 mg PO Q4H PRN 07/29/19 11/04/19 Diphenoxylate HCl/Atropine 1 - 2 tab PO DIRECTED PRN 09/04/19 11/04/19 [Lomotil 2.5-0.025 mg Tablet] ALPRAZolam [Xanax] 0.25 mg PO BID PRN 11/04/19 11/04/19 Calcium Carbonate [Tums] 500 - 1,000 mg PO TID PRN 11/04/19 11/04/19 Cholestyramine (with Sugar) 4 gm PO BID 11/04/19 11/04/19 [Questran] Magnesium Oxide 400 mg PO DAILY 11/04/19 11/04/19 Potassium Chloride ER [K-Dur 20] 20 meq PO BID 11/04/19 11/04/19 traMADol HCL 50 mg PO Q8H PRN 11/04/19 11/04/19 Allergies Allergy/AdvReac Type Severity Reaction Status Date / Time No Known Allergies Allergy Verified 11/04/19 18:00 Review of Systems ROS Statement: Those systems with pertinent positive or pertinent negative responses have been documented in the HPI. ROS Other: All systems not noted in ROS Statement are negative. Constitutional: Denies: fever Eyes: Denies: eye pain ENT: Denies: ear pain Respiratory: Reports: dyspnea. Denies: cough Cardiovascular: Denies: chest pain Endocrine: Denies: fatigue Gastrointestinal: Denies: abdominal pain Genitourinary: Denies: dysuria Musculoskeletal: Denies: back pain Skin: Denies: rash Neurological: Denies: headache Past Medical History Past Medical History: Cancer, Liver Disease Additional Past Medical History / Comment(s): Pt admitted on 05/11/19 with abdominal pain/bowel obstruction d/t cancer/multiple pulmonary nodules-probable mets, hypomagnesemia, hypokalemia. Other hx: Bowel cancer with surgery/chemo with last tx about 2 weeks ago/metasisi to liver and brain and was to start radiation of brain this week. Other hx: hepatitis C with successful treatment, start of osteoporosis, starting of bilateral cataracts. History of Any Multi-Drug Resistant Organisms: None Reported Past Surgical History: Bowel Resection, Tonsillectomy Additional Past Surgical History / Comment(s): Colectomy, colonoscopy, mediport. Past Anesthesia/Blood Transfusion Reactions: No Reported Reaction Additional Past Anesthesia/Blood Transfusion Reaction / Comment(s): No history Past Psychological History: Anxiety Smoking Status: Never smoker Past Alcohol Use History: None Reported Past Drug Use History: None Reported - Past Family History Father Family Medical History: Myocardial Infarction (CO) Additional Family Medical History / Comment(s): Father of a CO at the age of 74 yrs. Mother Family Medical History: Rheumatoid Arthritis (RA) General Exam Limitations: no limitations General appearance: alert, in no apparent distress Head exam: Present: normocephalic Eye exam: Present: normal appearance Neck exam: Present: normal inspection Respiratory exam: Present: normal lung sounds bilaterally Cardiovascular Exam: Present: regular rate, normal rhythm Expanded Peripheral pulses: 2+: Radial (R), Radial (L), Dorsalis Pedis (R), Dorsalis Pedis (L) GI/Abdominal exam: Present: soft. Absent: tenderness Extremities exam: Present: normal inspection. Absent: pedal edema, calf tenderness Neurological exam: Present: alert Psychiatric exam: Present: normal affect, normal mood Skin exam: Present: normal color Course Vital Signs 11/04/19 11/04/19 15:36 18:30 Temperature 96.9 F L Pulse Rate 67 60 Respiratory 18 18 Rate Blood Pressure 152/89 149/73 O2 Sat by Pulse 100 99 Oximetry EKG Findings - EKG Comments: EKG Findings:: Normal sinus rhythm 60. AZ 120. QRS 82. QT 434. QTC 434. Normal axis. Normal QRS. No acute ST change. Medical Decision Making - Medical Decision Making Patient reevaluated. Patient and family updated. Case was discussed in detail with Dr. Velazquez, who would like patient a minute with IV antibiotics. Case also discussed with Dr. Gr, who will admit for hospital call. - Lab Data Result diagrams: 11/04/19 17:00 11/04/19 17:00 Lab Results 11/04/19 11/04/19 11/04/19 Range/Units 17:00 17:00 17:00 WBC 18.6 H (3.8-10.6) k/uL RBC 3.67 L (3.80-5.40) m/uL Hgb 11.8 (11.4-16.0) gm/dL Hct 36.8 (34.0-46.0) % MCV 100.4 H (80.0-100.0) fL MCH 32.2 (25.0-35.0) pg MCHC 32.1 (31.0-37.0) g/dL RDW 14.5 (11.5-15.5) % Plt Count 169 (150-450) k/uL Neutrophils % 98 % Lymphocytes % 1 % Monocytes % 1 % Eosinophils % 0 % Basophils % 0 % Neutrophils # 18.2 H (1.3-7.7) k/uL Lymphocytes # 0.2 L (1.0-4.8) k/uL Monocytes # 0.1 (0-1.0) k/uL Eosinophils # 0.0 (0-0.7) k/uL Basophils # 0.0 (0-0.2) k/uL Macrocytosis Slight PT 11.7 (9.0-12.0) sec INR 1.2 H (<1.2) APTT 27.8 (22.0-30.0) sec Sodium 137 (137-145) mmol/L Potassium 3.2 L (3.5-5.1) mmol/L Chloride 110 H (98-107) mmol/L Carbon Dioxide 18 L (22-30) mmol/L Anion Gap 9 mmol/L BUN 5 L (7-17) mg/dL Creatinine 0.52 (0.52-1.04) mg/dL Est GFR (CKD-EPI)AfAm >90 (>60 ml/min/1.73 sqM) Est GFR (CKD-EPI)NonAf >90 (>60 ml/min/1.73 sqM) Glucose 138 H (74-99) mg/dL Plasma Lactic Acid Loy (0.7-2.0) mmol/L Calcium 8.9 (8.4-10.2) mg/dL Total Bilirubin 0.3 (0.2-1.3) mg/dL AST 34 (14-36) U/L ALT 23 (4-34) U/L Alkaline Phosphatase 186 H (38-126) U/L Total Protein 6.0 L (6.3-8.2) g/dL Albumin 3.1 L (3.5-5.0) g/dL 11/04/19 Range/Units 17:00 WBC (3.8-10.6) k/uL RBC (3.80-5.40) m/uL Hgb (11.4-16.0) gm/dL Hct (34.0-46.0) % MCV (80.0-100.0) fL MCH (25.0-35.0) pg MCHC (31.0-37.0) g/dL RDW (11.5-15.5) % Plt Count (150-450) k/uL Neutrophils % % Lymphocytes % % Monocytes % % Eosinophils % % Basophils % % Neutrophils # (1.3-7.7) k/uL Lymphocytes # (1.0-4.8) k/uL Monocytes # (0-1.0) k/uL Eosinophils # (0-0.7) k/uL Basophils # (0-0.2) k/uL Macrocytosis PT (9.0-12.0) sec INR (<1.2) APTT (22.0-30.0) sec Sodium (137-145) mmol/L Potassium (3.5-5.1) mmol/L Chloride (98-107) mmol/L Carbon Dioxide (22-30) mmol/L Anion Gap mmol/L BUN (7-17) mg/dL Creatinine (0.52-1.04) mg/dL Est GFR (CKD-EPI)AfAm (>60 ml/min/1.73 sqM) Est GFR (CKD-EPI)NonAf (>60 ml/min/1.73 sqM) Glucose (74-99) mg/dL Plasma Lactic Acid Loy 2.1 H* (0.7-2.0) mmol/L Calcium (8.4-10.2) mg/dL Total Bilirubin (0.2-1.3) mg/dL AST (14-36) U/L ALT (4-34) U/L Alkaline Phosphatase (38-126) U/L Total Protein (6.3-8.2) g/dL Albumin (3.5-5.0) g/dL - Radiology Data Radiology results: report reviewed (Computed tomography scan negative for pulmonary embolism. There is concern for infiltrates.) Disposition Clinical Impression: Pneumonia Disposition: ADMITTED IP TO THIS HOSP Is patient prescribed a controlled substance at d/c from ED?: No Referrals: Cullen Sena MD [Primary Care Provider] - 1-2 days Decision Time: 19:16
[2019-11-04 17:24] LABS: Basophils % (A) 0 %; Eosinophils % (A) 0 %; HCT 36.8 % (34.0-46.0); HGB 11.8 gm/dL (11.4-16.0); Lymphocytes # (A) 0.2 k/uL (1.0-4.8); Lymphocytes % (A) 1 %; MCH 32.2 pg (25.0-35.0); MCHC 32.1 g/dL (31.0-37.0); MCV 100.4 fL (80.0-100.0); Macrocytosis Slight; Mean Platelet Volume 7.4; Monocytes # (A) 0.1 k/uL (0-1.0); Monocytes % (A) 1 %; Neutrophils # (A) 18.2 k/uL (1.3-7.7); Neutrophils % (A) 98 %; Platelet Count 169 k/uL (150-450); RBC 3.67 m/uL (3.80-5.40); RDW 14.5 % (11.5-15.5); WBC 18.6 k/uL (3.8-10.6)
[2019-11-04 17:34] LABS: ALT 23 U/L (4-34); AST 34 U/L (14-36); African American GFR (CKD) >90 (>60 ml/min/1.73 sqM); Albumin 3.1 g/dL (3.5-5.0); Alkaline Phosphatase 186 U/L (38-126); Anion Gap 9 mmol/L; Blood Urea Nitrogen 5 mg/dL (7-17); Calcium 8.9 mg/dL (8.4-10.2); Carbon Dioxide 18 mmol/L (22-30); Chloride 110 mmol/L (98-107); Glucose 138 mg/dL (74-99); Non-African American GFR(CKD) >90 (>60 ml/min/1.73 sqM); Potassium 3.2 mmol/L (3.5-5.1); Sodium 137 mmol/L (137-145); Total Bilirubin 0.3 mg/dL (0.2-1.3)
[2019-11-04 17:45] LABS: INR 1.2 (<1.2); Partial Thromboplastin Time 27.8 sec (22.0-30.0); Prothrombin Time 11.7 sec (9.0-12.0)
--- NOTE | 2019-11-04 18:45 | CT ---
EXAMINATION TYPE: CT angio chest DATE OF EXAM: 11/04/2019 COMPARISON: None HISTORY: Dyspnea, chemotherapy patient. CT DLP: 195.1 mGycm Automated exposure control for dose reduction was used. CONTRAST: Performed with IV Contrast, patient injected with 100 mL of Isovue 370. There are 3-D post processed images. There is 1 cm noncalcified nodule anterior left upper lobe. There is low-density 1.5 cm infiltrate le ft upper lobe. There is 6 mm subpleural nodule superior segment right lower lobe adjacent to the post erior chest wall. There is mild groundglass interstitial infiltrate in the left lower lobe. There is no pleural effusion. There are multiple hypodense areas in the liver that measure up to 3 cm. There i s a 1 cm low-density infiltrate in the anterior segment right upper lobe. Heart appears normal. There is no pericardial effusion. There is no pleural effusion. There is normal contrast opacification of the pulmonary arteries. There are no filling defects. Thoracic aorta is at heromatous. There is no aneurysm or dissection. There is no mediastinal adenopathy. There is osteoart hritic changes in the shoulder joints. There is 18 x 12 mm enlarged lymph node in the anterior mediastinum. There is 1 cm right bronchial ly mph nodes. Thoracic vertebra have normal alignment. There is spurring in the thoracic spine. There is no dante jessika fracture. Sternum is intact. IMPRESSION: No evidence of pulmonary embolism. Multiple small pulmonary abnormalities. Mediastinal adenopathy imp roved slightly compared to old exam. Multiple hepatic hypodense foci are new or increased compared to old exam and suspicious for metastatic disease. There is slight improvement in the pulmonary nodules compared to old exam.
[2019-11-04] MEDS ORDERED: PNEUMONIA PROTOCOL UTILIZED 1 EACH MISC PO PRN (19:16)
[2019-11-04] MEDS ORDERED: LEVOFLOXACIN 750MG-D5W PMX 750 MG in DEXTROSE/WATER 1 150ML.BAG IVPB STA (19:16)
[2019-11-04] MEDS: SODIUM CHLORIDE 0.9% 1,000 ML IV SCH (20:57)
[2019-11-04] MEDS ORDERED: ONDANSETRON ODT 4 MG TAB PO PRN (22:14)
[2019-11-04] MEDS ORDERED: ALPRAZolam 0.25 MG TAB PO PRN (22:30)
[2019-11-04] MEDS ORDERED: traMADol 50 MG TAB PO PRN (22:30)
[2019-11-04] MEDS ORDERED: OLANZapine 2.5 MG TAB PO SCH (22:30)
[2019-11-04] MEDS ORDERED: DIPHENOX-ATROP 2.5-0.025 MG 1 EACH TAB PO PRN (22:30)
[2019-11-04] MEDS ORDERED: CALCIUM CARBONATE 500 MG CHEWABLE PO PRN (22:30)
[2019-11-05] MEDS: SODIUM CHLORIDE 0.9% 1,000 ML IV SCH (04:23)
[2019-11-05 07:23] VITALS: BP 141/69; PULSE 68; RESP 16; TEMP 97.7
[2019-11-05] MEDS: POTASSIUM CHLORIDE ER 20 MEQ TAB.ER PO SCH (07:51)
--- NOTE | 2019-11-05 08:54 | XR ---
EXAMINATION TYPE: XR chest 2V DATE OF EXAM: 11/05/2019 COMPARISON: 09/04/2019 INDICATION: Pneumonia TECHNIQUE: Single frontal view of the chest is obtained. FINDINGS: The heart size is normal. The pulmonary vasculature is normal. The lungs are clear. No suspicious consolidations are evident. Port is present on the right with the tip in the superior v krys cava region. IMPRESSION: 1. No acute pulmonary process.
[2019-11-05] MEDS ORDERED: MAGNESIUM OXIDE 400 MG TAB PO SCH (09:00)
[2019-11-05] MEDS ORDERED: CHOLESTYRAMINE (WITH SUGAR) 4 GM PACKET PO SCH (09:00)
--- NOTE | 2019-11-05 14:14 | P.HPIM ---
History of Present Illness Patient is a pleasant 74-year-old female presenting to the emergency Department with an episode of dyspnea. Patient does have metastatic colon cancer and undergoing chemotherapy. Towards the end of her treatment patient started be coming short of breath. Patient states this was fairly severe and she was breathing fast. Patient felt like she could not catch her breath. Patient states symptoms lasted 20-30 minutes and have resolved. Patient only feels slightly lightheaded at this time. Patient denies any chest discomfort. No history of similar symptoms previously. No leg pain or leg swelling. Patient was not short of breath prior to this episode. Episode occurred just prior to arrival. Patient had a CT angios the chest which did not show any PE there is no evidence of pneumonia, patient had a chest x-ray which was also within normal limits clinically patient doesn't have any elevated JVD. Patient was evaluated by oncology as well as the believe patient had a reaction to one of the cancer medications. Patient is presently stable set no bleeding trouble saturating well on room air. His respiratory evidence of pneumonia because of which antibiotics will be discontinued Review of Systems REVIEW OF SYSTEMS: CONSTITUTIONAL: No fever, no malaise, no fatigue. HEENT: No recent visual problems or hearing problems. Denied any sore throat. CARDIOVASCULAR: No chest pain, orthopnea, PND, no palpitations, no syncope. PULMONARY: no cough, no hemoptysis. GASTROINTESTINAL: No diarrhea, no nausea, no vomiting, no abdominal pain. NEUROLOGICAL: No headaches, no weakness, no numbness. HEMATOLOGICAL: Denies any bleeding or petechiae. GENITOURINARY: Denies any burning micturition, frequency, or urgency. MUSCULOSKELETAL/RHEUMATOLOGICAL: Denies any joint pain, swelling, or any muscle pain. ENDOCRINE: Denies any polyuria or polydipsia. The rest of the 14-point review of systems is negative. Past Medical History Past Medical History: Cancer, Liver Disease Additional Past Medical History / Comment(s): Pt admitted on 05/11/19 with abdominal pain/bowel obstruction d/t cancer/multiple pulmonary nodules-probable mets, hypomagnesemia, hypokalemia. Other hx: Bowel cancer with surgery/chemo with last tx about 2 weeks ago/metasisi to liver and brain and was to start radiation of brain this week. Other hx: hepatitis C with successful treatment, start of osteoporosis, starting of bilateral cataracts. History of Any Multi-Drug Resistant Organisms: None Reported Past Surgical History: Bowel Resection, Tonsillectomy Additional Past Surgical History / Comment(s): Colectomy, colonoscopy, mediport. Past Anesthesia/Blood Transfusion Reactions: No Reported Reaction Additional Past Anesthesia/Blood Transfusion Reaction / Comment(s): No history Past Psychological History: Anxiety Additional Psychological History / Comment(s): Pt resides with her spouse. She states she uses no assistive device and is able to drive. Smoking Status: Never smoker Past Alcohol Use History: None Reported Additional Past Alcohol Use History / Comment(s): Pt started smoking in 1964 and quit around the time of her cancer diagnosis in 2019. She drinks 2 beers a day. Past Drug Use History: None Reported - Past Family History Father Family Medical History: Myocardial Infarction ([place]) Additional Family Medical History / Comment(s): Father of a [place] at the age of 74 yrs. Mother Family Medical History: Rheumatoid Arthritis ([place]) Medications and Allergies Home Medications Medication Instructions Recorded Confirmed Type OLANZapine [ZyPREXA] 2.5 mg PO HS 07/29/19 11/04/19 History Ondansetron Odt [Zofran ODT] 4 mg PO Q4H PRN 07/29/19 11/04/19 History Diphenoxylate HCl/Atropine 1 - 2 tab PO DIRECTED PRN 09/04/19 11/04/19 History [Lomotil 2.5-0.025 mg Tablet] ALPRAZolam [Xanax] 0.25 mg PO BID PRN 11/04/19 11/04/19 History Calcium Carbonate [Tums] 500 - 1,000 mg PO TID PRN 11/04/19 11/04/19 History Cholestyramine (with Sugar) 4 gm PO BID 11/04/19 11/04/19 History [Questran Packet] Magnesium Oxide 400 mg PO DAILY 11/04/19 11/04/19 History Potassium Chloride ER [K-Dur 20] 20 meq PO BID 11/04/19 11/04/19 History traMADol HCL 50 mg PO Q8H PRN 11/04/19 11/04/19 History Allergies Allergy/AdvReac Type Severity Reaction Status Date / Time No Known Allergies Allergy Verified 11/04/19 18:00 Physical Exam Vitals: Vital Signs Temp Pulse Pulse Resp BP BP Pulse Ox 11/05/19 07:56 68 16 11/05/19 07:00 97.7 F 68 16 141/69 100 11/05/19 02:20 97.8 F 84 119/70 99 11/04/19 21:15 97.6 F 74 158/76 100 11/04/19 20:05 98.1 F 58 L 18 149/72 99 11/04/19 18:30 60 18 149/73 99 11/04/19 15:36 96.9 F L 67 18 152/89 100 Intake and Output 11/04/19 11/05/19 11/05/19 22:59 06:59 14:59 Intake Total 225 600 200 Balance 225 600 200 Intake: Intake, IV Titration 225 600 Amount Sodium Chloride 0.9% 1, 225 600 000 ml @ 75 mls/hr IV . [id number] STA Rx#:[id number] Oral 200 Other: Voiding Method Toilet Toilet # Voids 3 Weight 46.266 kg PHYSICAL EXAMINATION: GENERAL: The patient is alert and oriented x3, not in any acute distress. Well developed, well nourished. HEENT: Pupils are round and equally reacting to light. EOMI. No scleral icterus. No conjunctival pallor. Normocephalic, atraumatic. No pharyngeal erythema. No thyromegaly. CARDIOVASCULAR: S1 and S2 present. No murmurs, rubs, or gallops. PULMONARY: Chest is clear to auscultation, no wheezing or crackles. ABDOMEN: Soft, nontender, nondistended, normoactive bowel sounds. No palpable organomegaly. MUSCULOSKELETAL: No joint swelling or deformity. EXTREMITIES: No cyanosis, clubbing, or pedal edema. NEUROLOGICAL: Gross neurological examination did not reveal any focal deficits. SKIN: No rashes. Results CBC & Chem 7: 11/04/19 17:00 11/04/19 17:00 Labs: Abnormal Lab Results - Last 24 Hours (Table) 11/04/19 11/04/19 11/04/19 Range/Units 17:00 17:00 17:00 WBC 18.6 H (3.8-10.6) k/uL RBC 3.67 L (3.80-5.40) m/uL MCV 100.4 H (80.0-100.0) fL Neutrophils # 18.2 H (1.3-7.7) k/uL Lymphocytes # 0.2 L (1.0-4.8) k/uL INR 1.2 H (<1.2) Potassium 3.2 L (3.5-5.1) mmol/L Chloride 110 H (98-107) mmol/L Carbon Dioxide 18 L (22-30) mmol/L BUN 5 L (7-17) mg/dL Glucose 138 H (74-99) mg/dL Plasma Lactic Acid Loy (0.7-2.0) mmol/L Alkaline Phosphatase 186 H (38-126) U/L Total Protein 6.0 L (6.3-8.2) g/dL Albumin 3.1 L (3.5-5.0) g/dL 11/04/19 Range/Units 17:00 WBC (3.8-10.6) k/uL RBC (3.80-5.40) m/uL MCV (80.0-100.0) fL Neutrophils # (1.3-7.7) k/uL Lymphocytes # (1.0-4.8) k/uL INR (<1.2) Potassium (3.5-5.1) mmol/L Chloride (98-107) mmol/L Carbon Dioxide (22-30) mmol/L BUN (7-17) mg/dL Glucose (74-99) mg/dL Plasma Lactic Acid Loy 2.1 H* (0.7-2.0) mmol/L Alkaline Phosphatase (38-126) U/L Total Protein (6.3-8.2) g/dL Albumin (3.5-5.0) g/dL Thrombosis Risk Factor Assmnt - Choose All That Apply Any of the Below Risk Factors Present?: No Other Risk Factors: Yes Each Risk Factor Represents 3 Points: Age 75 years or older Thrombosis Risk Factor Assessment Total Risk Factor Score: 3 Thrombosis Risk Factor Assessment Level: Moderate Risk Assessment and Plan Plan: -Episode of shortness of breath: Rule out pneumonia ruled out CHF rule out pulmonary embolism probably reaction related to the chemo medications. Patient is saturating well imminently stable will be discharged today. -Colorectal carcinoma stage IV patient is presently undergoing chemotherapy -Anxiety disorder
--- NOTE | 2019-11-05 14:15 | P.DS ---
Providers Date of admission: 11/04/19 19:16 Attending physician: Zari Gr Consults: 11/04/19 19:16 Consult Physician Routine Consulting Provider: Olivia Velazquez Consult Reason/Comments: Oncological care Do you want consulting provider notified?: Already Contacted Primary care physician: Cullen Sena MD Hospital Course: As mentioned in HPI Plan - Discharge Summary Discharge Rx Participant: No New Discharge Prescriptions: Continue Ondansetron Odt [Zofran ODT] 4 mg PO Q4H PRN PRN Reason: Nausea And Vomiting OLANZapine [ZyPREXA] 2.5 mg PO HS Diphenoxylate HCl/Atropine [Lomotil 2.5-0.025 mg Tablet] 1 - 2 tab PO DIRECTED PRN PRN Reason: Diarrhea traMADol HCL 50 mg PO Q8H PRN PRN Reason: Pain Cholestyramine (with Sugar) [Questran Packet] 4 gm PO BID Calcium Carbonate [Tums] 500 - 1,000 mg PO TID PRN PRN Reason: Heartburn Potassium Chloride ER [K-Dur 20] 20 meq PO BID Magnesium Oxide 400 mg PO DAILY ALPRAZolam [Xanax] 0.25 mg PO BID PRN PRN Reason: Anxiety Discharge Medication List OLANZapine [ZyPREXA] 2.5 mg PO HS 07/29/19 [History] Ondansetron Odt [Zofran ODT] 4 mg PO Q4H PRN 07/29/19 [History] Diphenoxylate HCl/Atropine [Lomotil 2.5-0.025 mg Tablet] 1 - 2 tab PO DIRECTED PRN 09/04/19 [History] ALPRAZolam [Xanax] 0.25 mg PO BID PRN 11/04/19 [History] Calcium Carbonate [Tums] 500 - 1,000 mg PO TID PRN 11/04/19 [History] Cholestyramine (with Sugar) [Questran Packet] 4 gm PO BID 11/04/19 [History] Magnesium Oxide 400 mg PO DAILY 11/04/19 [History] Potassium Chloride ER [K-Dur 20] 20 meq PO BID 11/04/19 [History] traMADol HCL 50 mg PO Q8H PRN 11/04/19 [History] Follow up Appointment(s)/Referral(s): Cullen Sena MD [Primary Care Provider] - 3 Days Patient Instructions/Handouts: Shortness of Breath (DC) Discharge Disposition: HOME SELF-CARE
[2019-11-05] MEDS ORDERED: LEVOFLOXACIN 750 MG TAB PO SCH (18:00)
--- NOTE | 2019-11-05 21:42 | P.CONS ---
History of Present Illness - Reason for Consult Consult date: 11/05/19 Dyspnea, Poss Adverse drug event - History of Present Illness The pt is a 74 yr old white female initially seen in consult at [facility] on 05/12/19. She had presented to [facility] with comp lains of diarrhea, decreased appetite, and generalized weakness. She had lost about 10 pounds in the last 3 weeks. The patient had not seen a doctor prior to this visit for about [address] scan done at [facility] showed possible mass in the ascending colon, as well as bilateral lung nodules, left hilar adenopathy up to 3.0 cm, multiple liver lesions, approximately 15 with the largest 5.4 cm in the right lobe. Labs showed evidence of iron deficiency anemia. The patient had EGD and colonoscopy revealing mild gastritis, and ascending colon mass almost completely obstructing the lumen. Biopsy of the mass were positive for grade 2 adenocarcinoma. The patient underwent right colectomy with wedge resection of liver nodule on 05/14/19. This showed invasive moderately to poorly differentiated adenocarcinoma penetrating the visceral peritoneum and invading adjacent ilium, with 8/15 nodes positive. Liver biopsy was also positive. The patient tolerated surgery reasonably well and was subsequently discharged. She had port placement prior to discharge and was seen for her first office visit on 06/16/19. PET scan showed extensive disease with further progression in the liver, as well as evidence of hilar and mediastinal adenopathy. Patient also had retrocaval and periaortic adenopathy. She started chemotherapy with FOLFOX on 07/18/19. She is now status post 6 cycles. Vectibix was added with C 3. After cycle 2, the patient had developed issues with memory and balance and was found to have a 1.4 cm mass in the left cerebellum highly suspicious for metastasis, on MRI in early 08/07. She was treated with SRS for the same and underwent a steroid taper. he was held after cycle 4, as the patient was admitted to the hospital with chemotherapy related side effects with nausea, diarrhea, progressive weakness, cytopenias and disordered electrolytes. She did improve with supportive care gradually. Post discharge chemotherapy continue to be held as the patient was still weak. This was resumed after her visit on 10/07/19, with 15% 5-FU dose reduction. DPD testing was negative The patient was in the office yesterday, on the day of admission for cycle #7. She developed acute onset of weakness, shortness of breath and chest pressure, as well as on evaluation heart rate was quite elevated in the 140 range, with blood pressure also high, systolic 180s. Oxygen saturation remained normal. She was also quite lethargic. She was therefore sent in to the emergency room after receiving IV steroids in the office as well as Benadryl. CTA was negative for PE.. Chest x-ray as well as CTA did not show any evidence of infection. The patient was admitted for further observation. The time of my evaluation the patient stated that she felt fine and all her symptoms had totally resolved. Review of Systems Constitutional: Reports fatigue Eyes: denies blurred vision, denies pain Ears: deny: decreased hearing, ear discharge, earache, tinnitus Ears, nose, mouth and throat: Denies headache, Denies sore throat Cardiovascular: Reports chest pain, Reports high blood pressure, Reports light headedness, Reports rapid heart beat, Reports shortness of breath Respiratory: Reports dyspnea Gastrointestinal: Denies abdominal pain, Denies diarrhea, Denies nausea, Denies vomiting Genitourinary: Denies dysuria, Denies hematuria Menstruation: Reports postmenopausal Musculoskeletal: Reports muscle weakness, Denies myalgias Integumentary: Denies pruritus, Denies rash Neurological: Reports weakness Psychiatric: Denies anxiety, Denies depression Endocrine: Reports fatigue Hematologic/Lymphatic: Reports as per HPI Past Medical History Past Medical History: Cancer, Liver Disease Additional Past Medical History / Comment(s): Pt admitted on 05/11/19 with abdominal pain/bowel obstruction d/t cancer/multiple pulmonary nodules-probable mets, hypomagnesemia, hypokalemia. Other hx: Bowel cancer with surgery/chemo with last tx about 2 weeks ago/metasisi to liver and brain and was to start radiation of brain this week. Other hx: hepatitis C with successful treatment, start of osteoporosis, starting of bilateral cataracts. History of Any Multi-Drug Resistant Organisms: None Reported Past Surgical History: Bowel Resection, Tonsillectomy Additional Past Surgical History / Comment(s): Colectomy, colonoscopy, mediport. Past Anesthesia/Blood Transfusion Reactions: No Reported Reaction Additional Past Anesthesia/Blood Transfusion Reaction / Comm: No history Past Psychological History: Anxiety Additional Psychological History / Comment(s): Pt resides with her spouse. She states she uses no assistive device and is able to drive. Smoking Status: Never smoker Past Alcohol Use History: None Reported Additional Past Alcohol Use History / Comment(s): Pt started smoking in 1964 and quit around the time of her cancer diagnosis in 2019. She drinks 2 beers a day. Past Drug Use History: None Reported - Past Family History Father Family Medical History: Myocardial Infarction ([place]) Additional Family Medical History / Comment(s): Father of a [place] at the age of 74 yrs. Mother Family Medical History: Rheumatoid Arthritis (RA) Medications and Allergies Home Medications Medication Instructions Recorded Confirmed Type OLANZapine [ZyPREXA] 2.5 mg PO HS 07/29/19 11/04/19 History Ondansetron Odt [Zofran ODT] 4 mg PO Q4H PRN 07/29/19 11/04/19 History Diphenoxylate HCl/Atropine 1 - 2 tab PO DIRECTED PRN 09/04/19 11/04/19 History [Lomotil 2.5-0.025 mg Tablet] ALPRAZolam [Xanax] 0.25 mg PO BID PRN 11/04/19 11/04/19 History Calcium Carbonate [Tums] 500 - 1,000 mg PO TID PRN 11/04/19 11/04/19 History Cholestyramine (with Sugar) 4 gm PO BID 11/04/19 11/04/19 History [Questran Packet] Magnesium Oxide 400 mg PO DAILY 11/04/19 11/04/19 History Potassium Chloride ER [K-Dur 20] 20 meq PO BID 11/04/19 11/04/19 History traMADol HCL 50 mg PO Q8H PRN 11/04/19 11/04/19 History Allergies Allergy/AdvReac Type Severity Reaction Status Date / Time No Known Allergies Allergy Verified 11/04/19 18:00 Physical Exam Vitals: Vital Signs Temp Pulse Resp BP Pulse Ox 11/05/19 07:56 68 16 11/05/19 07:00 97.7 F 68 16 141/69 100 11/05/19 02:20 97.8 F 84 119/70 99 11/04/19 21:15 97.6 F 74 158/76 100 Intake and Output 11/05/19 11/05/19 11/05/19 06:59 14:59 22:59 Intake Total 600 200 Balance 600 200 Intake: Intake, IV Titration 600 Amount Sodium Chloride 0.9% 1, 600 000 ml @ 75 mls/hr IV . [id number] STA Rx#:[id number] Oral 200 Other: Voiding Method Toilet Toilet # Voids 3 - Constitutional General appearance: no acute distress - EENT Eyes: EOMI, PERRLA ENT: hearing grossly normal, normal oropharynx - Neck Neck: no lymphadenopathy Thyroid: bilateral: normal size - Respiratory Respiratory: bilateral: CTA - Cardiovascular Rhythm: regular Heart sounds: normal: S1, S2 - Gastrointestinal General gastrointestinal: normal bowel sounds, soft - Integumentary Integumentary: normal - Neurologic Neurologic: CNII-XII intact - Musculoskeletal Musculoskeletal: generalized weakness, strength equal bilaterally - Psychiatric Psychiatric: A&O x's 3, appropriate affect Results CBC & Chem 7: 11/04/19 17:00 11/04/19 17:00 Chest x-ray: report reviewed CT scan - chest: report reviewed Assessment and Plan (1) Dyspnea Narrative/Plan: Agent was sent in to the emergency room because of acute onset of shortness of breath with other associated symptoms as noted in the HPI. There was some c oncern for pneumonia on admission, but CTA as well as chest x-ray don't show any infiltrate. The patient clinically does not have any evidence of infection. Her presentation with acute onset of shortness of breath as well as other symptoms at the time of her chemotherapy infusion makes it most likely that this is an adverse drug reaction. Symptoms have completely resolved further supporting the clinical impression Okay to discharge from our standpoint if okay with the admitting service Status: Acute Code(s): R06.00 - DYSPNEA, UNSPECIFIED SNOMED Code(s): 442108357 (2) Colon adenocarcinoma Narrative/Plan: Diagnostic and therapeutic circumstances as described. The patient has responded, with CEA declining to 57.6 after cycle #6 compared to almost 490 prior to treatment. - The patient will omit the rest of her treatment that is the 5-FU infusion for this cycle, cycle #7. She will resume chemotherapy again on schedule in 2 weeks. - Will discuss with nursing regarding the exact onset of symptoms in relation to her infusions. In that if we decided to continue the same regimen with the addition of additional immunosuppression with steroids and Benadryl versus po ssibly omitting Vectibix Status: Acute Priority: High Code(s): C18.9 - MALIGNANT NEOPLASM OF COLON, UNSPECIFIED SNOMED Code(s): 036887129
--- NOTE | 2019-11-06 11:15 | CDI ---
Documentation Clarification Form Date: 11/06/2019 09:30:00 AM From: Meg Garcias Phone: If you have a question about this query, please contact Madeline Blum Temperature Regulator Pyrometer at [phone] between 8am and 5pm. Admit Date: 11/04/2019 07:16:00 PM Patient Name: Lisa Kuhn Visit Number: [id number] Discharge Date: 11/05/2019 01:55:00 PM ATTENTION: The Clinical Documentation Specialists (CDI) and [facility] Coding Staff appreciate your assistance in clarifying documentation. Please respond to the clarification below the line at the bottom and electronically sign. The CDI & [facility] Coding staff will review the response and follow-up if needed. Please note: Queries are made part of the Legal Health Record. If you have any questions, please contact the author of this message via ITS. Dr. Yuli Jacome The patients principal diagnosis has not been clearly identified and requires clarification. No diagnosis in DCS. H and P documents Episode of SOB, Rule out pneumonia, Ruled out CHF, rule out PE, probably related to chemo medications. Please clarify. He/She presented with SOB. History/Risk factors: Colon cancer with mets to lung, LN's, liver and brain. Patient on chemo and radiation Clinical Indicators: Lab findings: Radiology findings: CXR no acute pulmonary process Vital Signs: 969.9 F, 67 bpm, 18 452/89 100% NC 2 Treatment: Nasal Canula 2 Consults: Oncology In your professional opinion, can you please clarify which diagnosis, after study, accounted for the patients presenting symptoms and was the reason chiefly responsible for the admission? not sure what sure looking for patient doesn't have any of those and patient was admitted to rule out any all of those. And all his symptoms were believed to be secondary to chemotherapy medications which was clearly dictated and I do not believe this query is necessary MTDD
== END 2019-11-05 13:55 | disposition home or self-care (01) | DRG 204 ==
LOC: EC 15:32 → 4SSUR 19:16
PROVIDERS: ADMIT Hospitalist; ATTEND Hospitalist
DX: R06.02 Shortness of breath (principal); C19 Malignant neoplasm of rectosigmoid junction; C78.7 Secondary malignant neoplasm of liver and intrahepatic bile duct; C78.02 Secondary malignant neoplasm of left lung; C78.01 Secondary malignant neoplasm of right lung; C77.1 Secondary and unspecified malignant neoplasm of intrathoracic lymph nodes; C79.31 Secondary malignant neoplasm of brain; Z68.1 Body mass index [BMI] 19.9 or less, adult; T45.1X5A Adverse effect of antineoplastic and immunosuppressive drugs, initial encounter; D50.9 Iron deficiency anemia, unspecified; F41.9 Anxiety disorder, unspecified; M81.0 Age-related osteoporosis without current pathological fracture; Z82.49 Family history of ischemic heart disease and other diseases of the circulatory system; Z87.891 Personal history of nicotine dependence; Z86.19 Personal history of other infectious and parasitic diseases; Z90.49 Acquired absence of other specified parts of digestive tract; Z90.89 Acquired absence of other organs; Z82.61 Family history of arthritis; Z79.899 Other long term (current) drug therapy; H26.9 Unspecified cataract; R12 Heartburn; R63.4 Abnormal weight loss
CPT/HCPCS: 36415; 71046; 71275; 80053; 83605; 85025; 85610; 85730; 87040; 93005; 96361; 96365; 99285

== ENCOUNTER → 2019-11-17 | Outpatient (CLI) | payer MEDICARE ==
--- NOTE | 2019-11-18 07:40 | MR ---
EXAMINATION TYPE: MR brain wo/w con DATE OF EXAM: 11/17/2019 COMPARISON: Prior MRI brain September 05, 2019 and older study July 20, 2019. HISTORY: F/u metastatic lung cancer TECHNIQUE: Multiplanar, multisequence images of the brain and brainstem is performed without and with IV contras t, utilizing 5 mL intravenous Gadavist . FINDINGS: Diffusion weighted images demonstrate no evidence of a recent infarct or other diffusion ab normality. There is no worrisome new extra-axial fluid collection. Mild ventricular and sulcal promi nence redemonstrated. Persistent septum pellucidum vergae. Persistent slight T2 hyperintensity throu ghout the deep and periventricular white matter. Midline structures redemonstrate normal morphology. The craniocervical junction appears within reese l limits. Post contrast images demonstrate no no areas of abnormal enhancement. The known left cerebellar lesio n shows T1 hypointensity measuring roughly 7 x 8 x 11 mm post contrast axial image 11 and coronal manjeet ge 62 with only faint slightly nodular enhancement inferiorly on current study seen sagittal image 32 for reference. The dural venous sinuses remain patent. The visualized sinuses are clear and the glob es are intact. IMPRESSION: Continued improvement in known single left cerebellar metastatic lesion with only a tiny 2 to 3 mm area of nodular enhancement inferiorly on current study. No new enhancing lesions are seen.
== END | disposition home or self-care (01) ==
LOC: RADMRIMAIN 15:26
PROVIDERS: ATTEND Radiology Radiation Oncology
DX: C79.31 Secondary malignant neoplasm of brain (principal); C18.2 Malignant neoplasm of ascending colon; C78.7 Secondary malignant neoplasm of liver and intrahepatic bile duct
CPT/HCPCS: 70553; A9585

== ENCOUNTER → 2019-12-15 | Outpatient (CLI) | payer MEDICARE ==
[2019-12-15 09:23] LABS: African American GFR (CKD) >90 (>60 ml/min/1.73 sqM); Blood Urea Nitrogen 9 mg/dL (7-17); Non-African American GFR(CKD) 83 (>60 ml/min/1.73 sqM)
--- NOTE | 2019-12-15 12:31 | CT ---
EXAMINATION TYPE: CT ChestAbdPelvis w con DATE OF EXAM: 12/15/2019 COMPARISON: prior CT chest abdomen pelvis 09/25/2019 HISTORY: Follow up colon cancer CT DLP: 405.7 mGycm Automated exposure control for dose reduction was used. CONTRAST: CT scan of the chest, abdomen and pelvis is performed with Oral Contrast and with IV Contrast, patien t injected with 100 mL of Isovue 300. FINDINGS: LUNGS: The left upper lobe lung nodule anteriorly is essentially stable on axial image 12 measuring 6 to 7 mm. The previously identified semisolid nodule in the left upper lobe on axial image 22 measure s approximately 7 x 13 mm, may be slightly improved as compared to previous. Right upper lung semisol id nodule measuring 6 mm on axial image 18 may be slightly improved. In the right lower lobe the nodu le previously seen on axial image 26 is not definitively seen. Right upper lobe nodules are also not seen on today's exam there is seen on prior exam on axial image 13. MEDIASTINUM: There are no greater than 1 cm hilar or mediastinal lymph nodes. No pericardial effusi on is seen. There are coronary artery calcifications. AORTA: No significant abnormality is seen. OTHER: No additional significant abnormality is seen. LIVER/GB: The multiple low dense foci within the liver are not well defined and have decreased in siz e as compared to prior exam, largest at the posterior aspect of the right lobe of the liver at the do me measures 4.4 cm in transverse dimension slightly down from 4.9 cm.. PANCREAS: No significant abnormality is seen. SPLEEN: No significant abnormality is seen. ADRENALS: No significant abnormality is seen. KIDNEYS: No significant abnormality is seen. REPRODUCTIVE ORGANS: No gross abnormality seen. BOWEL: No evident bowel obstruction. Retained fecal debris present within the sigmoid colon which sh ows redundancy. FREE AIR: No Free Air visible. ASCITES: None seen. RETROPERITONEAL ADENOPATHY: No retroperitoneal adenopathy is seen. LYMPH NODES: No greater than 1 cm abdominal or pelvic lymph nodes are appreciated. URINARY BLADDER: No significant abnormality is seen. PELVIC ADENOPATHY: None visualized. OSSEOUS STRUCTURES: No significant abnormality is seen. IMPRESSION: There is interval improvement in the size of the hepatic masses and lung nodules.
== END | disposition home or self-care (01) ==
LOC: RADCTMAIN 08:26
PROVIDERS: ATTEND Internal Medicine Hematology & Oncology
DX: K76.89 Other specified diseases of liver (principal); R91.8 Other nonspecific abnormal finding of lung field; C18.2 Malignant neoplasm of ascending colon; C79.31 Secondary malignant neoplasm of brain; C78.7 Secondary malignant neoplasm of liver and intrahepatic bile duct
CPT/HCPCS: 82565; 84520; 71260; 74177; 36415; Q9967

== ENCOUNTER 2020-01-13 16:03 | Inpatient (IN) | payer MEDICARE ==
[2020-01-13] MEDS ORDERED: SODIUM CHLORIDE 0.9% 1,000 ML IV STA ×2 (17:35)
[2020-01-13] MEDS ORDERED: ALPRAZolam 0.25 MG TAB PO STA (18:01)
[2020-01-13] MEDS ORDERED: PIPERACILLIN-TAZOBACTAM 3.375 GM in SODIUM CHLORIDE 0.9% 100 ML IVPB STA (18:03)
--- NOTE | 2020-01-13 18:03 | ED ---
Abdominal Pain HPI - General Chief Complaint: Abdominal Pain Stated Complaint: dehydration Time Seen by Provider: 01/13/20 16:03 Source: patient, EMS Mode of arrival: EMS Limitations: no limitations - History of Present Illness Initial Comments: This is a 74-year-old female history of stage IV colon cancer status post resection with complaints today of abdominal pain. She was seen at [facility] evaluated found to be dehydrated also had a CAT scan done which showed evidence of possible bubbles in the left lower quadrant area. No definitive free air however. Concern for ischemic colitis. MD Complaint: abdominal pain - Related Data Home Medications Medication Instructions Recorded Confirmed OLANZapine [ZyPREXA] 2.5 mg PO HS 07/29/19 11/04/19 Ondansetron Odt [Zofran ODT] 4 mg PO Q4H PRN 07/29/19 11/04/19 Diphenoxylate HCl/Atropine 1 - 2 tab PO DIRECTED PRN 09/04/19 11/04/19 [Lomotil 2.5-0.025 mg Tablet] ALPRAZolam [Xanax] 0.25 mg PO BID PRN 11/04/19 11/04/19 Calcium Carbonate [Tums] 500 - 1,000 mg PO TID PRN 11/04/19 11/04/19 Cholestyramine (with Sugar) 4 gm PO BID 11/04/19 11/04/19 [Questran Packet] Magnesium Oxide 400 mg PO DAILY 11/04/19 11/04/19 Potassium Chloride ER [K-Dur 20] 20 meq PO BID 11/04/19 11/04/19 traMADol HCL 50 mg PO Q8H PRN 11/04/19 11/04/19 Allergies Allergy/AdvReac Type Severity Reaction Status Date / Time No Known Allergies Allergy Verified 11/04/19 18:00 Review of Systems ROS Statement: Those systems with pertinent positive or pertinent negative responses have been documented in the HPI. ROS Other: All systems not noted in ROS Statement are negative. Past Medical History Past Medical History: Cancer, Liver Disease Additional Past Medical History / Comment(s): Pt admitted on 05/11/19 with abdominal pain/bowel obstruction d/t cancer/multiple pulmonary nodules-probable mets, hypomagnesemia, hypokalemia. Other hx: Bowel cancer with surgery/chemo with last tx about 2 weeks ago/metasisi to liver and brain and was to start radiation of brain this week. Other hx: hepatitis C with successful treatment, start of osteoporosis, starting of bilateral cataracts. History of Any Multi-Drug Resistant Organisms: None Reported Past Surgical History: Bowel Resection, Tonsillectomy Additional Past Surgical History / Comment(s): Colectomy, colonoscopy, mediport. Past Anesthesia/Blood Transfusion Reactions: No Reported Reaction Additional Past Anesthesia/Blood Transfusion Reaction / Comment(s): No history Past Psychological History: Anxiety Smoking Status: Never smoker Past Alcohol Use History: None Reported Past Drug Use History: None Reported - Past Family History Father Family Medical History: Myocardial Infarction (ND) Additional Family Medical History / Comment(s): Father of a ND at the age of 74 yrs. Mother Family Medical History: Rheumatoid Arthritis (RA) General Exam - General Exam Comments Initial Comments: Is a well-developed asthenic appearing female who is awake alert oriented 3 Limitations: no limitations General appearance: alert, in no apparent distress Head exam: Present: atraumatic, normocephalic, normal inspection Eye exam: Present: normal appearance, PERRL, EOMI. Absent: scleral icterus, c onjunctival injection, periorbital swelling ENT exam: Present: mucous membranes dry Neck exam: Present: normal inspection. Absent: tenderness, meningismus, lymphadenopathy Respiratory exam: Present: normal lung sounds bilaterally. Absent: respiratory distress, wheezes, rales, rhonchi, stridor Cardiovascular Exam: Present: normal rhythm, tachycardia, normal heart sounds. Absent: systolic murmur, diastolic murmur, rubs, gallop, clicks GI/Abdominal exam: Present: soft, tenderness (Minimal left lower quadrant tenderness no guarding rebound), normal bowel sounds. Absent: distended, guarding, rebound, rigid Rectal exam: Present: deferred Extremities exam: Present: normal inspection, full ROM, normal capillary refill. Absent: tenderness, pedal edema, joint swelling, calf tenderness Back exam: Present: normal inspection Neurological exam: Present: alert, oriented X3, CN II-XII intact Psychiatric exam: Present: normal affect, normal mood Skin exam: Present: warm, dry, intact, normal color. Absent: rash Course Vital Signs 01/13/20 16:07 Temperature 98.4 F Pulse Rate 113 H Respiratory 19 Rate Blood Pressure 156/90 O2 Sat by Pulse 100 Oximetry Medical Decision Making - Medical Decision Making I did review the materials presented from [facility]. Patient has previously been on Dr. Gr's service I did discuss this with him Dr. Monroe will be consulted. The patient will be on IV antibiotics Disposition Clinical Impression: Abdominal pain, Colitis, Dehydration Disposition: ADMITTED IP TO THIS HOSP Condition: Fair Referrals: Caity Gutierrez FNPBC [Primary Care Provider] - 1-2 days
[2020-01-13] MEDS ORDERED: NALOXONE 0.4 MG/ML 1 ML VIAL IV PRN (18:04)
[2020-01-13] MEDS ORDERED: HYDROmorphone 0.5 MG/0.5 ML SYRINGE IVP PRN (18:04)
[2020-01-13] MEDS ORDERED: traMADol 50 MG TAB PO PRN (18:06)
[2020-01-13] MEDS ORDERED: TEMAZEPAM 15 MG CAP PO PRN (19:21)
[2020-01-13] MEDS ORDERED: HYDROcodone/APAP 5-325MG 1 EACH TAB PO PRN (19:21)
[2020-01-13] MEDS ORDERED: Potassium Replacement Protocol 1 EACH MISC MISCELLANE PRN (19:26)
[2020-01-13] MEDS ORDERED: Magnesium Replacement Protocol 1 EACH MISC MISCELLANE PRN (19:26)
[2020-01-13 21:26] LABS: ALT 11 U/L (4-34); AST 25 U/L (14-36); African American GFR (CKD) >90 (>60 ml/min/1.73 sqM); Albumin/Globulin Ratio 0.8; Alkaline Phosphatase 121 U/L (38-126); Anion Gap 3 mmol/L; Blood Urea Nitrogen 9 mg/dL (7-17); Carbon Dioxide 18 mmol/L (22-30); Chloride 116 mmol/L (98-107); Globulin 2.5 g/dL; Glucose 83 mg/dL (74-99); Non-African American GFR(CKD) 89 (>60 ml/min/1.73 sqM); Potassium 3.4 mmol/L (3.5-5.1); Sodium 137 mmol/L (137-145); Total Bilirubin 0.6 mg/dL (0.2-1.3); Total Protein 4.5 g/dL (6.3-8.2)
[2020-01-13 21:52] LABS: Anisocytosis Slight; HCT 29.4 % (34.0-46.0); MCH 32.5 pg (25.0-35.0); MCV 98.6 fL (80.0-100.0); Macrocytosis Slight; Mean Platelet Volume 8.9; Platelet Count 37 k/uL (150-450); RBC 2.99 m/uL (3.80-5.40); RDW 16.1 % (11.5-15.5)
[2020-01-13 22:02] LABS: HGB 9.7 gm/dL (11.4-16.0)
--- NOTE | 2020-01-13 22:21 | HP ---
HISTORY AND PHYSICAL CHIEF COMPLAINTS: Diarrhea and dehydration. HISTORY OF PRESENT ILLNESS: This 74-year-old woman with a past medical history of colon cancer, stage IV, with liver disease and anxiety, being followed by Dr. Cullen Sena in the outpatient setting, was also getting chemotherapy from Dr. Yeager. Apparently one more course is to be done, and the patient is complaining of extreme weakness and significant diarrhea, unable to keep anything down. Patient went to [facility]. A CT scan showed evidence of suspicious pneumatosis intestinalis in the cecal area. The patient was admitted for further evaluation and treatment. There is no history of any fever, rigor or chills. No history of headache, loss of consciousness, seizures. PAST MEDICAL HISTORY: Liver cancer, history of liver disease, tonsillectomy, history of bowel resection, carcinoma of colon with metastases. HOME MEDICATIONS: Ultram, K-Dur, Zofran omeprazole, Zyprexa, Lomotil, cholestyramine, Xanax. ALLERGIES: NONE. FAMILY HISTORY: History of myocardial infarction in the family. SOCIAL HISTORY: Occasional alcohol intake. Previous history of smoking. REVIEW OF SYSTEMS: ENT: No diminished hearing. No diminished vision. CARDIOVASCULAR SYSTEM: No angina, palpitations. RESPIRATORY SYSTEM: No cough, hemoptysis. GI: As mentioned earlier. : As mentioned earlier. NERVOUS SYSTEM: No numbness, weakness. ALLERGY/IMMUNOLOGY: No asthma, hayfever. MUSCULOSKELETAL: As mentioned earlier. HEMATOLOGY/ONCOLOGY: No history of anemia. ENDOCRINE: No history of diabetes, hypothyroidism. CONSTITUTIONAL: As mentioned earlier. DERMATOLOGY: Negative. RHEUMATOLOGY: Negative. PSYCHIATRY: As mentioned earlier. PHYSICAL EXAMINATION: Patient is alert, oriented x3. Pulse is 113, blood pressure 156/90, respiration 19, temperature 98.4, pulse ox 100% on room air. HEENT: Conjunctivae normal. NECK: No jugular venous distention. CARDIOVASCULAR SYSTEM: S1, S2 muffled. RESPIRATORY SYSTEM: Breath sounds diminished at the bases. Scattered rhonchi and crackles. Expiratory wheezing also present. ABDOMEN: Soft, non-tender. No mass palpable. LEGS: No edema. No swelling. NAUSEA NERVOUS SYSTEM: Higher functions as mentioned earlier. Moves all 4 limbs. No focal motor or sensory deficit. LYMPHATICS: No lymph node palpable in neck, axillae or groin. SKIN: No ulcer, rash, bleeding. JOINTS: No active deforming arthropathy. LABS: Labs are not available. ASSESSMENT: 1. Severe dehydration and diarrhea, possibly secondary to chemotherapy. 2. Rule out pneumatosis intestinalis. 3. History of colon cancer, stage IV, on chemo. 4. Severe protein-calorie malnutrition with body mass index of 16.1. 5. History of liver disease. 6. History of bowel obstruction. 7. History of hypomagnesemia. 8. History of hypokalemia. 9. History of brain metastases for radiation. 10.History of anxiety. 11.History of bowel resection. 12.History of tonsillectomy. 13.FULL CODE. RECOMMENDATIONS AND DISCUSSION: In this 74-year-old woman who presented with multiple complex medical issues, we will continue the current medications, continue symptomatic treatment. Otherwise I would recommend broad-spectrum IV antibiotics. Repeat CT scan of the abdomen and pelvis. Surgical and oncology evaluations. Prognosis is guarded because of multiple complex medical issues. Further recommendations to follow. A copy of this dictation is being forwarded to Dr. Cullen Sena, who is the primary physician. MMODL / IJN: [id number] /
[2020-01-13 22:23] LABS: Band Neutrophils % 6 %; Lymphocytes # (M) 0.55 k/uL (1.0-4.8); Monocytes # (M) 1.35 k/uL (0-1.0); Neutrophils % (M) 56 %; Nucleated Red Blood Cells 0 /100 WBC (0-0); Total Cells Counted 100
[2020-01-13] MEDS: OLANZapine 2.5 MG TAB PO SCH (23:02)
[2020-01-13] MEDS: CHOLESTYRAMINE (WITH SUGAR) 4 GM PACKET PO SCH (23:02)
[2020-01-13] MEDS: PANTOPRAZOLE 40 MG/10 ML VIAL IVP SCH (23:05)
--- NOTE | 2020-01-13 23:31 | CT ---
EXAMINATION TYPE: CT abdomen pelvis wo con DATE OF EXAM: 01/13/2020 COMPARISON: 12/15/2019 HISTORY: abdominal pain, current chemo pt for colon ca CT DLP: 299 mGycm Automated exposure control for dose reduction was used. Images obtained from the diaphragm to the floor the pelvis without contrast. There is some contrast material in both renal collecting systems. There is oral contrast material in the small bowel and stomach. There is contrast in the urinary bladder. There is minimal nodular pleural-based density at the posterior lung bases. There is no pleural effus ion. Heart size is normal. There is no pericardial effusion. Liver shows no focal defect. Spleen is intact. Stomach is intact. There is no evidence of pancreatic mass. The bile ducts are not dilated. There are surgical clips in the right colon. There is dilated t ransverse colon with fluid levels. There is no evidence of free air. There are fluid levels in the la rge bowel down to the rectum. There is some small bowel distention with oral contrast material that m easures up to 3.2 cm. There is no ascites. Lumbar vertebra have normal alignment. There is no compression fracture. Bony pelvis is intact. The h ip joints are intact. Uterus is anteverted. I see no pelvic mass. IMPRESSION: Dilated large and small bowel loops with fluid levels consistent with generalized ileus. I do not vandana pect a mechanical bowel obstruction. There is contrast material in the kidneys and bladder apparently from previous exam. No renal obstruction. There is some mild nodular infiltrate and atelectasis at t he posterior lung bases that is new compared to 12/15/2019 and probably due to inflammatory process.
[2020-01-14] MEDS: PIPERACILLIN-TAZOBACTAM 3.375 GM in SODIUM CHLORIDE 0.9% 100 ML IVPB SCH ×2 (04:56→13:42)
[2020-01-14] MEDS: PANTOPRAZOLE 40 MG/10 ML VIAL IVP SCH ×2 (08:25→22:33)
[2020-01-14] MEDS: CHOLESTYRAMINE (WITH SUGAR) 4 GM PACKET PO SCH ×2 (08:25→22:32)
[2020-01-14] MEDS: POTASSIUM CHLORIDE ER 20 MEQ TAB.ER PO SCH (08:26)
[2020-01-14 09:06] LABS: HCT 31.1 % (34.0-46.0); HGB 9.9 gm/dL (11.4-16.0); MCH 32.1 pg (25.0-35.0); MCV 100.2 fL (80.0-100.0); Macrocytosis Slight; Mean Platelet Volume 9.6; WBC 5.8 k/uL (3.8-10.6)
[2020-01-14 09:25] LABS: Platelet Count 39 k/uL (150-450)
[2020-01-14 09:41] LABS: African American GFR (CKD) 103.3 (60.0-200.0); Albumin 2.2 g/dL (3.80-4.90); Albumin/Globulin Ratio 1.16 (1.60-3.17); Anion Gap 8.4 mmol/L (4.00-12.00); BUN/Creat Ratio 18.33 Ratio (12.00-20.00); Calcium 7.1 mg/dL (8.7-10.3); Carbon Dioxide 17.6 mmol/L (21.6-31.8); Globulin 1.9 g/dL (1.6-3.3); Non-African American GFR(CKD) 89.2 (60.0-200.0); Potassium 3.5 mmol/L (3.5-5.5); Total Bilirubin 0.5 mg/dL (0.2-1.2); Total Protein 4.1 g/dL (6.2-8.2)
[2020-01-14 10:38] LABS: Band Neutrophils % 14 %; Eosinophils # (M) 0.12 k/uL (0-0.7); Lymphocytes # (M) 1.04 k/uL (1.0-4.8); Metamyelocytes # (M) 0.06 k/uL (0); Metamyelocytes % 1 %; Monocytes # (M) 1.22 k/uL (0-1.0); Myelocytes # (M) 0.06 k/uL (0); Myelocytes % 1 %; Neutrophils % (M) 44 %; Nucleated Red Blood Cells 0 /100 WBC (0-0); Total Cells Counted 200
[2020-01-14] MEDS ORDERED: Potassium Replacement Protocol 1 EACH MISC MISCELLANE PRN (10:44)
[2020-01-14] MEDS ORDERED: Magnesium Replacement Protocol 1 EACH MISC MISCELLANE PRN ×2 (10:44→11:14)
[2020-01-14] MEDS: MAGNESIUM SULFATE-D5W PMX 1 GM in DEXTROSE/WATER 1 100ML.BAG IVPB SCH ×4 (12:32→14:58)
[2020-01-14 13:20] VITALS: BMI 16.0
[2020-01-14] MEDS: MAG HYDROX/AL HYDROX/SIMETH 30 ML, diphenhydrAMINE ELIXIR 75 MG, LIDOCAINE VISCOUS 30 ML PO SCH ×6 (16:09→22:34)
--- NOTE | 2020-01-14 16:40 | CONS ---
CONSULTATION DATE OF SERVICE: January 14, 2020. REASON FOR CONSULTATION: Colon carcinoma. CHIEF COMPLAINT: Diarrhea. Lisa is a very pleasant 74 years old lady very well known to our practice, has been under the care of Dr. Yeager. She was initially diagnosed in and April of 2019 and was colon carcinoma at that time. She had progressive weight loss and she ended up going to [facility] which she had a CT scan which revealed a possible mass in the ascending colon as well as bilateral lung nodules and left hilar adenopathy up to 3 cm and multiple liver lesions approximately 15 of them with the largest one being 5.4 cm and the patient underwent a GI workup and she was found to have a mass in the ascending colon, almost completely obstructing the lumen. Biopsy was positive for adenocarcinoma. The patient subsequently underwent right colectomy with resection of liver nodule on May 14, 2019, which showed invasive moderately to poorly- differentiated adenocarcinoma penetrating the distal peritoneum and invading adjacent ileum and there was 8 out of 15 nodes positive. The liver biopsy was also positive for metastatic disease. The patient recovered from surgery well and subsequently was started on FOLFOX on systemic chemotherapy with FOLFOX on 07/18/2019. She has had difficulty tolerating treatment and then subsequently she had dose reduction of her treatment and she was tested for a DPD deficiency which came back negative. The patient had a total of 11 cycles so far. Her last treatment, cycle 11 was completed on 01/07/2020. The patient came into the hospital this time with progressive diarrhea, weakness and weight loss of about 5 days duration. She has lost significant weight. She is not sure how much she weighed. She was initially at [facility] and she had a CT scan which was suspicious for pneumatosis intestinale in the cecal area, so the patient ended up being transferred to this facility. She did have a CT scan of the abdomen and pelvis at [facility], which revealed dilated large small bowel loops with fluid consistent with generalized ileus. There was no evidence of mechanical obstruction. The patient now is on bowel rest. She is receiving IV hydration. As stated, overall she feels tired. She has lost significant weight. She has weakness in her legs. No nausea or vomiting. No fever or chills. She has watery diarrhea. No melena, hematochezia, hematuria, hemoptysis, hematemesis or epistaxis. Of note, the patient did respond to systemic treatment with her CEA declining and also her imaging study revealing response to therapy. 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 FAMILY HISTORY: For malignancy. Her sister had bladder cancer. Her son had leukemia. ALLERGIES: There is no known drug allergy. SOCIAL HISTORY: She used to smoke from 1969 till 2018. She is a social drinker. No recreational drug use. She is , lives at home in [place]. PAST MEDICAL HISTORY: And past surgical history as stated above in history of present illness, otherwise unremarkable. REVIEW OF SYSTEMS: As stated above in history of present illness, otherwise negative. CURRENT MEDICATION: Her current medication reviewed in her electronic medical record and includes Tylenol as needed, Xanax as needed, Questran 4 mg b.i.d., Lomotil as needed, Diflucan 100 mg IV piggyback daily, [place] 5/325 mg q.6 hours as needed, Dilaudid 0.5 mg as needed. She is on magnesium replacement per protocol, Zyprexa 2.5 mg q.h.s., Zofran as needed, Protonix 40 mg IV b.i.d., Zosyn 3.375 g IV every 8 hours if okay to 20 mEq daily, tramadol as needed. PHYSICAL EXAMINATION: She is alert, oriented x3. She is well developed. She appears to be thin and somewhat cachectic. Her vital signs are temperature 98.0, afebrile, pulse is 115, respirations 16, blood pressure 117/68, oxygen is 99% on room air. HEENT are normocephalic, atraumatic. There is no obvious icterus. Oral mucosa are dry and somewhat red. NECK: Supple. Chest equal expansion bilaterally. LUNGS: Clear to auscultation and percussion. Heart is regular rhythm. ABDOMEN: Soft. There is no tenderness. No obvious organomegaly or ascites. Extremities reveal no edema. Skin no significant bruises, ecchymosis, petechiae lymphatics no peripheral cervical supraclavicular nodes. Musculoskeletal moving all extremities appropriately. No percussion tenderness in the cervical spine or sternum. LABORATORY DATA: WBC of 5.3, hemoglobin 9.9, hematocrit 31.1, platelets are 39, absolute neutrophil count 3.0, sodium 141, potassium 3.5, chloride 115, CO2 is 17.6, BUN is 11, creatinine 0.6, magnesium 0.8, alkaline phosphatase is 137, ALT is 14, AST is 23. IMPRESSION: 1. Metastatic colon carcinoma with diagnostic and therapeutic circumstances stated above. 2. Watery diarrhea. This is probably related to recent chemotherapy. However, C diff colitis should be ruled out. 3. Mild thrombocytopenia, and moderate and asymptomatic. This is likely also secondary to recent chemotherapy. 4. Electrolyte imbalance. RECOMMENDATIONS: 1. Continue IV hydration. 2. Her electrolyte and magnesium are being corrected. 3. I would recommend to discontinue IV Zosyn and IV Diflucan at this point in time. The patient is not neutropenic and there is no clinical evidence to suggest infection. 4. Obtain a stool for C diff toxin. 5. In regard to further systemic treatment, the patient has so far completed 11 out of 12 planned cycles. A consideration should be given to eliminate the last cycle and maybe start maintenance therapy with either infusional 5-FU or oral capecitabine at dose reduction to avoid recurrent diarrhea. Of note the patient was previously tested for DPD deficiency, which was negative. The above was discussed with the patient. I have answered all her questions. Thank you very much for this consultation. MMODL / IJN: [id number] /
[2020-01-14] MEDS ORDERED: SODIUM CHLORIDE 0.9% 1,000 ML with POTASSIUM CHLORIDE 20 MEQ IV SCH ×2 (20:30)
[2020-01-14] MEDS ORDERED: SODIUM CHLORIDE 0.9% 1,000 ML IV SCH (20:30)
[2020-01-14] MEDS: 0.9% NACL WITH KCL 20 MEQ/L 1,000 ML IV SCH (21:41)
[2020-01-14] MEDS: MAGNESIUM OXIDE 400 MG TAB PO SCH (22:33)
[2020-01-14] MEDS: NYSTATIN 100,000 UNIT/ML SUSP 500,000 UNIT/5 ML CUP PO SCH (22:33)
[2020-01-14] MEDS: OLANZapine 2.5 MG TAB PO SCH (22:33)
[2020-01-14] MEDS: MELATONIN 5 MG TABLET PO SCH (22:33)
--- NOTE | 2020-01-15 03:30 | PN ---
PROGRESS NOTE DATE OF SERVICE: 01/14/2020 This 74-year-old woman who was admitted with severe dehydration, diarrhea had a recent chemotherapy also. The abdomen and pelvis CAT scan done today which was reviewed personally by me showed dilated large and small bowels indicating ileus possibly, mechanical obstruction is unlikely. Dr. Velazquez from Oncology has seen the patient and recommend to continue with IV hydration. PAST MEDICAL HISTORY: Reviewed. REVIEW OF SYSTEMS: CARDIOVASCULAR SYSTEM: No angina. RESPIRATORY SYSTEM: As mentioned earlier. GI: As mentioned earlier. : No dysuria. NERVOUS SYSTEM: No numbness or weakness. CURRENT MEDICATIONS: Current medications are reviewed and include: Tylenol, Crystal, Questran, Lomotil, Dilaudid, replacement protocols, IV fluids, Zosyn. PHYSICAL EXAMINATION: Patient is alert and oriented x3. Pulse is 117, blood pressure 147/85, respirations 16, temperature 98.3, pulse ox 98% on room air. HEENT: Conjunctivae normal. NECK; No jugular venous distention. CARDIOVASCULAR: S1, S2 muffled. RESPIRATORY: Breath sounds diminished at the bases. A few scattered rhonchi and crackles. ABDOMEN: Soft, nontender. LEGS: No edema, no swelling. NERVOUS SYSTEM: No focal deficits. ORAL MUCOSA: Severe mucositis. LABS: Hemoglobin 9.9 and platelets are 39. Otherwise, magnesium is 0.8 and albumin is 2.2. ASSESSMENT: 1. Severe dehydration and diarrhea possibly secondary to chemotherapy. 2. Possible ileus with dilated small and large bowels. 3. No evidence of Pneumocystis pneumatosis intestinalis. 4. Severe hypomagnesemia. 5. Severe dehydration, present on admission. 6. Hypokalemia. 7. Anemia. 8. Colon cancer stage IV metastasis on chemo. 9. Severe protein calorie malnutrition, body mass index 16.1. 10.History of liver disease. 11.History of bowel resection. 12.History of hypomagnesemia. 13.History of brain metastasis for radiation. 14.History of anxiety. 15.History of bowel resection. 16.History of severe mucositis. 17.History of tonsillectomy. 18.FULL CODE. RECOMMENDATIONS AND DISCUSSION: Recommend to continue current medications, continue symptomatic treatment. Otherwise at this time stool for C difficile is requested. Continue with the stopped antibiotics per Dr. Velazquez's recommendations. Otherwise, continue the rest of medications. Guarded prognosis. Further recommendations to follow. Will continue with IV hydration. MMODL / IJN: [id number] /
[2020-01-15] MEDS: 0.9% NACL WITH KCL 20 MEQ/L 1,000 ML IV SCH (04:04)
[2020-01-15 07:18] LABS: Anisocytosis Slight; HCT 26.9 % (34.0-46.0); HGB 8.6 gm/dL (11.4-16.0); MCH 31.7 pg (25.0-35.0); MCHC 31.8 g/dL (31.0-37.0); MCV 99.8 fL (80.0-100.0); Macrocytosis Slight; Mean Platelet Volume 9.5; RDW 16.3 % (11.5-15.5); WBC 9.2 k/uL (3.8-10.6)
[2020-01-15 07:20] LABS: Platelet Count 37 k/uL (150-450)
[2020-01-15] MEDS: POTASSIUM CHLORIDE ER 20 MEQ TAB.ER PO SCH (08:24)
[2020-01-15] MEDS: MAGNESIUM OXIDE 400 MG TAB PO SCH ×3 (08:24→21:55)
[2020-01-15] MEDS: PANTOPRAZOLE 40 MG/10 ML VIAL IVP SCH ×2 (08:24→21:56)
[2020-01-15] MEDS: CHOLESTYRAMINE (WITH SUGAR) 4 GM PACKET PO SCH ×2 (08:24→21:56)
[2020-01-15] MEDS: NYSTATIN 100,000 UNIT/ML SUSP 500,000 UNIT/5 ML CUP PO SCH ×4 (08:24→21:55)
[2020-01-15] MEDS: MAG HYDROX/AL HYDROX/SIMETH 30 ML, diphenhydrAMINE ELIXIR 75 MG, LIDOCAINE VISCOUS 30 ML PO SCH ×9 (08:34→21:57)
[2020-01-15 08:37] LABS: Band Neutrophils % 16 %; Basophils # (M) 0.09 k/uL (0-0.2); Lymphocytes # (M) 0.92 k/uL (1.0-4.8); Metamyelocytes # (M) 0.09 k/uL (0); Metamyelocytes % 1 %; Monocytes # (M) 0.92 k/uL (0-1.0); Neutrophils % (M) 62 %; Nucleated Red Blood Cells 0 /100 WBC (0-0); Total Cells Counted 100
[2020-01-15 08:38] LABS: Poikilocytosis (M) Present
[2020-01-15 08:58] LABS: Magnesium 0.8 mg/dL (1.5-2.4)
[2020-01-15] MEDS ORDERED: FLUCONAZOLE IN NACL,ISO-OSM 100 MG in SALINE 1 50ML.BAG IVPB SCH (09:00)
[2020-01-15 09:30] LABS: African American GFR (CKD) 109.7 (60.0-200.0); Anion Gap 6.4 mmol/L (4.00-12.00); Carbon Dioxide 17.6 mmol/L (21.6-31.8); Magnesium 1.6 mg/dL (1.5-2.4); Non-African American GFR(CKD) 94.7 (60.0-200.0); Potassium 3.4 mmol/L (3.5-5.5)
[2020-01-15] MEDS: POTASSIUM CHLORIDE 20 MEQ in WATER FOR INJECTION 1 100ML.BAG IVPB SCH ×2 (11:15→13:26)
[2020-01-15] MEDS: MAGNESIUM SULFATE-D5W PMX 1 GM in DEXTROSE/WATER 1 100ML.BAG IVPB SCH ×2 (11:15→12:17)
--- NOTE | 2020-01-15 12:10 | P.PN ---
Progress Note - Text Progress Note Date: 01/15/20 Patient feels better. She states she's had some small bowel movements. On exam patient is very cachectic. Vital signs are stable. Abdomen soft nontender. History of metastatic right colon cancer. Patient will continue receive supportive care. Her ileus has resolved.
--- NOTE | 2020-01-15 14:41 | CDI ---
Documentation Clarification Form Date: 01/15/2020 02:34:00 PM From: Yolanda Mcnair CCS, CCDS Admit Date: 01/13/2020 06:04:00 PM Patient Name: Lisa Khun Visit Number: [id number] Discharge Date: ATTENTION: The Clinical Documentation Specialists (CDI) and [facility] Coding Staff appreciate your assistance in clarifying documentation. Please respond to the clarification below the line at the bottom and electronically sign. The CDI & [facility] Coding staff will review the response and follow-up if needed. Please note: Queries are made part of the Legal Health Record. If you have any questions, please contact the author of this message via ITS. Dr. Zari Gr: Anemia is documented in the 01/13 Attending Progress Note without further specificity. History/Risk Factors: Colon Cancer stage IV with metastatic disease to the liver, lungs & brain status post chemotherapy, radiation & bowel resection, Bowel obstruction, Anxiety & Former Smoker. Clinical indicators: Patient was transferred form [facility] where she presented with abdominal pain & dehydration. Admitted with Abdominal pain, Colitis & Dehydration. Home meds: Tramadol, KDur, Zofran, Omeprazole, Zyprexa, Lomotil, Questran Packet, Xanax Hemoglobin 01/12: 9.7; 01/13: 9.9*; 01/14 8.6* Hematocrit 01/12: 29.4*; 01/13: 31.1*; 01/14: 26.9* Treatment: IV fluid bolus 1,000 mls @ 999 mls/hr, IV fluid 1,000 mls @ 130 mls/hr, IV Zosyn, po Questran, IV Protonix. In order to capture the severity of condition, please clarify the type of anemia and etiology if known:. Acute blood loss anemia Acute on chronic blood loss anemia Chronic blood loss anemia Hemolytic anemia Drug induced anemia Anemia due to malignancy Nutritional anemia Unable to determine Other, please specify (Last Form Revision: April 2019) Anemia due to malignancy MTDD
[2020-01-15] MEDS: 0.9% NACL WITH KCL 40 MEQ/L 1,000 ML IV SCH ×2 (16:23→21:57)
[2020-01-15] MEDS: DIPHENOX-ATROP 2.5-0.025 MG 1 EACH TAB PO PRN (17:38)
--- NOTE | 2020-01-15 20:29 | P.PN ---
Subjective Progress Note Date: 01/15/20 This is a 74-year-old female who was recently admitted with severe dehydration and diarrhea after recently receiving chemo. Oncology following closely along with surgery for possible ileus which appears to have resolved. Patient follows with Dr. Lacey outpatient. Patient remains on IV hydration and will continue at this time. Patient was started on clear liquid diet and tolerating and may advance slowly to full liquid. Currently no reports of chest pain, shortness of breath, or palpitations. Patient is afebrile. No reports of nausea or vomiting noted. Patient reports having bowel movements that are soft, but denies diarrhea. Potassium is 3.4 and Magnesium is 1.6 and are currently being replaced. Will repeat am labs and monitor closely. Objective - Vital Signs Vital signs: Vital Signs Temp 97.6 F 01/15/20 11:39 Pulse 92 01/15/20 11:39 Resp 17 01/15/20 11:39 BP 103/64 01/15/20 11:39 Pulse Ox 100 01/15/20 11:39 Intake & Output 01/14/20 01/15/20 01/15/20 18:59 06:59 18:59 Intake Total 1560 Balance 1560 Weight 38.555 kg Intake: Intake, IV Titration 1560 Amount 0.9% NaCl with KCl 20 Meq 1560 /l 1,000 ml @ 130 mls/hr IV .Q7H42M [facility] Rx#: [id number] Other: Voiding Method Toilet # Voids 1 - Exam Gen: This is a 74-year-old female awake, alert and oriented 3. Temp is 97.6F, pulse is 92, respirations are 17, blood pressure is 103/64, oxygen saturation is 100% on room air. HEENT: Head is atraumatic, normocephalic. Pupils equal, round. Sclerae is anicteric. Multiple mouth sores noted with severe mucositis NECK: Supple. No JVD. No lymphadenopathy. No thyromegaly. LUNGS: Breath Sounds diminished bilaterally at the bases with a few scattered rhonchi and crackles noted. No intercostal retractions. HEART: S1, S2 are muffled ABDOMEN: Soft. Bowel sounds are present. No masses. No tenderness. EXTREMITIES: No pedal edema. No calf tenderness. NEUROLOGICAL: Patient is awake, alert and oriented x3. Cranial nerves 2 through 12 are grossly intact. - Labs CBC & Chem 7: 01/15/20 06:09 01/15/20 06:09 Labs: Abnormal Lab Results - Last 24 Hours (Table) 01/14/20 01/14/20 01/15/20 Range/Units 03:50 06:03 06:09 RBC 2.70 L (3.80-5.40) m/uL Hgb 8.6 L (11.4-16.0) gm/dL Hct 26.9 L (34.0-46.0) % RDW 16.3 H (11.5-15.5) % Plt Count 37 L (150-450) k/uL Lymphocytes # (Manual) 0.92 L (1.0-4.8) k/uL Metamyelocytes # (Man) 0.09 H (0) k/uL Potassium (3.5-5.5) mmol/L Chloride (96-109) mmol/L Carbon Dioxide (21.6-31.8) mmol/L Creatinine (0.6-1.5) mg/dL Glucose (70-110) mg/dL Calcium (8.7-10.3) mg/dL Magnesium 0.8 L* (1.5-2.4) mg/dL Stool Lactoferrin POSITIVE A (NEGATIVE) 01/15/20 Range/Units 06:09 RBC (3.80-5.40) m/uL Hgb (11.4-16.0) gm/dL Hct (34.0-46.0) % RDW (11.5-15.5) % Plt Count (150-450) k/uL Lymphocytes # (Manual) (1.0-4.8) k/uL Metamyelocytes # (Man) (0) k/uL Potassium 3.4 L (3.5-5.5) mmol/L Chloride 117 H (96-109) mmol/L Carbon Dioxide 17.6 L (21.6-31.8) mmol/L Creatinine 0.5 L (0.6-1.5) mg/dL Glucose 67 L (70-110) mg/dL Calcium 7.0 L (8.7-10.3) mg/dL Magnesium (1.5-2.4) mg/dL Stool Lactoferrin (NEGATIVE) Microbiology - Last 24 Hours (Table) 01/14/20 03:50 Stool Culture - Preliminary Stool Assessment and Plan Assessment: Severe dehydration and diarrhea possibly secondary to chemotherapy Possible ileus with dilated small and large bowels No evidence of pneumo site is pneumatosis intestinalis Severe hypomagnesemia Severe dehydration, present on admission Hypokalemia Anemia due to malignancy Colon cancer stage IV metastasis on chemo Severe protein calorie malnutrition with a body mass index of 16.1 History of liver disease history bowel resection history of hypomagnesemia History of brain metastasis for radiation history of anxiety History of bowel resection history of severe mucositis History of tonsillectomy Full code Recommendations and discussion: Recommend continue current medications, management, and symptomatic treatment. Patient started on clear liquids and tolerating may advance to full liquid diet. Surgery and oncology following. Patient is having bowel movements that are loose in nature. Due to multiple complex medical issues, prognosis is guarded. Further recommendations to follow.
[2020-01-15] MEDS: MELATONIN 5 MG TABLET PO SCH (21:55)
[2020-01-15] MEDS: OLANZapine 2.5 MG TAB PO SCH (21:56)
[2020-01-15] MEDS: ALPRAZolam 0.25 MG TAB PO PRN (22:12)
--- NOTE | 2020-01-16 00:44 | P.PN ---
Subjective Progress Note Date: 01/16/20 Principal diagnosis: Weakness, Weight loss, Diarrhea She continues to feel weak and have loose stools. She improved when NPO, although since starting full liquids she states "it goes right through me". Awaiting stool culture, fecal leukocytes positive, likely inflammation due to chemotherapy treatment. C diff negative. She is on Questran BID will increase to TID. She appears malnourished, and skin is dry. Her performance status has declined since last outpatient visit. She is now completed with her initial adjuvant palliative goal chemotherapy and planning to give her a chemo holiday until after the new year. Electrolytes are monitored per primary team with appropriate supplementation. IV hydration continued. Awaiting urinalysis evaluation to be collected although difficult to obtain clean catch per nursing with persistent watery stool with bathroom visits. Objective - Vital Signs Vital signs: Vital Signs Temp 97.6 F 01/15/20 11:39 Pulse 92 01/15/20 11:39 Resp 17 01/15/20 11:39 BP 103/64 01/15/20 11:39 Pulse Ox 100 01/15/20 11:39 Intake & Output 01/15/20 01/15/20 01/16/20 06:59 18:59 06:59 Intake Total 1560 Balance 1560 Intake: Intake, IV Titration 1560 Amount 0.9% NaCl with KCl 20 Meq 1560 /l 1,000 ml @ 130 mls/hr IV .Q7H42M [facility] Rx#: [id number] Other: Voiding Method Toilet # Voids 2 # Bowel Movements 2 - Constitutional General appearance: Present: cooperative, thin - EENT EENT Comment(s): Lips and mouth very dry, dry mucous and nasal membranes. Cracking and herpetic lesions to lips. Eyes: Present: EOMI, PERRLA ENT: Present: NA/AT, other - Respiratory Respiratory: bilateral: CTA - Cardiovascular Rhythm: regular Heart sounds: normal: S1, S2 - Gastrointestinal General gastrointestinal: Present: distended, hyperactive bowel sounds, tenderness - Integumentary Integumentary: Present: pale - Neurologic Neurologic: Present: CNII-XII intact - Musculoskeletal Musculoskeletal: Present: generalized weakness - Psychiatric Psychiatric: Present: A&O x's 3, appropriate affect, intact judgment & insight - Allied health notes Allied health notes reviewed: PT - Labs CBC & Chem 7: 01/15/20 06:09 11/27/20 06:09 Labs: Abnormal Lab Results - Last 24 Hours (Table) 01/14/20 01/14/20 01/15/20 Range/Units 03:50 06:03 06:09 RBC 2.70 L (3.80-5.40) m/uL Hgb 8.6 L (11.4-16.0) gm/dL Hct 26.9 L (34.0-46.0) % RDW 16.3 H (11.5-15.5) % Plt Count 37 L (150-450) k/uL Lymphocytes # (Manual) 0.92 L (1.0-4.8) k/uL Metamyelocytes # (Man) 0.09 H (0) k/uL Potassium (3.5-5.5) mmol/L Chloride (96-109) mmol/L Carbon Dioxide (21.6-31.8) mmol/L Creatinine (0.6-1.5) mg/dL Glucose (70-110) mg/dL Calcium (8.7-10.3) mg/dL Magnesium 0.8 L* (1.5-2.4) mg/dL Stool Lactoferrin POSITIVE A (NEGATIVE) 01/15/20 Range/Units 06:09 RBC (3.80-5.40) m/uL Hgb (11.4-16.0) gm/dL Hct (34.0-46.0) % RDW (11.5-15.5) % Plt Count (150-450) k/uL Lymphocytes # (Manual) (1.0-4.8) k/uL Metamyelocytes # (Man) (0) k/uL Potassium 3.4 L (3.5-5.5) mmol/L Chloride 117 H (96-109) mmol/L Carbon Dioxide 17.6 L (21.6-31.8) mmol/L Creatinine 0.5 L (0.6-1.5) mg/dL Glucose 67 L (70-110) mg/dL Calcium 7.0 L (8.7-10.3) mg/dL Magnesium (1.5-2.4) mg/dL Stool Lactoferrin (NEGATIVE) Assessment and Plan Plan: Metastatic Colon Cancer: - Status Post Cycle 11 FOLFOX with Neulasta - Will hold further chemotherapy till after new year and consider maintenance - She also receives vectibix Persistent DIarrhea: - Imaging consistent with possible ileus - Bowel rest, do not advance at this time as she has not fully tolerated full liquids - C-diff negative, Stool culture pending, Fecal leukocytes positive - Increase Questran TID - Treatment of dehydration and electrolyte replacement Chronic Illness Myopathy: - PT/OT Weight Loss and Decreased PO inctake: - Marinol added - Acyclovir for herpetic oral lesions - Vaseline for moisture of cracked lips and nasal passage Normocytic Anemia: - Secondary to chemotherapy and possible component of nutrition - Re-evaluate for nutritional deficits and replace if indicated Thrombocytopenia: - Stable in safe range - Less than 50K, therefore no VTE pharmacological management: SCDs and PT/OT - Monitor for Bleeding - MOnitor Coags for vitamin K deficiency with picture of decreased po intake and evidence of malnutrtion - DIeticien following and protein shakes
[2020-01-16] MEDS: 0.9% NACL WITH KCL 40 MEQ/L 1,000 ML IV SCH ×3 (05:57→22:56)
[2020-01-16] MEDS: POTASSIUM CHLORIDE ER 20 MEQ TAB.ER PO SCH (08:22)
[2020-01-16] MEDS: MAGNESIUM OXIDE 400 MG TAB PO SCH ×3 (08:23→19:29)
[2020-01-16] MEDS: valACYclovir 500 MG TAB PO SCH ×2 (08:23→19:29)
[2020-01-16] MEDS: NYSTATIN 100,000 UNIT/ML SUSP 500,000 UNIT/5 ML CUP PO SCH ×3 (08:24→17:20)
[2020-01-16] MEDS: PANTOPRAZOLE 40 MG/10 ML VIAL IVP SCH ×2 (08:24→19:30)
[2020-01-16] MEDS: MAG HYDROX/AL HYDROX/SIMETH 30 ML, diphenhydrAMINE ELIXIR 75 MG, LIDOCAINE VISCOUS 30 ML PO SCH ×6 (08:25→15:55)
[2020-01-16] MEDS: CHOLESTYRAMINE (WITH SUGAR) 4 GM PACKET PO SCH ×3 (08:25→17:29)
[2020-01-16 08:36] LABS: Anisocytosis Slight; HCT 29.8 % (34.0-46.0); HGB 9.2 gm/dL (11.4-16.0); Hypochromasia Slight; MCH 31.6 pg (25.0-35.0); MCHC 30.9 g/dL (31.0-37.0); Macrocytosis Slight; Mean Platelet Volume 10.7; RBC 2.92 m/uL (3.80-5.40); RDW 16.2 % (11.5-15.5); WBC 21.4 k/uL (3.8-10.6)
[2020-01-16 09:14] LABS: Platelet Count 51 k/uL (150-450)
[2020-01-16] MEDS: ACETAMINOPHEN TAB 325 MG TAB PO PRN ×2 (11:12→19:30)
--- NOTE | 2020-01-16 12:26 | P.PN ---
Progress Note - Text Progress Note Date: 01/16/20 The patient has some complaints of abdominal pain. She is having bowel movements. On exam vital signs are stable. Abdomen soft with minimal tenderness. Metastatic right colon cancer. Patient will continue receive supportive care.
[2020-01-16 13:39] LABS: % Iron Saturation 55.22 (12.00-45.00); African American GFR (CKD) 103.3 (60.0-200.0); BUN/Creat Ratio 13.33 Ratio (12.00-20.00); Calcium 7.6 mg/dL (8.7-10.3); Carbon Dioxide 13.2 mmol/L (21.6-31.8); Chloride 124 mmol/L (96-109); Glucose 84 mg/dL (70-110); Iron 74 ug/dL (50-170); Magnesium 1.9 mg/dL (1.5-2.4); Non-African American GFR(CKD) 89.2 (60.0-200.0); Potassium 5.5 mmol/L (3.5-5.5); Sodium 144 mmol/L (135-145); Total Iron Binding Capacity 134 ug/dL (228-460)
[2020-01-16 13:59] LABS: Folate, Serum 15.7 ng/mL
[2020-01-16 14:08] LABS: Band Neutrophils % 5 %; Lymphocytes # (M) 0.86 k/uL (1.0-4.8); Metamyelocytes # (M) 0.21 k/uL (0); Metamyelocytes % 1 %; Monocytes # (M) 1.28 k/uL (0-1.0); Myelocytes # (M) 0.64 k/uL (0); Myelocytes % 3 %; Neutrophils % (M) 83 %; Nucleated Red Blood Cells 0 /100 WBC (0-0); Total Cells Counted 200
[2020-01-16 14:09] LABS: Toxic Vacuolation Present
[2020-01-16 14:23] LABS: Ferritin 1966.9 ng/mL (10.0-291.0); Vitamin B12 >2000.0 pg/mL (200.0-944.0)
[2020-01-16 14:46] LABS: Amorphous Sediment,Urine Rare /hpf; Appearance,Urine Clear (Clear); Bacteria,Urine Occasional /hpf; Bilirubin,Urine Negative (Negative); Blood,Urine Trace (Negative); Color,Urine Yellow; Glucose,Urine (UA) Negative (Negative); Hyaline Casts,Urine 79 /lpf (0-2); Ketones,Urine Trace (Negative); Leukocyte Esterase,Urine Trace (Negative); Mucus,Urine Moderate /hpf; Nitrite,Urine Negative (Negative); Protein,Urine Trace (Negative); RBC,Urine 5 /hpf (0-5); Specific Gravity,Urine 1.024 (1.001-1.035); Squamous Epithelial Cell,Urine 4 /hpf (0-4); Urobilinogen,Urine <2.0 mg/dL (<2.0); WBC,Urine 6 /hpf (0-5)
[2020-01-16 18:40] LABS: ALT 13 U/L (8-44); AST 22 U/L (13-35); Albumin/Globulin Ratio 1.24 (1.60-3.17); Alkaline Phosphatase 165 U/L (41-126); Globulin 1.7 g/dL (1.6-3.3); Total Bilirubin 0.4 mg/dL (0.3-1.2); Total Protein 3.8 g/dL (6.2-8.2)
[2020-01-16] MEDS: MELATONIN 5 MG TABLET PO SCH (19:29)
[2020-01-16] MEDS: OLANZapine 2.5 MG TAB PO SCH (19:30)
--- NOTE | 2020-01-16 22:04 | PN ---
PROGRESS NOTE DATE OF SERVICE: 01/16/2020 This 74-year-old woman who was admitted with significant diarrhea, dehydration, possibly secondary chemotherapy had some ileus. The patient has C difficile negative, but the patient is tolerating some diet yesterday, but after advancing diet today again the patient had significant diarrhea. Patient closely monitored. Multiple medical issues. The patient WBC elevated 21.4, sodium 142, potassium 5.5. UA shows some hyaline casts. PAST MEDICAL HISTORY: Reviewed. REVIEW OF SYSTEMS: CARDIOVASCULAR SYSTEM: No angina. RESPIRATIONS: As mentioned earlier. GI: As mentioned earlier. : As mentioned earlier. NERVOUS SYSTEM: No numbness or weakness. CURRENT MEDICATIONS: Reviewed include Tylenol, [place], Questran, Lomotil, Marinol, magnesium oxide, replacement protocol, Protonix, K-Dur, Ultram. Valtrex. PHYSICAL EXAM: Patient is alert, oriented times three. Pulse is 91, blood pressure 159/82, respirations 16, temperature 97.6, pulse ox 99% on room air. HEENT: Conjunctivae normal. NECK: No JVD. CARDIOVASCULAR: S1, S2 muffled. RESPIRATIONS: Breath sounds diminished in the bases. Scattered rhonchi. ABDOMEN: Soft, nontender. No mass. LEGS are no edema. No swelling. NERVOUS SYSTEM: No focal deficits. LABS: WBC 21.2, hemoglobin 9.2. Sodium 140, potassium 5.5, and other labs are noted. ASSESSMENT: 1. Severe dehydration and diarrhea, possibly secondary to chemotherapy. 2. Possible ileus with dilated small and large bowel. 3. No evidence of pneumatosis intestinalis in the recent CAT scan. 4. Severe hypomagnesemia. 5. Severe dehydration present on admission. 6. Hypokalemia. 7. Anemia due to malignancy. 8. Colon cancer stage IV with METS on chemo. 9. Severe protein calorie malnutrition with body mass index of 16.1. 10.History of liver disease. 11.History of bowel resection. 12.History of hypomagnesemia. 13.History of brain metastases for radiation. 14.History of anxiety. 15.History of bowel resection. 16.History of severe mucositis. 17.History of tonsillectomy. 18.FULL CODE. RECOMMENDATIONS AND DISCUSSION: Recommend to continue current medications, symptomatic treatment. Otherwise, at this time, I recommend we will downgrade the diet if the diarrhea persist. Otherwise, we will continue the symptomatic treatment. Further recommendations to follow. Discussed with the patient. Monitor electrolytes closely. MMODL / IJN: [id number] /
[2020-01-16] MEDS: ALPRAZolam 0.25 MG TAB PO PRN (22:55)
[2020-01-17] MEDS: MAG HYDROX/AL HYDROX/SIMETH 30 ML, diphenhydrAMINE ELIXIR 75 MG, LIDOCAINE VISCOUS 30 ML PO SCH ×12 (00:39→21:06)
[2020-01-17] MEDS: NYSTATIN 100,000 UNIT/ML SUSP 500,000 UNIT/5 ML CUP PO SCH ×5 (00:39→20:54)
[2020-01-17] MEDS: 0.9% NACL WITH KCL 40 MEQ/L 1,000 ML IV SCH ×2 (06:25→12:13)
[2020-01-17] MEDS: PANTOPRAZOLE 40 MG/10 ML VIAL IVP SCH (08:30)
[2020-01-17] MEDS: MAGNESIUM OXIDE 400 MG TAB PO SCH ×3 (08:30→20:58)
[2020-01-17] MEDS: valACYclovir 500 MG TAB PO SCH ×2 (08:30→21:04)
[2020-01-17] MEDS: CHOLESTYRAMINE (WITH SUGAR) 4 GM PACKET PO SCH ×3 (08:30→17:05)
[2020-01-17] MEDS: POTASSIUM CHLORIDE ER 20 MEQ TAB.ER PO SCH (08:31)
[2020-01-17] MEDS: ACETAMINOPHEN TAB 325 MG TAB PO PRN (10:43)
--- NOTE | 2020-01-17 10:54 | CT ---
EXAMINATION TYPE: CT brain wo con DATE OF EXAM: 01/17/2020 HISTORY: Fall injury with headache, history of cerebellar metastatic disease. CT DLP: 1036 mGycm. Automated Exposure Control for Dose Reduction was Utilized. TECHNIQUE: CT scan of the head is performed without contrast. COMPARISON: CT brain September 04, 2019. MRI brain November 17, 2019 FINDINGS: There is no acute intracranial hemorrhage or midline shift identified. There is diffuse v entricular and sulcal prominence consistent with diffuse age-related cerebral atrophy. Septum pelluc idum vergae redemonstrated. There is low-attenuation in the periventricular white matter consistent w ith chronic small vessel ischemic change. The globes are intact and the visualized sinuses are clear . The calvarium is intact. IMPRESSION: No acute intracranial hemorrhage or midline shift. There is mild to moderate diffuse ce rebral atrophy and mild chronic small vessel ischemic change redemonstrated. No significant change f rom prior studies.
[2020-01-17] MEDS: DIPHENOX-ATROP 2.5-0.025 MG 1 EACH TAB PO PRN (13:31)
--- NOTE | 2020-01-17 13:55 | P.PN ---
Subjective Progress Note Date: 01/17/20 Principal diagnosis: Weakness, Weight loss, Diarrhea Feeling better today. diarrhea improving Objective - Vital Signs Vital signs: Vital Signs Temp 97.7 F 01/17/20 07:56 Pulse 82 01/17/20 12:56 Resp 16 01/17/20 12:56 BP 134/80 01/17/20 12:56 Pulse Ox 100 01/17/20 12:56 Intake & Output 01/16/20 01/17/20 01/17/20 18:59 06:59 18:59 Intake Total 472 1590 Balance 472 1590 Intake: Intake, IV Titration 1000 Amount 0.9% NaCl with KCl 40 Meq 1000 /l 1,000 ml @ 130 mls/hr IV .Q7H42M [facility] Rx#: [id number] Oral [id number] Other: Voiding Method Toilet Toilet Toilet # Voids 1 2 # Bowel Movements 1 1 - Exam - Constitutional General appearance: Present: cooperative, thin - EENT EENT Comment(s): Lips and mouth very dry, dry mucous and nasal membranes. Cracking and herpetic lesions to lips. Eyes: Present: EOMI, PERRLA ENT: Present: NA/AT, other - Respiratory Respiratory: bilateral: CTA - Cardiovascular Rhythm: regular Heart sounds: normal: S1, S2 - Gastrointestinal General gastrointestinal: Present: distended, hyperactive bowel sounds, tenderness - Integumentary Integumentary: Present: pale - Neurologic Neurologic: Present: CNII-XII intact - Musculoskeletal Musculoskeletal: Present: generalized weakness - Psychiatric Psychiatric: Present: A&O x's 3, appropriate affect, intact judgment & insight - Allied health notes Allied health notes reviewed: PT - Labs CBC & Chem 7: 01/17/20 14:32 01/17/20 15:50 Labs: Abnormal Lab Results - Last 24 Hours (Table) 01/16/20 01/16/20 01/16/20 Range/Units 07:34 07:34 14:00 Neutrophils # (Manual) 18.80 H (1.3-7.7) k/uL Lymphocytes # (Manual) 0.86 L (1.0-4.8) k/uL Monocytes # (Manual) 1.28 H (0-1.0) k/uL Metamyelocytes # (Man) 0.21 H (0) k/uL Myelocytes # (Manual) 0.64 H (0) k/uL Ferritin 1966.9 H (10.0-291.0) ng/mL Alkaline Phosphatase 165 H (41-126) U/L Total Protein 3.8 L (6.2-8.2) g/dL Albumin 2.10 L (3.80-4.90) g/dL Albumin/Globulin Ratio 1.24 L (1.60-3.17) g/dL Vitamin B12 >2000.0 H (200.0-944.0) pg/mL Urine Protein Trace H (Negative) Urine Ketones Trace H (Negative) Urine Blood Trace H (Negative) Ur Leukocyte Esterase Trace H (Negative) Urine WBC 6 H (0-5) /hpf Amorphous Sediment Rare H (None) /hpf Urine Bacteria Occasional H (None) /hpf Hyaline Casts 79 H (0-2) /lpf Urine Mucus Moderate H (None) /hpf Microbiology - Last 24 Hours (Table) 01/14/20 03:50 Stool Culture - Final Stool Assessment and Plan Plan: Metastatic Colon Cancer: - Status Post Cycle 11 FOLFOX with Neulasta - Will hold further chemotherapy till after new year and consider maintenance - She also receives vectibix Persistent DIarrhea: - Imaging consistent with possible ileus - Bowel rest, do not advance at this time as she has not fully tolerated full liquids - C-diff negative, Stool culture pending, Fecal leukocytes positive - Increase Questran TID - Treatment of dehydration and electrolyte replacement Chronic Illness Myopathy: - PT/OT Weight Loss and Decreased PO inctake: - Marinol added - Acyclovir for herpetic oral lesions - Vaseline for moisture of cracked lips and nasal passage Normocytic Anemia: - Secondary to chemotherapy and possible component of nutrition - Re-evaluate for nutritional deficits and replace if indicated Thrombocytopenia: - Stable in safe range - Less than 50K, therefore no VTE pharmacological management: SCDs and PT/OT - Monitor for Bleeding - Monitor Coags for vitamin K deficiency with picture of decreased po intake and evidence of malnutrtion - DIeticien following and protein shakes Check Stat CMP and MAg today
--- NOTE | 2020-01-17 14:01 | P.PN ---
Progress Note - Text Progress Note Date: 01/17/20 Patient is stable. She's had a small bowel movement. On exam vital signs are stable. Abdomen soft. Metastatic right colon cancer. Patient will continue receive supportive care.
[2020-01-17 15:04] LABS: ALT 12 U/L (4-34); AST 26 U/L (14-36); African American GFR (CKD) >90 (>60 ml/min/1.73 sqM); Albumin 1.7 g/dL (3.5-5.0); Albumin/Globulin Ratio 0.7; Alkaline Phosphatase 140 U/L (38-126); Anion Gap 2 mmol/L; Blood Urea Nitrogen 4 mg/dL (7-17); Calcium 7.7 mg/dL (8.4-10.2); Globulin 2.6 g/dL; Glucose 109 mg/dL (74-99); Magnesium 1.6 mg/dL (1.6-2.3); Non-African American GFR(CKD) 86 (>60 ml/min/1.73 sqM); Sodium 143 mmol/L (137-145); Total Bilirubin 0.5 mg/dL (0.2-1.3); Total Protein 4.3 g/dL (6.3-8.2)
[2020-01-17 15:18] LABS: Chloride 132 mmol/L (98-107); Potassium 6.2 mmol/L (3.5-5.1)
[2020-01-17 15:19] LABS: Carbon Dioxide 9 mmol/L (22-30)
[2020-01-17 15:34] LABS: Anisocytosis Slight; Basophils # (A) 0.2 k/uL (0-0.2); Basophils % (A) 1 %; Eosinophils % (A) 0 %; HCT 32.9 % (34.0-46.0); HGB 9.9 gm/dL (11.4-16.0); Hypochromasia Marked; Lymphocytes # (A) 0.8 k/uL (1.0-4.8); Lymphocytes % (A) 4 %; MCH 31.3 pg (25.0-35.0); MCV 104.3 fL (80.0-100.0); Macrocytosis Moderate; Mean Platelet Volume 10.2; Monocytes # (A) 0.9 k/uL (0-1.0); Monocytes % (A) 5 %; Neutrophils # (A) 17.4 k/uL (1.3-7.7); Neutrophils % (A) 87 %; RBC 3.16 m/uL (3.80-5.40); RDW 16.3 % (11.5-15.5); WBC 19.9 k/uL (3.8-10.6)
[2020-01-17 15:43] LABS: Platelet Count 47 k/uL (150-450)
[2020-01-17 16:19] LABS: Potassium 6.3 mmol/L (3.5-5.1)
[2020-01-17] MEDS ORDERED: SODIUM POLYSTYRENE SULFONATE 15 GM/60 ML BOTTLE PO STA (16:24)
[2020-01-17] MEDS: PANTOPRAZOLE 40 MG TABLET PO SCH (17:04)
[2020-01-17] MEDS: SODIUM CHLORIDE 0.9% 1,000 ML IV SCH (17:04)
[2020-01-17] MEDS: OLANZapine 2.5 MG TAB PO SCH (21:04)
[2020-01-17] MEDS: MELATONIN 5 MG TABLET PO SCH (21:04)
--- NOTE | 2020-01-17 23:06 | P.PN ---
Progress Note - Text Progress Note Date: 01/17/20 Review of patients cmp and mag tonight. CO2 = 9, Potassium 6.3, and ch increased. Spoke with Dr. Velazquez and ICU. - Stat Abd non-contrast image - Add Bicarb/D5/Insul - A Team Evaluation and ICU Transfer and Tele - Nephrology COnsult placed. - Spoke with Son Schuyler and updated
[2020-01-17] MEDS ORDERED: SODIUM BICARB 8.4% 50 ML SYR (1 MEQ/ML) IV STA ×2 (23:09→23:11)
[2020-01-17] MEDS ORDERED: SODIUM CHLORIDE 0.9% 1,000 ML IV ONE (23:10)
[2020-01-17] MEDS ORDERED: VANCOMYCIN IV PER PHARMACY 1 EACH MISC MISCELLANE PRN (23:12)
--- NOTE | 2020-01-17 23:26 | XR ---
EXAMINATION TYPE: XR abdomen acute w cxr DATE OF EXAM: 01/17/2020 COMPARISON: Chest x-ray 11/05/2019 HISTORY: Acidosis. Colitis. TECHNIQUE: 3 views FINDINGS: There is some small bilateral pleural effusions. There is no gross heart failure. There is right central venous catheter with tip in the superior vena cava. There are multiple gas-filled loops of bowel involving large and small bowel down to the rectum. There is no sign of free air. There are no pathologic calcifications over the kidneys. I see no evidence of a mass. IMPRESSION: There is evidence for new small bilateral pleural effusions compared to old exam. Intestinal pattern consistent with large and small bowel ileus. No free air.
--- NOTE | 2020-01-17 23:41 | PN ---
PROGRESS NOTE DATE OF SERVICE: 01/17/2020 This 74-year-old woman who was admitted with severe dehydration and diarrhea possibly secondary to chemotherapy is being closely monitored. Patient still has some diarrhea. Patient also is having significant weakness also. The patient apparently had a fall also this morning and the patient hit her head and a CT scan of the brain showed no acute abnormality. Mild to moderate cerebral atrophy was noted. Patient will be closely monitored. Hematology/Oncology and Surgery are following the patient closely. PAST MEDICAL HISTORY: Reviewed. REVIEW OF SYSTEMS: CARDIOVASCULAR SYSTEM: No angina. RESPIRATORY SYSTEM: No cough or hemoptysis. GI: No nausea. : No dysuria. NERVOUS SYSTEM: No numbness or weakness. CURRENT MEDICATIONS: Current medications are reviewed and include Tylenol, [place], Xanax, Questran, Lomotil, Marinol, magnesium oxide, melatonin, replacement protocol. Doses are reviewed. PHYSICAL EXAMINATION: Patient is alert and oriented x2. Pulse 82, blood pressure 134/80, respirations 16, temperature 97.7, pulse ox 100% on room air. HEENT: Conjunctivae normal. NECK: No jugular venous distention. No carotid bruit. No lymph node enlargement. CARDIOVASCULAR: S1, S2 muffled. RESPIRATORY: Breath sounds diminished at the bases. No rhonchi, no crackles. ABDOMEN: Soft, nontender. LEGS: No edema. No swelling. NERVOUS SYSTEM: No focal deficits. LABS: WBC 19.9, hemoglobin 9.9. Potassium is 6.2 and 6.3. Creatinine is normal. ASSESSMENT: 1. Severe dehydration with diarrhea with possibly secondary to chemotherapy. 2. Possible ileus with dilated small and large bowel secondary to diarrhea. 3. No evidence of Pneumocystis intestinalis in the recent CAT scan. 4. Severe hypokalemia. 5. Severe hypomagnesemia. 6. Hyperkalemia currently. 7. Severe dehydration, present on admission. 8. Anemia, secondary to malignancy. 9. Colon cancer stage IV with metastasis on chemo. 10.Severe protein calorie malnutrition with body mass index of 16.1. 11.History of liver disease. 12.History of bowel resection. 13.History hypomagnesemia. 14.History of brain mass for radiation. 15.History of anxiety. 16.History of bowel resection. 17.History of severe mucositis. 18.History of tonsillectomy. 19.FULL CODE. RECOMMENDATIONS AND DISCUSSION: I recommend to continue current medications, continue symptomatic treatment. Otherwise, Kayexalate 15 g. Stop IV potassium supplements. Monitor electrolytes closely. Guarded prognosis because of multiple complex medical issues. Further recommendations to follow. Prognosis guarded. MMODL / IJN: [id number] /
[2020-01-17 23:44] LABS: ALT 12 U/L (4-34); AST 21 U/L (14-36); African American GFR (CKD) >90 (>60 ml/min/1.73 sqM); Albumin 1.6 g/dL (3.5-5.0); Albumin/Globulin Ratio 0.6; Alkaline Phosphatase 136 U/L (38-126); Anion Gap 0 mmol/L; Blood Urea Nitrogen 4 mg/dL (7-17); Calcium 7.7 mg/dL (8.4-10.2); Carbon Dioxide 12 mmol/L (22-30); Chloride 130 mmol/L (98-107); Globulin 2.5 g/dL; Glucose 98 mg/dL (74-99); Magnesium 1.7 mg/dL (1.6-2.3); Non-African American GFR(CKD) 84 (>60 ml/min/1.73 sqM); Potassium 5.9 mmol/L (3.5-5.1); Sodium 142 mmol/L (137-145); Total Bilirubin 0.4 mg/dL (0.2-1.3); Total Protein 4.1 g/dL (6.3-8.2)
[2020-01-18 00:05] LABS: ABG HCO3 14 mmol/L (21-25); ABG Oxygen Saturation 96.5 % (94-97); ABG PCO2 22 mmHg (35-45); ABG PH 7.42 (7.35-7.45); ABG PO2 83 mmHg (83-108); Allen Test Performed? Yes
[2020-01-18 00:16] LABS: Anisocytosis Slight; HCT 28.3 % (34.0-46.0); HGB 8.8 gm/dL (11.4-16.0); Hypochromasia Slight; MCH 31.3 pg (25.0-35.0); MCHC 30.9 g/dL (31.0-37.0); MCV 101.2 fL (80.0-100.0); Macrocytosis Slight; Mean Platelet Volume 10.5; RDW 16.7 % (11.5-15.5)
[2020-01-18 00:18] LABS: Platelet Count 43 k/uL (150-450)
[2020-01-18 00:45] LABS: Glucose,Whole Blood 93 mg/dL (75-99)
--- NOTE | 2020-01-18 00:58 | CT ---
EXAM: CT Abdomen and Pelvis Without Intravenous Contrast CLINICAL HISTORY: abdominal pain TECHNIQUE: Axial computed tomography images of the abdomen and pelvis without intravenous contrast. CTDI is 7.77 mGy and DLP is 395.8 mGy-cm. This CT exam was performed using one or more of the following dose reduction techniques: automated exposure control, adjustment of the mA and/or kV according to patient size, and/or use of iterative reconstruction technique. COMPARISON: 01/13/20 FINDINGS: Lung bases: Bilateral dependent atelectasis. Pleural space: Moderate bilateral pleural effusions. Heart: Small pericardial effusion. ABDOMEN: Liver: Subcentimeter foci of hypoattenuation in the liver are too small to characterize. Gallbladder and bile ducts: No significant abnormality. No calcified stones. Pancreas: No significant abnormality. Spleen: No significant abnormality. Adrenals: Nodular thickening of the right adrenal gland, similar to prior. Kidneys and ureters: Subcentimeter bilateral renal calcifications, several of which may be vascular. No hydronephrosis. Stomach and bowel: Fluid in the nondilated colon. Postsurgical changes are present in the ascending colon. Bowel is nondilated. PELVIS: Appendix: Not identified. Bladder: No significant abnormality. No calcified stones. Reproductive: Unremarkable as visualized. ABDOMEN and PELVIS: Intraperitoneal space: Small amount of abdominal ascites. Bones/joints: No acute fracture or malalignment. Soft tissues: Diffuse subcutaneous edema. Vasculature: Aortic atherosclerosis. No abdominal aneurysm. Lymph nodes: No significant abnormality. IMPRESSION: 1. Fluid in the nondilated colon is a nonspecific finding that can be seen in the setting of a diarrheal illness. 2. Small amount of abdominal ascites. No free air. 3. Moderate bilateral pleural effusions. 4. Anasarca.
[2020-01-18] MEDS ORDERED: VANCOMYCIN 750 MG in SODIUM CHLORIDE 0.9% 250 ML IVPB ONE (01:00)
[2020-01-18] MEDS: PIPERACILLIN-TAZOBACTAM 3.375 GM in SODIUM CHLORIDE 0.9% 100 ML IVPB SCH ×3 (01:11→16:41)
[2020-01-18] MEDS: DEXTROSE 5% IN WATER 1,000 ML with SODIUM BICARB (1 MEQ/ML) 150 ML IV SCH ×3 (01:15→16:36)
[2020-01-18] MEDS: SODIUM CHLORIDE 0.9% 1,000 ML IV SCH ×2 (01:20→07:08)
[2020-01-18 01:47] LABS: Band Neutrophils % 20 %; Lymphocytes # (M) 0.64 k/uL (1.0-4.8); Monocytes # (M) 0.64 k/uL (0-1.0); Neutrophils % (M) 73 %; Nucleated Red Blood Cells 0 /100 WBC (0-0); Total Cells Counted 200
[2020-01-18 01:48] LABS: Anisocytosis (M) Present; Poikilocytosis (M) Present; Target Cells Present
[2020-01-18 01:49] LABS: RBC Fragments Present
[2020-01-18 04:43] LABS: Anisocytosis Slight; HCT 29.2 % (34.0-46.0); HGB 9.1 gm/dL (11.4-16.0); Hypochromasia Slight; MCH 31.5 pg (25.0-35.0); MCHC 31.3 g/dL (31.0-37.0); MCV 100.5 fL (80.0-100.0); Macrocytosis Slight; Mean Platelet Volume 9.8; RDW 16.8 % (11.5-15.5); WBC 16.8 k/uL (3.8-10.6)
[2020-01-18 04:44] LABS: Platelet Count 41 k/uL (150-450)
[2020-01-18 05:06] LABS: ALT 12 U/L (4-34); AST 22 U/L (14-36); African American GFR (CKD) >90 (>60 ml/min/1.73 sqM); Albumin 1.5 g/dL (3.5-5.0); Albumin/Globulin Ratio 0.7; Alkaline Phosphatase 135 U/L (38-126); Anion Gap -1 mmol/L; Blood Urea Nitrogen 4 mg/dL (7-17); Calcium 7.1 mg/dL (8.4-10.2); Carbon Dioxide 17 mmol/L (22-30); Chloride 127 mmol/L (98-107); Globulin 2.1 g/dL; Glucose 118 mg/dL (74-99); Magnesium 1.5 mg/dL (1.6-2.3); Non-African American GFR(CKD) 88 (>60 ml/min/1.73 sqM); Potassium 4.9 mmol/L (3.5-5.1); Sodium 143 mmol/L (137-145); Total Bilirubin 0.4 mg/dL (0.2-1.3); Total Protein 3.6 g/dL (6.3-8.2)
[2020-01-18 05:26] LABS: Band Neutrophils % 34 %; Lymphocytes # (M) 1.34 k/uL (1.0-4.8); Metamyelocytes # (M) 0.17 k/uL (0); Metamyelocytes % 1 %; Monocytes # (M) 1.85 k/uL (0-1.0); Neutrophils % (M) 46 %; Nucleated Red Blood Cells 0 /100 WBC (0-0); Total Cells Counted 200
[2020-01-18 05:27] LABS: Anisocytosis (M) Present; Polychromasia Present
[2020-01-18] MEDS ORDERED: Magnesium Replacement Protocol 1 EACH MISC MISCELLANE PRN (05:28)
[2020-01-18] MEDS: MAGNESIUM SULFATE-D5W PMX 1 GM in DEXTROSE/WATER 1 100ML.BAG IVPB SCH ×2 (06:35→09:08)
[2020-01-18] MEDS: PANTOPRAZOLE 40 MG TABLET PO SCH ×2 (06:36→17:17)
[2020-01-18] MEDS: MAGNESIUM OXIDE 400 MG TAB PO SCH ×3 (09:08→20:55)
[2020-01-18] MEDS: valACYclovir 500 MG TAB PO SCH ×2 (09:08→20:55)
[2020-01-18] MEDS: NYSTATIN 100,000 UNIT/ML SUSP 500,000 UNIT/5 ML CUP PO SCH ×4 (09:08→20:55)
[2020-01-18] MEDS: CHOLESTYRAMINE (WITH SUGAR) 4 GM PACKET PO SCH ×3 (09:09→17:18)
[2020-01-18] MEDS: MAG HYDROX/AL HYDROX/SIMETH 30 ML, diphenhydrAMINE ELIXIR 75 MG, LIDOCAINE VISCOUS 30 ML PO SCH ×9 (09:22→20:55)
--- NOTE | 2020-01-18 10:58 | P.PN ---
Subjective Progress Note Date: 01/18/20 CHIEF COMPLAINT: Abdominal pain HISTORY OF PRESENT ILLNESS: Patient seen and examined with Dr. Monroe. Patient currently in the ICU due to her metabolic acidosis and hyperkalemia. Patient is being followed for abdominal pain and possible ileus. She did have a bowel movement yesterday that was partially formed and loose. Patient is hungry. She denies any abdominal pain today. She has a known history of metastatic colon cancer. Her stool for C. diff was negative. CT of the abdomen had shown fluid in the nondilated colon is in a nonspecific finding that can be seen in the setting of diarrhea illness. Small amount of abdominal ascites. No free air. Moderate bilateral pleural effusions. Anasarca. Acute abdominal series there is evidence for new small bilateral pleural effusions compared to old exam. Intestinal pattern consistent with large and small bowel ileus. No free air. Patient is afebrile. WBC 16.8 hemoglobin 9.1 potassium is down to 4.9 CO2 17 magnesium 1.5 albumin 1.5. Patient has been receiving IV sodium bicarb. PHYSICAL EXAM: VITAL SIGNS: Reviewed. GENERAL: Cachectic HEENT: No sclera icterus. Extraocular movements grossly intact. Moist buccal mucosa. Head is atraumatic, normocephalic. ABDOMEN: Distended. Nontender. NEUROLOGIC: Alert and oriented. Cranial nerves II through XII grossly intact. ASSESSMENT: 1. Abdominal pain with ileus. Improved 2. History of metastatic right-sided colon cancer 3. Metabolic acidosis 4. Hyperkalemia improved 5. Hypomagnesemia. Patient receiving magnesium replacement 6. Severe protein calorie malnutrition PLAN: -Advance diet to a full liquid diet -Continue ensure supplement all -Continue supportive care Physician Ship Pilot Dispatcher note has been reviewed by physician. Signing provider agrees with the documented findings, assessment, and plan of care. Objective - Vital Signs Vital signs: Vital Signs Temp 98.4 F 01/18/20 08:00 Pulse 93 01/18/20 09:00 Resp 14 01/18/20 09:00 BP 112/76 01/18/20 09:00 Pulse Ox 97 01/18/20 09:00 Intake & Output 01/17/20 01/18/20 01/18/20 18:59 06:59 18:59 Intake Total 1000 650 Balance 1000 650 Intake: IV 750 450 d5 in water w bicarb @ 750 450 150 mL/hr Intake, IV Titration 250 200 Amount Magnesium Sulfate-D5w Pmx 100 1 gm In Dextrose/Water 1 100ml.bag @ 100 mls/hr IVPB Q1H [facility] Rx#: [id number] Piperacillin-Tazobactam 3 100 .375 gm In Sodium Chloride 0.9% 100 ml @ 25 mls/hr IVPB Q8HR [facility] Rx# :[id number] Vancomycin 750 mg In 250 Sodium Chloride 0.9% 250 ml @ 125 mls/hr IVPB Q24H [facility] Rx#:[id number] Other: Voiding Method Toilet Bedside Commode Bedside Commode # Voids 0 0 # Bowel Movements 1 - Labs CBC & Chem 7: 01/18/20 03:48 01/18/20 03:48 Labs: Abnormal Lab Results - Last 24 Hours (Table) 01/17/20 01/17/20 01/17/20 Range/Units 14:32 14:32 15:50 WBC 19.9 H (3.8-10.6) k/uL RBC 3.16 L (3.80-5.40) m/uL Hgb 9.9 L (11.4-16.0) gm/dL Hct 32.9 L (34.0-46.0) % MCV 104.3 H (80.0-100.0) fL MCHC 30.0 L (31.0-37.0) g/dL RDW 16.3 H (11.5-15.5) % Plt Count 47 L (150-450) k/uL Neutrophils # 17.4 H (1.3-7.7) k/uL Neutrophils # (Manual) (1.3-7.7) k/uL Lymphocytes # 0.8 L (1.0-4.8) k/uL Lymphocytes # (Manual) (1.0-4.8) k/uL Monocytes # (Manual) (0-1.0) k/uL Metamyelocytes # (Man) (0) k/uL ABG pCO2 (35-45) mmHg ABG HCO3 (21-25) mmol/L Potassium 6.2 H* 6.3 H* (3.5-5.1) mmol/L Chloride 132 H* 132 H* (98-107) mmol/L Carbon Dioxide 9 L* 9 L* (22-30) mmol/L BUN 4 L (7-17) mg/dL Glucose 109 H (74-99) mg/dL Calcium 7.7 L (8.4-10.2) mg/dL Magnesium (1.6-2.3) mg/dL Alkaline Phosphatase 140 H (38-126) U/L Total Protein 4.3 L (6.3-8.2) g/dL Albumin 1.7 L (3.5-5.0) g/dL 01/17/20 01/17/20 01/17/20 Range/Units 22:55 23:27 23:39 WBC 16.0 H (3.8-10.6) k/uL RBC 2.80 L (3.80-5.40) m/uL Hgb 8.8 L (11.4-16.0) gm/dL Hct 28.3 L (34.0-46.0) % MCV 101.2 H (80.0-100.0) fL MCHC 30.9 L (31.0-37.0) g/dL RDW 16.7 H (11.5-15.5) % Plt Count 43 L (150-450) k/uL Neutrophils # (1.3-7.7) k/uL Neutrophils # (Manual) 14.80 H (1.3-7.7) k/uL Lymphocytes # (1.0-4.8) k/uL Lymphocytes # (Manual) 0.64 L (1.0-4.8) k/uL Monocytes # (Manual) (0-1.0) k/uL Metamyelocytes # (Man) (0) k/uL ABG pCO2 22 L (35-45) mmHg ABG HCO3 14 L (21-25) mmol/L Potassium 5.9 H (3.5-5.1) mmol/L Chloride 130 H (98-107) mmol/L Carbon Dioxide 12 L (22-30) mmol/L BUN 4 L (7-17) mg/dL Glucose (74-99) mg/dL Calcium 7.7 L (8.4-10.2) mg/dL Magnesium (1.6-2.3) mg/dL Alkaline Phosphatase 136 H (38-126) U/L Total Protein 4.1 L (6.3-8.2) g/dL Albumin 1.6 L (3.5-5.0) g/dL 01/18/20 01/18/20 Range/Units 03:48 03:48 WBC 16.8 H (3.8-10.6) k/uL RBC 2.90 L (3.80-5.40) m/uL Hgb 9.1 L (11.4-16.0) gm/dL Hct 29.2 L (34.0-46.0) % MCV 100.5 H (80.0-100.0) fL MCHC (31.0-37.0) g/dL RDW 16.8 H (11.5-15.5) % Plt Count 41 L (150-450) k/uL Neutrophils # (1.3-7.7) k/uL Neutrophils # (Manual) 13.40 H (1.3-7.7) k/uL Lymphocytes # (1.0-4.8) k/uL Lymphocytes # (Manual) (1.0-4.8) k/uL Monocytes # (Manual) 1.85 H (0-1.0) k/uL Metamyelocytes # (Man) 0.17 H (0) k/uL ABG pCO2 (35-45) mmHg ABG HCO3 (21-25) mmol/L Potassium (3.5-5.1) mmol/L Chloride 127 H (98-107) mmol/L Carbon Dioxide 17 L (22-30) mmol/L BUN 4 L (7-17) mg/dL Glucose 118 H (74-99) mg/dL Calcium 7.1 L (8.4-10.2) mg/dL Magnesium 1.5 L (1.6-2.3) mg/dL Alkaline Phosphatase 135 H (38-126) U/L Total Protein 3.6 L (6.3-8.2) g/dL Albumin 1.5 L (3.5-5.0) g/dL Microbiology - Last 24 Hours (Table) 01/14/20 03:50 Stool Culture - Final Stool
--- NOTE | 2020-01-18 11:42 | P.PN ---
Subjective Progress Note Date: 01/18/20 Principal diagnosis: Weakness, Weight loss, Diarrhea Continues care in ICU. Repeat CT did not reveal evidence of necrosis. CO2 improving. Objective - Vital Signs Vital signs: Vital Signs Temp 98.4 F 01/18/20 08:00 Pulse 93 01/18/20 09:00 Resp 14 01/18/20 09:00 BP 112/76 01/18/20 09:00 Pulse Ox 97 01/18/20 09:00 Intake & Output 01/17/20 01/18/20 01/18/20 18:59 06:59 18:59 Intake Total 1000 650 Balance 1000 650 Weight 38.555 kg Intake: IV 750 450 d5 in water w bicarb @ 750 450 150 mL/hr Intake, IV Titration 250 200 Amount Magnesium Sulfate-D5w Pmx 100 1 gm In Dextrose/Water 1 100ml.bag @ 100 mls/hr IVPB Q1H [facility] Rx#: [id number] Piperacillin-Tazobactam 3 100 .375 gm In Sodium Chloride 0.9% 100 ml @ 25 mls/hr IVPB Q8HR [facility] Rx# :[id number] Vancomycin 750 mg In 250 Sodium Chloride 0.9% 250 ml @ 125 mls/hr IVPB Q24H [facility] Rx#:[id number] Other: Voiding Method Toilet Bedside Commode Bedside Commode # Voids 0 0 # Bowel Movements 1 - Exam - Constitutional General appearance: Present: cooperative, thin - EENT EENT Comment(s): Lips and mouth very dry, dry mucous and nasal membranes. Cracking and herpetic lesions to lips. Eyes: Present: EOMI, PERRLA ENT: Present: NA/AT, other - Respiratory Respiratory: bilateral: CTA - Cardiovascular Rhythm: regular Heart sounds: normal: S1, S2 - Gastrointestinal General gastrointestinal: Present: distended, hyperactive bowel sounds, tenderness - Integumentary Integumentary: Present: pale - Neurologic Neurologic: Present: CNII-XII intact - Musculoskeletal Musculoskeletal: Present: generalized weakness - Psychiatric Psychiatric: Present: A&O x's 3, appropriate affect, intact judgment & insight - Allied health notes Allied health notes reviewed: PT - Labs CBC & Chem 7: 01/18/20 03:48 01/18/20 03:48 Labs: Abnormal Lab Results - Last 24 Hours (Table) 01/17/20 01/17/20 01/17/20 Range/Units 14:32 14:32 15:50 WBC 19.9 H (3.8-10.6) k/uL RBC 3.16 L (3.80-5.40) m/uL Hgb 9.9 L (11.4-16.0) gm/dL Hct 32.9 L (34.0-46.0) % MCV 104.3 H (80.0-100.0) fL MCHC 30.0 L (31.0-37.0) g/dL RDW 16.3 H (11.5-15.5) % Plt Count 47 L (150-450) k/uL Neutrophils # 17.4 H (1.3-7.7) k/uL Neutrophils # (Manual) (1.3-7.7) k/uL Lymphocytes # 0.8 L (1.0-4.8) k/uL Lymphocytes # (Manual) (1.0-4.8) k/uL Monocytes # (Manual) (0-1.0) k/uL Metamyelocytes # (Man) (0) k/uL ABG pCO2 (35-45) mmHg ABG HCO3 (21-25) mmol/L Potassium 6.2 H* 6.3 H* (3.5-5.1) mmol/L Chloride 132 H* 132 H* (98-107) mmol/L Carbon Dioxide 9 L* 9 L* (22-30) mmol/L BUN 4 L (7-17) mg/dL Glucose 109 H (74-99) mg/dL Calcium 7.7 L (8.4-10.2) mg/dL Magnesium (1.6-2.3) mg/dL Alkaline Phosphatase 140 H (38-126) U/L Total Protein 4.3 L (6.3-8.2) g/dL Albumin 1.7 L (3.5-5.0) g/dL 01/17/20 01/17/20 01/17/20 Range/Units 22:55 23:27 23:39 WBC 16.0 H (3.8-10.6) k/uL RBC 2.80 L (3.80-5.40) m/uL Hgb 8.8 L (11.4-16.0) gm/dL Hct 28.3 L (34.0-46.0) % MCV 101.2 H (80.0-100.0) fL MCHC 30.9 L (31.0-37.0) g/dL RDW 16.7 H (11.5-15.5) % Plt Count 43 L (150-450) k/uL Neutrophils # (1.3-7.7) k/uL Neutrophils # (Manual) 14.80 H (1.3-7.7) k/uL Lymphocytes # (1.0-4.8) k/uL Lymphocytes # (Manual) 0.64 L (1.0-4.8) k/uL Monocytes # (Manual) (0-1.0) k/uL Metamyelocytes # (Man) (0) k/uL ABG pCO2 22 L (35-45) mmHg ABG HCO3 14 L (21-25) mmol/L Potassium 5.9 H (3.5-5.1) mmol/L Chloride 130 H (98-107) mmol/L Carbon Dioxide 12 L (22-30) mmol/L BUN 4 L (7-17) mg/dL Glucose (74-99) mg/dL Calcium 7.7 L (8.4-10.2) mg/dL Magnesium (1.6-2.3) mg/dL Alkaline Phosphatase 136 H (38-126) U/L Total Protein 4.1 L (6.3-8.2) g/dL Albumin 1.6 L (3.5-5.0) g/dL 01/18/20 01/18/20 Range/Units 03:48 03:48 WBC 16.8 H (3.8-10.6) k/uL RBC 2.90 L (3.80-5.40) m/uL Hgb 9.1 L (11.4-16.0) gm/dL Hct 29.2 L (34.0-46.0) % MCV 100.5 H (80.0-100.0) fL MCHC (31.0-37.0) g/dL RDW 16.8 H (11.5-15.5) % Plt Count 41 L (150-450) k/uL Neutrophils # (1.3-7.7) k/uL Neutrophils # (Manual) 13.40 H (1.3-7.7) k/uL Lymphocytes # (1.0-4.8) k/uL Lymphocytes # (Manual) (1.0-4.8) k/uL Monocytes # (Manual) 1.85 H (0-1.0) k/uL Metamyelocytes # (Man) 0.17 H (0) k/uL ABG pCO2 (35-45) mmHg ABG HCO3 (21-25) mmol/L Potassium (3.5-5.1) mmol/L Chloride 127 H (98-107) mmol/L Carbon Dioxide 17 L (22-30) mmol/L BUN 4 L (7-17) mg/dL Glucose 118 H (74-99) mg/dL Calcium 7.1 L (8.4-10.2) mg/dL Magnesium 1.5 L (1.6-2.3) mg/dL Alkaline Phosphatase 135 H (38-126) U/L Total Protein 3.6 L (6.3-8.2) g/dL Albumin 1.5 L (3.5-5.0) g/dL Microbiology - Last 24 Hours (Table) 01/14/20 03:50 Stool Culture - Final Stool Assessment and Plan Plan: Metastatic Colon Cancer: - Status Post Cycle 11 FOLFOX with Neulasta - Will hold further chemotherapy till after new year and consider maintenance - She also receives vectibix Persistent DIarrhea: - Imaging consistent with possible ileus - Bowel rest, do not advance at this time as she has not fully tolerated full liquids - C-diff negative, Stool culture pending, Fecal leukocytes positive - Increase Questran TID - Treatment of dehydration and electrolyte replacement Chronic Illness Myopathy: - PT/OT Weight Loss and Decreased PO inctake: - Marinol Continued - Vaseline for moisture of cracked lips and nasal passage Normocytic Anemia: - Secondary to chemotherapy and possible component of nutrition Thrombocytopenia: - Stable in safe range - Less than 50K, therefore no VTE pharmacological management: SCDs and PT/OT - Monitor for Bleeding Metabolic Acidosis - Severe improving - Nephrology Following - [id number] - Continue to control diarrhea - Bowel Rest
--- NOTE | 2020-01-18 14:10 | P.NPCON ---
History of Present Illness - Reason for Consult hyperkalemia, metabolic acidosis - History of Present Illness Reason for consultation: Electrolyte imbalance History of present illness: Patient is a 74-year-old female seen in renal consultation for electrolytes imbalance. Patient has history of colon cancer and is maintained on chemotherapy outpatient. Patient states she had chemotherapy on Saturday and developed diarrhea which was persistent over the next few days. She came to the hospital due to no improvement in diarrhea. She is noted to be C. diff negative. Covid was also negative. Patient states the diarrhea has improved. Initially she was hypokalemic and subsequently became hyperkalemic. She was also severely acidotic yesterday with a bicarb level of 9. She is currently maintained on isotonic bicarbonate drip running at 150 mL an hour. Bicarb level was 17 this morning potassium level was 4.9. Oral intake is quite poor. Denies any history of kidney disease. GFR is at baseline. Denies regular use of nonsteroidals. Denies family history of renal disease. No trouble with urination. No hematuria or dysuria. Blood pressure stable. Not on any vasopressor support. Vital signs are stable. General: The patient appeared well nourished and normally developed. HEENT: Head exam is unremarkable. Neck is without jugular venous distension. LUNGS: Breath sounds decreased. HEART: Rate and Rhythm are regular. ABDOMEN: Soft, nontender. EXTREMITITES: 1+ edema. Past Medical History Past Medical History: Cancer, Liver Disease Additional Past Medical History / Comment(s): Pt admitted on 05/11/19 with abdominal pain/bowel obstruction d/t cancer/multiple pulmonary nodules-probable mets, hypomagnesemia, hypokalemia. 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 History of Any Multi-Drug Resistant Organisms: None Reported Past Surgical History: Bowel Resection, Tonsillectomy Additional Past Surgical History / Comment(s): Colectomy, colonoscopy, mediport. Past Anesthesia/Blood Transfusion Reactions: No Reported Reaction Additional Past Anesthesia/Blood Transfusion Reaction / Comment(s): No history Past Psychological History: Anxiety Smoking Status: Never smoker Past Alcohol Use History: None Reported Additional Past Alcohol Use History / Comment(s): Pt started smoking in 1964 and quit around the time of her cancer diagnosis in 2019. She drinks 2 beers a day. Past Drug Use History: None Reported - Past Family History Father Family Medical History: Myocardial Infarction (MO) Additional Family Medical History / Comment(s): Father of a MO at the age of 74 yrs. Mother Family Medical History: Rheumatoid Arthritis (RA) Medications and Allergies Home Medications Medication Instructions Recorded Confirmed Type OLANZapine [ZyPREXA] 2.5 mg PO HS 07/29/19 01/13/20 History Diphenoxylate HCl/Atropine 1 - 2 tab PO DAILY PRN 09/04/19 01/13/20 History [Lomotil 2.5-0.025 mg Tablet] ALPRAZolam [Xanax] 0.25 mg PO BID PRN 11/04/19 01/13/20 History Cholestyramine (with Sugar) 4 gm PO BID 11/04/19 01/13/20 History [Questran Packet] Potassium Chloride ER [K-Dur 20] 20 meq PO DAILY 11/04/19 01/13/20 History traMADol HCL 50 mg PO Q8H PRN 11/04/19 01/13/20 History Omeprazole 40 mg PO DAILY 01/13/20 01/13/20 History Ondansetron Odt [Zofran Odt] 4 mg PO Q4H PRN 01/13/20 01/13/20 History Allergies Allergy/AdvReac Type Severity Reaction Status Date / Time No Known Allergies Allergy Verified 01/13/20 17:59 Physical Exam Vitals: Vital Signs Temp Pulse Pulse Resp BP BP Pulse Ox 01/18/20 13:00 103 H 15 139/98 98 01/18/20 12:00 97.5 F L 110 H 96 17 114/69 97 01/18/20 11:00 89 16 112/74 97 01/18/20 10:00 85 13 114/75 97 01/18/20 09:00 93 14 112/76 97 01/18/20 08:00 98.4 F 99 96 15 125/77 93 L 01/18/20 07:00 102 H 18 109/68 98 01/18/20 06:00 90 15 124/69 95 01/18/20 05:00 96 17 121/76 93 L 01/18/20 04:00 97.9 F 93 15 129/76 97 01/18/20 03:32 96 15 01/18/20 03:00 100 15 147/89 97 01/18/20 02:00 115 H 19 131/80 97 01/18/20 01:00 97.8 F 96 17 128/81 97 01/18/20 00:54 95 15 96 01/17/20 22:38 98.4 F 96 16 129/79 99 01/17/20 20:00 97.6 F 97 16 159/93 100 Intake and Output 01/17/20 01/18/20 01/18/20 22:59 06:59 14:59 Intake Total 1000 1490 Balance 1000 1490 Intake: IV 750 1050 d5 in water w bicarb @ 750 1050 150 mL/hr Intake, IV Titration 250 200 Amount Magnesium Sulfate-D5w Pmx 100 1 gm In Dextrose/Water 1 100ml.bag @ 100 mls/hr IVPB Q1H [facility] Rx#: [id number] Piperacillin-Tazobactam 3 100 .375 gm In Sodium Chloride 0.9% 100 ml @ 25 mls/hr IVPB Q8HR [facility] Rx# :[id number] Vancomycin 750 mg In 250 Sodium Chloride 0.9% 250 ml @ 125 mls/hr IVPB Q24H [facility] Rx#:[id number] Oral 240 Other: Voiding Method Bedside Commode Bedside Commode Bedside Commode # Voids 0 0 # Bowel Movements 1 Weight 38.555 kg Results - Lab Results Most recent lab results ABG pH 7.42 (7.35-7.45) 01/17/20 23:27 ABG pCO2 22 mmHg (35-45) L 01/17/20 23:27 ABG pO2 83 mmHg (83-108) 01/17/20 23:27 ABG HCO3 14 mmol/L (21-25) L 01/17/20 23:27 ABG O2 Saturation 96.5 % (94-97) 01/17/20 23:27 Calcium 7.1 mg/dL (8.4-10.2) L 01/18/20 03:48 Magnesium 1.5 mg/dL (1.6-2.3) L 01/18/20 03:48 01/18/20 03:48 01/18/20 03:48 Assessment and Plan Plan: Assessment: 1. Hyperkalemia secondary to metabolic acidosis and potassium supplementation. Improved. 2. Metabolic acidosis secondary to GI losses. 3. History of colon cancer maintain and chemotherapy outpatient. 4. Lower extremity edema secondary to hypoalbuminemia. 5. Hypomagnesemia from GI losses. Status post placement. Plan: Maintain bicarb drip for another 24 hours but I will decrease the rate. Magnesium was replaced. I will give her 25 g IV albumin 4 doses. Repeat electrolytes in the morning. Thank you for the consultation. I will continue to follow patient with you during her hospital stay.
--- NOTE | 2020-01-18 15:06 | P.PN ---
Subjective Progress Note Date: 01/18/20 This is a 74-year-old female who was recently admitted with severe dehydration and diarrhea possibly secondary to chemotherapy and is being closely monitored. She is currently in the ICU for close monitoring as she continued to have severe electrolyte abnormalities and recently suffered a fall although computed tomography scan of the brain showed no acute abnormality with mild to moderate cerebral atrophy noted. Multiple medical consultations including oncology, surgery, and nephrology following. Patient is maintained on a sodium bicarbonate drip and will continue at this time. Will repeat a.m. labs and monitor closely. PT/OT following this patient as she continues to be quite weak. Potassium is 4.9 today, magnesium is 1.5 and being replaced. patient also will be receiving some albumin today. Review of systems: Constitutional: Reports mild fatigue, no reports of fever, or chills Cardiovascular: No reports of chest pain or palpitations Respiratory: No reports of shortness of breath or cough GI: No reports of nausea, vomiting, reports loose stools : No reports of dysuria or retention Neurovascular: Reports generalized weakness All medications have been reviewed Active Medications Acetaminophen (Acetaminophen Tab 325 Mg Tab) 650 mg PO Q6HR PRN PRN Reason: Mild Pain or Fever > 100.5 Last Admin: 01/17/20 10:43 Dose: 650 mg Documented by: Hydrocodone Bitart/Acetaminophen (Hydrocodone/Apap 5-325mg 1 Each Tab) 1 each PO Q6HR PRN PRN Reason: Pain Alprazolam (Alprazolam 0.25 Mg Tab) 0.25 mg PO BID PRN PRN Reason: Anxiety Last Admin: 01/16/20 22:55 Dose: 0.25 mg Documented by: Cholestyramine Resin (Cholestyramine (With Sugar) 4 Gm Packet) 4 gm PO TID BETWEEN MEALS [facility] Last Admin: 01/18/20 09:09 Dose: 4 gm Documented by: Al Hydroxide/Mg Hydroxide 30 ml/ Diphenhydramine HCl 75 mg/Lidocaine HCl 30 ml 0 ml PO TID [facility] Last Admin: 01/18/20 09:22 Dose: 5 ml Documented by: Diphenoxylate HCl/Atropine (Diphenox-Atrop 2.5-0.025 Mg 1 Each Tab) 1 - 2 each PO DAILY PRN PRN Reason: Diarrhea Last Admin: 01/17/20 13:31 Dose: 2 each Documented by: Dronabinol (Dronabinol 2.5 Mg Cap) 2.5 mg PO AC-BID [facility] Last Admin: 01/18/20 06:35 Dose: 2.5 mg Documented by: Hydromorphone HCl (Hydromorphone 0.5 Mg/0.5 Ml Syringe) 0.5 mg IVP Q3HR PRN PRN Reason: Moderate Pain Sodium Chloride (Saline 0.9%) 1,000 mls @ 130 mls/hr IV .[id number] [facility] Last Admin: 01/18/20 07:08 Dose: Not Given Documented by: Sodium Bicarbonate 150 ml/ (Dextrose/Water) 1,150 mls @ 80 mls/hr IV .[id number] [facility] Last Admin: 01/18/20 06:32 Dose: 150 mls/hr Documented by: Piperacillin Sod/Tazobactam (Sod 3.375 gm/ Sodium Chloride) 100 mls @ 25 mls/hr IVPB Q8HR [facility] Last Admin: 01/18/20 09:08 Dose: 25 mls/hr Documented by: Vancomycin HCl 750 mg/ Sodium (Chloride) 250 mls @ 125 mls/hr IVPB Q18H [facility] Albumin Human 50 ml/ IV (Solution) 50 mls @ 50 mls/hr IVPB BID [facility] Stop: 01/19/20 09:59 Magnesium Oxide (Magnesium Oxide 400 Mg Tab) 400 mg PO TID [facility] Last Admin: 01/18/20 09:08 Dose: 400 mg Documented by: Melatonin (Melatonin 5 Mg Tablet) 5 mg PO HS [facility] Last Admin: 01/17/20 21:04 Dose: Not Given Documented by: Miscellaneous Information (Potassium Replacement Protocol 1 Each Misc) 1 each MISCELLANE DAILY PRN; Protocol PRN Reason: Per Protocol Miscellaneous Information (Magnesium Replacement Protocol 1 Each Misc) 1 each MISCELLANE DAILY PRN; Protocol PRN Reason: Per Protocol Miscellaneous Information (Potassium Replacement Protocol 1 Each Misc) 1 each MISCELLANE DAILY PRN; Protocol PRN Reason: Per Protocol Miscellaneous Information (Magnesium Replacement Protocol 1 Each Misc) 1 each MISCELLANE DAILY PRN; Protocol PRN Reason: Per Protocol Miscellaneous Information (Magnesium Replacement Protocol 1 Each Misc) 1 each MISCELLANE DAILY PRN; Protocol PRN Reason: Per Protocol Naloxone HCl (Naloxone 0.4 Mg/Ml 1 Ml Vial) 0.2 mg IV Q2M PRN PRN Reason: Opioid Reversal Nystatin (Nystatin 100,000 Unit/Ml Susp 500,000 Unit/5 Ml Cup) 500,000 unit PO QID [facility] Last Admin: 01/18/20 13:24 Dose: Not Given Documented by: Olanzapine (Olanzapine 2.5 Mg Tab) 2.5 mg PO HS [facility] Last Admin: 01/17/20 21:04 Dose: Not Given Documented by: Ondansetron HCl (Ondansetron 4 Mg/2 Ml Vial) 4 mg IVP Q8HR PRN PRN Reason: Nausea And Vomiting Pantoprazole Sodium (Pantoprazole 40 Mg Tablet) 40 mg PO AC-BID [facility] Last Admin: 01/18/20 06:36 Dose: 40 mg Documented by: Temazepam (Temazepam 15 Mg Cap) 15 mg PO HS PRN PRN Reason: Insomnia Tramadol HCl (Tramadol 50 Mg Tab) 50 mg PO Q8H PRN PRN Reason: Pain Valacyclovir HCl (Valacyclovir 500 Mg Tab) 1,000 mg PO BID [facility] Last Admin: 01/18/20 09:08 Dose: 1,000 mg Documented by: Objective - Vital Signs Vital signs: Vital Signs Temp 97.5 F L 01/18/20 12:00 Pulse 103 H 01/18/20 13:00 Resp 15 01/18/20 13:00 BP 139/98 01/18/20 13:00 Pulse Ox 98 01/18/20 13:00 Intake & Output 01/17/20 01/18/20 01/18/20 18:59 06:59 18:59 Intake Total 1000 1490 Balance 1000 1490 Weight 38.555 kg Intake: IV 750 1050 d5 in water w bicarb @ 750 1050 150 mL/hr Intake, IV Titration 250 200 Amount Magnesium Sulfate-D5w Pmx 100 1 gm In Dextrose/Water 1 100ml.bag @ 100 mls/hr IVPB Q1H [facility] Rx#: [id number] Piperacillin-Tazobactam 3 100 .375 gm In Sodium Chloride 0.9% 100 ml @ 25 mls/hr IVPB Q8HR [facility] Rx# :[id number] Vancomycin 750 mg In 250 Sodium Chloride 0.9% 250 ml @ 125 mls/hr IVPB Q24H [facility] Rx#:[id number] Oral 240 Other: Voiding Method Toilet Bedside Commode Bedside Commode # Voids 0 0 # Bowel Movements 1 - Exam Gen: This is a 74-year-old female awake, alert and oriented 2. Temp is 97.5F, pulse is 89, respirations are 16, blood pressure is 112/74, oxygen saturation is 97 % on room air. HEENT: Head is atraumatic, normocephalic. Pupils equal, round. Sclerae is anicteric. Multiple mouth sores noted with severe mucositis NECK: Supple. No JVD. No lymphadenopathy. No thyromegaly. LUNGS: Breath Sounds diminished bilaterally at the bases with no wheezing or rhonchi noted. No intercostal retractions. HEART: S1, S2 are muffled ABDOMEN: Soft. Bowel sounds are present. No masses. No tenderness. EXTREMITIES: No pedal edema. No calf tenderness. NEUROLOGICAL: Patient is awake, alert and oriented x2. Cranial nerves 2 through 12 are grossly intact. Diffusely weak - Labs CBC & Chem 7: 01/18/20 03:48 01/18/20 03:48 Labs: Abnormal Lab Results - Last 24 Hours (Table) 01/17/20 01/17/20 01/17/20 Range/Units 14:32 14:32 15:50 WBC 19.9 H (3.8-10.6) k/uL RBC 3.16 L (3.80-5.40) m/uL Hgb 9.9 L (11.4-16.0) gm/dL Hct 32.9 L (34.0-46.0) % MCV 104.3 H (80.0-100.0) fL MCHC 30.0 L (31.0-37.0) g/dL RDW 16.3 H (11.5-15.5) % Plt Count 47 L (150-450) k/uL Neutrophils # 17.4 H (1.3-7.7) k/uL Neutrophils # (Manual) (1.3-7.7) k/uL Lymphocytes # 0.8 L (1.0-4.8) k/uL Lymphocytes # (Manual) (1.0-4.8) k/uL Monocytes # (Manual) (0-1.0) k/uL Metamyelocytes # (Man) (0) k/uL ABG pCO2 (35-45) mmHg ABG HCO3 (21-25) mmol/L Potassium 6.2 H* 6.3 H* (3.5-5.1) mmol/L Chloride 132 H* 132 H* (98-107) mmol/L Carbon Dioxide 9 L* 9 L* (22-30) mmol/L BUN 4 L (7-17) mg/dL Glucose 109 H (74-99) mg/dL Calcium 7.7 L (8.4-10.2) mg/dL Magnesium (1.6-2.3) mg/dL Alkaline Phosphatase 140 H (38-126) U/L Total Protein 4.3 L (6.3-8.2) g/dL Albumin 1.7 L (3.5-5.0) g/dL 01/17/20 01/17/20 01/17/20 Range/Units 22:55 23:27 23:39 WBC 16.0 H (3.8-10.6) k/uL RBC 2.80 L (3.80-5.40) m/uL Hgb 8.8 L (11.4-16.0) gm/dL Hct 28.3 L (34.0-46.0) % MCV 101.2 H (80.0-100.0) fL MCHC 30.9 L (31.0-37.0) g/dL RDW 16.7 H (11.5-15.5) % Plt Count 43 L (150-450) k/uL Neutrophils # (1.3-7.7) k/uL Neutrophils # (Manual) 14.80 H (1.3-7.7) k/uL Lymphocytes # (1.0-4.8) k/uL Lymphocytes # (Manual) 0.64 L (1.0-4.8) k/uL Monocytes # (Manual) (0-1.0) k/uL Metamyelocytes # (Man) (0) k/uL ABG pCO2 22 L (35-45) mmHg ABG HCO3 14 L (21-25) mmol/L Potassium 5.9 H (3.5-5.1) mmol/L Chloride 130 H (98-107) mmol/L Carbon Dioxide 12 L (22-30) mmol/L BUN 4 L (7-17) mg/dL Glucose (74-99) mg/dL Calcium 7.7 L (8.4-10.2) mg/dL Magnesium (1.6-2.3) mg/dL Alkaline Phosphatase 136 H (38-126) U/L Total Protein 4.1 L (6.3-8.2) g/dL Albumin 1.6 L (3.5-5.0) g/dL 01/18/20 01/18/20 Range/Units 03:48 03:48 WBC 16.8 H (3.8-10.6) k/uL RBC 2.90 L (3.80-5.40) m/uL Hgb 9.1 L (11.4-16.0) gm/dL Hct 29.2 L (34.0-46.0) % MCV 100.5 H (80.0-100.0) fL MCHC (31.0-37.0) g/dL RDW 16.8 H (11.5-15.5) % Plt Count 41 L (150-450) k/uL Neutrophils # (1.3-7.7) k/uL Neutrophils # (Manual) 13.40 H (1.3-7.7) k/uL Lymphocytes # (1.0-4.8) k/uL Lymphocytes # (Manual) (1.0-4.8) k/uL Monocytes # (Manual) 1.85 H (0-1.0) k/uL Metamyelocytes # (Man) 0.17 H (0) k/uL ABG pCO2 (35-45) mmHg ABG HCO3 (21-25) mmol/L Potassium (3.5-5.1) mmol/L Chloride 127 H (98-107) mmol/L Carbon Dioxide 17 L (22-30) mmol/L BUN 4 L (7-17) mg/dL Glucose 118 H (74-99) mg/dL Calcium 7.1 L (8.4-10.2) mg/dL Magnesium 1.5 L (1.6-2.3) mg/dL Alkaline Phosphatase 135 H (38-126) U/L Total Protein 3.6 L (6.3-8.2) g/dL Albumin 1.5 L (3.5-5.0) g/dL Microbiology - Last 24 Hours (Table) 01/14/20 03:50 Stool Culture - Final Stool Assessment and Plan Assessment: Severe dehydration and diarrhea possibly secondary to chemotherapy Possible ileus with dilated small and large bowels secondary to diarrhea No evidence of pneumocystitis intestinalis on recent computed tomography scan Severe hypokalemia Severe hypomagnesemia Hyperkalemia currently Severe dehydration, present on admission Anemia secondary to malignancy Colon cancer stage IV metastasis on chemo Severe protein calorie malnutrition with a body mass index of 16.1 History of liver disease history bowel resection history of hypomagnesemia History of brain metastasis for radiation history of anxiety History of bowel resection history of severe mucositis History of tonsillectomy No code Recommendations and discussion: Patient currently remains in the ICU and is being closely monitored. Electrolyte replacements per protocol. Will repeat a.m. labs and continue to monitor closely. Recommend to continue current medications, management, and symptomatic treatment. Patient is maintained on full liquids and will continue at this time. Increase activity as tolerated. PT/OT following. Case management following along with multiple medical consultations. Due to multiple complex medical issues, prognosis is guarded. Further recommendations to follow.
[2020-01-18] MEDS: DIPHENOX-ATROP 2.5-0.025 MG 1 EACH TAB PO PRN (17:53)
[2020-01-18] MEDS: ONDANSETRON 4 MG/2 ML VIAL IVP PRN (17:53)
[2020-01-18] MEDS: ALBUMIN HUMAN 25% 50 ML in EMPTY BAG 1 BAG IVPB SCH (19:49)
[2020-01-18] MEDS: MELATONIN 5 MG TABLET PO SCH (20:54)
[2020-01-18] MEDS: OLANZapine 2.5 MG TAB PO SCH (20:55)
[2020-01-18] MEDS: ALPRAZolam 0.25 MG TAB PO PRN (20:56)
[2020-01-18] MEDS: VANCOMYCIN 750 MG in SODIUM CHLORIDE 0.9% 250 ML IVPB SCH (20:58)
--- NOTE | 2020-01-18 22:08 | CONS ---
CONSULTATION PULMONARY/CRITICAL CARE CONSULTATION: DATE OF SERVICE: 01/18/2020 REASON FOR CONSULTATION: ICU management. HISTORY OF PRESENT ILLNESS: A 74-year-old female with a history of stage IV colon carcinoma, apparently came to the emergency room on January 12 complaining of abdominal pain. She apparently initially went to [facility], was found to be dehydrated. She also apparently had an abnormal CT scan. There was some concern for ischemic colitis. She was admitted with a diagnosis of weakness, and diarrhea. She apparently underwent a chemotherapy last on January 05. She came to the ICU yesterday. She apparently had significant electrolyte disturbances, and she apparently was quite weak and had fallen. A CT scan of the brain was done and was negative. Currently, she is resting comfortably. She states she feels better. She is on room air. She is getting D5W 3 amps of bicarb at 150 mL an hour. The patient is DO NOT RESUSCITATE patient. I thought the patient could probably be transferred out to the general medical floor later today. Currently, the patient denies any particular complaints. She denies any belly pain. She denies any chest pain or chest discomfort. There is no shortness of breath. There is no fever or chills. HOME MEDICATIONS: Reviewed. She is on Zyprexa, Zofran, Lomotil, Xanax, calcium carbonate, Questran packets, magnesium oxide, potassium chloride and Tramadol. ALLERGIES: Denied. PAST MEDICAL HISTORY: Includes colon cancer, stage IV. As well as multiple pulmonary nodules, likely representing metastatic disease. Other medical history includes hepatitis C, osteoporosis, and bilateral cataracts. Apparently she has colon cancer which has spread to the liver and brain and was to start brain irradiation this week. SURGICAL HISTORY: Surgical history includes bowel resection, tonsillectomy, colectomy, colonoscopy, and MediPort insertion. SOCIAL HISTORY: Social history is significant that she is a lifelong nonsmoker, does not use or drink alcohol and does not use illicit drugs. FAMILY HISTORY: Positive for father with myocardial infarction and mother with rheumatoid arthritis. REVIEW OF SYSTEMS: CONSTITUTIONAL weakness and fatigue. NEUROLOGIC negative. HEENT negative. CARDIOVASCULAR negative. PULMONARY negative. GI: Abdominal pain and bloating, resolved. negative. RHEUMATOLOGIC negative. IMMUNOLOGIC negative. ENDOCRINOLOGIC negative. DERMATOLOGIC negative. PHYSICAL EXAMINATION: VITAL SIGNS: Current vital signs are reviewed. Temperature is 97.5, heart rate 89, respiratory rate 15, blood pressure 139/98. Mean 111. Saturations on room air 98%. GENERAL: Appears in no acute distress. HEENT: Examination is grossly unremarkable. NECK: Supple. Full range of motion. No adenopathy. Neck veins are flat. CARDIOVASCULAR: Examination reveals regular rhythm and rate. Heart rate about 95 beats per minute. S1, S2 normal. Heart sounds are distant. LUNGS: Reveal clear breath sounds. No wheezes, rhonchi, or crackles. ABDOMEN: Soft. Bowel sounds are heard. EXTREMITIES are intact. No edema. SKIN: Without rash. NEUROLOGIC: Examination is brief but nonfocal. Currently, she is not receiving any supplemental oxygen. Her IV is D5W with 3 amps of bicarb at 150 mL an hour. LABS: Reviewed. White count 16.8, hemoglobin 9.1, hematocrit 29.2, platelet count is 41,000. Blood gases from January 16 show pO2 of 83, pCO2 22, and a pH of 7.42. The blood gases are consistent with a mixed acid-base disturbance including a combined respiratory alkalosis and metabolic acidosis. Looking at her electrolytes: Sodium 143, potassium 4.9, chloride 127, CO2 17, anion gap is 0. BUN and creatinine was 4 and 0.64. Magnesium 1.5. Albumin 1.5. Electrolytes are consistent with a hyperchloremic, non-anion gap metabolic acidosis. This is probably related to diarrhea. The stool cultures are pending or negative. The patient has had an abdominal pelvic CT x2, which showed dilated large and small bowel loops with fluid levels consistent with generalized ileus. A repeat CT of the abdomen and pelvis done on January 17 shows fluid in the nondilated colon, consistent with a diarrheal illness, a small amount of abdominal ascites without free air, and small to moderate bilateral pleural effusions. Current medications are reviewed. The patient is on Tylenol, albumin, Xanax, Questran, Maalox, Lomotil, Marinol, [place], Dilaudid, Mag-Ox, magnesium replacement, melatonin, Narcan, nystatin, Zyprexa, Zofran, Protonix, Zosyn, potassium replacement, bicarb drip, Restoril, tramadol, Valtrex, and vancomycin. ASSESSMENT: 1. Advanced colon cancer with metastasis to the liver and brain, status post recent chemotherapy, with significant electrolyte disturbance and dehydration caused by diarrhea. 2. Profound weakness, status post fall with negative brain CT. 3. Hyperchloremic non-anion gap metabolic acidosis secondary to diarrhea. 4. History of hepatitis C. 5. Chronic abdominal pain. 6. Hypomagnesemia and hypokalemia. 7. Bilateral cataracts. 8. History of osteoporosis. 9. Anemia. 10.Thrombocytopenia. 11.Hypoalbuminemia. PLAN: The patient is doing reasonably well. She is feeling much better today. I asked them to continue the bicarb drip at this time. The patient is not receiving any supplemental oxygen. Later today, if she is stable, she can be transferred out to the general medical floor. Additional recommendations and suggestions are forthcoming. Overall prognosis is very poor. We will continue to follow. Medications are reviewed. CARLOSL / ARUNAN: [id number] /
[2020-01-19] MEDS: DEXTROSE 5% IN WATER 1,000 ML with SODIUM BICARB (1 MEQ/ML) 150 ML IV SCH (00:57)
[2020-01-19] MEDS: PIPERACILLIN-TAZOBACTAM 3.375 GM in SODIUM CHLORIDE 0.9% 100 ML IVPB SCH ×3 (01:12→16:30)
[2020-01-19] MEDS ORDERED: VANCOMYCIN 750 MG in SODIUM CHLORIDE 0.9% 250 ML IVPB SCH (02:00)
[2020-01-19 03:57] LABS: Chloride 114 mmol/L (98-107); Potassium 3.6 mmol/L (3.5-5.1); Sodium 139 mmol/L (137-145)
[2020-01-19 04:09] LABS: African American GFR (CKD) >90 (>60 ml/min/1.73 sqM); Anion Gap 1 mmol/L; Blood Urea Nitrogen 5 mg/dL (7-17); Calcium 7.1 mg/dL (8.4-10.2); Carbon Dioxide 24 mmol/L (22-30); Glucose 115 mg/dL (74-99); Magnesium 1.6 mg/dL (1.6-2.3); Non-African American GFR(CKD) >90 (>60 ml/min/1.73 sqM)
[2020-01-19] MEDS: PANTOPRAZOLE 40 MG TABLET PO SCH ×2 (06:58→17:30)
[2020-01-19] MEDS: MAG HYDROX/AL HYDROX/SIMETH 30 ML, diphenhydrAMINE ELIXIR 75 MG, LIDOCAINE VISCOUS 30 ML PO SCH ×9 (09:52→22:35)
[2020-01-19] MEDS: NYSTATIN 100,000 UNIT/ML SUSP 500,000 UNIT/5 ML CUP PO SCH ×4 (09:53→22:35)
[2020-01-19] MEDS: CHOLESTYRAMINE (WITH SUGAR) 4 GM PACKET PO SCH ×3 (09:53→18:43)
[2020-01-19] MEDS: MAGNESIUM OXIDE 400 MG TAB PO SCH ×2 (09:53→16:30)
[2020-01-19] MEDS: valACYclovir 500 MG TAB PO SCH (09:54)
[2020-01-19] MEDS: ALBUMIN HUMAN 25% 50 ML in EMPTY BAG 1 BAG IVPB SCH (09:54)
[2020-01-19] MEDS: MAGNESIUM SULFATE-D5W PMX 1 GM in DEXTROSE/WATER 1 100ML.BAG IVPB SCH ×2 (11:19→12:26)
[2020-01-19] MEDS: SODIUM CHLORIDE 0.9% 1,000 ML IV SCH (11:19)
--- NOTE | 2020-01-19 11:19 | PN ---
PROGRESS NOTE PULMONARY/CRITICAL CARE PROGRESS NOTE: DATE OF SERVICE: 01/19/2020 This is a 74-year-old female who we saw yesterday in consultation. She has a history of stage IV colon carcinoma. She came to the emergency room on January 12 complaining of abdominal pain. She initially went to [facility], was found to be dehydrated and was transferred down here. There was some concern of ischemic colitis as noted on a CT scan. In addition, she had weakness and diarrhea. The patient was transferred here primarily because of electrolyte disturbance. The patient is stable now. She is do not resuscitate. Currently, she is not receiving any supplemental oxygen. She was on D5W with 3 amps of bicarb at 150 mL an hour. That can be converted to saline at 75 mL an hour. Her bicarbonate concentration on most recent electrolyte profile is 24. The patient could go to the general medical floor in my opinion. Current vital signs are reviewed, temperature is 97.6, heart rate 82, respiratory rate 20, blood pressure 120/72 mean 88, room air saturation 95% to 96%. Appears in no acute distress. HEENT: Examination is grossly unremarkable. NECK: Supple, full range of motion. No adenopathy. Neck veins are flat. CARDIOVASCULAR: Examination reveals regular rhythm and rate. Mid 70s for heart rate. No murmur. S1, S2 normal. Heart sounds are distant. LUNGS: Reveal mostly clear breath sounds. Mild bilateral rhonchi. ABDOMEN: Soft. Bowel sounds are noted. EXTREMITIES: Intact. No edema. SKIN: Without rash. NEUROLOGIC: Examination is brief but nonfocal. LABS: Reviewed. White count 16.8, hemoglobin 9.1, hematocrit 29.2, platelet count is 41,000. Sodium 139, potassium 3.6, chloride 114, CO2 is 24, anion gap is 1. BUN and creatinine were 5 and 0.56. Magnesium is 1.6. Microbiology is currently negative including blood and stool. Chest x-ray was not done. MEDICATIONS: Reviewed. Currently, she is on Tylenol, Xanax, Questran, Maalox, Lomotil, Marinol, [place], Dilaudid, Mag-Ox, magnesium replacement, melatonin, Narcan, nystatin oral suspension, Zyprexa, Zofran, Protonix, Zosyn, potassium replacement therapy, saline at 75 mL an hour, Restoril tramadol, Valtrex, and vancomycin. ASSESSMENT: 1. Advanced colon cancer with metastasis to the liver and brain, status post recent chemotherapy, with significant electrolyte disturbance, dehydration, weakness, and diarrhea. 2. Profound weakness, status post fall with negative brain CT. 3. Hyperchloremic non-anion gap metabolic acidosis, secondary to diarrhea, much improved. 4. History of hepatitis C. 5. Chronic abdominal pain. 6. Hypomagnesemia and hypokalemia, improved. 7. Bilateral cataracts. 8. History of osteoporosis. 9. Anemia. 10.Thrombocytopenia. 11.Hypoalbuminemia. PLAN: Her bicarbonate infusion can be discontinued in favor with saline at 75 mL an hour. Her bicarbonate concentration on the most recent electrolyte profile is 24 mEq/L. She is not receiving any supplemental oxygen. Her hemodynamic status is stable. Will continue to follow. Prognosis is guarded. The patient could be transferred out to the general medical floor. MMMATHEWL / ARUNAN: [id number] /
[2020-01-19] MEDS ORDERED: VANCOMYCIN IV PER PHARMACY 1 EACH MISC MISCELLANE PRN (11:55)
--- NOTE | 2020-01-19 12:10 | P.PN ---
Subjective Progress Note Date: 01/19/20 CHIEF COMPLAINT: Abdominal pain HISTORY OF PRESENT ILLNESS: Patient seen and examined with Dr. Monroe. Patient currently in the ICU due to her metabolic acidosis and hyperkalemia. Patient is being followed for abdominal pain and possible ileus. She has a known history of metastatic colon cancer. Her stool for C. diff was negative. CT of the abdomen had shown fluid in the nondilated colon is in a nonspecific finding that can be seen in the setting of diarrhea illness. Small amount of abdominal ascites. No free air. Moderate bilateral pleural effusions. Anasarca. Acute abdominal series there is evidence for new small bilateral pleural effusions compared to old exam. Intestinal pattern consistent with large and small bowel ileus. No free air. Patient denies any abdominal pain. Her last bowel movement was yesterday. She is currently on a full liquid diet. Denies any nausea or vomiting Patient is afebrile. CO2 24 PHYSICAL EXAM: VITAL SIGNS: Reviewed. GENERAL: Cachectic HEENT: No sclera icterus. Extraocular movements grossly intact. Moist buccal mucosa. Head is atraumatic, normocephalic. ABDOMEN: Distended. Nontender. NEUROLOGIC: Alert and oriented. Cranial nerves II through XII grossly intact. ASSESSMENT: 1. Abdominal pain with ileus. Improved 2. History of metastatic right-sided colon cancer 3. Metabolic acidosis secondary to diarrhea has improved 4. Hyperkalemia improved 5. Hypomagnesemia. Patient receiving magnesium replacement 6. Severe protein calorie malnutrition PLAN: -Continue full liquid diet -Continue ensure supplement -Continue supportive care -Patient will likely be transferred out of the ICU today Physician [employer] note has been reviewed by physician. Signing provider agrees with the documented findings, assessment, and plan of care. Objective - Vital Signs Vital signs: Vital Signs Temp 97.6 F 01/19/20 09:00 Pulse 82 01/19/20 09:00 Resp 20 01/19/20 09:00 BP 120/72 01/19/20 09:00 Pulse Ox 95 01/19/20 09:00 Intake & Output 01/18/20 01/19/20 01/19/20 18:59 06:59 18:59 Intake Total 2700 1500 Output Total 1 Balance 2699 1500 Weight 38.555 kg Intake: IV 1800 1500 d5 in water w bicarb @ 1800 1500 150 mL/hr Intake, IV Titration 300 Amount Magnesium Sulfate-D5w Pmx 100 1 gm In Dextrose/Water 1 100ml.bag @ 100 mls/hr IVPB Q1H [facility] Rx#: [id number] Piperacillin-Tazobactam 3 200 .375 gm In Sodium Chloride 0.9% 100 ml @ 25 mls/hr IVPB Q8HR [facility] Rx# :[id number] Oral 600 Output: Stool 1 Other: Voiding Method Bedside Commode Bedside Commode Bedside Commode # Voids 1 0 - Labs CBC & Chem 7: 01/18/20 03:48 01/19/20 03:25 Labs: Abnormal Lab Results - Last 24 Hours (Table) 01/19/20 Range/Units 03:25 Chloride 114 H (98-107) mmol/L BUN 5 L (7-17) mg/dL Glucose 115 H (74-99) mg/dL Calcium 7.1 L (8.4-10.2) mg/dL Microbiology - Last 24 Hours (Table) 01/17/20 23:39 Blood Culture - Preliminary Blood No Growth after 24 hours 01/14/20 03:50 Stool Culture - Final Stool
[2020-01-19] MEDS ORDERED: POTASSIUM CHLORIDE ER 20 MEQ TAB.ER PO STA (12:19)
--- NOTE | 2020-01-19 12:21 | P.PN ---
Subjective Patient is seen in follow for electrolyte imbalance. GFR is at baseline. Potassium 3.6. Acidosis resolved. No diarrhea today. Status post IV albumin yesterday. Oral intake still poor. No chest pain or shortness of breath. Vital signs are stable. General: The patient appeared well nourished and normally developed. HEENT: Head exam is unremarkable. Neck is without jugular venous distension. LUNGS: Breath sounds decreased. HEART: Rate and Rhythm are regular. ABDOMEN: Soft, nontender. EXTREMITITES: 1-2+ edema. Objective - Vital Signs Vital signs: Vital Signs Temp 97.6 F 01/19/20 09:00 Pulse 82 01/19/20 09:00 Resp 20 01/19/20 09:00 BP 120/72 01/19/20 09:00 Pulse Ox 95 01/19/20 09:00 Intake & Output 01/18/20 01/19/20 01/19/20 18:59 06:59 18:59 Intake Total 2700 1500 Output Total 1 Balance 2699 1500 Weight 38.555 kg Intake: IV 1800 1500 d5 in water w bicarb @ 1800 1500 150 mL/hr Intake, IV Titration 300 Amount Magnesium Sulfate-D5w Pmx 100 1 gm In Dextrose/Water 1 100ml.bag @ 100 mls/hr IVPB Q1H [facility] Rx#: [id number] Piperacillin-Tazobactam 3 200 .375 gm In Sodium Chloride 0.9% 100 ml @ 25 mls/hr IVPB Q8HR [facility] Rx# :[id number] Oral 600 Output: Stool 1 Other: Voiding Method Bedside Commode Bedside Commode Bedside Commode # Voids 1 0 - Labs CBC & Chem 7: 01/18/20 03:48 01/19/20 03:25 Labs: Abnormal Lab Results - Last 24 Hours (Table) 01/19/20 Range/Units 03:25 Chloride 114 H (98-107) mmol/L BUN 5 L (7-17) mg/dL Glucose 115 H (74-99) mg/dL Calcium 7.1 L (8.4-10.2) mg/dL Microbiology - Last 24 Hours (Table) 01/17/20 23:39 Blood Culture - Preliminary Blood No Growth after 24 hours Assessment and Plan Plan: Assessment: 1. Hyperkalemia secondary to metabolic acidosis and potassium supplementation. Resolved. 2. Metabolic acidosis secondary to GI losses. Resolved. Status post bicarb drip. 3. History of colon cancer maintain and chemotherapy outpatient. 4. Lower extremity edema secondary to hypoalbuminemia. Status post IV albumin. 5. Hypomagnesemia from GI losses. Status post placement. Plan: Maintain normal saline. Replace potassium. 20 mEq today. Magnesium replaced. Repeat electrolytes in the morning.
[2020-01-19] MEDS: VANCOMYCIN 750 MG in SODIUM CHLORIDE 0.9% 250 ML IVPB SCH (14:15)
--- NOTE | 2020-01-19 14:33 | P.PN ---
Subjective Progress Note Date: 01/19/20 This is a 74-year-old female who was recently admitted with severe dehydration and diarrhea possibly secondary to chemotherapy and is being closely monitored. She is currently in the ICU for close monitoring as she continued to have severe electrolyte abnormalities and recently suffered a fall although computed tomography scan of the brain showed no acute abnormality with mild to moderate cerebral atrophy noted. Multiple medical consultations including oncology, surgery, and nephrology following. Patient is maintained on a sodium bicarbonate drip and will continue at this time. Will repeat a.m. labs and monitor closely. PT/OT following this patient as she continues to be quite weak. Potassium is 4.9 today, magnesium is 1.5 and being replaced. patient also will be receiving some albumin today. Review of systems: Constitutional: Reports mild fatigue, no reports of fever, or chills Cardiovascular: No reports of chest pain or palpitations Respiratory: No reports of shortness of breath or cough GI: No reports of nausea, vomiting, reports loose stools : No reports of dysuria or retention Neurovascular: Reports generalized weakness All medications have been reviewed 01/19/2020 Patient is seen and evaluated in follow-up today and has currently been moved out of the ICU and continues to be monitored closely. Per nursing staff patient had one bowel movement yesterday and no reports of loose stools today. Diet is full liquid and tolerating although does not have much of an appetite. Potassium is 3.6 today and magnesium is 1.6 and currently being replaced per protocol. We'll repeat a.m. labs. Multiple medical consultations following including nephrology, surgery, and oncology. No surgical intervention at this time and will continue with conservative management. Patient continues to be lethargic although is arousable. Discussed with the patient about increasing oral intake and is to maintain ensure with each meal. Currently patient denies any chest pain, shortness of breath, or palpitations. Patient is afebrile. No reports of nausea or vomiting noted. Active Medications Acetaminophen (Acetaminophen Tab 325 Mg Tab) 650 mg PO Q6HR PRN PRN Reason: Mild Pain or Fever > 100.5 Last Admin: 01/17/20 10:43 Dose: 650 mg Documented by: Hydrocodone Bitart/Acetaminophen (Hydrocodone/Apap 5-325mg 1 Each Tab) 1 each PO Q6HR PRN PRN Reason: Pain Alprazolam (Alprazolam 0.25 Mg Tab) 0.25 mg PO BID PRN PRN Reason: Anxiety Last Admin: 01/18/20 20:56 Dose: 0.25 mg Documented by: Cholestyramine Resin (Cholestyramine (With Sugar) 4 Gm Packet) 4 gm PO TID BETWEEN MEALS [facility] Last Admin: 01/19/20 09:53 Dose: 4 gm Documented by: Al Hydroxide/Mg Hydroxide 30 ml/ Diphenhydramine HCl 75 mg/Lidocaine HCl 30 ml 0 ml PO TID [facility] Last Admin: 01/19/20 09:52 Dose: 5 ml Documented by: Diphenoxylate HCl/Atropine (Diphenox-Atrop 2.5-0.025 Mg 1 Each Tab) 1 - 2 each PO DAILY PRN PRN Reason: Diarrhea Last Admin: 01/18/20 17:53 Dose: 2 each Documented by: Dronabinol (Dronabinol 2.5 Mg Cap) 2.5 mg PO AC-BID [facility] Last Admin: 01/19/20 06:58 Dose: Not Given Documented by: Hydromorphone HCl (Hydromorphone 0.5 Mg/0.5 Ml Syringe) 0.5 mg IVP Q3HR PRN PRN Reason: Moderate Pain Piperacillin Sod/Tazobactam (Sod 3.375 gm/ Sodium Chloride) 100 mls @ 25 mls/hr IVPB Q8HR [facility] Last Admin: 01/19/20 09:53 Dose: 25 mls/hr Documented by: Vancomycin HCl 750 mg/ Sodium (Chloride) 250 mls @ 125 mls/hr IVPB Q18H [facility] Last Admin: 01/19/20 14:15 Dose: 125 mls/hr Documented by: Sodium Chloride (Saline 0.9%) 1,000 mls @ 75 mls/hr IV .[id number] [facility] Last Admin: 01/19/20 11:19 Dose: 75 mls/hr Documented by: Magnesium Oxide (Magnesium Oxide 400 Mg Tab) 400 mg PO TID [facility] Last Admin: 01/19/20 09:53 Dose: 400 mg Documented by: Melatonin (Melatonin 5 Mg Tablet) 5 mg PO HS [facility] Last Admin: 01/18/20 20:54 Dose: Not Given Documented by: Miscellaneous Information (Magnesium Replacement Protocol 1 Each Misc) 1 each MISCELLANE DAILY PRN; Protocol PRN Reason: Per Protocol Miscellaneous Information (Potassium Replacement Protocol 1 Each Misc) 1 each MISCELLANE DAILY PRN; Protocol PRN Reason: Per Protocol Miscellaneous Information (Magnesium Replacement Protocol 1 Each Misc) 1 each MISCELLANE DAILY PRN; Protocol PRN Reason: Per Protocol Miscellaneous Information (Magnesium Replacement Protocol 1 Each Misc) 1 each MISCELLANE DAILY PRN; Protocol PRN Reason: Per Protocol Miscellaneous Information (Vancomycin Trough Due 1 Each Misc) 0 each MISCELLANE DIRECTED ONE Stop: 01/20/20 07:01 Naloxone HCl (Naloxone 0.4 Mg/Ml 1 Ml Vial) 0.2 mg IV Q2M PRN PRN Reason: Opioid Reversal Nystatin (Nystatin 100,000 Unit/Ml Susp 500,000 Unit/5 Ml Cup) 500,000 unit PO QID [facility] Last Admin: 01/19/20 12:27 Dose: 500,000 unit Documented by: Olanzapine (Olanzapine 2.5 Mg Tab) 2.5 mg PO HS [facility] Last Admin: 01/18/20 20:55 Dose: Not Given Documented by: Ondansetron HCl (Ondansetron 4 Mg/2 Ml Vial) 4 mg IVP Q8HR PRN PRN Reason: Nausea And Vomiting Last Admin: 01/18/20 17:53 Dose: 4 mg Documented by: Pantoprazole Sodium (Pantoprazole 40 Mg Tablet) 40 mg PO AC-BID [facility] Last Admin: 01/19/20 06:58 Dose: Not Given Documented by: Temazepam (Temazepam 15 Mg Cap) 15 mg PO HS PRN PRN Reason: Insomnia Tramadol HCl (Tramadol 50 Mg Tab) 50 mg PO Q8H PRN PRN Reason: Pain Valacyclovir HCl (Valacyclovir 500 Mg Tab) 1,000 mg PO BID [facility] Last Admin: 01/19/20 09:54 Dose: 1,000 mg Documented by: Objective - Vital Signs Vital signs: Vital Signs Temp 97.6 F 01/19/20 09:00 Pulse 82 01/19/20 09:00 Resp 20 01/19/20 09:00 BP 120/72 01/19/20 09:00 Pulse Ox 95 01/19/20 09:00 Intake & Output 01/18/20 01/19/20 01/19/20 18:59 06:59 18:59 Intake Total 2700 1500 990 Output Total 1 Balance 2699 1500 990 Weight 38.555 kg Intake: IV 1800 1500 d5 in water w bicarb @ 1800 1500 150 mL/hr Intake, IV Titration 300 750 Amount Albumin Human 25% 50 ml 50 In Empty Bag 1 bag @ 50 mls/hr IVPB BID [facility] Rx#: [id number] Magnesium Sulfate-D5w Pmx 100 1 gm In Dextrose/Water 1 100ml.bag @ 100 mls/hr IVPB Q1H [facility] Rx#: [id number] Magnesium Sulfate-D5w Pmx 100 1 gm In Dextrose/Water 1 100ml.bag @ 100 mls/hr IVPB Q1H [facility] Rx#: [id number] Piperacillin-Tazobactam 3 200 .375 gm In Sodium Chloride 0.9% 100 ml @ 25 mls/hr IVPB Q8HR [facility] Rx# :[id number] Sodium Chloride 0.9% 1, 600 000 ml @ 75 mls/hr IV . [id number] [facility] Rx#:[id number] Oral 600 240 Output: Stool 1 Other: Voiding Method Bedside Commode Bedside Commode Bedside Commode # Voids 1 0 1 - Exam Gen: This is a 74-year-old female awake, alert and oriented 2. Temp is 97.6F, pulse is 82, respirations are 20, blood pressure is 120/72, oxygen saturation is 95 % on room air. HEENT: Head is atraumatic, normocephalic. Pupils equal, round. Sclerae is anicteric. Multiple mouth sores noted with severe mucositis NECK: Supple. No JVD. No lymphadenopathy. No thyromegaly. LUNGS: Breath Sounds diminished bilaterally at the bases with no wheezing or rhonchi noted. No intercostal retractions. HEART: S1, S2 are muffled ABDOMEN: Soft. Bowel sounds are present. No masses. No tenderness. EXTREMITIES: No pedal edema. No calf tenderness. NEUROLOGICAL: Patient is awake, alert and oriented x2. Cranial nerves 2 through 12 are grossly intact. Diffusely weak - Labs CBC & Chem 7: 01/18/20 03:48 01/19/20 03:25 Labs: Abnormal Lab Results - Last 24 Hours (Table) 01/19/20 Range/Units 03:25 Chloride 114 H (98-107) mmol/L BUN 5 L (7-17) mg/dL Glucose 115 H (74-99) mg/dL Calcium 7.1 L (8.4-10.2) mg/dL Microbiology - Last 24 Hours (Table) 01/17/20 23:39 Blood Culture - Preliminary Blood No Growth after 24 hours Assessment and Plan Assessment: Severe dehydration and diarrhea possibly secondary to chemotherapy Possible ileus with dilated small and large bowels secondary to diarrhea No evidence of pneumocystitis intestinalis on recent computed tomography scan Severe hypokalemia Severe hypomagnesemia Hyperkalemia Severe dehydration, present on admission Anemia secondary to malignancy Colon cancer stage IV metastasis on chemo Severe protein calorie malnutrition with a body mass index of 16.1 History of liver disease history bowel resection history of hypomagnesemia History of brain metastasis for radiation history of anxiety History of bowel resection history of severe mucositis History of tonsillectomy No code Recommendations and discussion: Continue current medications, management, and symptomatic treatment. Electrolyte replacements per protocol. Patient currently receiving magnesium replacements. Potassium today is 3.6. Will repeat a.m. labs and continue to monitor closely. Patient is maintained on full liquids and will continue at this time. Patient also to continue with ensures with each meal patient continues to have noted mouth sores with discomfort and poor appetite. Increase activity as tolerated. PT/OT following. Case management following along with multiple medical consultations. Due to multiple complex medical issues, prognosis is guarded. Further recommendations to follow.
--- NOTE | 2020-01-19 17:57 | P.PN ---
Subjective Progress Note Date: 01/19/20 Principal diagnosis: Weakness, Weight loss, Diarrhea Patient is doing better today, she is planning to be moved from ICU Objective - Vital Signs Vital signs: Vital Signs Temp 97.4 F L 01/19/20 16:20 Pulse 101 H 01/19/20 16:20 Resp 18 01/19/20 16:20 BP 124/81 01/19/20 16:20 Pulse Ox 96 01/19/20 16:20 Intake & Output 01/18/20 01/19/20 01/19/20 18:59 06:59 18:59 Intake Total 2700 1500 1110 Output Total 1 300 Balance 2699 1500 810 Weight 38.555 kg Intake: IV 1800 1500 d5 in water w bicarb @ 1800 1500 150 mL/hr Intake, IV Titration 300 750 Amount Albumin Human 25% 50 ml 50 In Empty Bag 1 bag @ 50 mls/hr IVPB BID [facility] Rx#: [id number] Magnesium Sulfate-D5w Pmx 100 1 gm In Dextrose/Water 1 100ml.bag @ 100 mls/hr IVPB Q1H [facility] Rx#: [id number] Magnesium Sulfate-D5w Pmx 100 1 gm In Dextrose/Water 1 100ml.bag @ 100 mls/hr IVPB Q1H [facility] Rx#: [id number] Piperacillin-Tazobactam 3 200 .375 gm In Sodium Chloride 0.9% 100 ml @ 25 mls/hr IVPB Q8HR [facility] Rx# :[id number] Sodium Chloride 0.9% 1, 600 000 ml @ 75 mls/hr IV . [id number] [facility] Rx#:[id number] Oral 600 360 Output: Stool 1 Urine/Stool Mix 300 Other: Voiding Method Bedside Commode Bedside Commode Toilet Diaper # Voids 1 0 1 - Exam - Constitutional General appearance: Present: cooperative, thin - EENT EENT Comment(s): Lips and mouth very dry, dry mucous and nasal membranes. Cracking and herpetic lesions to lips. Eyes: Present: EOMI, PERRLA ENT: Present: NA/AT, other - Respiratory Respiratory: bilateral: CTA - Cardiovascular Rhythm: regular Heart sounds: normal: S1, S2 - Gastrointestinal General gastrointestinal: Present: distended, hyperactive bowel sounds, tenderne ss - Integumentary Integumentary: Present: pale - Neurologic Neurologic: Present: CNII-XII intact - Musculoskeletal Musculoskeletal: Present: generalized weakness - Psychiatric Psychiatric: Present: A&O x's 3, appropriate affect, intact judgment & insight - Allied health notes Allied health notes reviewed: PT - Labs CBC & Chem 7: 01/18/20 03:48 01/19/20 03:25 Labs: Abnormal Lab Results - Last 24 Hours (Table) 01/19/20 Range/Units 03:25 Chloride 114 H (98-107) mmol/L BUN 5 L (7-17) mg/dL Glucose 115 H (74-99) mg/dL Calcium 7.1 L (8.4-10.2) mg/dL Microbiology - Last 24 Hours (Table) 01/17/20 23:39 Blood Culture - Preliminary Blood No Growth after 24 hours Assessment and Plan Plan: Metastatic Colon Cancer: - Status Post Cycle 11 FOLFOX with Neulasta - Will hold further chemotherapy till after new year and consider maintenance - She also receives vectibix Persistent DIarrhea: - Imaging consistent with possible ileus - Bowel rest, do not advance at this time as she has not fully tolerated full liquids - C-diff negative, Stool culture pending, Fecal leukocytes positive - Increase Questran TID - Treatment of dehydration and electrolyte replacement Chronic Illness Myopathy: - PT/OT Weight Loss and Decreased PO inctake: - Marinol Continued - Vaseline for moisture of cracked lips and nasal passage Normocytic Anemia: - Secondary to chemotherapy and possible component of nutrition Thrombocytopenia: - Stable in safe range - Less than 50K, therefore no VTE pharmacological management: SCDs and PT/OT - Monitor for Bleeding Metabolic Acidosis - Severe improving - Nephrology Following - [id number] - Continue to control diarrhea - Bowel Rest Physician Attest: I have completed the full history and physical and agree with above dictation, dictated as a scribe
[2020-01-19] MEDS: OLANZapine 2.5 MG TAB PO SCH (22:35)
[2020-01-19] MEDS: MELATONIN 5 MG TABLET PO SCH (22:35)
[2020-01-20] MEDS: MAGNESIUM OXIDE 400 MG TAB PO SCH ×3 (00:26→16:13)
[2020-01-20] MEDS: valACYclovir 500 MG TAB PO SCH ×3 (00:26→20:50)
[2020-01-20] MEDS: SODIUM CHLORIDE 0.9% 1,000 ML IV SCH ×2 (00:26→11:33)
[2020-01-20] MEDS: PIPERACILLIN-TAZOBACTAM 3.375 GM in SODIUM CHLORIDE 0.9% 100 ML IVPB SCH ×3 (00:41→17:29)
[2020-01-20] MEDS ORDERED: VANCOMYCIN TROUGH DUE 1 EACH MISC MISCELLANE ONE (07:00)
[2020-01-20 08:29] LABS: African American GFR (CKD) >90 (>60 ml/min/1.73 sqM); Anion Gap 2 mmol/L; Blood Urea Nitrogen 4 mg/dL (7-17); Calcium 7.2 mg/dL (8.4-10.2); Carbon Dioxide 25 mmol/L (22-30); Chloride 114 mmol/L (98-107); Glucose 82 mg/dL (74-99); Magnesium 1.6 mg/dL (1.6-2.3); Non-African American GFR(CKD) >90 (>60 ml/min/1.73 sqM); Potassium 3.4 mmol/L (3.5-5.1); Sodium 141 mmol/L (137-145)
[2020-01-20] MEDS: PANTOPRAZOLE 40 MG TABLET PO SCH ×2 (09:31→17:29)
[2020-01-20] MEDS: NYSTATIN 100,000 UNIT/ML SUSP 500,000 UNIT/5 ML CUP PO SCH ×4 (09:31→20:52)
[2020-01-20] MEDS: CHOLESTYRAMINE (WITH SUGAR) 4 GM PACKET PO SCH ×2 (09:33→21:22)
[2020-01-20] MEDS: VANCOMYCIN 750 MG in SODIUM CHLORIDE 0.9% 250 ML IVPB SCH (09:44)
[2020-01-20] MEDS: MAG HYDROX/AL HYDROX/SIMETH 30 ML, diphenhydrAMINE ELIXIR 75 MG, LIDOCAINE VISCOUS 30 ML PO SCH ×9 (09:46→20:51)
[2020-01-20] MEDS ORDERED: Potassium Replacement Protocol 1 EACH MISC MISCELLANE PRN (11:01)
--- NOTE | 2020-01-20 11:15 | P.PN ---
Subjective Progress Note Date: 01/20/20 CHIEF COMPLAINT: Abdominal pain HISTORY OF PRESENT ILLNESS: Patient seen and examined with Dr. Monroe. Patient currently in the ICU due to her metabolic acidosis and hyperkalemia. Patient is being followed for abdominal pain and possible ileus. She has a known history of metastatic colon cancer. Her stool for C. diff was negative. CT of the abdomen had shown fluid in the nondilated colon is in a nonspecific finding that can be seen in the setting of diarrhea illness. Small amount of abdominal ascites. No free air. Moderate bilateral pleural effusions. Anasarca. Acute abdominal series there is evidence for new small bilateral pleural effusions compared to old exam. Intestinal pattern consistent with large and small bowel ileus. No free air. Patient denies any abdominal pain. She reports a bowel movement this morning. She is currently on a full liquid diet. Denies any nausea or vomiting. Patient does not like the insurers. Patient is afebrile. CO2 25 potassium 3.4 PHYSICAL EXAM: VITAL SIGNS: Reviewed. GENERAL: Cachectic HEENT: No sclera icterus. Extraocular movements grossly intact. Moist buccal mucosa. Head is atraumatic, normocephalic. ABDOMEN: Distended. Nontender. NEUROLOGIC: Alert and oriented. Cranial nerves II through XII grossly intact. ASSESSMENT: 1. Abdominal pain with ileus. Improved 2. History of metastatic right-sided colon cancer 3. Metabolic acidosis secondary to diarrhea has improved 4. Hyperkalemia improved 5. Hypomagnesemia. Patient receiving magnesium replacement 6. Severe protein calorie malnutrition 7. Hypokalemia patient receiving supplement PLAN: -Advance diet to regular -Continue supportive care -No surgical intervention planned Physician [employer] note has been reviewed by physician. Signing provider agrees with the documented findings, assessment, and plan of care. Objective - Vital Signs Vital signs: Vital Signs Temp 97.4 F L 01/20/20 08:40 Pulse 86 01/20/20 08:40 Resp 16 01/20/20 08:40 BP 115/68 01/20/20 08:40 Pulse Ox 95 01/20/20 08:40 Intake & Output 01/19/20 01/20/20 01/20/20 18:59 06:59 18:59 Intake Total 1110 Output Total 300 1000 400 Balance 810 -1000 -400 Intake: Intake, IV Titration 750 Amount Albumin Human 25% 50 ml 50 In Empty Bag 1 bag @ 50 mls/hr IVPB BID [facility] Rx#: [id number] Magnesium Sulfate-D5w Pmx 100 1 gm In Dextrose/Water 1 100ml.bag @ 100 mls/hr IVPB Q1H [facility] Rx#: [id number] Sodium Chloride 0.9% 1, 600 000 ml @ 75 mls/hr IV . [id number] [facility] Rx#:[id number] Oral 360 Output: Urine 500 400 Urine/Stool Mix 300 500 Other: Voiding Method Toilet Diaper Diaper Diaper Incontinent Incontinent # Voids 1 1 1 # Bowel Movements 1 - Labs CBC & Chem 7: 01/18/20 03:48 01/20/20 07:28 Labs: Abnormal Lab Results - Last 24 Hours (Table) 01/20/20 Range/Units 07:28 Potassium 3.4 L (3.5-5.1) mmol/L Chloride 114 H (98-107) mmol/L BUN 4 L (7-17) mg/dL Calcium 7.2 L (8.4-10.2) mg/dL Microbiology - Last 24 Hours (Table) 01/17/20 23:39 Blood Culture - Preliminary Blood No Growth after 48 hours
[2020-01-20] MEDS: MAGNESIUM SULFATE-D5W PMX 1 GM in DEXTROSE/WATER 1 100ML.BAG IVPB SCH ×2 (11:31→13:08)
[2020-01-20] MEDS: POTASSIUM CHLORIDE ER 20 MEQ TAB.ER PO SCH ×2 (11:32→15:05)
--- NOTE | 2020-01-20 12:10 | P.PN ---
Subjective Patient is seen in follow for electrolyte imbalance. GFR is at baseline. Potassium 3.4. Acidosis resolved. Continues to have loose bowel movements but better since admission. Oral intake still poor. No chest pain or shortness of breath. Vital signs are stable. General: The patient appeared well nourished and normally developed. HEENT: Head exam is unremarkable. Neck is without jugular venous distension. LUNGS: Breath sounds decreased. HEART: Rate and Rhythm are regular. ABDOMEN: Soft, nontender. EXTREMITITES: 1-2+ edema. Objective - Vital Signs Vital signs: Vital Signs Temp 97.4 F L 01/20/20 08:40 Pulse 86 01/20/20 11:36 Resp 16 01/20/20 08:40 BP 115/68 01/20/20 08:40 Pulse Ox 96 01/20/20 11:36 Intake & Output 01/19/20 01/20/20 01/20/20 18:59 06:59 18:59 Intake Total 1110 Output Total 300 1000 400 Balance 810 -1000 -400 Intake: Intake, IV Titration 750 Amount Albumin Human 25% 50 ml 50 In Empty Bag 1 bag @ 50 mls/hr IVPB BID [facility] Rx#: [id number] Magnesium Sulfate-D5w Pmx 100 1 gm In Dextrose/Water 1 100ml.bag @ 100 mls/hr IVPB Q1H [facility] Rx#: [id number] Sodium Chloride 0.9% 1, 600 000 ml @ 75 mls/hr IV . [id number] [facility] Rx#:[id number] Oral 360 Output: Urine 500 400 Urine/Stool Mix 300 500 Other: Voiding Method Toilet Diaper Diaper Diaper Incontinent Incontinent # Voids 1 1 1 # Bowel Movements 1 - Labs CBC & Chem 7: 01/18/20 03:48 01/20/20 07:28 Labs: Abnormal Lab Results - Last 24 Hours (Table) 01/20/20 Range/Units 07:28 Potassium 3.4 L (3.5-5.1) mmol/L Chloride 114 H (98-107) mmol/L BUN 4 L (7-17) mg/dL Calcium 7.2 L (8.4-10.2) mg/dL Microbiology - Last 24 Hours (Table) 01/17/20 23:39 Blood Culture - Preliminary Blood No Growth after 48 hours Assessment and Plan Plan: Assessment: 1. Hyperkalemia secondary to metabolic acidosis and potassium supplementation. Resolved. Now hypokalemic. 2. Metabolic acidosis secondary to GI losses. Resolved. Status post bicarb drip. 3. History of colon cancer maintain and chemotherapy outpatient. 4. Lower extremity edema secondary to hypoalbuminemia. Status post IV albumin. 5. Hypomagnesemia from GI losses. Status post placement. Plan: Maintain normal saline. Potassium and magnesium being replaced. Encourage oral intake, particularly protein. Repeat electrolytes in the morning.
[2020-01-20 12:11] LABS: Anisocytosis Slight; HCT 27.5 % (34.0-46.0); HGB 9.1 gm/dL (11.4-16.0); MCH 32.7 pg (25.0-35.0); MCV 99.1 fL (80.0-100.0); Macrocytosis Slight; Mean Platelet Volume 10.8; RBC 2.78 m/uL (3.80-5.40); RDW 16.6 % (11.5-15.5); WBC 17.3 k/uL (3.8-10.6)
[2020-01-20 12:13] LABS: Platelet Count 43 k/uL (150-450)
[2020-01-20 12:55] LABS: Eosinophils # (M) 0.17 k/uL (0-0.7); Lymphocytes # (M) 1.56 k/uL (1.0-4.8); Metamyelocytes # (M) 0.17 k/uL (0); Metamyelocytes % 1 %; Monocytes # (M) 1.73 k/uL (0-1.0); Myelocytes # (M) 0.17 k/uL (0); Myelocytes % 1 %; Neutrophils # (M) 13.84 k/uL (1.3-7.7); Neutrophils % (M) 80 %; Nucleated Red Blood Cells 0 /100 WBC (0-0); Total Cells Counted 200
[2020-01-20 12:56] LABS: Poikilocytosis (M) Present; Target Cells Present
[2020-01-20] MEDS ORDERED: CHOLESTYRAMINE (WITH SUGAR) 4 GM PACKET PO SCH (13:00)
[2020-01-20] MEDS: DIPHENOX-ATROP 2.5-0.025 MG 1 EACH TAB PO PRN ×3 (13:09→21:39)
--- NOTE | 2020-01-20 13:47 | P.PN ---
Subjective Progress Note Date: 01/20/20 Principal diagnosis: Dehydration, weakness, electrolyte disturbance secondary to advanced colon cancer with metastasis The patient is seen today 01/20/2020 in follow-up on the pediatric unit. She is currently resting comfortably in bed. Awake and alert in no acute distress. S he is maintaining O2 saturations in the mid 90s on room air. She's currently afebrile. Hemodynamically stable. Blood culture reveals no growth. Stool culture revealed no growth. White count 17.3. Hemoglobin 9.1. Platelet count 43,000. Sodium 141. Potassium 3.4. Creatinine 0.58. She is currently on 0.9 normal saline at 75 ML's per hour. On Zosyn and vancomycin. Objective - Vital Signs Vital signs: Vital Signs Temp 97.4 F L 01/20/20 08:40 Pulse 86 01/20/20 11:36 Resp 16 01/20/20 08:40 BP 115/68 01/20/20 08:40 Pulse Ox 96 01/20/20 11:36 Intake & Output 01/19/20 01/20/20 01/20/20 18:59 06:59 18:59 Intake Total 1110 Output Total 300 1000 400 Balance 810 -1000 -400 Weight 38.555 kg Intake: Intake, IV Titration 750 Amount Albumin Human 25% 50 ml 50 In Empty Bag 1 bag @ 50 mls/hr IVPB BID [facility] Rx#: [id number] Magnesium Sulfate-D5w Pmx 100 1 gm In Dextrose/Water 1 100ml.bag @ 100 mls/hr IVPB Q1H [facility] Rx#: [id number] Sodium Chloride 0.9% 1, 600 000 ml @ 75 mls/hr IV . [id number] [facility] Rx#:[id number] Oral 360 Output: Urine 500 400 Urine/Stool Mix 300 500 Other: Voiding Method Toilet Diaper Diaper Diaper Incontinent Incontinent # Voids 1 1 1 # Bowel Movements 1 - Exam GENERAL EXAM: Alert, real, cachectic 74-year-old female patient, on room air, comfortable in no apparent distress. HEAD: Normocephalic. EYES: Normal reaction of pupils, equal size. NOSE: Clear with pink turbinates. THROAT: No erythema or exudates. NECK: No masses, no JVD. CHEST: No chest wall deformity. LUNGS: Equal air entry with no crackles, wheeze, rhonchi or dullness. CVS: S1 and S2 normal with no audible murmur, regular rhythm. ABDOMEN: No hepatosplenomegaly, normal bowel sounds, no guarding or rigidity. SPINE: No scoliosis or deformity SKIN: No rashes CENTRAL NERVOUS SYSTEM: No focal deficits, tone is normal in all 4 extremities. EXTREMITIES: There is no peripheral edema. No clubbing, no cyanosis. Periphera l pulses are intact. - Labs CBC & Chem 7: 01/20/20 07:08 01/20/20 07:28 Labs: Abnormal Lab Results - Last 24 Hours (Table) 01/20/20 01/20/20 Range/Units 07:08 07:28 WBC 17.3 H (3.8-10.6) k/uL RBC 2.78 L (3.80-5.40) m/uL Hgb 9.1 L (11.4-16.0) gm/dL Hct 27.5 L (34.0-46.0) % RDW 16.6 H (11.5-15.5) % Plt Count 43 L (150-450) k/uL Neutrophils # (Manual) 13.84 H (1.3-7.7) k/uL Monocytes # (Manual) 1.73 H (0-1.0) k/uL Metamyelocytes # (Man) 0.17 H (0) k/uL Myelocytes # (Manual) 0.17 H (0) k/uL Potassium 3.4 L (3.5-5.1) mmol/L Chloride 114 H (98-107) mmol/L BUN 4 L (7-17) mg/dL Calcium 7.2 L (8.4-10.2) mg/dL Microbiology - Last 24 Hours (Table) 01/17/20 23:39 Blood Culture - Preliminary Blood No Growth after 48 hours Assessment and Plan Assessment: 1 Advanced colon cancer with metastasis to the liver and brain, status post recent chemotherapy, with significant electrolyte disturbance, dehydration, weakness and diarrhea. Improving. To Profound weakness status post fall with negative brain CT. 3 Hyperchloremic non-anion gap metabolic acidosis secondary to diarrhea, recovered 4 History of hepatitis C 5 Chronic abdominal pain 6 History of osteoporosis Plan: The patient was seen and evaluated by Dr. Amin. She is stable from the pulmonary and critical care standpoint. On room air. Continue with the current treatment plan. We'll continue to follow. I, the cosigning physician, performed a history & physical examination of the patient. Lungs sounds are clear. Maintaining good O2 saturations in the 90s on room air. I discussed the assessment and plan of care with my nurse practitioner, Yenny Mcclure. I attest to the above note as dictated by her.
--- NOTE | 2020-01-20 16:07 | P.PN ---
Subjective Progress Note Date: 01/20/20 This is a 74-year-old female who was recently admitted with severe dehydration and diarrhea possibly secondary to chemotherapy and is being closely monitored. She is currently in the ICU for close monitoring as she continued to have severe electrolyte abnormalities and recently suffered a fall although computed tomography scan of the brain showed no acute abnormality with mild to moderate cerebral atrophy noted. Multiple medical consultations including oncology, surgery, and nephrology following. Patient is maintained on a sodium bicarbonate drip and will continue at this time. Will repeat a.m. labs and monitor closely. PT/OT following this patient as she continues to be quite weak. Potassium is 4.9 today, magnesium is 1.5 and being replaced. patient also will be receiving some albumin today. Review of systems: Constitutional: Reports mild fatigue, no reports of fever, or chills Cardiovascular: No reports of chest pain or palpitations Respiratory: No reports of shortness of breath or cough GI: No reports of nausea, vomiting, reports loose stools : No reports of dysuria or retention Neurovascular: Reports generalized weakness All medications have been reviewed 01/19/2020 Patient is seen and evaluated in follow-up today and has currently been moved out of the ICU and continues to be monitored closely. Per nursing staff patient had one bowel movement yesterday and no reports of loose stools today. Diet is full liquid and tolerating although does not have much of an appetite. Potassium is 3.6 today and magnesium is 1.6 and currently being replaced per protocol. We'll repeat a.m. labs. Multiple medical consultations following including nephrology, surgery, and oncology. No surgical intervention at this time and will continue with conservative management. Patient continues to be lethargic although is arousable. Discussed with the patient about increasing oral intake and is to maintain ensure with each meal. Currently patient denies any chest pain, shortness of breath, or palpitations. Patient is afebrile. No reports of nausea or vomiting noted. 01/20/2020 Patient is seen in follow-up currently in the bathroom and continues to have loose stool although more formed today. Patient potassium today was 3.4 and currently being replaced per protocol and magnesium was 1.7 and receiving 2 g and will repeat a.m. labs. Multiple medical consultations following and patient will be evaluated by PT/OT therapy. Case management and social work following and working on discharge planning needs. Review of systems: Constitutional: reports of fatigue, no reports of fever, or chills Cardiovascular: No reports of chest pain or palpitations Respiratory: No reports of shortness of breath or cough GI: No reports of nausea, vomiting, reports 3 episodes of loose stools : No reports of dysuria or retention Neurovascular: Reports weakness All medications have been reviewed Active Medications Acetaminophen (Acetaminophen Tab 325 Mg Tab) 650 mg PO Q6HR PRN PRN Reason: Mild Pain or Fever > 100.5 Last Admin: 01/17/20 10:43 Dose: 650 mg Documented by: Hydrocodone Bitart/Acetaminophen (Hydrocodone/Apap 5-325mg 1 Each Tab) 1 each PO Q6HR PRN PRN Reason: Pain Alprazolam (Alprazolam 0.25 Mg Tab) 0.25 mg PO BID PRN PRN Reason: Anxiety Last Admin: 01/18/20 20:56 Dose: 0.25 mg Documented by: Cholestyramine Resin (Cholestyramine (With Sugar) 4 Gm Packet) 4 gm PO QID [facility] Last Admin: 01/20/20 15:05 Dose: 4 gm Documented by: Al Hydroxide/Mg Hydroxide 30 ml/ Diphenhydramine HCl 75 mg/Lidocaine HCl 30 ml 0 ml PO TID [facility] Last Admin: 01/20/20 09:46 Dose: 5 ml Documented by: Diphenoxylate HCl/Atropine (Diphenox-Atrop 2.5-0.025 Mg 1 Each Tab) 1 - 2 each PO DAILY PRN PRN Reason: Diarrhea Last Admin: 01/20/20 13:09 Dose: 2 each Documented by: Dronabinol (Dronabinol 2.5 Mg Cap) 2.5 mg PO AC-BID [facility] Last Admin: 01/20/20 09:31 Dose: 2.5 mg Documented by: Hydromorphone HCl (Hydromorphone 0.5 Mg/0.5 Ml Syringe) 0.5 mg IVP Q3HR PRN PRN Reason: Moderate Pain Piperacillin Sod/Tazobactam (Sod 3.375 gm/ Sodium Chloride) 100 mls @ 25 mls/hr IVPB Q8HR [facility] Last Admin: 01/20/20 10:55 Dose: 25 mls/hr Documented by: Sodium Chloride (Saline 0.9%) 1,000 mls @ 75 mls/hr IV .[id number] [facility] Last Admin: 01/20/20 11:33 Dose: 75 mls/hr Documented by: Vancomycin HCl 750 mg/ Sodium (Chloride) 250 mls @ 125 mls/hr IVPB Q16H [facility] Magnesium Oxide (Magnesium Oxide 400 Mg Tab) 400 mg PO TID [facility] Last Admin: 01/20/20 09:32 Dose: 400 mg Documented by: Melatonin (Melatonin 5 Mg Tablet) 5 mg PO HS [facility] Last Admin: 01/19/20 22:35 Dose: 5 mg Documented by: Miscellaneous Information (Magnesium Replacement Protocol 1 Each Misc) 1 each MISCELLANE DAILY PRN; Protocol PRN Reason: Per Protocol Miscellaneous Information (Potassium Replacement Protocol 1 Each Misc) 1 each MISCELLANE DAILY PRN; Protocol PRN Reason: Per Protocol Miscellaneous Information (Magnesium Replacement Protocol 1 Each Misc) 1 each MISCELLANE DAILY PRN; Protocol PRN Reason: Per Protocol Miscellaneous Information (Magnesium Replacement Protocol 1 Each Misc) 1 each MISCELLANE DAILY PRN; Protocol PRN Reason: Per Protocol Miscellaneous Information (Potassium Replacement Protocol 1 Each Misc) 1 each MISCELLANE DAILY PRN; Protocol PRN Reason: Per Protocol Naloxone HCl (Naloxone 0.4 Mg/Ml 1 Ml Vial) 0.2 mg IV Q2M PRN PRN Reason: Opioid Reversal Nystatin (Nystatin 100,000 Unit/Ml Susp 500,000 Unit/5 Ml Cup) 500,000 unit PO QID [facility] Last Admin: 01/20/20 13:15 Dose: 500,000 unit Documented by: Olanzapine (Olanzapine 2.5 Mg Tab) 2.5 mg PO HS [facility] Last Admin: 01/19/20 22:35 Dose: 2.5 mg Documented by: Ondansetron HCl (Ondansetron 4 Mg/2 Ml Vial) 4 mg IVP Q8HR PRN PRN Reason: Nausea And Vomiting Last Admin: 01/18/20 17:53 Dose: 4 mg Documented by: Pantoprazole Sodium (Pantoprazole 40 Mg Tablet) 40 mg PO AC-BID [facility] Last Admin: 01/20/20 09:31 Dose: 40 mg Documented by: Temazepam (Temazepam 15 Mg Cap) 15 mg PO HS PRN PRN Reason: Insomnia Tramadol HCl (Tramadol 50 Mg Tab) 50 mg PO Q8H PRN PRN Reason: Pain Valacyclovir HCl (Valacyclovir 500 Mg Tab) 1,000 mg PO BID [facility] Last Admin: 01/20/20 09:32 Dose: 1,000 mg Documented by: Objective - Vital Signs Vital signs: Vital Signs Temp 97.4 F L 01/20/20 08:40 Pulse 86 01/20/20 11:36 Resp 16 01/20/20 08:40 BP 115/68 01/20/20 08:40 Pulse Ox 96 01/20/20 11:36 Intake & Output 01/19/20 01/20/20 01/20/20 18:59 06:59 18:59 Intake Total 1110 Output Total 300 1000 400 Balance 810 -1000 -400 Weight 38.555 kg Intake: Intake, IV Titration 750 Amount Albumin Human 25% 50 ml 50 In Empty Bag 1 bag @ 50 mls/hr IVPB BID [facility] Rx#: [id number] Magnesium Sulfate-D5w Pmx 100 1 gm In Dextrose/Water 1 100ml.bag @ 100 mls/hr IVPB Q1H [facility] Rx#: [id number] Sodium Chloride 0.9% 1, 600 000 ml @ 75 mls/hr IV . [id number] [facility] Rx#:[id number] Oral 360 Output: Urine 500 400 Urine/Stool Mix 300 500 Other: Voiding Method Toilet Diaper Diaper Diaper Incontinent Incontinent # Voids 1 1 1 # Bowel Movements 1 - Exam Gen: This is a 74-year-old female awake, alert and oriented 2. Temp is 97.4F, pulse is 86, respirations are 16, blood pressure is 115/68, oxygen saturation is 95 % on room air. HEENT: Head is atraumatic, normocephalic. Pupils equal, round. Sclerae is anict shauna. Multiple mouth sores noted with severe mucositis NECK: Supple. No JVD. No lymphadenopathy. No thyromegaly. LUNGS: Breath Sounds diminished bilaterally at the bases with no wheezing or rhonchi noted. No intercostal retractions. HEART: S1, S2 are muffled ABDOMEN: Soft. Bowel sounds are present. No masses. No tenderness. EXTREMITIES: No pedal edema. No calf tenderness. NEUROLOGICAL: Patient is awake, alert and oriented x2. Cranial nerves 2 through 12 are grossly intact. Diffusely weak - Labs CBC & Chem 7: 01/20/20 07:08 12 07:28 Labs: Abnormal Lab Results - Last 24 Hours (Table) 01/20/20 01/20/20 Range/Units 07:08 07:28 WBC 17.3 H (3.8-10.6) k/uL RBC 2.78 L (3.80-5.40) m/uL Hgb 9.1 L (11.4-16.0) gm/dL Hct 27.5 L (34.0-46.0) % RDW 16.6 H (11.5-15.5) % Plt Count 43 L (150-450) k/uL Neutrophils # (Manual) 13.84 H (1.3-7.7) k/uL Monocytes # (Manual) 1.73 H (0-1.0) k/uL Metamyelocytes # (Man) 0.17 H (0) k/uL Myelocytes # (Manual) 0.17 H (0) k/uL Potassium 3.4 L (3.5-5.1) mmol/L Chloride 114 H (98-107) mmol/L BUN 4 L (7-17) mg/dL Calcium 7.2 L (8.4-10.2) mg/dL Microbiology - Last 24 Hours (Table) 01/17/20 23:39 Blood Culture - Preliminary Blood No Growth after 48 hours Assessment and Plan Assessment: Severe dehydration and diarrhea possibly secondary to chemotherapy Possible ileus with dilated small and large bowels secondary to diarrhea No evidence of pneumocystitis intestinalis on recent computed tomography scan Severe hypokalemia Severe hypomagnesemia Hyperkalemia Severe dehydration, present on admission Anemia secondary to malignancy Colon cancer stage IV metastasis on chemo Severe protein calorie malnutrition with a body mass index of 16.1 History of liver disease history bowel resection history of hypomagnesemia History of brain metastasis for radiation history of anxiety History of bowel resection history of severe mucositis History of tonsillectomy No code Recommendations and discussion: Continue current medications, management, and symptomatic treatment. Electrolyte replacements per protocol. Magnesium was slightly low at 1.6 and potassium was 3.4 and currently being replaced. Will repeat a.m. labs and continue to monitor closely. Patient is maintained on full liquids and will continue at this time. Patient also to continue with ensures with each meal patient continues to have noted mouth sores with discomfort and poor appetite. Patient continues to have loose stools and states she has no control over them although is slightly more formed today. Will increase Questran to 4 times daily. Increase activity as tolerated. PT/OT following. Case management following along with multiple medical consultations. Due to multiple complex medical issues, prognosis is guarded. Further recommendations to follow.
--- NOTE | 2020-01-20 17:42 | P.PN ---
Subjective Progress Note Date: 01/20/20 Principal diagnosis: Weakness, Weight loss, Diarrhea Patient seen and examined today. She continues to have loose watery diarrhea with periods of incontinence. This is a prolonged toxicity likely from the treatment of her chemotherapy and Vectibix. I have re-educated nursing today on the use of lomotil. It appears her renata, which was previously workin, has stopped working. Next line will need to be TPN, Complete bowel rest, and Budesomide. I have talked to inpatient pharmacy, although they do not have this on formulary therefore will prescribe as outpatient and use as home medication. Objective - Vital Signs Vital signs: Vital Signs Temp 96.6 F L 01/20/20 14:36 Pulse 95 01/20/20 14:36 Resp 20 01/20/20 14:36 BP 126/77 01/20/20 14:36 Pulse Ox 98 01/20/20 14:36 Intake & Output 01/19/20 01/20/20 01/20/20 18:59 06:59 18:59 Intake Total 1110 Output Total 300 1000 700 Balance 810 -1000 -700 Weight 38.555 kg Intake: Intake, IV Titration 750 Amount Albumin Human 25% 50 ml 50 In Empty Bag 1 bag @ 50 mls/hr IVPB BID [facility] Rx#: [id number] Magnesium Sulfate-D5w Pmx 100 1 gm In Dextrose/Water 1 100ml.bag @ 100 mls/hr IVPB Q1H [facility] Rx#: [id number] Sodium Chloride 0.9% 1, 600 000 ml @ 75 mls/hr IV . [id number] [facility] Rx#:[id number] Oral 360 Output: Urine 500 700 Urine/Stool Mix 300 500 Other: Voiding Method Toilet Diaper Diaper Diaper Incontinent Incontinent # Voids 1 1 1 # Bowel Movements 1 - Exam - Constitutional General appearance: Present: cooperative, thin - EENT EENT Comment(s): Lips and mouth very dry, dry mucous and nasal membranes. Cracking and herpetic lesions to lips. Eyes: Present: EOMI, PERRLA ENT: Present: NA/AT, other - Respiratory Respiratory: bilateral: CTA - Cardiovascular Rhythm: regular Heart sounds: normal: S1, S2 - Gastrointestinal General gastrointestinal: Present: distended, hyperactive bowel sounds, tenderness - Integumentary Integumentary: Present: pale - Neurologic Neurologic: Present: CNII-XII intact - Musculoskeletal Musculoskeletal: Present: generalized weakness - Psychiatric Psychiatric: Present: A&O x's 3, appropriate affect, intact judgment & insight - Allied health notes Allied health notes reviewed: PT - Labs CBC & Chem 7: 01/20/20 07:08 01/20/20 07:28 Labs: Abnormal Lab Results - Last 24 Hours (Table) 01/20/20 01/20/20 Range/Units 07:08 07:28 WBC 17.3 H (3.8-10.6) k/uL RBC 2.78 L (3.80-5.40) m/uL Hgb 9.1 L (11.4-16.0) gm/dL Hct 27.5 L (34.0-46.0) % RDW 16.6 H (11.5-15.5) % Plt Count 43 L (150-450) k/uL Neutrophils # (Manual) 13.84 H (1.3-7.7) k/uL Monocytes # (Manual) 1.73 H (0-1.0) k/uL Metamyelocytes # (Man) 0.17 H (0) k/uL Myelocytes # (Manual) 0.17 H (0) k/uL Potassium 3.4 L (3.5-5.1) mmol/L Chloride 114 H (98-107) mmol/L BUN 4 L (7-17) mg/dL Calcium 7.2 L (8.4-10.2) mg/dL Microbiology - Last 24 Hours (Table) 01/17/20 23:39 Blood Culture - Preliminary Blood No Growth after 48 hours Assessment and Plan Plan: Metastatic Colon Cancer: - Status Post Cycle 11 FOLFOX with Neulasta - Will hold further chemotherapy till after new year and consider maintenance - She also receives vectibix Persistent DIarrhea:Cotninued - Imaging consistent with possible ileus - Bowel rest, do not advance at this time as she has not fully tolerated full liquids - C-diff negative, Stool culture pending, Fecal leukocytes positive - Questran has not been effective this round - Budesomide is next line and will prescribe as home medication - Treatment of dehydration and electrolyte replacement - Discontinue PO magnesium supp as this will also increase diarrhea - Complete bowel rest and initiate TPN. Chronic Illness Myopathy: - PT/OT Weight Loss and Decreased PO inctake: - TPN for non-functioning GI Normocytic Anemia: - Secondary to chemotherapy and possible component of nutrition Thrombocytopenia: - Stable in safe range - Less than 50K, therefore no VTE pharmacological management: SCDs and PT/OT - Monitor for Bleeding Metabolic Acidosis - improving - Secondary to severe diarrhea - She is now on medical floor after discharge from ICU - Nephrology continues to follow
[2020-01-20] MEDS: MELATONIN 5 MG TABLET PO SCH (20:42)
[2020-01-20] MEDS: ALPRAZolam 0.25 MG TAB PO PRN (20:48)
[2020-01-20] MEDS: OLANZapine 2.5 MG TAB PO SCH (21:19)
[2020-01-21] MEDS: PIPERACILLIN-TAZOBACTAM 3.375 GM in SODIUM CHLORIDE 0.9% 100 ML IVPB SCH ×3 (00:43→18:05)
[2020-01-21] MEDS: VANCOMYCIN 750 MG in SODIUM CHLORIDE 0.9% 250 ML IVPB SCH ×2 (02:08→19:29)
[2020-01-21] MEDS: SODIUM CHLORIDE 0.9% 1,000 ML IV SCH ×3 (02:08→19:31)
[2020-01-21] MEDS: PANTOPRAZOLE 40 MG TABLET PO SCH ×2 (06:50→18:05)
[2020-01-21] MEDS: valACYclovir 500 MG TAB PO SCH ×2 (09:07→20:27)
[2020-01-21] MEDS: CHOLESTYRAMINE (WITH SUGAR) 4 GM PACKET PO SCH ×2 (09:08→21:50)
[2020-01-21] MEDS: NYSTATIN 100,000 UNIT/ML SUSP 500,000 UNIT/5 ML CUP PO SCH ×4 (09:08→22:12)
[2020-01-21] MEDS: MAG HYDROX/AL HYDROX/SIMETH 30 ML, diphenhydrAMINE ELIXIR 75 MG, LIDOCAINE VISCOUS 30 ML PO SCH ×9 (09:26→22:12)
[2020-01-21 10:16] LABS: African American GFR (CKD) >90 (>60 ml/min/1.73 sqM); Anion Gap -2 mmol/L; Blood Urea Nitrogen 4 mg/dL (7-17); Calcium 7.2 mg/dL (8.4-10.2); Carbon Dioxide 28 mmol/L (22-30); Chloride 114 mmol/L (98-107); Glucose 80 mg/dL (74-99); Magnesium 1.6 mg/dL (1.6-2.3); Non-African American GFR(CKD) >90 (>60 ml/min/1.73 sqM); Potassium 3.1 mmol/L (3.5-5.1); Sodium 140 mmol/L (137-145)
--- NOTE | 2020-01-21 11:16 | P.PN ---
Subjective Progress Note Date: 01/21/20 CHIEF COMPLAINT: Abdominal pain HISTORY OF PRESENT ILLNESS: Patient is being followed for abdominal pain and possible ileus. She has a known history of metastatic colon cancer. She was initially in the ICU for metabolic acidosis and hyperkalemia. This has improved. And she was able to be transferred out of the ICU yesterday to regular medical floor. Her stool for C. diff was negative. CT of the abdomen had shown fluid in the nondilated colon is in a nonspecific finding that can be seen in the setting of diarrhea illness. Small amount of abdominal ascites. No free air. Moderate bilateral pleural effusions. Anasarca. Acute abdominal series there is evidence for new small bilateral pleural effusions compared to old exam. Intestinal pattern consistent with large and small bowel ileus. No free air. Patient denies any abdominal pain. Patient reports 2 bowel movements yesterday that were partially formed and loose. She denies any nausea or vomiting. Oncology service has made her nothing by mouth and her starting TPN. Afebrile. Potassium 3.1 magnesium 1.6 PHYSICAL EXAM: VITAL SIGNS: Reviewed. GENERAL: Cachectic HEENT: No sclera icterus. Extraocular movements grossly intact. Moist buccal mucosa. Head is atraumatic, normocephalic. ABDOMEN: Distended. Nontender. NEUROLOGIC: Alert and oriented. Cranial nerves II through XII grossly intact. ASSESSMENT: 1. Abdominal pain with ileus. 2. History of metastatic right-sided colon cancer 3. Metabolic acidosis secondary to diarrhea has improved 4. Hyperkalemia improved 5. Hypomagnesemia 6. Severe protein calorie malnutrition 7. Hypokalemia patient receiving supplement PLAN: -Continue supportive care -No surgical intervention planned Physician [employer] note has been reviewed by physician. Signing provider agrees with the documented findings, assessment, and plan of care. Objective - Vital Signs Vital signs: Vital Signs Temp 98.2 F 01/21/20 07:00 Pulse 81 01/21/20 07:00 Resp 16 01/21/20 07:00 BP 135/73 01/21/20 07:00 Pulse Ox 94 L 01/21/20 07:00 Intake & Output 01/20/20 01/21/20 01/21/20 18:59 06:59 18:59 Intake Total 1450 Output Total 700 1200 Balance -700 250 Weight 38.555 kg Intake: Intake, IV Titration 1350 Amount Piperacillin-Tazobactam 3 100 .375 gm In Sodium Chloride 0.9% 100 ml @ 25 mls/hr IVPB Q8HR [facility] Rx# :[id number] Sodium Chloride 0.9% 1, 1000 000 ml @ 75 mls/hr IV . [id number] [facility] Rx#:[id number] Vancomycin 750 mg In 250 Sodium Chloride 0.9% 250 ml @ 125 mls/hr IVPB Q18H [facility] Rx#:[id number] Oral 100 Output: Urine 700 1200 Other: Voiding Method Diaper Diaper Toilet Incontinent Incontinent Diaper # Voids 1 # Bowel Movements 1 1 - Labs CBC & Chem 7: 01/20/20 07:08 01/21/20 08:56 Labs: Abnormal Lab Results - Last 24 Hours (Table) 01/20/20 01/21/20 Range/Units 07:08 08:56 WBC 17.3 H (3.8-10.6) k/uL RBC 2.78 L (3.80-5.40) m/uL Hgb 9.1 L (11.4-16.0) gm/dL Hct 27.5 L (34.0-46.0) % RDW 16.6 H (11.5-15.5) % Plt Count 43 L (150-450) k/uL Neutrophils # (Manual) 13.84 H (1.3-7.7) k/uL Monocytes # (Manual) 1.73 H (0-1.0) k/uL Metamyelocytes # (Man) 0.17 H (0) k/uL Myelocytes # (Manual) 0.17 H (0) k/uL Potassium 3.1 L (3.5-5.1) mmol/L Chloride 114 H (98-107) mmol/L BUN 4 L (7-17) mg/dL Calcium 7.2 L (8.4-10.2) mg/dL Microbiology - Last 24 Hours (Table) 01/17/20 23:39 Blood Culture - Preliminary Blood No Growth after 72 hours
--- NOTE | 2020-01-21 11:23 | P.PN ---
Subjective Progress Note Date: 01/21/20 This is a 74-year-old female recently admitted with severe dehydration and diarrhea possibly secondary to chemotherapy. Patient was monitored closely in the ICU and was transferred to a medical surgical unit. Patient continue to have poor appetite and loose stools multiple times a day and electrolyte ab normalities. Potassium today is low at 3.1 and magnesium is 1.6 and currently replacing per protocol. Patient will be initiated on TPN per oncology and to continue with bowel rest and is requiring higher level of care and will be transferred to oncology if rapid Covid 19 testing is negative. Patient continues to be weak although is alert and oriented 3. Patient does require standby assistance when getting up to the bathroom. Patient has also been incontinent of stool and urine stating she does not always have feeling of what she needs to go to the bathroom. Patient instructed to continue to increase activity as tolerated and continue with incentive spirometer at least 10 times every hour while awake. Multiple medical consultations following and will continue to monitor closely. Review of systems: Constitutional: Reports fatigue, with no reports of fever, or chills Cardiovascular: No reports of chest pain or palpitations Respiratory: Reports intermittent shortness of breath and weak cough GI: No reports of nausea, vomiting, reports multiple loose stools, reports continued mouth pain and sores with dry mucosa : No reports of dysuria or retention, reports incontinence Neurovascular: Reports generalized weakness All medications have been reviewed Active Medications Acetaminophen (Acetaminophen Tab 325 Mg Tab) 650 mg PO Q6HR PRN PRN Reason: Mild Pain or Fever > 100.5 Last Admin: 01/17/20 10:43 Dose: 650 mg Documented by: Hydrocodone Bitart/Acetaminophen (Hydrocodone/Apap 5-325mg 1 Each Tab) 1 each PO Q6HR PRN PRN Reason: Pain Alprazolam (Alprazolam 0.25 Mg Tab) 0.25 mg PO BID PRN PRN Reason: Anxiety Last Admin: 01/20/20 20:48 Dose: 0.25 mg Documented by: Cholestyramine Resin (Cholestyramine (With Sugar) 4 Gm Packet) 4 gm PO BID [facility] Last Admin: 01/21/20 09:08 Dose: 4 gm Documented by: Al Hydroxide/Mg Hydroxide 30 ml/ Diphenhydramine HCl 75 mg/Lidocaine HCl 30 ml 0 ml PO TID [facility] Last Admin: 01/21/20 09:26 Dose: 5 ml Documented by: Diphenoxylate HCl/Atropine (Diphenox-Atrop 2.5-0.025 Mg 1 Each Tab) 1 - 2 each PO DAILY PRN PRN Reason: Diarrhea Last Admin: 01/20/20 21:39 Dose: 1 each Documented by: Hydromorphone HCl (Hydromorphone 0.5 Mg/0.5 Ml Syringe) 0.5 mg IVP Q3HR PRN PRN Reason: Moderate Pain Piperacillin Sod/Tazobactam (Sod 3.375 gm/ Sodium Chloride) 100 mls @ 25 mls/hr IVPB Q8HR [facility] Last Admin: 01/21/20 09:04 Dose: 25 mls/hr Documented by: Sodium Chloride (Saline 0.9%) 1,000 mls @ 75 mls/hr IV .[id number] [facility] Last Admin: 01/21/20 02:08 Dose: 75 mls/hr Documented by: Vancomycin HCl 750 mg/ Sodium (Chloride) 250 mls @ 125 mls/hr IVPB Q16H [facility] Last Admin: 01/21/20 02:08 Dose: 125 mls/hr Documented by: Melatonin (Melatonin 5 Mg Tablet) 5 mg PO [facility] Last Admin: 01/20/20 20:42 Dose: Not Given Documented by: Miscellaneous Information (Potassium Replacement Protocol 1 Each Misc) 1 each MISCELLANE DAILY PRN; Protocol PRN Reason: Per Protocol Naloxone HCl (Naloxone 0.4 Mg/Ml 1 Ml Vial) 0.2 mg IV Q2M PRN PRN Reason: Opioid Reversal Nystatin (Nystatin 100,000 Unit/Ml Susp 500,000 Unit/5 Ml Cup) 500,000 unit PO QID [facility] Last Admin: 01/21/20 09:08 Dose: 500,000 unit Documented by: Olanzapine (Olanzapine 2.5 Mg Tab) 2.5 mg PO HS [facility] Last Admin: 01/20/20 21:19 Dose: 2.5 mg Documented by: Ondansetron HCl (Ondansetron 4 Mg/2 Ml Vial) 4 mg IVP Q8HR PRN PRN Reason: Nausea And Vomiting Last Admin: 01/18/20 17:53 Dose: 4 mg Documented by: Pantoprazole Sodium (Pantoprazole 40 Mg Tablet) 40 mg PO AC-BID [facility] Last Admin: 01/21/20 06:50 Dose: 40 mg Documented by: Potassium Chloride (Potassium Chloride Er 20 Meq Tab.Er) 20 meq PO Q1HR [facility] Stop: 01/21/20 13:01 Temazepam (Temazepam 15 Mg Cap) 15 mg PO HS PRN PRN Reason: Insomnia Tramadol HCl (Tramadol 50 Mg Tab) 50 mg PO Q8H PRN PRN Reason: Pain Valacyclovir HCl (Valacyclovir 500 Mg Tab) 1,000 mg PO BID [facility] Last Admin: 01/21/20 09:07 Dose: 1,000 mg Documented by: Objective - Vital Signs Vital signs: Vital Signs Temp 98.2 F 01/21/20 07:00 Pulse 81 01/21/20 07:00 Resp 16 01/21/20 07:00 BP 135/73 01/21/20 07:00 Pulse Ox 94 L 01/21/20 07:00 Intake & Output 01/20/20 01/21/20 01/21/20 18:59 06:59 18:59 Intake Total 1450 Output Total 700 1200 Balance -700 250 Weight 38.555 kg Intake: Intake, IV Titration 1350 Amount Piperacillin-Tazobactam 3 100 .375 gm In Sodium Chloride 0.9% 100 ml @ 25 mls/hr IVPB Q8HR [facility] Rx# :[id number] Sodium Chloride 0.9% 1, 1000 000 ml @ 75 mls/hr IV . [id number] [facility] Rx#:[id number] Vancomycin 750 mg In 250 Sodium Chloride 0.9% 250 ml @ 125 mls/hr IVPB Q18H [facility] Rx#:[id number] Oral 100 Output: Urine 700 1200 Other: Voiding Method Diaper Diaper Incontinent Incontinent # Voids 1 # Bowel Movements 1 1 - Exam Gen: This is a 74-year-old female awake, alert and oriented 2-3. Temp is 98.2F, pulse is 81, respirations are 16, blood pressure is 135/73, oxygen satu ration is 94 % on room air. HEENT: Head is atraumatic, normocephalic. Pupils equal, round. Sclerae is anicteric. Multiple mouth sores noted with severe mucositis and dried crusting mucosa noted NECK: Supple. No JVD. No lymphadenopathy. No thyromegaly. LUNGS: Breath Sounds diminished bilaterally at the bases with no wheezing or rhonchi noted. No intercostal retractions. HEART: S1, S2 are muffled ABDOMEN: Soft. Bowel sounds are present. No masses. No tenderness. EXTREMITIES: No pedal edema. No calf tenderness. NEUROLOGICAL: Patient is awake, alert and oriented x2. Cranial nerves 2 through 12 are grossly intact. Diffusely weak - Labs CBC & Chem 7: 01/20/20 07:08 01/21/20 08:56 Labs: Abnormal Lab Results - Last 24 Hours (Table) 01/20/20 Range/Units 07:08 WBC 17.3 H (3.8-10.6) k/uL RBC 2.78 L (3.80-5.40) m/uL Hgb 9.1 L (11.4-16.0) gm/dL Hct 27.5 L (34.0-46.0) % RDW 16.6 H (11.5-15.5) % Plt Count 43 L (150-450) k/uL Neutrophils # (Manual) 13.84 H (1.3-7.7) k/uL Monocytes # (Manual) 1.73 H (0-1.0) k/uL Metamyelocytes # (Man) 0.17 H (0) k/uL Myelocytes # (Manual) 0.17 H (0) k/uL Microbiology - Last 24 Hours (Table) 01/17/20 23:39 Blood Culture - Preliminary Blood No Growth after 72 hours Assessment and Plan Assessment: Severe dehydration and diarrhea possibly secondary to chemotherapy Possible ileus with dilated small and large bowels secondary to diarrhea No evidence of pneumocystitis intestinalis on recent computed tomography scan Severe hypokalemia Severe hypomagnesemia Hyperkalemia Severe dehydration, present on admission Anemia secondary to malignancy Colon cancer stage IV metastasis on chemo Severe protein calorie malnutrition with a body mass index of 16.1 History of liver disease history bowel resection history of hypomagnesemia History of brain metastasis for radiation history of anxiety History of bowel resection history of severe mucositis History of tonsillectomy No code Recommendations and discussion: Continue current medications, management, and symptomatic treatment. Electrolyte replacements per protocol. Magnesium is 1.6 and potassium is 3.1 and currently being replaced. Will repeat a.m. labs and continue to monitor closely. Patient was maintained on full liquids although not tolerating well and continues to have loose stools and will be initiating TPN with bowel rest. Due to electrolyte abnormality, continue as, and continued loose stools patient currently awaiting to be transferred to oncology for higher level of care. Covid 19 testing pending. Patient continues to have loose stools and will continue with Questran twice daily along with Lomotil. Patient instructed to continue with incentive spirometer at least 10 times every hour while awake. Increase activity as tolerated. PT/OT following. Case management following along with multiple medical consultations. Due to multiple complex medical issues, prognosis is guarded. Further recommendations to follow.
[2020-01-21] MEDS: POTASSIUM CHLORIDE ER 20 MEQ TAB.ER PO SCH ×2 (12:08→13:36)
[2020-01-21] MEDS: MAGNESIUM SULFATE-D5W PMX 1 GM in DEXTROSE/WATER 1 100ML.BAG IVPB SCH ×2 (13:37→14:45)
[2020-01-21] MEDS ORDERED: MVI, ADULT NO.4 WITH VIT K 10 ML, TRACE (CONC-1ML/DOSE) 1 ML, POTASSIUM CHLORIDE 20 MEQ... IV ONE ×4 (14:00)
--- NOTE | 2020-01-21 14:01 | P.PN ---
Subjective Progress Note Date: 01/21/20 Principal diagnosis: Dehydration, weakness, electrolyte disturbance secondary to advanced colon cancer with metastasis The patient is seen today 01/20/2020 in follow-up on the pediatric unit. She is currently resting comfortably in bed. Awake and alert in no acute distress. S he is maintaining O2 saturations in the mid 90s on room air. She's currently afebrile. Hemodynamically stable. Blood culture reveals no growth. Stool culture revealed no growth. White count 17.3. Hemoglobin 9.1. Platelet count 43,000. Sodium 141. Potassium 3.4. Creatinine 0.58. She is currently on 0.9 normal saline at 75 ML's per hour. On Zosyn and vancomycin. The patient is seen today 01/21/2020 follow-up on the pediatric unit. She is awake and alert in no acute distress. Currently resting comfortably in bed. Denies any worsening shortness of breath, cough or congestion. Maintaining O2 saturation in the 90s on room air. She's been afebrile. Hemodynamically stable. Blood culture reveals no growth. Baltazar virus not detected. She is currently on vancomycin and Zosyn. Objective - Vital Signs Vital signs: Vital Signs Temp 98.2 F 01/21/20 07:00 Pulse 81 01/21/20 07:00 Resp 16 01/21/20 07:00 BP 135/73 01/21/20 07:00 Pulse Ox 94 L 01/21/20 07:00 Intake & Output 01/20/20 01/21/20 01/21/20 18:59 06:59 18:59 Intake Total 1450 Output Total 700 1200 Balance -700 250 Weight 38.555 kg Intake: Intake, IV Titration 1350 Amount Piperacillin-Tazobactam 3 100 .375 gm In Sodium Chloride 0.9% 100 ml @ 25 mls/hr IVPB Q8HR [facility] Rx# :[id number] Sodium Chloride 0.9% 1, 1000 000 ml @ 75 mls/hr IV . [id number] [facility] Rx#:[id number] Vancomycin 750 mg In 250 Sodium Chloride 0.9% 250 ml @ 125 mls/hr IVPB Q18H [facility] Rx#:[id number] Oral 100 Output: Urine 700 1200 Other: Voiding Method Diaper Diaper Toilet Incontinent Incontinent Diaper # Voids 1 # Bowel Movements 1 1 - Exam GENERAL EXAM: Alert, frail, cachectic 74-year-old female patient, on room air, comfortable in no apparent distress. HEAD: Normocephalic. EYES: Normal reaction of pupils, equal size. NOSE: Clear with pink turbinates. THROAT: No erythema or exudates. NECK: No masses, no JVD. CHEST: No chest wall deformity. LUNGS: Equal air entry with no crackles, wheeze, rhonchi or dullness. CVS: S1 and S2 normal with no audible murmur, regular rhythm. ABDOMEN: No hepatosplenomegaly, normal bowel sounds, no guarding or rigidity. SPINE: No scoliosis or deformity SKIN: No rashes CENTRAL NERVOUS SYSTEM: No focal deficits, tone is normal in all 4 extremities. EXTREMITIES: There is no peripheral edema. No clubbing, no cyanosis. Periphera l pulses are intact. - Labs CBC & Chem 7: 01/20/20 07:08 01/21/20 08:56 Labs: Abnormal Lab Results - Last 24 Hours (Table) 01/21/20 Range/Units 08:56 Potassium 3.1 L (3.5-5.1) mmol/L Chloride 114 H (98-107) mmol/L BUN 4 L (7-17) mg/dL Calcium 7.2 L (8.4-10.2) mg/dL Microbiology - Last 24 Hours (Table) 01/17/20 23:39 Blood Culture - Preliminary Blood No Growth after 72 hours Assessment and Plan Assessment: 1 Advanced colon cancer with metastasis to the liver and brain, status post recent chemotherapy, with significant electrolyte disturbance, dehydration, weakness and diarrhea. Improving. 2 Profound weakness status post fall with negative brain CT. 3 Hyperchloremic non-anion gap metabolic acidosis secondary to diarrhea, recovered 4 History of hepatitis C 5 Chronic abdominal pain 6 History of osteoporosis Plan: The patient was seen and evaluated by Dr. Amin. She is stable from the pulmonary and critical care standpoint. On room air. We will see as needed. I, the cosigning physician, performed a history & physical examination of the patient. Lungs sounds are clear. Maintaining good O2 saturations in the 90s on room air. I discussed the assessment and plan of care with my nurse practitioner, Yenny Mcclure. I attest to the above note as dictated by her.
[2020-01-21] MEDS ORDERED: POTASSIUM CHLORIDE ER 20 MEQ TAB.ER PO STA ×2 (15:10)
--- NOTE | 2020-01-21 15:11 | P.PN ---
Subjective Patient is seen in follow for electrolyte imbalance. GFR is at baseline. Potassium still on the lower side. Acidosis resolved. No diarrhea today. No chest pain or shortness of breath. Started on TPN this morning. Vital signs are stable. General: The patient appeared well nourished and normally developed. HEENT: Head exam is unremarkable. Neck is without jugular venous distension. LUNGS: Breath sounds decreased. HEART: Rate and Rhythm are regular. ABDOMEN: Soft, nontender. EXTREMITITES: 1-2+ edema. Objective - Vital Signs Vital signs: Vital Signs Temp 98.2 F 01/21/20 07:00 Pulse 81 01/21/20 07:00 Resp 16 01/21/20 07:00 BP 135/73 01/21/20 07:00 Pulse Ox 94 L 01/21/20 07:00 Intake & Output 01/20/20 01/21/20 01/21/20 18:59 06:59 18:59 Intake Total 1450 Output Total 700 1200 Balance -700 250 Weight 38.555 kg 38.555 kg Intake: Intake, IV Titration 1350 Amount Piperacillin-Tazobactam 3 100 .375 gm In Sodium Chloride 0.9% 100 ml @ 25 mls/hr IVPB Q8HR [facility] Rx# :[id number] Sodium Chloride 0.9% 1, 1000 000 ml @ 75 mls/hr IV . [id number] [facility] Rx#:[id number] Vancomycin 750 mg In 250 Sodium Chloride 0.9% 250 ml @ 125 mls/hr IVPB Q18H [facility] Rx#:[id number] Oral 100 Output: Urine 700 1200 Other: Voiding Method Diaper Diaper Toilet Incontinent Incontinent Diaper # Voids 1 # Bowel Movements 1 1 - Labs CBC & Chem 7: 01/20/20 07:08 01/21/20 14:43 Labs: Abnormal Lab Results - Last 24 Hours (Table) 01/21/20 01/21/20 Range/Units 08:56 14:43 Potassium 3.1 L 3.3 L (3.5-5.1) mmol/L Chloride 114 H (98-107) mmol/L BUN 4 L (7-17) mg/dL Calcium 7.2 L (8.4-10.2) mg/dL Microbiology - Last 24 Hours (Table) 01/17/20 23:39 Blood Culture - Preliminary Blood No Growth after 72 hours Assessment and Plan Plan: Assessment: 1. Hyperkalemia secondary to metabolic acidosis and potassium supplementation. Resolved. Now hypokalemic. 2. Metabolic acidosis secondary to GI losses. Resolved. Status post bicarb drip. 3. History of colon cancer maintain and chemotherapy outpatient. 4. Lower extremity edema secondary to hypoalbuminemia. Status post IV albumin. 5. Hypomagnesemia from GI losses. Status post placement. Plan: Decreased normal saline to 50 mL an hour. Maintain TPN. Potassium and magnesium being replaced. Repeat electrolytes and albumin level tomorrow.
--- NOTE | 2020-01-21 18:03 | P.PN ---
Subjective Progress Note Date: 01/21/20 The patient is not in any acute distress, but remains weak. She states that diarrhea has again stopped with holding off oral intake. She denies any significant abdominal pain, nausea or vomiting. Oral soreness is slowly improving Objective - Vital Signs Vital signs: Vital Signs Temp 97.6 F 01/21/20 15:00 Pulse 80 01/21/20 15:00 Resp 17 01/21/20 15:00 BP 148/79 01/21/20 15:00 Pulse Ox 97 01/21/20 15:00 Intake & Output 01/20/20 01/21/20 01/21/20 18:59 06:59 18:59 Intake Total 1450 Output Total 700 1200 Balance -700 250 Weight 38.555 kg 38.555 kg Intake: Intake, IV Titration 1350 Amount Piperacillin-Tazobactam 3 100 .375 gm In Sodium Chloride 0.9% 100 ml @ 25 mls/hr IVPB Q8HR [facility] Rx# :[id number] Sodium Chloride 0.9% 1, 1000 000 ml @ 75 mls/hr IV . [id number] [facility] Rx#:[id number] Vancomycin 750 mg In 250 Sodium Chloride 0.9% 250 ml @ 125 mls/hr IVPB Q18H [facility] Rx#:[id number] Oral 100 Output: Urine 700 1200 Other: Voiding Method Diaper Diaper Toilet Incontinent Incontinent Diaper # Voids 1 # Bowel Movements 1 1 - Constitutional General appearance: Present: no acute distress - EENT Eyes: Present: EOMI, PERRLA ENT: Present: hearing grossly normal - Respiratory Respiratory: bilateral: CTA - Cardiovascular Rhythm: regular Heart sounds: normal: S1, S2 - Gastrointestinal General gastrointestinal: Present: normal bowel sounds, soft - Integumentary Integumentary: Present: normal - Neurologic Neurologic: Present: CNII-XII intact - Musculoskeletal Musculoskeletal: Present: generalized weakness, strength equal bilaterally - Psychiatric Psychiatric: Present: A&O x's 3 - Labs CBC & Chem 7: 01/20/20 07:08 01/21/20 14:43 Labs: Abnormal Lab Results - Last 24 Hours (Table) 01/21/20 01/21/20 Range/Units 08:56 14:43 Potassium 3.1 L 3.3 L (3.5-5.1) mmol/L Chloride 114 H (98-107) mmol/L BUN 4 L (7-17) mg/dL Calcium 7.2 L (8.4-10.2) mg/dL Microbiology - Last 24 Hours (Table) 01/17/20 23:39 Blood Culture - Preliminary Blood No Growth after 72 hours Assessment and Plan (1) Colitis Narrative/Plan: Due to chemotherapy effect. While this is improved, clinically still appears to be active, with marked increase in diarrhea when oral intake was sought to be advanced. Diarrhea has stopped with holding off oral intake. - The patient was advised that management in this case is supportive, until colitis results with increasing time from the last chemotherapy. Continue with bowel rest with nothing by mouth. She'll be supported with TPN. Resume diet very cautiously and gradually once the patient has not had any diarrhea for at least 2-3 days Continue Questran. Lomotil has been added when necessary. If the patient developed significant diarrhea even while nothing by mouth, then Sandostatin will be added Current Visit: Yes Status: Acute Code(s): K52.9 - NONINFECTIVE GASTROENTERITIS AND COLITIS, UNSPECIFIED SNOMED Code(s): 27077435 (2) Dehydration Narrative/Plan: Clinically improved with ongoing IV hydration. IV hydration will be discontinued, once TPN starts Current Visit: Yes Status: Acute Code(s): E86.0 - DEHYDRATION SNOMED Code(s): 74915113 (3) Metabolic acidosis Narrative/Plan: This was very marked, and severe diarrhea. This is improving. Nephrology following. Patient will need ongoing monitoring and adjustment once TPN starts. Current Visit: Yes Status: Acute Code(s): E87.2 - ACIDOSIS SNOMED Code(s): 82764588 (4) Bicytopenia Narrative/Plan: Due to antineoplastic chemotherapy. Platelet counts and hemoglobin remain in a safe range. (Greater than 10, and greater than 7 respectively) continue to monitor and transfuse if needed. Expect spontaneous improvement with increasing duration from last chemotherapy Current Visit: Yes Status: Acute Code(s): D75.89 - OTHER SPECIFIED DISEASES OF BLOOD AND BLOOD-FORMING ORGANS SNOMED Code(s): 04532682 (5) Colon adenocarcinoma Narrative/Plan: Treatment will remain on hold currently, even after resolution of her acute problems. We will reevaluate after the beginning of next year for maintenance therapy Current Visit: No Status: Acute Priority: High Code(s): C18.9 - MALIGNANT NEOPLASM OF COLON, UNSPECIFIED SNOMED Code(s): 897464772 Plan: The patient is on vancomycin and cefepime. She does have leukocytosis, due to dehydration and postchemotherapy recovery. She has been afebrile, with negative urinalysis, and blood cultures negative. These will be discontinued.
[2020-01-21] MEDS: MELATONIN 5 MG TABLET PO SCH (20:28)
[2020-01-21] MEDS: OLANZapine 2.5 MG TAB PO SCH (20:28)
[2020-01-22] MEDS: PANTOPRAZOLE 40 MG TABLET PO SCH ×2 (08:14→18:03)
[2020-01-22] MEDS ORDERED: VANCOMYCIN TROUGH DUE 1 EACH MISC MISCELLANE ONE (09:00)
[2020-01-22] MEDS: NYSTATIN 100,000 UNIT/ML SUSP 500,000 UNIT/5 ML CUP PO SCH ×4 (09:18→22:03)
[2020-01-22] MEDS: valACYclovir HCL 1,000 MG TABLET PO SCH ×2 (09:20→21:57)
[2020-01-22] MEDS: MAG HYDROX/AL HYDROX/SIMETH 30 ML, diphenhydrAMINE ELIXIR 75 MG, LIDOCAINE VISCOUS 30 ML PO SCH ×9 (09:21→22:07)
[2020-01-22 09:33] LABS: African American GFR (CKD) 109.7 (60.0-200.0); Albumin 2.1 g/dL (3.80-4.90); Albumin/Globulin Ratio 1.05 (1.60-3.17); Anion Gap 6.8 mmol/L (4.00-12.00); Calcium 7.5 mg/dL (8.7-10.3); Carbon Dioxide 25.2 mmol/L (21.6-31.8); Magnesium 1.6 mg/dL (1.5-2.4); Non-African American GFR(CKD) 94.7 (60.0-200.0); Phosphorus 3.2 mg/dL (2.4-5.1); Potassium 3.5 mmol/L (3.5-5.5); Total Bilirubin 0.3 mg/dL (0.2-1.2); Total Protein 4.1 g/dL (6.2-8.2)
[2020-01-22] MEDS: MAGNESIUM SULFATE-D5W PMX 1 GM in DEXTROSE/WATER 1 100ML.BAG IVPB SCH ×2 (12:07→14:33)
[2020-01-22] MEDS: CHOLESTYRAMINE (WITH SUGAR) 4 GM PACKET PO SCH ×2 (12:07→21:55)
[2020-01-22] MEDS: POTASSIUM CHLORIDE 20 MEQ in WATER FOR INJECTION 1 100ML.BAG IVPB SCH ×2 (12:07→14:34)
[2020-01-22] MEDS: SODIUM CHLORIDE 0.9% 1,000 ML IV SCH (12:08)
--- NOTE | 2020-01-22 12:42 | P.PN ---
Subjective Progress Note Date: 01/22/20 CHIEF COMPLAINT: Abdominal pain HISTORY OF PRESENT ILLNESS: Patient is being followed for abdominal pain and possible ileus. Patient denies any abdominal pain. She sitting up at bedside chair. She has been started on TPN. She denies any diarrhea. Denies any nausea or vomiting. Afebrile potassium 3.5 creatinine 0.5 PHYSICAL EXAM: VITAL SIGNS: Reviewed. GENERAL: Cachectic HEENT: No sclera icterus. Extraocular movements grossly intact. Moist buccal mucosa. Head is atraumatic, normocephalic. ABDOMEN: Distended. Nontender. NEUROLOGIC: Alert and oriented. Cranial nerves II through XII grossly intact. ASSESSMENT: 1. Abdominal pain with ileus. 2. History of metastatic right-sided colon cancer 3. Metabolic acidosis secondary to diarrhea has improved 4. Hyperkalemia 5. Hypomagnesemia 6. Severe protein calorie malnutrition 7. Hypokalemia patient receiving supplement PLAN: -Continue supportive care -No surgical intervention planned -Potassium and magnesium being replaced Physician Marketing Data Specialist note has been reviewed by physician. Signing provider agrees with the documented findings, assessment, and plan of care. Objective - Vital Signs Vital signs: Vital Signs Temp 97.4 F L 01/22/20 07:00 Pulse 90 01/22/20 07:00 Resp 18 01/22/20 08:00 BP 153/83 01/22/20 07:00 Pulse Ox 95 01/22/20 07:00 Intake & Output 01/21/20 01/22/20 01/22/20 18:59 06:59 18:59 Weight 38.555 kg 38.555 kg Other: Voiding Method Toilet Toilet Diaper Incontinent - Labs CBC & Chem 7: 01/20/20 07:08 01/22/20 06:30 Labs: Abnormal Lab Results - Last 24 Hours (Table) 01/21/20 01/22/20 Range/Units 14:43 06:30 Potassium 3.3 L (3.5-5.1) mmol/L Chloride 112 H (96-109) mmol/L BUN 5.0 L (9.0-27.0) mg/dL Creatinine 0.5 L (0.6-1.5) mg/dL BUN/Creatinine Ratio 10.00 L (12.00-20.00) Ratio Glucose 119 H (70-110) mg/dL Calcium 7.5 L (8.7-10.3) mg/dL Alkaline Phosphatase 157 H (41-126) U/L Total Protein 4.1 L (6.2-8.2) g/dL Albumin 2.10 L (3.80-4.90) g/dL Albumin/Globulin Ratio 1.05 L (1.60-3.17) g/dL Microbiology - Last 24 Hours (Table) 01/17/20 23:39 Blood Culture - Preliminary Blood No Growth after 96 hours
--- NOTE | 2020-01-22 13:03 | P.PN ---
Subjective Patient is seen in follow for electrolyte imbalance. GFR is at baseline. Potassium level improved post replacement. Acidosis resolved. No diarrhea today. No chest pain or shortness of breath. Maintained on TPN. No active complaints. Vital signs are stable. General: The patient appeared well nourished and normally developed. HEENT: Head exam is unremarkable. Neck is without jugular venous distension. LUNGS: Breath sounds decreased. HEART: Rate and Rhythm are regular. ABDOMEN: Soft, nontender. EXTREMITITES: 1-2+ edema. Objective - Vital Signs Vital signs: Vital Signs Temp 97.4 F L 01/22/20 07:00 Pulse 90 01/22/20 07:00 Resp 18 01/22/20 08:00 BP 153/83 01/22/20 07:00 Pulse Ox 95 01/22/20 07:00 Intake & Output 01/21/20 01/22/20 01/22/20 18:59 06:59 18:59 Weight 38.555 kg 38.555 kg Other: Voiding Method Toilet Toilet Diaper Incontinent - Labs CBC & Chem 7: 01/20/20 07:08 01/22/20 06:30 Labs: Abnormal Lab Results - Last 24 Hours (Table) 01/21/20 01/22/20 Range/Units 14:43 06:30 Potassium 3.3 L (3.5-5.1) mmol/L Chloride 112 H (96-109) mmol/L BUN 5.0 L (9.0-27.0) mg/dL Creatinine 0.5 L (0.6-1.5) mg/dL BUN/Creatinine Ratio 10.00 L (12.00-20.00) Ratio Glucose 119 H (70-110) mg/dL Calcium 7.5 L (8.7-10.3) mg/dL Alkaline Phosphatase 157 H (41-126) U/L Total Protein 4.1 L (6.2-8.2) g/dL Albumin 2.10 L (3.80-4.90) g/dL Albumin/Globulin Ratio 1.05 L (1.60-3.17) g/dL Microbiology - Last 24 Hours (Table) 01/17/20 23:39 Blood Culture - Preliminary Blood No Growth after 96 hours Assessment and Plan Plan: Assessment: 1. Hyperkalemia secondary to metabolic acidosis and potassium supplementation. Resolved. Now hypokalemic. 2. Metabolic acidosis secondary to GI losses. Resolved. Status post bicarb drip. 3. History of colon cancer maintain and chemotherapy outpatient. 4. Lower extremity edema secondary to hypoalbuminemia. Status post IV albumin. 5. Hypomagnesemia from GI losses. Being replaced. Plan: Maintain normal saline at 50 mL an hour. Maintain TPN. Potassium and magnesium being replaced. Repeat electrolytes in the morning. Add oral magnesium oxide.
--- NOTE | 2020-01-22 14:52 | P.PN ---
Subjective Progress Note Date: 01/22/20 This is a 74-year-old female recently admitted with severe dehydration and diarrhea possibly secondary to chemotherapy. Patient was monitored closely in the ICU and was transferred to a medical surgical unit. Patient continue to have poor appetite and loose stools multiple times a day and electrolyte ab normalities. Potassium today is low at 3.1 and magnesium is 1.6 and currently replacing per protocol. Patient will be initiated on TPN per oncology and to continue with bowel rest and is requiring higher level of care and will be transferred to oncology if rapid Covid 19 testing is negative. Patient continues to be weak although is alert and oriented 3. Patient does require standby assistance when getting up to the bathroom. Patient has also been incontinent of stool and urine stating she does not always have feeling of what she needs to go to the bathroom. Patient instructed to continue to increase activity as tolerated and continue with incentive spirometer at least 10 times every hour while awake. Multiple medical consultations following and will continue to monitor closely. 01/22/2020 Patient is seen and evaluated and follow-up currently on the oncology unit and has been initiated on TPN and is tolerating thus far. Patient states she is having some minor abdominal cramping and gas noted. No reports of bowel movements today. She denies any nausea or vomiting. Patient continues to be weak and requiring standby to minimal assistance along with the use of a walker when getting up. Patient's potassium this morning was 3.5 and magnesium remains at 1.6 and is receiving replacements per protocol. Multiple medical consultations including oncology and nephrology are following. Covid 19 testing was negative. Will continue to monitor vital signs and labs closely and continue with bowel rest at this time Review of systems: Constitutional: Reports fatigue, with no reports of fever, or chills Cardiovascular: No reports of chest pain or palpitations Respiratory: Reports intermittent shortness of breath and weak cough GI: No reports of nausea, vomiting, or loose stools, reports continued mouth pain and sores with dry mucosa, patient reports intermittent abdominal cramping : No reports of dysuria or retention, reports incontinence Neurovascular: Reports generalized weakness All medications have been reviewed Active Medications Acetaminophen (Acetaminophen Tab 325 Mg Tab) 650 mg PO Q6HR PRN PRN Reason: Mild Pain or Fever > 100.5 Last Admin: 01/17/20 10:43 Dose: 650 mg Documented by: Hydrocodone Bitart/Acetaminophen (Hydrocodone/Apap 5-325mg 1 Each Tab) 1 each PO Q6HR PRN PRN Reason: Pain Alprazolam (Alprazolam 0.25 Mg Tab) 0.25 mg PO BID PRN PRN Reason: Anxiety Last Admin: 01/20/20 20:48 Dose: 0.25 mg Documented by: Cholestyramine Resin (Cholestyramine (With Sugar) 4 Gm Packet) 4 gm PO BID [facility] Last Admin: 01/22/20 12:07 Dose: 4 gm Documented by: Al Hydroxide/Mg Hydroxide 30 ml/ Diphenhydramine HCl 75 mg/Lidocaine HCl 30 ml 0 ml PO TID [facility] Last Admin: 01/22/20 09:21 Dose: 5 ml Documented by: Diphenoxylate HCl/Atropine (Diphenox-Atrop 2.5-0.025 Mg 1 Each Tab) 1 - 2 each PO DAILY PRN PRN Reason: Diarrhea Last Admin: 01/20/20 21:39 Dose: 1 each Documented by: Hydromorphone HCl (Hydromorphone 0.5 Mg/0.5 Ml Syringe) 0.5 mg IVP Q3HR PRN PRN Reason: Moderate Pain Sodium Chloride (Saline 0.9%) 1,000 mls @ 50 mls/hr IV .Q20H [facility] Last Admin: 01/22/20 12:08 Dose: 50 mls/hr Documented by: Parenteral Vitamin Supplement 10 ml/ Chromium/Copper/Manganese/Seleni/Zn 1 ml/Potassium Chloride 10 meq/Magnesium Sulfate 1 gm/ Amino Ac/Electrol/Dextrose/Calcium 1,018 mls @ 77 mls/hr IV .BY DURATION [facility] Potassium Chloride 10 meq/Magnesium Sulfate 1 gm/ Amino Ac/Electrol/Dextrose/Calcium 1,007 mls @ 77 mls/hr IV .BY DURATION [facility] Fat Emulsion Intravenous (Lipids 20%) 250 mls @ 20.833 mls/hr IV [id number] [facility] Potassium Chloride 20 meq/ IV (Solution) 100 mls @ 50 mls/hr IVPB Q2H [facility] Stop: 01/22/20 15:29 Last Admin: 01/22/20 14:34 Dose: 50 mls/hr Documented by: Magnesium Oxide (Magnesium Oxide 400 Mg Tab) 400 mg PO BID [facility] Melatonin (Melatonin 5 Mg Tablet) 5 mg PO HS [facility] Last Admin: 01/21/20 20:28 Dose: 5 mg Documented by: Miscellaneous Information (Potassium Replacement Protocol 1 Each Misc) 1 each MISCELLANE DAILY PRN; Protocol PRN Reason: Per Protocol Naloxone HCl (Naloxone 0.4 Mg/Ml 1 Ml Vial) 0.2 mg IV Q2M PRN PRN Reason: Opioid Reversal Nystatin (Nystatin 100,000 Unit/Ml Susp 500,000 Unit/5 Ml Cup) 500,000 unit PO QID [facility] Last Admin: 01/22/20 09:18 Dose: 500,000 unit Documented by: Olanzapine (Olanzapine 2.5 Mg Tab) 2.5 mg PO HS [facility] Last Admin: 01/21/20 20:28 Dose: 2.5 mg Documented by: Ondansetron HCl (Ondansetron 4 Mg/2 Ml Vial) 4 mg IVP Q8HR PRN PRN Reason: Nausea And Vomiting Last Admin: 01/18/20 17:53 Dose: 4 mg Documented by: Pantoprazole Sodium (Pantoprazole 40 Mg Tablet) 40 mg PO AC-BID [facility] Last Admin: 01/22/20 08:14 Dose: 40 mg Documented by: Temazepam (Temazepam 15 Mg Cap) 15 mg PO HS PRN PRN Reason: Insomnia Tramadol HCl (Tramadol 50 Mg Tab) 50 mg PO Q8H PRN PRN Reason: Pain Valacyclovir HCl (Valacyclovir Hcl 1,000 Mg Tablet) 1,000 mg PO BID [facility] Last Admin: 01/22/20 09:20 Dose: 1,000 mg Documented by: Objective - Vital Signs Vital signs: Vital Signs Temp 97.4 F L 01/22/20 07:00 Pulse 90 01/22/20 07:00 Resp 17 01/22/20 07:00 BP 153/83 01/22/20 07:00 Pulse Ox 95 01/22/20 07:00 Intake & Output 01/21/20 01/22/20 01/22/20 18:59 06:59 18:59 Weight 38.555 kg Other: Voiding Method Toilet Toilet Diaper Incontinent - Exam Gen: This is a 74-year-old female awake, alert and oriented 2-3. Temp is 97.4F, pulse is 90, respirations are 17, blood pressure is 153/83, oxygen saturation is 95 % on room air. HEENT: Head is atraumatic, normocephalic. Pupils equal, round. Sclerae is anicteric. Multiple mouth sores noted with severe mucositis and dried crusting mucosa noted NECK: Supple. No JVD. No lymphadenopathy. No thyromegaly. LUNGS: Breath Sounds diminished bilaterally at the bases with no wheezing or rhonchi noted. No intercostal retractions. HEART: S1, S2 are muffled ABDOMEN: Soft. Bowel sounds are present. No masses. mild tenderness noted on palpation. EXTREMITIES: No pedal edema. No calf tenderness. NEUROLOGICAL: Patient is awake, alert and oriented x2. Cranial nerves 2 through 12 are grossly intact. Diffusely weak - Labs CBC & Chem 7: 01/20/20 07:08 01/22/20 06:30 Labs: Abnormal Lab Results - Last 24 Hours (Table) 01/21/20 01/21/20 Range/Units 08:56 14:43 Potassium 3.1 L 3.3 L (3.5-5.1) mmol/L Chloride 114 H (98-107) mmol/L BUN 4 L (7-17) mg/dL Calcium 7.2 L (8.4-10.2) mg/dL Microbiology - Last 24 Hours (Table) 01/17/20 23:39 Blood Culture - Preliminary Blood No Growth after 96 hours Assessment and Plan Assessment: Severe dehydration and diarrhea possibly secondary to chemotherapy Possible ileus with dilated small and large bowels secondary to diarrhea Covid 19 ruled out, testing was negative No evidence of pneumocystitis intestinalis on recent computed tomography scan Severe hypokalemia Severe hypomagnesemia Hyperkalemia Severe dehydration, present on admission Anemia secondary to malignancy Colon cancer stage IV metastasis on chemo Severe protein calorie malnutrition with a body mass index of 16.1 History of liver disease history bowel resection history of hypomagnesemia History of brain metastasis for radiation history of anxiety History of bowel resection history of severe mucositis History of tonsillectomy No code Recommendations and discussion: Continue current medications, management, and symptomatic treatment. Electrolyte replacements per protocol. Magnesium is 1.6 and potassium is 3.5 and currently being replaced. Will repeat a.m. labs and continue to monitor closely. Patient was started on TPN with bowel rest. Patient instructed to continue with incentive spirometer at least 10 times every hour while awake. Increase activity as tolerated. PT/OT following. Case management following along with multiple medical consultations. Due to multiple complex medical issues, prognosis is guarded. Further recommendations to follow.
--- NOTE | 2020-01-22 16:18 | P.PN ---
Subjective Progress Note Date: 01/22/20 Principal diagnosis: Weakness, Weight loss, Diarrhea Diarrhea has improved with bowel rest, TPN has been started and her labs are improving. Acidosis and electrolytes stable. She did have a BM today and was a little more formed per patient Objective - Vital Signs Vital signs: Vital Signs Temp 97.2 F L 01/22/20 15:00 Pulse 91 01/22/20 15:00 Resp 17 01/22/20 15:00 BP 170/84 01/22/20 15:00 Pulse Ox 98 01/22/20 15:00 Intake & Output 01/21/20 01/22/20 01/22/20 18:59 06:59 18:59 Weight 38.555 kg 38.555 kg Other: Voiding Method Toilet Toilet Diaper Incontinent # Voids 3 - Exam - Constitutional General appearance: Present: cooperative, thin - EENT EENT Comment(s): Lips and mouth very dry, dry mucous and nasal membranes. Cracking and herpetic lesions to lips. Eyes: Present: EOMI, PERRLA ENT: Present: NA/AT, other - Respiratory Respiratory: bilateral: CTA - Cardiovascular Rhythm: regular Heart sounds: normal: S1, S2 - Gastrointestinal General gastrointestinal: Present: distended, hyperactive bowel sounds, tenderness - Integumentary Integumentary: Present: pale - Neurologic Neurologic: Present: CNII-XII intact - Musculoskeletal Musculoskeletal: Present: generalized weakness - Psychiatric Psychiatric: Present: A&O x's 3, appropriate affect, intact judgment & insight - Allied health notes Allied health notes reviewed: PT - Labs CBC & Chem 7: 01/22/20 16:37 01/22/20 06:30 Labs: Abnormal Lab Results - Last 24 Hours (Table) 01/22/20 Range/Units 06:30 Chloride 112 H (96-109) mmol/L BUN 5.0 L (9.0-27.0) mg/dL Creatinine 0.5 L (0.6-1.5) mg/dL BUN/Creatinine Ratio 10.00 L (12.00-20.00) Ratio Glucose 119 H (70-110) mg/dL Calcium 7.5 L (8.7-10.3) mg/dL Alkaline Phosphatase 157 H (41-126) U/L Total Protein 4.1 L (6.2-8.2) g/dL Albumin 2.10 L (3.80-4.90) g/dL Albumin/Globulin Ratio 1.05 L (1.60-3.17) g/dL Microbiology - Last 24 Hours (Table) 01/17/20 23:39 Blood Culture - Preliminary Blood No Growth after 96 hours Assessment and Plan Plan: Metastatic Colon Cancer: - Status Post Cycle 11 FOLFOX with Neulasta - Will hold further chemotherapy till after new year and consider maintenance - She also received vectibix Persistent Diarrhea:Improved - Budesomide is next line and will prescribe as home medication if diarrhea presents when we start to advance diet - Treatment of dehydration and electrolyte replacement - Discontinue PO magnesium supp as this will also increase diarrhea - Complete bowel rest and initiate TPN. Chronic Illness Myopathy: - PT/OT Weight Loss and Decreased PO inctake: - TPN for non-functioning GI Normocytic Anemia: - Secondary to chemotherapy and possible component of nutrition - Recheck CBC today and daily Thrombocytopenia: - Stable in safe range - Less than 50K, therefore no VTE pharmacological management: SCDs and PT/OT - Monitor for Bleeding - Initiate VTE if platelets greater than 50K Metabolic Acidosis - Resolved - Secondary to diarrhea - Nephrology continues to follow Plan: - She continues on IV abx? Unknown if needed at this time. Recommend discontinuing as immune system improved and no positive cultures seen
[2020-01-22] MEDS: FAT EMULSION 20% 250 ML IV SCH (16:31)
[2020-01-22] MEDS: 1: MVI, ADULT NO.4 WITH VIT K 10 ML, TRACE (CONC-1ML/DOSE) 1 ML, POTASSIUM CHLORIDE 10 M IV SCH ×5 (16:41)
[2020-01-22 17:05] LABS: Anisocytosis Slight; HCT 33.6 % (34.0-46.0); HGB 10.5 gm/dL (11.4-16.0); MCH 30.9 pg (25.0-35.0); MCHC 31.4 g/dL (31.0-37.0); MCV 98.6 fL (80.0-100.0); Macrocytosis Slight; RBC 3.41 m/uL (3.80-5.40); RDW 16.6 % (11.5-15.5); WBC 17.5 k/uL (3.8-10.6)
[2020-01-22 17:06] LABS: Platelet Count 80 k/uL (150-450)
[2020-01-22 17:43] LABS: Eosinophils # (M) 0.18 k/uL (0-0.7); Lymphocytes # (M) 1.23 k/uL (1.0-4.8); Monocytes # (M) 0.18 k/uL (0-1.0); Neutrophils # (M) 15.93 k/uL (1.3-7.7); Neutrophils % (M) 91 %; Nucleated Red Blood Cells 0 /100 WBC (0-0); Total Cells Counted 100
[2020-01-22] MEDS: MAGNESIUM OXIDE 400 MG TAB PO SCH (21:55)
[2020-01-22] MEDS: MELATONIN 5 MG TABLET PO SCH (21:55)
[2020-01-22] MEDS: OLANZapine 2.5 MG TAB PO SCH (21:55)
[2020-01-22] MEDS: ALPRAZolam 0.25 MG TAB PO PRN (21:55)
[2020-01-23] MEDS: 1: MVI, ADULT NO.4 WITH VIT K 10 ML, TRACE (CONC-1ML/DOSE) 1 ML, POTASSIUM CHLORIDE 10 M IV SCH ×10 (05:43→17:45)
[2020-01-23 07:37] LABS: Anisocytosis Slight; HCT 27.1 % (34.0-46.0); MCH 31.9 pg (25.0-35.0); MCHC 32.8 g/dL (31.0-37.0); MCV 97.2 fL (80.0-100.0); Macrocytosis Slight; Mean Platelet Volume 9.1; RBC 2.79 m/uL (3.80-5.40); RDW 16.5 % (11.5-15.5); WBC 10.6 k/uL (3.8-10.6)
[2020-01-23 07:39] LABS: HGB 8.9 gm/dL (11.4-16.0)
[2020-01-23 08:02] LABS: Band Neutrophils % 1 %; Eosinophils # (M) 0.11 k/uL (0-0.7); Hypochromasia (M) Present; Lymphocytes # (M) 2.12 k/uL (1.0-4.8); Monocytes # (M) 0.11 k/uL (0-1.0); Neutrophils % (M) 77 %; Nucleated Red Blood Cells 0 /100 WBC (0-0); Platelet Count 87 k/uL (150-450); Target Cells Present; Total Cells Counted 100
[2020-01-23] MEDS: CHOLESTYRAMINE (WITH SUGAR) 4 GM PACKET PO SCH ×2 (10:57→20:23)
[2020-01-23] MEDS: MAG HYDROX/AL HYDROX/SIMETH 30 ML, diphenhydrAMINE ELIXIR 75 MG, LIDOCAINE VISCOUS 30 ML PO SCH ×6 (10:57→16:39)
[2020-01-23] MEDS: NYSTATIN 100,000 UNIT/ML SUSP 500,000 UNIT/5 ML CUP PO SCH ×4 (10:57→21:14)
[2020-01-23] MEDS: PANTOPRAZOLE 40 MG TABLET PO SCH ×2 (10:57→16:32)
[2020-01-23] MEDS: MAGNESIUM OXIDE 400 MG TAB PO SCH ×2 (10:57→20:23)
[2020-01-23] MEDS: valACYclovir HCL 1,000 MG TABLET PO SCH ×2 (10:58→20:23)
[2020-01-23] MEDS: SODIUM CHLORIDE 0.9% 1,000 ML IV SCH (10:59)
--- NOTE | 2020-01-23 11:28 | P.PN ---
Progress Note - Text Progress Note Date: 01/23/20 The patient remains stable. She denies any significant abdominal pain. On exam her vital signs are stable. Abdomen soft. There is no significant distention. Status post ileus after chemotherapy area patient can receive supportive care.
--- NOTE | 2020-01-23 13:07 | P.PN ---
Subjective Patient is seen in follow for electrolyte imbalance. GFR is at baseline. Had 2 bowel movements. No diarrhea. No chest pain or shortness of breath. Maintained on TPN. No active complaints. Vital signs are stable. General: The patient appeared well nourished and normally developed. HEENT: Head exam is unremarkable. Neck is without jugular venous distension. LUNGS: Breath sounds decreased. HEART: Rate and Rhythm are regular. ABDOMEN: Soft, nontender. EXTREMITITES: 1+ edema. Objective - Vital Signs Vital signs: Vital Signs Temp 97.8 F 01/23/20 04:26 Pulse 89 01/23/20 04:26 Resp 18 01/23/20 04:26 BP 155/85 01/23/20 04:26 Pulse Ox 97 01/23/20 04:26 Intake & Output 01/22/20 01/23/20 01/23/20 18:59 06:59 18:59 Weight 38.555 kg Other: Voiding Method Toilet Toilet Incontinent Incontinent # Voids 2 - Labs CBC & Chem 7: 01/23/20 06:41 01/22/20 06:30 Labs: Abnormal Lab Results - Last 24 Hours (Table) 01/22/20 01/23/20 Range/Units 16:37 06:41 WBC 17.5 H (3.8-10.6) k/uL RBC 3.41 L 2.79 L (3.80-5.40) m/uL Hgb 10.5 L 8.9 L D (11.4-16.0) gm/dL Hct 33.6 L 27.1 L (34.0-46.0) % RDW 16.6 H 16.5 H (11.5-15.5) % Plt Count 80 L D 87 L (150-450) k/uL Neutrophils # (Manual) 15.93 H 8.20 H (1.3-7.7) k/uL Microbiology - Last 24 Hours (Table) 01/17/20 23:39 Blood Culture - Preliminary Blood No Growth after 120 hours Assessment and Plan Plan: Assessment: 1. Hyperkalemia secondary to metabolic acidosis and potassium supplementation. Resolved. Now hypokalemic, status post replacement. 2. Metabolic acidosis secondary to GI losses. Resolved. Status post bicarb drip. 3. History of colon cancer maintain and chemotherapy outpatient. 4. Lower extremity edema secondary to hypoalbuminemia. Status post IV albumin. Improved. 5. Hypomagnesemia from GI losses. Status post replacement. Maintained on oral magnesium oxide. Plan: Maintain TPN. Replace electrolytes as needed. Morning labs pending.
[2020-01-23 13:36] LABS: African American GFR (CKD) 118.1 (60.0-200.0); Albumin 1.9 g/dL (3.80-4.90); Albumin/Globulin Ratio 1.06 (1.60-3.17); Anion Gap 3.8 mmol/L (4.00-12.00); Calcium 7.5 mg/dL (8.7-10.3); Carbon Dioxide 26.2 mmol/L (21.6-31.8); Globulin 1.8 g/dL (1.6-3.3); Magnesium 1.8 mg/dL (1.5-2.4); Non-African American GFR(CKD) 101.9 (60.0-200.0); Phosphorus 3.4 mg/dL (2.4-5.1); Potassium 3.3 mmol/L (3.5-5.5); Total Bilirubin 0.2 mg/dL (0.3-1.2); Total Protein 3.7 g/dL (6.2-8.2)
--- NOTE | 2020-01-23 15:16 | P.PN ---
Subjective Progress Note Date: 01/23/20 The patient continues to improve slowly but steadily. She states that she feels stronger and has been able to ambulate in the room, and outside in the corridor with a walker. She reported 2 bowel movements today which according to her were much more formed. She denies any significant abdominal pain today. No nausea, vomiting, or fevers. She is starting to feel hungry. Objective - Vital Signs Vital signs: Vital Signs Temp 97.8 F 01/23/20 04:26 Pulse 89 01/23/20 04:26 Resp 18 01/23/20 04:26 BP 155/85 01/23/20 04:26 Pulse Ox 97 01/23/20 04:26 Intake & Output 01/22/20 01/23/20 01/23/20 18:59 06:59 18:59 Weight 38.555 kg Other: Voiding Method Toilet Toilet Incontinent Incontinent # Voids 2 - Constitutional General appearance: Present: no acute distress - EENT Eyes: Present: EOMI ENT: Present: hearing grossly normal, normal oropharynx - Respiratory Respiratory: bilateral: CTA - Cardiovascular Rhythm: regular Heart sounds: normal: S1, S2 - Gastrointestinal General gastrointestinal: Present: normal bowel sounds, soft - Integumentary Integumentary: Present: normal - Neurologic Neurologic: Present: CNII-XII intact - Musculoskeletal Musculoskeletal: Present: generalized weakness, strength equal bilaterally - Psychiatric Psychiatric: Present: A&O x's 3, appropriate affect - Labs CBC & Chem 7: 01/23/20 06:41 01/23/20 06:41 Labs: Abnormal Lab Results - Last 24 Hours (Table) 01/22/20 01/23/20 01/23/20 Range/Units 16:37 06:41 06:41 WBC 17.5 H (3.8-10.6) k/uL RBC 3.41 L 2.79 L (3.80-5.40) m/uL Hgb 10.5 L 8.9 L D (11.4-16.0) gm/dL Hct 33.6 L 27.1 L (34.0-46.0) % RDW 16.6 H 16.5 H (11.5-15.5) % Plt Count 80 L D 87 L (150-450) k/uL Neutrophils # (Manual) 15.93 H 8.20 H (1.3-7.7) k/uL Potassium 3.3 L (3.5-5.5) mmol/L Anion Gap 3.80 L (4.00-12.00) mmol/L BUN 8.0 L (9.0-27.0) mg/dL Creatinine 0.4 L (0.6-1.5) mg/dL Glucose 143 H (70-110) mg/dL Calcium 7.5 L (8.7-10.3) mg/dL Total Bilirubin 0.2 L (0.3-1.2) mg/dL Alkaline Phosphatase 129 H (41-126) U/L Total Protein 3.7 L (6.2-8.2) g/dL Albumin 1.90 L (3.80-4.90) g/dL Albumin/Globulin Ratio 1.06 L (1.60-3.17) g/dL Microbiology - Last 24 Hours (Table) 01/17/20 23:39 Blood Culture - Preliminary Blood No Growth after 120 hours Assessment and Plan (1) Colitis Narrative/Plan: The patient's diarrhea has significantly improved. She had 2 bowel movements, which were much more formed today. Continue Questran and Lomotil prn - Reevaluate in a.m. If the patient is stable to improved, I will initiate clear liquid diet tomorrow. Current Visit: Yes Status: Acute Code(s): K52.9 - NONINFECTIVE GASTROENTERITIS AND COLITIS, UNSPECIFIED SNOMED Code(s): 99880143 (2) Dehydration Narrative/Plan: Improvement with ongoing hydration through TPN Current Visit: Yes Status: Acute Code(s): E86.0 - DEHYDRATION SNOMED Code(s): 17860532 (3) Metabolic acidosis Narrative/Plan: This has been currently corrected. Recurrence is not expected unless diarrhea resumes and become significant Current Visit: Yes Status: Acute Code(s): E87.2 - ACIDOSIS SNOMED Code(s): 15951860 (4) Bicytopenia Narrative/Plan: Counts remain in a safe range. Some drop in hemoglobin is noted today to 8.7 versus 10. Continue to monitor. No obvious bleeding. Current Visit: Yes Status: Acute Code(s): D75.89 - OTHER SPECIFIED DISEASES OF BLOOD AND BLOOD-FORMING ORGANS SNOMED Code(s): 26641489 (5) Colon adenocarcinoma Narrative/Plan: After resolution of current issues, the patient is known to be off treatment and will be reevaluated early next year. Current Visit: No Status: Acute Priority: High Code(s): C18.9 - MALIGNANT NEOPLASM OF COLON, UNSPECIFIED SNOMED Code(s): 722692595
[2020-01-23] MEDS: POTASSIUM CHLORIDE 20 MEQ in WATER FOR INJECTION 1 100ML.BAG IVPB SCH ×2 (16:30→21:13)
[2020-01-23] MEDS: 1: MVI, ADULT NO.4 WITH VIT K 10 ML, TRACE (CONC-1ML/DOSE) 1 ML, POTASSIUM CHLORIDE 20 M IV SCH ×5 (17:44)
[2020-01-23] MEDS: MAGNESIUM SULFATE-D5W PMX 1 GM in DEXTROSE/WATER 1 100ML.BAG IVPB SCH ×2 (19:38→23:18)
[2020-01-23] MEDS: OLANZapine 2.5 MG TAB PO SCH (20:23)
[2020-01-23] MEDS: MELATONIN 5 MG TABLET PO SCH (20:23)
[2020-01-24] MEDS: MAG HYDROX/AL HYDROX/SIMETH 30 ML, diphenhydrAMINE ELIXIR 75 MG, LIDOCAINE VISCOUS 30 ML PO SCH ×12 (00:38→22:20)
[2020-01-24 00:49] LABS: Glucose,Whole Blood 136 mg/dL (75-99)
[2020-01-24] MEDS: SODIUM CHLORIDE 0.9% 1,000 ML IV SCH (03:31)
[2020-01-24 06:17] LABS: Glucose,Whole Blood 126 mg/dL (75-99)
[2020-01-24] MEDS: CHOLESTYRAMINE (WITH SUGAR) 4 GM PACKET PO SCH ×2 (09:34→22:16)
[2020-01-24] MEDS: PANTOPRAZOLE 40 MG TABLET PO SCH ×2 (09:34→18:06)
[2020-01-24] MEDS: MAGNESIUM OXIDE 400 MG TAB PO SCH ×2 (09:34→22:17)
[2020-01-24] MEDS: valACYclovir HCL 1,000 MG TABLET PO SCH ×2 (09:35→22:20)
[2020-01-24] MEDS: NYSTATIN 100,000 UNIT/ML SUSP 500,000 UNIT/5 ML CUP PO SCH ×4 (09:35→22:16)
[2020-01-24] MEDS: 1: MVI, ADULT NO.4 WITH VIT K 10 ML, TRACE (CONC-1ML/DOSE) 1 ML, POTASSIUM CHLORIDE 20 M IV SCH ×10 (10:06→23:55)
[2020-01-24 10:33] LABS: African American GFR (CKD) 129.8 (60.0-200.0); Albumin 1.9 g/dL (3.80-4.90); Albumin/Globulin Ratio 1.06 (1.60-3.17); Anion Gap 5.5 mmol/L (4.00-12.00); BUN/Creat Ratio 43.33 Ratio (12.00-20.00); Calcium 7.6 mg/dL (8.7-10.3); Carbon Dioxide 24.5 mmol/L (21.6-31.8); Globulin 1.8 g/dL (1.6-3.3); Magnesium 2.2 mg/dL (1.5-2.4); Phosphorus 3.6 mg/dL (2.4-5.1); Potassium 3.8 mmol/L (3.5-5.5); Total Bilirubin 0.1 mg/dL (0.3-1.2); Total Protein 3.7 g/dL (6.2-8.2)
--- NOTE | 2020-01-24 11:33 | P.PN ---
Progress Note - Text Progress Note Date: 01/24/20 Patient feels better. She denies a significant abdominal pain. On exam vital signs are stable. Abdomen soft. Resolving enteritis. Patient will continue TPN.
[2020-01-24] MEDS: ONDANSETRON 4 MG/2 ML VIAL IVP PRN (12:05)
[2020-01-24 12:23] LABS: Glucose,Whole Blood 138 mg/dL (75-99)
--- NOTE | 2020-01-24 12:27 | P.PN ---
Subjective Patient is seen in follow for electrolyte imbalance. GFR is at baseline. Vomited twice this morning. Still on TPN. Vital signs are stable. General: The patient appeared well nourished and normally developed. HEENT: Head exam is unremarkable. Neck is without jugular venous distension. LUNGS: Breath sounds decreased. HEART: Rate and Rhythm are regular. ABDOMEN: Soft, nontender. EXTREMITITES: 1+ edema. Objective - Vital Signs Vital signs: Vital Signs Temp 98.1 F 01/23/20 20:00 Pulse 107 H 01/24/20 04:37 Resp 16 01/24/20 04:37 BP 158/77 01/24/20 04:37 Pulse Ox 96 01/24/20 04:37 Intake & Output 01/23/20 01/24/20 01/24/20 18:59 06:59 18:59 Other: Voiding Method Toilet Toilet Toilet Incontinent Incontinent Incontinent # Voids 1 # Bowel Movements 1 - Labs CBC & Chem 7: 01/23/20 06:41 01/24/20 06:29 Labs: Abnormal Lab Results - Last 24 Hours (Table) 01/23/20 01/24/20 01/24/20 Range/Units 06:41 00:31 06:12 Potassium 3.3 L (3.5-5.5) mmol/L Anion Gap 3.80 L (4.00-12.00) mmol/L BUN 8.0 L (9.0-27.0) mg/dL Creatinine 0.4 L (0.6-1.5) mg/dL BUN/Creatinine Ratio (12.00-20.00) Ratio Glucose 143 H (70-110) mg/dL POC Glucose (mg/dL) 136 H 126 H (75-99) mg/dL Calcium 7.5 L (8.7-10.3) mg/dL Total Bilirubin 0.2 L (0.3-1.2) mg/dL Alkaline Phosphatase 129 H (41-126) U/L Total Protein 3.7 L (6.2-8.2) g/dL Albumin 1.90 L (3.80-4.90) g/dL Albumin/Globulin Ratio 1.06 L (1.60-3.17) g/dL 01/24/20 01/24/20 Range/Units 06:29 12:21 Potassium (3.5-5.5) mmol/L Anion Gap (4.00-12.00) mmol/L BUN (9.0-27.0) mg/dL Creatinine 0.3 L (0.6-1.5) mg/dL BUN/Creatinine Ratio 43.33 H (12.00-20.00) Ratio Glucose 126 H (70-110) mg/dL POC Glucose (mg/dL) 138 H (75-99) mg/dL Calcium 7.6 L (8.7-10.3) mg/dL Total Bilirubin 0.1 L (0.3-1.2) mg/dL Alkaline Phosphatase (41-126) U/L Total Protein 3.7 L (6.2-8.2) g/dL Albumin 1.90 L (3.80-4.90) g/dL Albumin/Globulin Ratio 1.06 L (1.60-3.17) g/dL Microbiology - Last 24 Hours (Table) 01/17/20 23:39 Blood Culture - Final Blood No Growth after 144 hours Assessment and Plan Plan: Assessment: 1. Hyperkalemia secondary to metabolic acidosis and potassium supplementation. Resolved. Now hypokalemic, status post replacement. 2. Metabolic acidosis secondary to GI losses. Resolved. Status post bicarb drip. 3. History of colon cancer maintain and chemotherapy outpatient. 4. Lower extremity edema secondary to hypoalbuminemia. 5. Hypomagnesemia from GI losses. Status post replacement. Maintained on oral magnesium oxide. Plan: Maintain TPN. Replace electrolytes as needed. 2 doses of IV albumin today.
[2020-01-24] MEDS: ALBUMIN HUMAN 25% 50 ML in EMPTY BAG 1 BAG IVPB SCH ×4 (13:10→22:04)
[2020-01-24 17:54] LABS: Glucose,Whole Blood 127 mg/dL (75-99)
[2020-01-24] MEDS: MELATONIN 5 MG TABLET PO SCH (22:17)
[2020-01-24] MEDS: OLANZapine 2.5 MG TAB PO SCH (22:20)
[2020-01-24 23:47] LABS: Glucose,Whole Blood 96 mg/dL (75-99)
--- NOTE | 2020-01-25 02:11 | P.PN ---
Subjective Progress Note Date: 01/23/20 Principal diagnosis: Severe dehydration and diarrhea possibly secondary to chemotherapy Possible ileus with dilated small and large bowels secondary to diarrhea This is a 74-year-old female recently admitted with severe dehydration and diarrhea possibly secondary to chemotherapy. Patient was monitored closely in the ICU and was transferred to a medical surgical unit. Patient continue to have poor appetite and loose stools multiple times a day and electrolyte abnormalities. Potassium today is low at 3.1 and magnesium is 1.6 and currently replacing per protocol. Patient will be initiated on TPN per oncology and to continue with bowel rest and is requiring higher level of care and will be transferred to oncology if rapid Covid 19 testing is negative. Patient continue s to be weak although is alert and oriented 3. Patient does require standby assistance when getting up to the bathroom. Patient has also been incontinent of stool and urine stating she does not always have feeling of what she needs to go to the bathroom. Patient instructed to continue to increase activity as tolerated and continue with incentive spirometer at least 10 times every hour while awake. Multiple medical consultations following and will continue to monitor closely. 01/22/2020 Patient is seen and evaluated and follow-up currently on the oncology unit and has been initiated on TPN and is tolerating thus far. Patient states she is having some minor abdominal cramping and gas noted. No reports of bowel movements today. She denies any nausea or vomiting. Patient continues to be weak and requiring standby to minimal assistance along with the use of a walker when getting up. Patient's potassium this morning was 3.5 and magnesium remains at 1.6 and is receiving replacements per protocol. Multiple medical consultations including oncology and nephrology are following. Covid 19 testing was negative. Will continue to monitor vital signs and labs closely and continue with bowel rest at this time 01/23/2020 Patient states that she feels better and able to ambulate with a walker. Patient did have a bowel movement x2 and would like to try oral diet. No nausea vomiting. Patient has been afebrile. Otherwise patient is being continued on IV hydration and TPN for nutrition. Hemodynamically stable. Laboratory data showed WBC 10.6, hemoglobin 8.9 and platelets 87 Sodium 139, potassium 3.3 and BUN 8.0 and creatinine 0.4 Oncology is on board. Current medications reviewed. Review of systems: Constitutional: Reports fatigue, with no reports of fever, or chills Cardiovascular: No reports of chest pain or palpitations Respiratory: Reports intermittent shortness of breath and weak cough GI: No reports of nausea, vomiting, or loose stools, reports continued mouth pa in and sores with dry mucosa, patient reports intermittent abdominal cramping : No reports of dysuria or retention, reports incontinence Neurovascular: Reports generalized weakness All medications have been reviewed Objective - Vital Signs Vital signs: Vital Signs Temp 97.4 F L 01/23/20 15:00 Pulse 95 01/23/20 15:00 Resp 18 01/23/20 15:00 BP 146/79 01/23/20 15:00 Pulse Ox 99 01/23/20 15:00 Intake & Output 01/22/20 01/23/20 01/23/20 18:59 06:59 18:59 Weight 38.555 kg Other: Voiding Method Toilet Toilet Incontinent Incontinent # Voids 2 - Exam - Exam Gen: This is a 74-year-old female awake, alert and oriented 2-3. Temp is 97.4F, pulse is 90, respirations are 17, blood pressure is 153/83, oxygen saturation is 95 % on room air. HEENT: Head is atraumatic, normocephalic. Pupils equal, round. Sclerae is anict shauna. Multiple mouth sores noted with severe mucositis and dried crusting mucosa noted NECK: Supple. No JVD. No lymphadenopathy. No thyromegaly. LUNGS: Breath Sounds diminished bilaterally at the bases with no wheezing or rhonchi noted. No intercostal retractions. HEART: S1, S2 are muffled ABDOMEN: Soft. Bowel sounds are present. No masses. mild tenderness noted on palpation. EXTREMITIES: No pedal edema. No calf tenderness. NEUROLOGICAL: Patient is awake, alert and oriented x2. Cranial nerves 2 through 12 are grossly intact. Diffusely weak - Labs CBC & Chem 7: 01/23/20 06:41 01/24/20 06:29 Labs: Abnormal Lab Results - Last 24 Hours (Table) 01/22/20 01/23/20 01/23/20 Range/Units 16:37 06:41 06:41 RBC 2.79 L (3.80-5.40) m/uL Hgb 8.9 L D (11.4-16.0) gm/dL Hct 27.1 L (34.0-46.0) % RDW 16.5 H (11.5-15.5) % Plt Count 87 L (150-450) k/uL Neutrophils # (Manual) 15.93 H 8.20 H (1.3-7.7) k/uL Potassium 3.3 L (3.5-5.5) mmol/L Anion Gap 3.80 L (4.00-12.00) mmol/L BUN 8.0 L (9.0-27.0) mg/dL Creatinine 0.4 L (0.6-1.5) mg/dL Glucose 143 H (70-110) mg/dL Calcium 7.5 L (8.7-10.3) mg/dL Total Bilirubin 0.2 L (0.3-1.2) mg/dL Alkaline Phosphatase 129 H (41-126) U/L Total Protein 3.7 L (6.2-8.2) g/dL Albumin 1.90 L (3.80-4.90) g/dL Albumin/Globulin Ratio 1.06 L (1.60-3.17) g/dL Microbiology - Last 24 Hours (Table) 01/17/20 23:39 Blood Culture - Preliminary Blood No Growth after 120 hours Assessment and Plan Assessment: Severe dehydration and diarrhea possibly secondary to chemotherapy Possible ileus with dilated small and large bowels secondary to diarrhea Covid 19 ruled out, testing was negative No evidence of pneumocystitis intestinalis on recent computed tomography scan Severe hypokalemia Severe hypomagnesemia Hyperkalemia Severe dehydration, present on admission Anemia secondary to malignancy Colon cancer stage IV metastasis on chemo Severe protein calorie malnutrition with a body mass index of 16.1 History of liver disease history bowel resection history of hypomagnesemia History of brain metastasis for radiation history of anxiety History of bowel resection history of severe mucositis History of tonsillectomy No code Recommendations and discussion: Continue current medications, management, and symptomatic treatment. Electrolyte replacements per protocol. Magnesium is 1.6 and potassium is 3.5 and currently being replaced. Will repeat a.m. labs and continue to monitor closely. Patient was started on TPN with bowel rest. Patient instructed to continue with incentive spirometer at least 10 times every hour while awake. Increase activity as tolerated. PT/OT following. Case management following along with multiple medical consultations. Due to multiple complex medical issues, prognosis is guarded. Further recommendations to follow. Time with Patient: Greater than 30
--- NOTE | 2020-01-25 02:13 | P.PN ---
Subjective Progress Note Date: 01/24/20 Principal diagnosis: Severe dehydration and diarrhea possibly secondary to chemotherapy Possible ileus with dilated small and large bowels secondary to diarrhea This is a 74-year-old female recently admitted with severe dehydration and diarrhea possibly secondary to chemotherapy. Patient was monitored closely in the ICU and was transferred to a medical surgical unit. Patient continue to have poor appetite and loose stools multiple times a day and electrolyte abnormalities. Potassium today is low at 3.1 and magnesium is 1.6 and currently replacing per protocol. Patient will be initiated on TPN per oncology and to continue with bowel rest and is requiring higher level of care and will be transferred to oncology if rapid Covid 19 testing is negative. Patient continue s to be weak although is alert and oriented 3. Patient does require standby assistance when getting up to the bathroom. Patient has also been incontinent of stool and urine stating she does not always have feeling of what she needs to go to the bathroom. Patient instructed to continue to increase activity as tolerated and continue with incentive spirometer at least 10 times every hour while awake. Multiple medical consultations following and will continue to monitor closely. 01/22/2020 Patient is seen and evaluated and follow-up currently on the oncology unit and has been initiated on TPN and is tolerating thus far. Patient states she is having some minor abdominal cramping and gas noted. No reports of bowel movements today. She denies any nausea or vomiting. Patient continues to be weak and requiring standby to minimal assistance along with the use of a walker when getting up. Patient's potassium this morning was 3.5 and magnesium remains at 1.6 and is receiving replacements per protocol. Multiple medical consultations including oncology and nephrology are following. Covid 19 testing was negative. Will continue to monitor vital signs and labs closely and continue with bowel rest at this time 01/23/2020 Patient states that she feels better and able to ambulate with a walker. Patient did have a bowel movement x2 and would like to try oral diet. No nausea vomiting. Patient has been afebrile. Otherwise patient is being continued on IV hydration and TPN for nutrition. Hemodynamically stable. Laboratory data showed WBC 10.6, hemoglobin 8.9 and platelets 87 Sodium 139, potassium 3.3 and BUN 8.0 and creatinine 0.4 Oncology is on board. 01/24/2020 Patient is currently lying in bed comfortably. Awake alert and oriented x3. Patient states that she did have bowel movement. Patient had emesis x2 this morning. Otherwise patient is being continued on TPN. Laboratory data showed BUN 39 creatinine 0.3 potassium 3.8 magnesium 2.2 and albumin level is 1.9. Nephrology and oncology and general surgery is on board. Colitis is improving as well. Current medications reviewed. Review of systems: Constitutional: Reports fatigue, with no reports of fever, or chills Cardiovascular: No reports of chest pain or palpitations Respiratory: Reports intermittent shortness of breath and weak cough GI: No reports of nausea, vomiting, or loose stools, reports continued mouth pain and sores with dry mucosa, patient reports intermittent abdominal cramping : No reports of dysuria or retention, reports incontinence Neurovascular: Reports generalized weakness All medications have been reviewed Objective - Vital Signs Vital signs: Vital Signs Temp 97.3 F L 01/24/20 15:00 Pulse 103 H 01/24/20 15:00 Resp 18 01/24/20 15:00 BP 135/82 01/24/20 15:00 Pulse Ox 99 01/24/20 15:00 Intake & Output 01/23/20 01/24/20 01/24/20 18:59 06:59 18:59 Other: Voiding Method Toilet Toilet Toilet Incontinent Incontinent Incontinent # Voids 1 # Bowel Movements 1 - Exam - Exam Gen: This is a 74-year-old female awake, alert and oriented 2-3. Temp is 97.4F, pulse is 90, respirations are 17, blood pressure is 153/83, oxygen saturation is 95 % on room air. HEENT: Head is atraumatic, normocephalic. Pupils equal, round. Sclerae is anicteric. Multiple mouth sores noted with severe mucositis and dried crusting mucosa noted NECK: Supple. No JVD. No lymphadenopathy. No thyromegaly. LUNGS: Breath Sounds diminished bilaterally at the bases with no wheezing or rhonchi noted. No intercostal retractions. HEART: S1, S2 are muffled ABDOMEN: Soft. Bowel sounds are present. No masses. mild tenderness noted on palpation. EXTREMITIES: No pedal edema. No calf tenderness. NEUROLOGICAL: Patient is awake, alert and oriented x2. Cranial nerves 2 through 12 are grossly intact. Diffusely weak - Labs CBC & Chem 7: 01/23/20 06:41 01/24/20 06:29 Labs: Abnormal Lab Results - Last 24 Hours (Table) 01/24/20 01/24/20 01/24/20 Range/Units 00:31 06:12 06:29 Creatinine 0.3 L (0.6-1.5) mg/dL BUN/Creatinine Ratio 43.33 H (12.00-20.00) Ratio Glucose 126 H (70-110) mg/dL POC Glucose (mg/dL) 136 H 126 H (75-99) mg/dL Calcium 7.6 L (8.7-10.3) mg/dL Total Bilirubin 0.1 L (0.3-1.2) mg/dL Total Protein 3.7 L (6.2-8.2) g/dL Albumin 1.90 L (3.80-4.90) g/dL Albumin/Globulin Ratio 1.06 L (1.60-3.17) g/dL 01/24/20 Range/Units 12:21 Creatinine (0.6-1.5) mg/dL BUN/Creatinine Ratio (12.00-20.00) Ratio Glucose (70-110) mg/dL POC Glucose (mg/dL) 138 H (75-99) mg/dL Calcium (8.7-10.3) mg/dL Total Bilirubin (0.3-1.2) mg/dL Total Protein (6.2-8.2) g/dL Albumin (3.80-4.90) g/dL Albumin/Globulin Ratio (1.60-3.17) g/dL Microbiology - Last 24 Hours (Table) 01/17/20 23:39 Blood Culture - Final Blood No Growth after 144 hours Assessment and Plan Assessment: Severe dehydration and diarrhea possibly secondary to chemotherapy Possible ileus with dilated small and large bowels secondary to diarrhea Covid 19 ruled out, testing was negative No evidence of pneumocystitis intestinalis on recent computed tomography scan Severe hypokalemia Severe hypomagnesemia Hyperkalemia Severe dehydration, present on admission Anemia secondary to malignancy Colon cancer stage IV metastasis on chemo Severe protein calorie malnutrition with a body mass index of 16.1 History of liver disease history bowel resection history of hypomagnesemia History of brain metastasis for radiation history of anxiety History of bowel resection history of severe mucositis History of tonsillectomy No code Recommendations and discussion: Continue current medications, management, and symptomatic treatment. Electrolyte replacements per protocol. Magnesium is 1.6 and potassium is 3.5 and currently being replaced. Will repeat a.m. labs and continue to monitor closely. Patient was started on TPN with bowel rest. Patient instructed to continue with incentive spirometer at least 10 times every hour while awake. Increase activity as tolerated. PT/OT following. Case management following along with multiple medical consultations. Due to multiple complex medical issues, prognosis is guarded. Further recommendations to follow. Time with Patient: Greater than 30
[2020-01-25 05:26] LABS: Anisocytosis Slight; Basophils % (A) 0 %; Eosinophils # (A) 0.1 k/uL (0-0.7); Eosinophils % (A) 1 %; HCT 24.2 % (34.0-46.0); HGB 7.9 gm/dL (11.4-16.0); Lymphocytes # (A) 1.2 k/uL (1.0-4.8); Lymphocytes % (A) 12 %; MCH 32.3 pg (25.0-35.0); MCHC 32.5 g/dL (31.0-37.0); MCV 99.4 fL (80.0-100.0); Macrocytosis Slight; Mean Platelet Volume 8.9; Monocytes # (A) 0.5 k/uL (0-1.0); Monocytes % (A) 5 %; Neutrophils # (A) 7.8 k/uL (1.3-7.7); Neutrophils % (A) 79 %; RBC 2.44 m/uL (3.80-5.40); RDW 16.2 % (11.5-15.5); WBC 9.9 k/uL (3.8-10.6)
[2020-01-25 05:45] LABS: Platelet Count 72 k/uL (150-450)
[2020-01-25] MEDS: valACYclovir HCL 1,000 MG TABLET PO SCH (08:15)
[2020-01-25] MEDS: SODIUM CHLORIDE 0.9% 1,000 ML IV SCH ×2 (08:15→20:52)
[2020-01-25] MEDS: MAG HYDROX/AL HYDROX/SIMETH 30 ML, diphenhydrAMINE ELIXIR 75 MG, LIDOCAINE VISCOUS 30 ML PO SCH ×9 (08:16→20:55)
[2020-01-25] MEDS: NYSTATIN 100,000 UNIT/ML SUSP 500,000 UNIT/5 ML CUP PO SCH ×4 (08:17→20:52)
[2020-01-25] MEDS: CHOLESTYRAMINE (WITH SUGAR) 4 GM PACKET PO SCH ×2 (08:17→20:51)
[2020-01-25] MEDS: MAGNESIUM OXIDE 400 MG TAB PO SCH ×2 (08:17→20:52)
[2020-01-25] MEDS: PANTOPRAZOLE 40 MG TABLET PO SCH ×2 (08:18→17:35)
[2020-01-25 09:17] LABS: African American GFR (CKD) 129.8 (60.0-200.0); Albumin 2.6 g/dL (3.80-4.90); Albumin/Globulin Ratio 1.73 (1.60-3.17); Anion Gap 4.9 mmol/L (4.00-12.00); BUN/Creat Ratio 46.67 Ratio (12.00-20.00); Calcium 8.1 mg/dL (8.7-10.3); Carbon Dioxide 25.1 mmol/L (21.6-31.8); Globulin 1.5 g/dL (1.6-3.3); Magnesium 1.9 mg/dL (1.5-2.4); Phosphorus 3.8 mg/dL (2.4-5.1); Potassium 3.8 mmol/L (3.5-5.5); Total Bilirubin 0.3 mg/dL (0.3-1.2); Total Protein 4.1 g/dL (6.2-8.2)
[2020-01-25] MEDS ORDERED: ONDANSETRON 4 MG/2 ML VIAL IVP PRN (09:43)
[2020-01-25] MEDS: MAGNESIUM SULFATE-D5W PMX 1 GM in DEXTROSE/WATER 1 100ML.BAG IVPB SCH ×2 (11:22→12:54)
[2020-01-25 11:31] LABS: Glucose,Whole Blood 123 mg/dL (75-99)
--- NOTE | 2020-01-25 11:37 | P.PN ---
Subjective Progress Note Date: 01/25/20 CHIEF COMPLAINT: Abdominal pain HISTORY OF PRESENT ILLNESS: Patient is being followed for abdominal pain and possible ileus and enteritis. Patient denies any abdominal pain. She reports 2 bowel movements yesterday that were partially loose and solid. Denies any nausea or vomiting. She is currently on TPN. She is on a clear liquid diet. Patient is requesting more food. Afebrile. WBC 9.9 hemoglobin 7.9 platelets 72 PHYSICAL EXAM: VITAL SIGNS: Reviewed. GENERAL: Cachectic HEENT: No sclera icterus. Extraocular movements grossly intact. Moist buccal mucosa. Head is atraumatic, normocephalic. ABDOMEN: Soft. Decrease in abdominal distention. Nontender. NEUROLOGIC: Alert and oriented. Cranial nerves II through XII grossly intact. ASSESSMENT: 1. Abdominal pain with ileus and enteritis 2. History of metastatic right-sided colon cancer 3. Metabolic acidosis secondary to diarrhea has improved 4. Severe protein calorie malnutrition PLAN: -Continue supportive care -No surgical intervention planned -Diet per oncology service Physician [employer] note has been reviewed by physician. Signing provider agrees with the documented findings, assessment, and plan of care. Objective - Vital Signs Vital signs: Vital Signs Temp 97.2 F L 01/25/20 07:00 Pulse 102 H 01/25/20 07:00 Resp 17 01/25/20 07:00 BP 130/75 01/25/20 07:00 Pulse Ox 98 01/25/20 07:00 Intake & Output 01/24/20 01/25/20 01/25/20 18:59 06:59 18:59 Intake Total 1023 Balance 1023 Intake: Intake, IV Titration 1023 Amount Mvi, Adult No.4 with Vit 1023 K 10 ml Trace (Conc-1Ml/ Dose) 1 ml Potassium Chloride 20 meq Magnesium Sulfate gm 1 gm In Amino Acid 5%-D15w+Lytes*E* 1, 000 ml @ 77 mls/hr IV .BY DURATION [facility] Rx#: [id number] Other: Voiding Method Toilet Incontinent # Voids 1 1 - Labs CBC & Chem 7: 01/25/20 05:00 01/25/20 05:00 Labs: Abnormal Lab Results - Last 24 Hours (Table) 01/24/20 01/24/20 01/25/20 Range/Units 12:21 17:53 05:00 RBC (3.80-5.40) m/uL Hgb (11.4-16.0) gm/dL Hct (34.0-46.0) % RDW (11.5-15.5) % Plt Count (150-450) k/uL Neutrophils # (1.3-7.7) k/uL Creatinine 0.3 L (0.6-1.5) mg/dL BUN/Creatinine Ratio 46.67 H (12.00-20.00) Ratio Glucose 117 H (70-110) mg/dL POC Glucose (mg/dL) 138 H 127 H (75-99) mg/dL Calcium 8.1 L (8.7-10.3) mg/dL Total Protein 4.1 L (6.2-8.2) g/dL Albumin 2.60 L (3.80-4.90) g/dL Globulin 1.5 L (1.6-3.3) g/dL 01/25/20 01/25/20 Range/Units 05:00 11:30 RBC 2.44 L (3.80-5.40) m/uL Hgb 7.9 L (11.4-16.0) gm/dL Hct 24.2 L (34.0-46.0) % RDW 16.2 H (11.5-15.5) % Plt Count 72 L (150-450) k/uL Neutrophils # 7.8 H (1.3-7.7) k/uL Creatinine (0.6-1.5) mg/dL BUN/Creatinine Ratio (12.00-20.00) Ratio Glucose (70-110) mg/dL POC Glucose (mg/dL) 123 H (75-99) mg/dL Calcium (8.7-10.3) mg/dL Total Protein (6.2-8.2) g/dL Albumin (3.80-4.90) g/dL Globulin (1.6-3.3) g/dL
[2020-01-25] MEDS: 1: MVI, ADULT NO.4 WITH VIT K 10 ML, TRACE (CONC-1ML/DOSE) 1 ML, POTASSIUM CHLORIDE 20 M IV SCH ×10 (14:25→23:49)
[2020-01-25] MEDS: FAT EMULSION 20% 250 ML IV SCH (15:39)
--- NOTE | 2020-01-25 15:50 | P.PN ---
Subjective Progress Note Date: 01/25/20 This is a 74-year-old female recently admitted with severe dehydration and diarrhea possibly secondary to chemotherapy. Patient was monitored closely in the ICU and was transferred to a medical surgical unit. Patient continue to have poor appetite and loose stools multiple times a day and electrolyte ab normalities. Potassium today is low at 3.1 and magnesium is 1.6 and currently replacing per protocol. Patient will be initiated on TPN per oncology and to continue with bowel rest and is requiring higher level of care and will be transferred to oncology if rapid Covid 19 testing is negative. Patient continues to be weak although is alert and oriented 3. Patient does require standby assistance when getting up to the bathroom. Patient has also been incontinent of stool and urine stating she does not always have feeling of what she needs to go to the bathroom. Patient instructed to continue to increase activity as tolerated and continue with incentive spirometer at least 10 times every hour while awake. Multiple medical consultations following and will continue to monitor closely. 01/22/2020 Patient is seen and evaluated and follow-up currently on the oncology unit and has been initiated on TPN and is tolerating thus far. Patient states she is having some minor abdominal cramping and gas noted. No reports of bowel movements today. She denies any nausea or vomiting. Patient continues to be weak and requiring standby to minimal assistance along with the use of a walker when getting up. Patient's potassium this morning was 3.5 and magnesium remains at 1.6 and is receiving replacements per protocol. Multiple medical consultations including oncology and nephrology are following. Covid 19 testing was negative. Will continue to monitor vital signs and labs closely and continue with bowel rest at this time 01/23/2020 Patient states that she feels better and able to ambulate with a walker. Patient did have a bowel movement x2 and would like to try oral diet. No nausea vomiting. Patient has been afebrile. Otherwise patient is being continued on IV hydration and TPN for nutrition. Hemodynamically stable. Laboratory data showed WBC 10.6, hemoglobin 8.9 and platelets 87 Sodium 139, potassium 3.3 and BUN 8.0 and creatinine 0.4 Oncology is on board. 01/24/2020 Patient is currently lying in bed comfortably. Awake alert and oriented x3. Patient states that she did have bowel movement. Patient had emesis x2 this morning. Otherwise patient is being continued on TPN. Laboratory data showed BUN 39 creatinine 0.3 potassium 3.8 magnesium 2.2 and albumin level is 1.9. Nephrology and oncology and general surgery is on board. Colitis is improving as well. 01/25/2020 Patient is seen and evaluated in follow-up requesting to increase her diet as she is maintained on clears along with TPN. Discussed with oncology and advancing diet to monitor for tolerance and weaning off TPN. Patient had 2 episodes of vomiting yesterday although it was due to Valtrex as she states the pills get stuck and make her gag and vomit. Valtrex being discontinued. She denies any bowel movements as of yet today. No reports of diarrhea or vomiting noted. Potassium today is 3.8, sodium is 139, magnesium is 1.9. Will repeat a.m. labs. Review of systems: Constitutional: Reports fatigue, with no reports of fever, or chills Cardiovascular: No reports of chest pain or palpitations Respiratory: No reports of shortness of breath or cough GI: No reports of nausea, vomiting, or loose stools : No reports of dysuria or retention Neurovascular: Reports generalized weakness All medications have been reviewed Objective - Vital Signs Vital signs: Vital Signs Temp 96.9 F L 01/25/20 12:43 Pulse 66 01/25/20 12:43 Resp 17 01/25/20 12:43 BP 123/75 01/25/20 12:43 Pulse Ox 99 01/25/20 12:43 Intake & Output 01/24/20 01/25/20 01/25/20 18:59 06:59 18:59 Intake Total 1023 Balance 1023 Intake: Intake, IV Titration 1023 Amount Mvi, Adult No.4 with Vit 1023 K 10 ml Trace (Conc-1Ml/ Dose) 1 ml Potassium Chloride 20 meq Magnesium Sulfate gm 1 gm In Amino Acid 5%-D15w+Lytes*E* 1, 000 ml @ 77 mls/hr IV .BY DURATION [facility] Rx#: [id number] Other: Voiding Method Toilet Incontinent # Voids 1 1 - Exam Gen: This is a 74-year-old female awake, alert and oriented 2-3. HEENT: Head is atraumatic, normocephalic. Pupils equal, round. Sclerae is anicteric. Multiple mouth sores noted with severe mucositis and dried crusting mucosa noted NECK: Supple. No JVD. No lymphadenopathy. No thyromegaly. LUNGS: Breath Sounds diminished bilaterally at the bases with no wheezing or rhonchi noted. No intercostal retractions. HEART: S1, S2 are muffled ABDOMEN: Soft. Bowel sounds are present. No masses. mild tenderness noted on palpation. EXTREMITIES: No pedal edema. No calf tenderness. NEUROLOGICAL: Patient is awake, alert and oriented x2. Cranial nerves 2 through 12 are grossly intact. Diffusely weak - Labs CBC & Chem 7: 01/25/20 05:00 01/25/20 05:00 Labs: Abnormal Lab Results - Last 24 Hours (Table) 01/24/20 01/25/20 01/25/20 Range/Units 17:53 05:00 05:00 RBC 2.44 L (3.80-5.40) m/uL Hgb 7.9 L (11.4-16.0) gm/dL Hct 24.2 L (34.0-46.0) % RDW 16.2 H (11.5-15.5) % Plt Count 72 L (150-450) k/uL Neutrophils # 7.8 H (1.3-7.7) k/uL Creatinine 0.3 L (0.6-1.5) mg/dL BUN/Creatinine Ratio 46.67 H (12.00-20.00) Ratio Glucose 117 H (70-110) mg/dL POC Glucose (mg/dL) 127 H (75-99) mg/dL Calcium 8.1 L (8.7-10.3) mg/dL Total Protein 4.1 L (6.2-8.2) g/dL Albumin 2.60 L (3.80-4.90) g/dL Globulin 1.5 L (1.6-3.3) g/dL 01/25/20 Range/Units 11:30 RBC (3.80-5.40) m/uL Hgb (11.4-16.0) gm/dL Hct (34.0-46.0) % RDW (11.5-15.5) % Plt Count (150-450) k/uL Neutrophils # (1.3-7.7) k/uL Creatinine (0.6-1.5) mg/dL BUN/Creatinine Ratio (12.00-20.00) Ratio Glucose (70-110) mg/dL POC Glucose (mg/dL) 123 H (75-99) mg/dL Calcium (8.7-10.3) mg/dL Total Protein (6.2-8.2) g/dL Albumin (3.80-4.90) g/dL Globulin (1.6-3.3) g/dL Assessment and Plan Assessment: Severe dehydration and diarrhea possibly secondary to chemotherapy Possible ileus with dilated small and large bowels secondary to diarrhea Covid 19 ruled out, testing was negative No evidence of pneumocystitis intestinalis on recent computed tomography scan Severe hypokalemia Severe hypomagnesemia Hyperkalemia Severe dehydration, present on admission Anemia secondary to malignancy Colon cancer stage IV metastasis on chemo Severe protein calorie malnutrition with a body mass index of 16.1 History of liver disease history bowel resection history of hypomagnesemia History of brain metastasis for radiation history of anxiety History of bowel resection history of severe mucositis History of tonsillectomy No code Recommendations and discussion: Continue current medications. Electrolyte replacements per protocol. Magnesium is 1.9 and potassium is 3.8. Diet being advanced and discussed with nursing staff about weaning off TPN. Will repeat a.m. labs and continue to monitor closely. Patient instructed to continue with incentive spirometer at least 10 times every hour while awake. Increase activity as tolerated. PT/OT following. Case management following along with multiple medical consultations. Per the patient plan is to go home with continued home care in the outpatient setting. Due to multiple complex medical issues, prognosis is guarded. Further recommendations to follow.
--- NOTE | 2020-01-25 16:38 | PN ---
PROGRESS NOTE running low currently staying at about 3.8. The patient remains on TPN. PHYSICAL EXAMINATION: On examination today, blood pressure was 123/75, heart rate 66 per minute, she is afebrile. Examination of the heart S1, S2. Examination of lungs, decreased breath sounds at bases. Abdomen is soft, nontender. Examination of the lower extremities shows edema 1+ bilaterally. QUALITY CONTROL SUPERVISOR exam grossly intact. LABS: Show sodium 139, potassium 3.8, chloride 109, BUN 14, serum creatinine 0.3, hemoglobin 7.9 g/dL. ASSESSMENT: 1. Hyperkalemia on initial admission associated with metabolic acidosis, potassium supplementation, currently improved. Patient is actually hypokalemic now and receiving potassium supplementation. She is maintained on TPN, which we will continue. 2. Metabolic acidosis associated with GI fluid losses, status post bicarb drip. 3. History of colon cancer, status post chemotherapy. 4. Hypomagnesemia from GI fluid losses, status post replacement. PLAN: Continue to encourage increased oral intake, particularly protein. Repeat labs. Continue to monitor electrolytes. MMODL / IJN: [id number] /
[2020-01-25 18:30] LABS: Glucose,Whole Blood 521 mg/dL (75-99)
[2020-01-25 18:32] LABS: Glucose,Whole Blood 141 mg/dL (75-99)
[2020-01-25] MEDS: MELATONIN 5 MG TABLET PO SCH (20:52)
[2020-01-25] MEDS: OLANZapine 2.5 MG TAB PO SCH (20:55)
--- NOTE | 2020-01-25 22:29 | P.PN ---
Subjective Progress Note Date: 01/25/20 Principal diagnosis: Weakness, Weight loss, Diarrhea Yesterday emesis related to choking on pill, none since. BM are less watery and more full, she is hungry and wants to increase diet. Objective - Vital Signs Vital signs: Vital Signs Temp 96.9 F L 01/25/20 12:43 Pulse 66 01/25/20 12:43 Resp 17 01/25/20 12:43 BP 123/75 01/25/20 12:43 Pulse Ox 99 01/25/20 12:43 Intake & Output 01/25/20 01/25/20 01/26/20 06:59 18:59 06:59 Intake Total 1012 1620 Balance 1012 1620 Weight 38.555 kg Intake: Intake, IV Titration 1012 440 Amount Magnesium Sulfate-D5w Pmx 200 1 gm In Dextrose/Water 1 100ml.bag @ 100 mls/hr IVPB Q1H [facility] Rx#: [id number] Potassium Chloride 20 meq 1012 Magnesium Sulfate gm 1 gm In Amino Acid 5%-D15w+ Lytes*E* 1,000 ml @ 77 mls/hr IV .BY DURATION [facility] Rx#:[id number] Sodium Chloride 0.9% 1, 240 000 ml @ 50 mls/hr IV . Q20H [facility] Rx#:[id number] Oral 1180 Other: # Voids 1 4 - Exam - Constitutional General appearance: Present: cooperative, thin - EENT EENT Comment(s): Lips and mouth very dry, dry mucous and nasal membranes. Cracking and herpetic lesions to lips. Eyes: Present: EOMI, PERRLA ENT: Present: NA/AT, other - Respiratory Respiratory: bilateral: CTA - Cardiovascular Rhythm: regular Heart sounds: normal: S1, S2 - Gastrointestinal General gastrointestinal: Present: distended, hyperactive bowel sounds, tenderness - Integumentary Integumentary: Present: pale - Neurologic Neurologic: Present: CNII-XII intact - Musculoskeletal Musculoskeletal: Present: generalized weakness - Psychiatric Psychiatric: Present: A&O x's 3, appropriate affect, intact judgment & insight - Allied health notes Allied health notes reviewed: PT - Labs CBC & Chem 7: 01/25/20 05:00 01/25/20 05:00 Labs: Abnormal Lab Results - Last 24 Hours (Table) 01/25/20 01/25/2001/24/20 Range/Units 05:00 05:00 11:30 RBC 2.44 L (3.80-5.40) m/uL Hgb 7.9 L (11.4-16.0) gm/dL Hct 24.2 L (34.0-46.0) % RDW 16.2 H (11.5-15.5) % Plt Count 72 L (150-450) k/uL Neutrophils # 7.8 H (1.3-7.7) k/uL Creatinine 0.3 L (0.6-1.5) mg/dL BUN/Creatinine Ratio 46.67 H (12.00-20.00) Ratio Glucose 117 H (70-110) mg/dL POC Glucose (mg/dL) 123 H (75-99) mg/dL Calcium 8.1 L (8.7-10.3) mg/dL Total Protein 4.1 L (6.2-8.2) g/dL Albumin 2.60 L (3.80-4.90) g/dL Globulin 1.5 L (1.6-3.3) g/dL 01/25/20 01/25/20 Range/Units 18:29 18:31 RBC (3.80-5.40) m/uL Hgb (11.4-16.0) gm/dL Hct (34.0-46.0) % RDW (11.5-15.5) % Plt Count (150-450) k/uL Neutrophils # (1.3-7.7) k/uL Creatinine (0.6-1.5) mg/dL BUN/Creatinine Ratio (12.00-20.00) Ratio Glucose (70-110) mg/dL POC Glucose (mg/dL) 521 H 141 H (75-99) mg/dL Calcium (8.7-10.3) mg/dL Total Protein (6.2-8.2) g/dL Albumin (3.80-4.90) g/dL Globulin (1.6-3.3) g/dL Assessment and Plan Plan: Metastatic Colon Cancer: - Status Post Cycle 11 FOLFOX with Neulasta - Will hold further chemotherapy till after new year and consider maintenance - She also received vectibix Persistent Diarrhea:Improved -Increase Diet - Monitor closely - If diarrhea returns, increase PRN Lomotil use and will add budesemide Weight Loss and Decreased PO inctake: - TPN for non-functioning GI - Increase diet and wean tpn once eating Plan: Hopeful dispo this week Physician attest: I have completed full history and physical and agree with above dictation, dictated as a scribe.
[2020-01-26 00:25] LABS: Glucose,Whole Blood 86 mg/dL (75-99)
[2020-01-26 01:56] LABS: Glucose,Whole Blood 98 mg/dL (75-99)
[2020-01-26 02:59] LABS: Anisocytosis Slight; HCT 23.2 % (34.0-46.0); HGB 7.3 gm/dL (11.4-16.0); MCHC 31.5 g/dL (31.0-37.0); MCV 98.5 fL (80.0-100.0); Macrocytosis Slight; Mean Platelet Volume 9.2; RBC 2.35 m/uL (3.80-5.40)
[2020-01-26 03:01] LABS: Platelet Count 80 k/uL (150-450)
[2020-01-26 03:27] LABS: ALT 11 U/L (4-34); AST 32 U/L (14-36); African American GFR (CKD) >90 (>60 ml/min/1.73 sqM); Albumin 1.9 g/dL (3.5-5.0); Albumin/Globulin Ratio 0.9; Alkaline Phosphatase 159 U/L (38-126); Anion Gap -2 mmol/L; Blood Urea Nitrogen 11 mg/dL (7-17); Calcium 8.1 mg/dL (8.4-10.2); Carbon Dioxide 28 mmol/L (22-30); Chloride 110 mmol/L (98-107); Globulin 2.1 g/dL; Glucose 75 mg/dL (74-99); Non-African American GFR(CKD) >90 (>60 ml/min/1.73 sqM); Phosphorus 3.5 mg/dL (2.5-4.5); Potassium 3.3 mmol/L (3.5-5.1); Sodium 136 mmol/L (137-145); Total Bilirubin 0.4 mg/dL (0.2-1.3)
[2020-01-26 06:02] LABS: Glucose,Whole Blood 78 mg/dL (75-99)
[2020-01-26] MEDS ORDERED: Potassium Replacement Protocol 1 EACH MISC MISCELLANE PRN (06:28)
[2020-01-26] MEDS: PANTOPRAZOLE 40 MG TABLET PO SCH (07:16)
[2020-01-26] MEDS: MAGNESIUM OXIDE 400 MG TAB PO SCH (07:16)
[2020-01-26] MEDS: POTASSIUM CHLORIDE ER 20 MEQ TAB.ER PO SCH ×2 (07:16→07:17)
[2020-01-26] MEDS: CHOLESTYRAMINE (WITH SUGAR) 4 GM PACKET PO SCH (07:17)
[2020-01-26] MEDS: MAG HYDROX/AL HYDROX/SIMETH 30 ML, diphenhydrAMINE ELIXIR 75 MG, LIDOCAINE VISCOUS 30 ML PO SCH ×3 (07:17)
[2020-01-26] MEDS: NYSTATIN 100,000 UNIT/ML SUSP 500,000 UNIT/5 ML CUP PO SCH (07:17)
[2020-01-26 07:27] VITALS: BP 111/68; PULSE 84; RESP 16; TEMP 97.4
[2020-01-26] MEDS ORDERED: POTASSIUM CHLORIDE 20 MEQ in WATER FOR INJECTION 1 100ML.BAG IVPB SCH (10:15)
--- NOTE | 2020-01-26 10:43 | P.PN ---
Subjective Progress Note Date: 01/26/20 CHIEF COMPLAINT: Abdominal pain HISTORY OF PRESENT ILLNESS: Patient is being followed for abdominal pain and possible ileus and enteritis. Patient denies any abdominal pain. Patient's diet was advanced yesterday to regular. She reports tolerating regular diet. Denies abdominal pain. Reports that she is feeling better. She's afebrile. WBC 9.0 hemoglobin 7.3 potassium 3.3 and is being replaced by protocol PHYSICAL EXAM: VITAL SIGNS: Reviewed. GENERAL: Cachectic HEENT: No sclera icterus. Extraocular movements grossly intact. Moist buccal mucosa. Head is atraumatic, normocephalic. ABDOMEN: Soft. Nondistended. Nontender. NEUROLOGIC: Alert and oriented. Cranial nerves II through XII grossly intact. ASSESSMENT: 1. Abdominal pain with ileus and enteritis 2. History of metastatic right-sided colon cancer 3. Metabolic acidosis secondary to diarrhea has improved 4. Severe protein calorie malnutrition PLAN: -Continue supportive care -No surgical intervention planned -Diet per oncology service Physician Diagnostic Medical Sonographer note has been reviewed by physician. Signing provider agrees with the documented findings, assessment, and plan of care. Objective - Vital Signs Vital signs: Vital Signs Temp 97.4 F L 01/26/20 07:00 Pulse 84 01/26/20 07:00 Resp 16 01/26/20 07:00 BP 111/68 01/26/20 07:00 Pulse Ox 100 01/26/20 07:00 Intake & Output 01/25/20 01/26/20 01/26/20 18:59 06:59 18:59 Intake Total 1620 Output Total 1 Balance 1620 -1 Weight 38.555 kg Intake: Intake, IV Titration 440 Amount Magnesium Sulfate-D5w Pmx 200 1 gm In Dextrose/Water 1 100ml.bag @ 100 mls/hr IVPB Q1H [facility] Rx#: [id number] Sodium Chloride 0.9% 1, 240 000 ml @ 50 mls/hr IV . Q20H [facility] Rx#:[id number] Oral 1180 Output: Stool 1 Other: Voiding Method Toilet Toilet Incontinent Incontinent # Voids 4 3 # Bowel Movements 0 - Labs CBC & Chem 7: 01/26/20 02:44 01/26/20 03:00 Labs: Abnormal Lab Results - Last 24 Hours (Table) 01/25/20 01/25/2001/24/20 Range/Units 11:30 18:29 18:31 RBC (3.80-5.40) m/uL Hgb (11.4-16.0) gm/dL Hct (34.0-46.0) % RDW (11.5-15.5) % Plt Count (150-450) k/uL Sodium (137-145) mmol/L Potassium (3.5-5.1) mmol/L Chloride (98-107) mmol/L Creatinine (0.52-1.04) mg/dL POC Glucose (mg/dL) 123 H 521 H 141 H (75-99) mg/dL Calcium (8.4-10.2) mg/dL Alkaline Phosphatase (38-126) U/L Total Protein (6.3-8.2) g/dL Albumin (3.5-5.0) g/dL 01/26/20 01/26/20 Range/Units 02:44 03:00 RBC 2.35 L (3.80-5.40) m/uL Hgb 7.3 L (11.4-16.0) gm/dL Hct 23.2 L (34.0-46.0) % RDW 17.0 H (11.5-15.5) % Plt Count 80 L (150-450) k/uL Sodium 136 L (137-145) mmol/L Potassium 3.3 L (3.5-5.1) mmol/L Chloride 110 H (98-107) mmol/L Creatinine 0.41 L (0.52-1.04) mg/dL POC Glucose (mg/dL) (75-99) mg/dL Calcium 8.1 L (8.4-10.2) mg/dL Alkaline Phosphatase 159 H (38-126) U/L Total Protein 4.0 L (6.3-8.2) g/dL Albumin 1.9 L (3.5-5.0) g/dL
--- NOTE | 2020-01-26 11:53 | P.PN ---
Subjective Progress Note Date: 01/26/20 Principal diagnosis: Weakness, Weight loss, Diarrhea Tolerating PO intake, loose stool x1 yesterday, none so far today. Objective - Vital Signs Vital signs: Vital Signs Temp 97.4 F L 01/26/20 07:00 Pulse 84 01/26/20 07:00 Resp 16 01/26/20 07:00 BP 111/68 01/26/20 07:00 Pulse Ox 100 01/26/20 07:00 Intake & Output 01/25/20 01/26/20 01/26/20 18:59 06:59 18:59 Intake Total 1620 Output Total 1 Balance 1620 -1 Weight 38.555 kg Intake: Intake, IV Titration 440 Amount Magnesium Sulfate-D5w Pmx 200 1 gm In Dextrose/Water 1 100ml.bag @ 100 mls/hr IVPB Q1H [facility] Rx#: [id number] Sodium Chloride 0.9% 1, 240 000 ml @ 50 mls/hr IV . Q20H [facility] Rx#:[id number] Oral 1180 Output: Stool 1 Other: Voiding Method Toilet Toilet Incontinent Incontinent # Voids 4 3 # Bowel Movements 0 - Exam - Constitutional General appearance: Present: cooperative, thin - EENT EENT Comment(s): Lips and mouth very dry, dry mucous and nasal membranes. Cracking and herpetic lesions to lips. Eyes: Present: EOMI, PERRLA ENT: Present: NA/AT, other - Respiratory Respiratory: bilateral: CTA - Cardiovascular Rhythm: regular Heart sounds: normal: S1, S2 - Gastrointestinal General gastrointestinal: Present: distended, hyperactive bowel sounds, tenderness - Integumentary Integumentary: Present: pale - Neurologic Neurologic: Present: CNII-XII intact - Musculoskeletal Musculoskeletal: Present: generalized weakness - Psychiatric Psychiatric: Present: A&O x's 3, appropriate affect, intact judgment & insight - Allied health notes Allied health notes reviewed: PT - Labs CBC & Chem 7: 01/26/20 02:44 01/26/20 03:00 Labs: Abnormal Lab Results - Last 24 Hours (Table) 01/25/20 01/25/20 01/26/20 Range/Units 18:29 18:31 02:44 RBC 2.35 L (3.80-5.40) m/uL Hgb 7.3 L (11.4-16.0) gm/dL Hct 23.2 L (34.0-46.0) % RDW 17.0 H (11.5-15.5) % Plt Count 80 L (150-450) k/uL Sodium (137-145) mmol/L Potassium (3.5-5.1) mmol/L Chloride (98-107) mmol/L Creatinine (0.52-1.04) mg/dL POC Glucose (mg/dL) 521 H 141 H (75-99) mg/dL Calcium (8.4-10.2) mg/dL Alkaline Phosphatase (38-126) U/L Total Protein (6.3-8.2) g/dL Albumin (3.5-5.0) g/dL 01/26/20 Range/Units 03:00 RBC (3.80-5.40) m/uL Hgb (11.4-16.0) gm/dL Hct (34.0-46.0) % RDW (11.5-15.5) % Plt Count (150-450) k/uL Sodium 136 L (137-145) mmol/L Potassium 3.3 L (3.5-5.1) mmol/L Chloride 110 H (98-107) mmol/L Creatinine 0.41 L (0.52-1.04) mg/dL POC Glucose (mg/dL) (75-99) mg/dL Calcium 8.1 L (8.4-10.2) mg/dL Alkaline Phosphatase 159 H (38-126) U/L Total Protein 4.0 L (6.3-8.2) g/dL Albumin 1.9 L (3.5-5.0) g/dL Assessment and Plan Plan: Metastatic Colon Cancer: - Status Post Cycle 11 FOLFOX with Neulasta - Will hold further chemotherapy till after new year and consider maintenance - She also received vectibix Persistent Diarrhea:Improved - Discharge on Budesomide Weight Loss and Decreased PO inctake: - TPN for non-functioning GI - Increase diet and wean tpn once eating Plan: - Discharge today - Will discontinue Questran as it appears it does not have same controllong effect as it used to on her diarrhea which is related to inflammatory process from chemotherapy, will discharge on a maintenance budesemide ER 6mg dose - this can be take up to 3 months if needed. Will plan 30 days (unless constipation) and have her follow-up after the new year to discuss maintenance treatment options for her cancer and management of bowels. - Discussed with primary team Physician attest: I have completed full history and physical and agree with above dictation, dictated as a scribe.
--- NOTE | 2020-01-26 14:03 | P.DS ---
Providers Date of admission: 01/13/20 18:04 Expected date of discharge: 01/26/20 Attending physician: Zari Gr Consults: 01/13/20 18:05 Consult Physician Urgent Consulting Provider: Terrence Monroe Consult Reason/Comments: Abdominal pain, colitis, stage IV colon cancer Do you want consulting provider notified?: Yes 01/13/20 19:20 Consult Physician Routine Consulting Provider: Wily Yeager Consult Reason/Comments: malignancy Do you want consulting provider notified?: Yes 01/17/20 22:32 Consult Physician Routine Consulting Provider: Toni Umana Consult Reason/Comments: Acidosis Do you want consulting provider notified?: Yes 01/17/20 23:07 Consult Physician Stat Consulting Provider: Walt Pate Consult Reason/Comments: ICU management Do you want consulting provider notified?: Yes Primary care physician: Caity Gutierrez, [facility] Hospital Course: Final diagnosis Severe dehydration and diarrhea possibly secondary to chemotherapy Possible ileus with dilated small and large bowels secondary to diarrhea Covid 19 ruled out, testing was negative No evidence of pneumocystitis intestinalis on recent computed tomography scan Severe hypokalemia Severe hypomagnesemia Hyperkalemia Severe dehydration, present on admission Anemia secondary to malignancy Colon cancer stage IV metastasis on chemo Severe protein calorie malnutrition with a body mass index of 16.1 History of liver disease history bowel resection history of hypomagnesemia History of brain metastasis for radiation history of anxiety History of bowel resection history of severe mucositis History of tonsillectomy No code Discharge disposition Patient is being discharged in a stable condition with guarded prognosis to home. Patient will continue with home care and outpatient rehab upon discharge. Patient will follow-up with Josh Gutierrez PRICING CONSULTANT in the outpatient setting upon discharge. She also instructed to follow-up with oncology in the next 4 weeks. Total time taken is greater than 35 minutes. History of present illness This is a 74-year-old female who was recently admitted with severe dehydration and diarrhea with severe electrolyte abnormalities possibly secondary to chemoth erapy and was being closely monitored. During hospitalization patient continue to have multiple bouts of diarrhea and underwent a fall while attempting to get to the bathroom. CT of the head was done which was negative. Patient was closely monitored in the ICU for severely low potassium and magnesium. Patient was maintained on replacement protocol and ultimately continued to deteriorate. Patient continue to have diarrhea and inability to tolerate diet. Patient was placed on bowel rest and TPN. Patient tolerated well although wanted to start diet and was slowly initiated on diet and tolerating and weaning off TPN. Patient current potassium 3.3 and replaced and magnesium is 2.0. Patient would like to go home. Patient evaluated by PT/OT therapy recommending subacute rehab although patient is refusing and would like to go home with family. She was agreeable to home care with rehab in the outpatient setting. Patient will follow-up with oncology in the outpatient setting after the holidays. Patient was provided a prescription for repeat labs in the next few days to monitor electrolytes closely. Patient encouraged to increase activity as tolerated and continue using the incentive spirometer and increasing oral intake. Currently no reports of chest pain, shortness of breath, or palpitations. Patient is afebrile. No reports of nausea or vomiting and patient is tolerating diet. Patient will be going home today. Guarded prognosis. On exam vital signs are stable. Temp is 97.4F, pulse is 84, respirations are 16, blood pressure is 111/68, oxygen saturation is 100% on room air. Cardio S1, S2 are muffled. Respiratory system shows diminished breath sounds at the bases with no wheezing or rhonchi noted. Abdomen is soft and nontender. Nervous system shows diffuse weakness. Please refer to medication reconciliation sheet for a list of medications. Patient Condition at Discharge: Fair Plan - Discharge Summary New Discharge Prescriptions: New Magnesium Oxide [Mag-Ox] 400 mg PO BID 30 Days #60 tab Nystatin 100,000 Unit/ml Susp [Mycostatin Oral Susp] 500,000 unit PO QID #70 ml Pantoprazole [Protonix] 40 mg PO AC-BID 30 Days #60 tablet.dr Acetaminophen Tab [Tylenol] 650 mg PO Q6HR PRN tab PRN Reason: Mild Pain Or Fever > 100.5 Budesonide [Budesonide ER] 6 mg PO QAM #30 tabdr...er Continue traMADol HCL 50 mg PO Q8H PRN PRN Reason: Pain ALPRAZolam [Xanax] 0.25 mg PO BID PRN PRN Reason: Anxiety Diphenoxylate HCl/Atropine [Lomotil 2.5-0.025 mg Tablet] 1 - 2 tab PO DAILY PRN #45 tab PRN Reason: Diarrhea Omeprazole 40 mg PO DAILY #30 cap Ondansetron Odt [Zofran ODT] 4 mg PO Q4H PRN #20 tab PRN Reason: Nausea OLANZapine [ZyPREXA] 2.5 mg PO HS #30 tab Changed Potassium Chloride ER [K-Dur 20] 20 meq PO BID 30 Days #60 tablet Discontinued Cholestyramine (with Sugar) [Questran Packet] 4 gm PO BID Discharge Medication List ALPRAZolam [Xanax] 0.25 mg PO BID PRN 11/04/19 [History] traMADol HCL 50 mg PO Q8H PRN 11/04/19 [History] Acetaminophen Tab [Tylenol] 650 mg PO Q6HR PRN tab 01/26/20 [Rx] Budesonide [Budesonide ER] 6 mg PO QAM #30 tabdr...er 01/26/20 [Rx] Diphenoxylate HCl/Atropine [Lomotil 2.5-0.025 mg Tablet] 1 - 2 tab PO DAILY PRN #45 tab 01/26/20 [Rx] Magnesium Oxide [Mag-Ox] 400 mg PO BID 30 Days #60 tab 01/26/20 [Rx] Nystatin 100,000 Unit/ml Susp [Mycostatin Oral Susp] 500,000 unit PO QID #70 ml 01/26/20 [Rx] OLANZapine [ZyPREXA] 2.5 mg PO HS #30 tab 01/26/20 [Rx] Omeprazole 40 mg PO DAILY #30 cap 01/26/20 [Rx] Ondansetron Odt [Zofran ODT] 4 mg PO Q4H PRN #20 tab 01/26/20 [Rx] Pantoprazole [Protonix] 40 mg PO AC-BID 30 Days #60 tablet. 01/26/20 [Rx] Potassium Chloride ER [K-Dur 20] 20 meq PO BID 30 Days #60 tablet 01/26/20 [Rx] Follow up Appointment(s)/Referral(s): Wily Yeager MD [STAFF PHYSICIAN] - 4 Weeks Caity Gutierrez FNPBC [Primary Care Provider] - 1-2 days [facility], [NON-STAFF] - 1-2 Days Ambulatory/Diagnostic Orders: Comprehensive Metabolic Panel [LAB.AMB] Time Frame: 2 Days, Location: None Selected Magnesium [LAB.AMB] Time Frame: 2 Days, Location: None Selected Patient Instructions/Handouts: Colitis (ED) Activity/Diet/Wound Care/Special Instructions: Activity Limited until follow-up Follow-up with primary care provider upon discharge Follow Up with oncology as discussed and scheduled Continue current diet of full liquids and advance slowly as tolerated Continue with supplements Repeat labs to monitor electrolytes closely Continue with home care and rehab Discharge Disposition: HOME WITH HOME HEALTH SERVICES
--- NOTE | 2020-01-27 16:42 | PN ---
PROGRESS NOTE DATE OF SERVICE: 01/26/2020 The patient is seen for followup for electrolyte disorders. She is currently doing fairly well, serum potassium staying slightly on the lower side. PHYSICAL EXAMINATION: On examination today, blood pressure was 111/68, heart rate 84 per minute. Patient is afebrile. Examination shows edema 2+ bilaterally in lower extremities. Abdomen is soft, nontender. WAFER FAB TECHNICIAN exam grossly intact. LABS: Labs show sodium 136, potassium 3.3, chloride 110, BUN 11, serum creatinine 0.4 mg/dL. ASSESSMENT: 1. Hypokalemia with an episode of hyperkalemia initially, currently being replaced. 2. Lower extremity edema and mild volume overload. Patient is advised to maintain activity and increase oral protein intake post discharge. At this time she is refusing any loop diuretics. 3. Metabolic acidosis associated with gastrointestinal fluid loss, status post bicarb drip. 4. History of colon cancer, status post chemotherapy. PLAN: Patient is encouraged to increase protein intake post discharge, increase activity, follow up as outpatient for possible initiation of Lasix if she is agreeable and if the swelling does not improve down the road. MMODL / IJN: [id number] /
== END 2020-01-26 13:41 | disposition home health service (06) | DRG 393 ==
LOC: EC 16:03 → 4SSUR 18:04 → 5NMEDONC 01-14 04:36 → 2SICU 01-18 00:31 → 6PED 01-19 13:31 → 5NMEDONC 01-21 12:58
PROVIDERS: ADMIT Hospitalist; ATTEND Hospitalist
PROC: 3E0G76Z Introduction of Nutritional Substance into Upper GI, Via Natural or Artificial Opening (ICD-10-PCS; principal; 2020-01-13)
DX: K52.1 Toxic gastroenteritis and colitis (principal); E43 Unspecified severe protein-calorie malnutrition; C18.2 Malignant neoplasm of ascending colon; C78.7 Secondary malignant neoplasm of liver and intrahepatic bile duct; C79.31 Secondary malignant neoplasm of brain; C77.2 Secondary and unspecified malignant neoplasm of intra-abdominal lymph nodes; E87.2 Acidosis; J90 Pleural effusion, not elsewhere classified; K56.7 Ileus, unspecified; R18.8 Other ascites; R64 Cachexia; Z68.1 Body mass index [BMI] 19.9 or less, adult; T45.1X5A Adverse effect of antineoplastic and immunosuppressive drugs, initial encounter; D63.0 Anemia in neoplastic disease; D69.6 Thrombocytopenia, unspecified; E83.42 Hypomagnesemia; E86.0 Dehydration; E87.5 Hyperkalemia; E87.6 Hypokalemia; E87.8 Other disorders of electrolyte and fluid balance, not elsewhere classified; F41.9 Anxiety disorder, unspecified; Z20.828 Contact with and (suspected) exposure to other viral communicable diseases; Z66 Do not resuscitate; G89.29 Other chronic pain; H26.9 Unspecified cataract; K63.89 Other specified diseases of intestine; M81.0 Age-related osteoporosis without current pathological fracture; R32 Unspecified urinary incontinence; Z91.81 History of falling; Z80.52 Family history of malignant neoplasm of bladder; Z82.49 Family history of ischemic heart disease and other diseases of the circulatory system; Z82.61 Family history of arthritis; R91.8 Other nonspecific abnormal finding of lung field; Z87.891 Personal history of nicotine dependence; Z90.49 Acquired absence of other specified parts of digestive tract; Z90.89 Acquired absence of other organs; Z86.19 Personal history of other infectious and parasitic diseases; Z92.3 Personal history of irradiation; Z80.6 Family history of leukemia
CPT/HCPCS: 36600; 70450; 74022; 74176; 80048; 80051; 80053; 80202; 81001; 82330; 82378; 82607; 82728; 82746; 82805; 83540; 83550; 83605; 83630; 83735; 84100; 84132; 84478; 85025; 85027; 87040; 87045; 87046; 87324; 87635; 96361; 96365; 96366; 96375; 99285

== ENCOUNTER → 2020-04-04 | Outpatient (CLI) | payer MEDICARE ==
--- NOTE | 2020-04-04 15:21 | MR ---
EXAMINATION TYPE: MR brain wo/w con DATE OF EXAM: 04/04/2020 COMPARISON: 11/17/2019 HISTORY: Secondary malignant neoplasm of brain CONTRAST: Performed utilizing 4.5 mL intravenous Gadavist gadolinium contrast. TECHNIQUE: Multiplanar, multiecho imaging on a 3.0 Nilda magnet is performed through the brain. Stud y is performed within 24 hours of arrival to the hospital. The craniovertebral junction is normal. The pituitary is normal. Diffusion-weighted imaging is performed. No abnormal hyperintensity is present to suggest an acute i ntracranial infarct or acute ischemic change. Periventricular white matter hypodensity is present, likely on the basis of chronic white matter isch emic changes. Within the medial left cerebellum best visualized on postcontrast T1-weighted images and hypointense lobular area measuring 1.2 cm AP by 0.7 cm transverse given the plane of section imaging appears stab le from comparison. Ventricles and sulci are appropriate for the patient age. There is a patent cavum septum lucidum and cavum vergae, normal variants. Some perivascular atrophy may be at the vertex bilaterally. IMPRESSIONS: 1. Atrophy with periventricular white matter ischemic changes. 2. Minimal elongation of the hypointensity at the inferior medial left cerebellum. No new enhancemen t or adjacent vasogenic edema. 3. Exam otherwise appears stable.
== END | disposition home or self-care (01) ==
LOC: RADMRIMAIN 12:38
PROVIDERS: ATTEND Internal Medicine Hematology & Oncology
DX: I67.82 Cerebral ischemia (principal); G31.9 Degenerative disease of nervous system, unspecified; G93.89 Other specified disorders of brain; C18.2 Malignant neoplasm of ascending colon; C78.7 Secondary malignant neoplasm of liver and intrahepatic bile duct
CPT/HCPCS: 70553; A9585

== ENCOUNTER → 2020-04-07 | Outpatient (CLI) | payer MEDICARE ==
[2020-04-07 11:10] LABS: African American GFR (CKD) >90 (>60 ml/min/1.73 sqM); Blood Urea Nitrogen 9 mg/dL (7-17); Non-African American GFR(CKD) 88 (>60 ml/min/1.73 sqM)
--- NOTE | 2020-04-07 12:39 | CT ---
EXAMINATION TYPE: CT ChestAbdPelvis w con DATE OF EXAM: 04/07/2020 COMPARISON: 01/18/2020 and 12/15/2019 HISTORY: Colon CA, Mets to Liver CT DLP: 394.5 mGycm CONTRAST: CT scan of the chest, abdomen and pelvis is performed with Oral Contrast and with IV Contrast, patien t injected with 100 mL of Isovue 300. CT Chest: LUNGS: There are multiple new pulmonary nodules seen throughout both lung larkin. They're between 35 and 40 pulmonary nodules right lung field measuring up to 1.2 cm. Similar number of pulmonary nodules are seen throughout the left lung measuring up to 1.8 cm. MEDIASTINUM: Thoracic aorta is of normal caliber. The heart is not enlarged. No evidence for media stinal mass or adenopathy. HILAR STRUCTURES: No evidence for mass. No hilar adenopathy is appreciated. OTHER: No significant abnormality. CONTRAST CT ABDOMEN AND PELVIS FINDINGS: LIVER/GB: Innumerable hepatic lesions are noted involving all hepatic segments measuring up to 3.3 cm left hepatic lobe lateral segment and up to 3.2 cm anterior segment right hepatic lobe. PANCREAS: N o inflammation. No distinct mass. SPLEEN: No splenic enlargement. No lesion seen. ADRENALS: No nodule. No thickening. KIDNEYS/BLADDER: No hydronephrosis. No nephrolithiasis. No disctinct renal mass. BOWEL: Normal appendix. Normal bowel caliber. No inflammation. GENITAL ORGANS: No gross abnormality. LYMPH NODES: There is para-aortic lymph nodes noted measuring up to 9 mm. Aortoenteric caval lymph no chase are noted measuring up to 1.4 cm. Retrocrural adenopathy measures 1.7 cm. AORTA: No significant abnormality. OSSEOUS STRUCTURES: No significant abnormality is seen. OTHER: No significant additional abnormality is seen. IMPRESSION: 1. Progressive hepatic metastatic disease. 2. Progressive metastatic disease to the lungs. 3. No retroperitoneal retrocrural adenopathy.
== END | disposition home or self-care (01) ==
LOC: RADCTMAIN 09:27
PROVIDERS: ATTEND Internal Medicine Hematology & Oncology
DX: C78.7 Secondary malignant neoplasm of liver and intrahepatic bile duct (principal); C78.00 Secondary malignant neoplasm of unspecified lung; C18.2 Malignant neoplasm of ascending colon; C18.7 Malignant neoplasm of sigmoid colon; C79.31 Secondary malignant neoplasm of brain
CPT/HCPCS: 82565; 84520; 71260; 74177; 36415; Q9967 ×2